=== PATIENT | female | born 1940 | race Caucasian/White ===

== ENCOUNTER 2020-03-13 11:59 | Outpatient (REF) | payer MEDICARE, OTHER, SELFPAY ==
--- NOTE | 2020-03-13 | XR_ITS ---
EXAMINATION: XR LUMBOSACRAL SPINE CLINICAL INFORMATION: Low back pain radiating to right lower leg. COMPARISON: None. TECHNIQUE: 3 views of the lumbosacral spine. FINDINGS: There is normal lumbar lordosis. There is grade 1 anterolisthesis L4 over L5. The rest the vertebral alignment is normal. There is mild loss of L2-L3, L5-S1 disc heights with mild ventral spondylosis. No visible acute fracture, dislocation or lytic process seen. There is minimal levoscoliosis. There are multiple radiopaque gallstones present. XR/XR lumbar spine 2-3V IMPRESSION: Grade 1 anterolisthesis L4 over L5. Mild degenerative disc changes L2-L3 and L5-S1 disc levels with mild ventral spondylosis. Mild levoscoliosis. Cholelithiasis.
== END 2020-03-13 12:00 | disposition home or self-care (01) ==
LOC: HO.HMGCX 11:59
PROVIDERS: PCP Internal Medicine; Visit Provider Internal Medicine
DX: M54.5 Low back pain (principal)
CPT/HCPCS: 72100

== ENCOUNTER 2020-04-09 14:30 | Outpatient (REF) | payer MEDICARE, OTHER, SELFPAY ==
--- NOTE | 2020-04-09 14:37 | CT_ITS ---
EXAMINATION: CT ABDOMEN AND PELVIS WITH CONTRAST CLINICAL INFORMATION: Leukocytosis, tenderness, rule out diverticulitis. COMPARISON: 01/17/2018 TECHNIQUE: Multidetector volumetric images were obtained from the superior aspect of the liver through the pubic symphysis following administration 85 mL of Omnipaque 350 intravenous contrast. Sagittal and coronal reformatted images were obtained on the technologist's workstation. Oral contrast: No This CT examination was performed using dose optimization techniques as appropriate, variously including the following: *Automated exposure control *Adjustment of mA and/or kV according to patient size (this includes techniques or standardized protocols for targeted exams where dose is matched to indication/reason for exam; i.e. extremities or head) *Use of iterative reconstruction technique DLP: 478 mGy-cm FINDINGS: LUNG BASES: Mild bibasilar atelectasis. LIVER, GALLBLADDER, AND BILIARY TREE: There are several small low-attenuation lesions in liver, appearing similar as compared to the prior study. These are too small to characterize by CT. Larger lesion left lobe measures 6 mm. Gallstones. No acute inflammatory changes evident by CT. PANCREAS: Unremarkable. Stable small calcified focus. SPLEEN: Unremarkable. ADRENAL GLANDS: Unremarkable. KIDNEYS AND URETERS: The kidneys are normal in size, shape, and attenuation. No hydronephrosis, hydroureter, or calculi seen. No perinephric stranding. BLADDER: Underdistended. There is mild bladder wall thickening which could be related to underdistention versus other etiologies such as cystitis. GASTROINTESTINAL TRACT: There is diverticulosis of the large colon. There is a mild haziness and inflammatory changes adjacent to the sigmoid colon in the left lower pelvis, raising concern for diverticulitis. No focal fluid collections or free air is seen. Stomach is nondistended. No dilatation of the small bowel. Appendix is normal. ABDOMINAL WALL: No significant hernia is appreciated. LYMPH NODES: There are nonspecific subcentimeter lymph nodes in the retroperitoneum which were seen on the prior study, some of which may be slightly more prominent as compared to previous. No lymphadenopathy by size criteria. VASCULAR: Normal caliber aorta. Extensive vascular calcification. PELVIC VISCERA: Uterus has been removed. No adnexal masses identified. OSSEOUS STRUCTURES: Redemonstrated is spondylosis in the thoracolumbar spine. Moderate to severe L5-S1 disc degeneration. Grade 1 anterolisthesis of L4. Multilevel degenerative changes otherwise in the spine. No acute or suspicious osseous abnormality. CT/CT abdomen pelvis w con IMPRESSION: Sigmoid diverticulosis with findings raising concern for mild diverticulitis. No evidence of perforation, abscess. Stable multiple small hypodense liver lesions, too small to characterize, probable cysts. Gallstones. No CT evidence of acute inflammatory changes. Further evaluation with ultrasound as clinically warranted. Slight thick wall appearance of the urinary bladder, which could be related to lack of distention versus cystitis. Correlate with urinalysis. This critical result was discussed with Dr. Maxwell at 1743 hours on 04/09/2020 and it was ascertained that the content and urgency of the report was understood at the time of direct communication.
[2020-04-09] MEDS: iohexoL 350 MG/ML 100 ML INFUS..BTL IV (17:09)
== END 2020-04-09 14:31 | disposition home or self-care (01) ==
LOC: HO.CT 14:30
PROVIDERS: Visit Provider Internal Medicine
DX: D72.829 Elevated white blood cell count, unspecified (principal)
CPT/HCPCS: 74177; Q9967

== ENCOUNTER 2020-05-27 08:45 | Outpatient (REF) | payer MEDICARE, OTHER, SELFPAY ==
--- NOTE | 2020-05-27 08:48 | MM_ITS ---
EXAMINATION: MM SCREENING DIGITAL BREAST TOMOSYNTHESIS, BILATERAL CLINICAL INFORMATION: Screening. Asymptomatic. The lifetime risk of breast cancer based on the Tyrer-Cuzick Model is 3.3%. COMPARISON: Mammography: May 22, 2019 and studies dating back to November 11, 2011 TECHNIQUE: Digital breast tomosynthesis is performed in both the craniocaudal and mediolateral oblique views along with computer-aided detection (CAD). Synthesized 2D images are generated from the tomosynthesis. Right cleavage view also performed. FINDINGS: There are scattered areas of fibroglandular density (ACR BI-RADS breast composition Category b). There is a stable right breast parenchymal pattern without evidence of dominant mass or suspicious grouping of microcalcifications. Within the superior aspect of the left breast approximately 5 cm from the nipple. There is a region of architectural distortion which appears more prominent than on prior studies and for which spot compression film and possible ultrasound is recommended. MM/MM tomosynthesis screening BI IMPRESSION: Left breast density for further evaluation as described. ASSESSMENT: BI-RADS 0: Incomplete - Need Additional Imaging Evaluation RECOMMENDATION: 1. Additional views of the left breast 2. Targeted ultrasound if warranted after review of the additional views. 3. Radiology department staff will contact the patient for additional imaging. This patient's information was entered into a reminder system with a target due date for their next mammogram.
== END 2020-05-27 08:46 | disposition home or self-care (01) ==
LOC: HO.MAMMO 08:45
PROVIDERS: PCP Internal Medicine; Visit Provider Internal Medicine
DX: Z12.31 Encounter for screening mammogram for malignant neoplasm of breast (principal)
CPT/HCPCS: 77063; 77067

== ENCOUNTER 2020-06-03 07:27 | Outpatient (REF) | payer MEDICARE, OTHER, SELFPAY ==
--- NOTE | 2020-06-03 07:32 | MM_ITS ---
EXAMINATION: MM DIAGNOSTIC DIGITAL BREAST TOMOSYNTHESIS, LEFT CLINICAL INFORMATION: Recall from screening for question of architectural changes upper left breast limited to MLO view COMPARISON: Mammography: 05/27/2019 and multiple exams dating back to 03/01/2014 TECHNIQUE: Digital breast tomosynthesis is performed. 2D images are generated from the tomosynthesis. The following views are obtained: Standard ML x2, spot MLO. FINDINGS: There are scattered areas of fibroglandular density (ACR BI-RADS breast composition Category b). The additional views show no architectural abnormality. There is no developing density or mass. No significant changes from prior studies. Results are discussed with the patient at time of visit. MM/MM tomosynthesis added views L IMPRESSION: Additional views show no significant changes from prior studies. No architectural abnormality. ASSESSMENT: BI-RADS 1: Negative RECOMMENDATION: Routine annual mammography screening. This patient's information was entered into a reminder system with a target due date for their next mammogram.
== END 2020-06-03 07:28 | disposition home or self-care (01) ==
LOC: HO.MAMMO 07:27
PROVIDERS: Visit Provider Internal Medicine
DX: R92.2 Inconclusive mammogram (principal)
CPT/HCPCS: 77061; 77065

== ENCOUNTER 2020-10-02 11:40 | Outpatient (REF) | payer MEDICARE, OTHER, SELFPAY ==
[2020-10-02 12:10] LABS: MANUAL DIFF FLAG NO
[2020-10-02 12:17] LABS: Basophils Absolute Auto 0.1 X10*3/uL (0.0-0.2); Eosinophils Absolute Auto 0.2 X10*3/uL (0.0-0.4); Eosinophils Percent Auto 2.3 % (0-4); Hematocrit 34.6 % (37-47); Hemoglobin 11.4 g/dl (12.0-16.0); Imm Gran Abs Auto 0.02 X10*3/uL (0.00-0.03); Imm Gran Pct Auto 0.2 % (0.0-0.4); Lymphocytes Absolute Auto 2.3 X10*3/uL (1.2-4.9); Lymphocytes Percent Auto 25.6 % (20-40); Mean Corpuscular HGB Conc 32.9 g/dl (31.0-35.0); Mean Corpuscular Hemoglobin 28.9 pg (27.0-33.0); Mean Corpuscular Volume 87.6 fL (80-98); Mean Platelet Volume 9.3 fL (9.4-12.3); Monocytes Absolute Auto 1.1 X10*3/uL (0.1-1.2); Monocytes Percent Auto 12.2 % (2-11); Neutrophils Absolute Auto 5.2 X10*3/uL (2.0-8.3); Neutrophils Percent Auto 58.7 % (45-73); Platelet Count 371 X10*3/uL (160-400); Red Blood Count 3.95 X10*6/uL (4.20-5.50); Red Cell Distribution Width 13.5 % (11.0-16.0); White Blood Count 8.9 X10*3/uL (4.8-10.8)
[2020-10-02 12:32] LABS: Alanine Aminotransferase 12 U/L (0-31); Alkaline Phosphatase 78 U/L (39-117); Anion Gap 13 (12-20); Aspartate Amino Transferase 15 U/L (5-31); Blood Urea Nitrogen 13 mg/dL (9-16); Calcium 10.2 mg/dL (8.4-10.2); Carbon Dioxide 27 mmol/L (22-29); Chloride 106 mmol/L (96-108); Estimated Glomerular Filt Rate > 60; Glucose Random 104 mg/dL (60-115); Potassium 4.1 mmol/L (3.3-5.1); Sodium 142 mmol/L (135-145); Total Protein 8.5 g/dL (6.5-8.0)
[2020-10-03 08:25] LABS: HBS Num1 0.24 mIU/mL (0-7.99); ~Hepatitis B Surface Antibody NONREACTIVE (Nonreactive)
[2020-10-05 02:17] LABS: IgA 18 mg/dL (70-320); IgG 416 mg/dL (600-1540); IgM 3307 mg/dL (50-300)
[2020-10-07 23:11] LABS: PES - Abn Protein Band 1 2.3 g/dL (NONE DETECTED); Prot Elec - Albumin 3.9 g/dL (3.8-4.8); Prot Elec - Alpha1 0.4 g/dL (0.2-0.3); Prot Elec - Alpha2 0.9 g/dL (0.5-0.9); Prot Elec - Beta 1 0.4 g/dL (0.4-0.6); Prot Elec - Beta 2 0.3 g/dL (0.2-0.5); Prot Elec - Gamma 2.8 g/dL (0.8-1.7); Prot Elec - Total Protein 8.5 g/dL (6.1-8.1)
== END 2020-10-02 11:41 | disposition home or self-care (01) ==
LOC: HO.LAB 11:40
PROVIDERS: PCP Internal Medicine; Visit Provider Internal Medicine Medical Oncology
DX: C83.00 Small cell B-cell lymphoma, unspecified site (principal)
CPT/HCPCS: 36415; 80053; 82784; 84155; 84165; 85025; 86706

== ENCOUNTER 2020-10-14 14:32 | Outpatient (REF) | payer MEDICARE, OTHER, SELFPAY ==
[2020-10-14 14:52] LABS: Bone Marrow SEE SEPARATE REPORT
== END 2020-10-14 14:33 | disposition home or self-care (01) ==
LOC: HO.LNP 14:32
PROVIDERS: Visit Provider Internal Medicine Medical Oncology
DX: C83.00 Small cell B-cell lymphoma, unspecified site (principal); C88.0 Waldenstrom macroglobulinemia
CPT/HCPCS: 81305; 85097; 88184; 88185; 88237; 88264; 88280; 88305; 88311; 88313; 88341; 88342

== ENCOUNTER 2020-10-28 14:17 | Outpatient (REF) | payer MEDICARE, OTHER, SELFPAY ==
[2020-10-28 15:25] LABS: MANUAL DIFF FLAG NO
[2020-10-28 15:29] LABS: Basophils Absolute Auto 0.1 X10*3/uL (0.0-0.2); Basophils Percent Auto 0.8 % (0-2); Eosinophils Absolute Auto 0.2 X10*3/uL (0.0-0.4); Eosinophils Percent Auto 1.7 % (0-4); Hematocrit 34.9 % (37-47); Hemoglobin 11.3 g/dl (12.0-16.0); Imm Gran Abs Auto 0.02 X10*3/uL (0.00-0.03); Imm Gran Pct Auto 0.2 % (0.0-0.4); Lymphocytes Absolute Auto 2.6 X10*3/uL (1.2-4.9); Lymphocytes Percent Auto 26.4 % (20-40); Mean Corpuscular HGB Conc 32.4 g/dl (31.0-35.0); Mean Corpuscular Hemoglobin 28.5 pg (27.0-33.0); Mean Corpuscular Volume 87.9 fL (80-98); Mean Platelet Volume 8.8 fL (9.4-12.3); Monocytes Absolute Auto 1.2 X10*3/uL (0.1-1.2); Monocytes Percent Auto 12.1 % (2-11); Neutrophils Absolute Auto 5.7 X10*3/uL (2.0-8.3); Neutrophils Percent Auto 58.8 % (45-73); Platelet Count 400 X10*3/uL (160-400); Red Blood Count 3.97 X10*6/uL (4.20-5.50); Red Cell Distribution Width 13.8 % (11.0-16.0); White Blood Count 9.7 X10*3/uL (4.8-10.8)
[2020-10-28 15:55] LABS: Alanine Aminotransferase 11 U/L (0-31); Albumin Level 4.1 g/dL (3.5-5.0); Alkaline Phosphatase 76 U/L (39-117); Anion Gap 10 (12-20); Aspartate Amino Transferase 15 U/L (5-31); Blood Urea Nitrogen 15 mg/dL (9-16); Carbon Dioxide 29 mmol/L (22-29); Chloride 104 mmol/L (96-108); Estimated Glomerular Filt Rate 56; Glucose Random 98 mg/dL (60-115); Potassium 4.4 mmol/L (3.3-5.1); Sodium 139 mmol/L (135-145); Total Protein 8.9 g/dL (6.5-8.0)
[2020-10-28 16:09] LABS: Calcium 10.9 mg/dL (8.4-10.2)
[2020-10-29 22:56] LABS: IgA 20 mg/dL (70-320); IgG 442 mg/dL (600-1540); IgM 3609 mg/dL (50-300)
== END 2020-10-28 14:18 | disposition home or self-care (01) ==
LOC: HO.LAB 14:17
PROVIDERS: PCP Internal Medicine; Visit Provider Internal Medicine Medical Oncology
DX: C83.00 Small cell B-cell lymphoma, unspecified site (principal)
CPT/HCPCS: 36415; 80053; 82784; 85025

== ENCOUNTER 2020-11-03 08:58 | Outpatient (REF) | payer MEDICARE, OTHER, SELFPAY ==
--- NOTE | ~2020-11-03 | CT_ITS ---
EXAMINATION: CT CHEST, ABDOMEN AND PELVIS WITH IV CONTRAST CLINICAL INFORMATION: Restaging. COMPARISON: Previous CT scans of the abdomen and pelvis, most recent April 2020 and chest x-ray July 2017. TECHNIQUE: Axial images through the chest, abdomen and pelvis following 85 mL Omnipaque 350 intravenous contrast and oral contrast. Sagittal and coronal reconstructions on the technologist workstation were performed. Patient dose 505 mGy-cm. This CT examination was performed using dose optimization techniques as appropriate, variously including the following: *Automated exposure control *Adjustment of mA and/or kV according to patient size (this includes techniques or standardized protocols for targeted exams where dose is matched to indication/reason for exam; i.e. extremities or head) *Use of iterative reconstruction technique FINDINGS: CHEST: There is a 3 mm calcified left upper lobe nodule, axial image 162 series 8. The lungs are otherwise clear. The heart is upper normal in size. There is mild coronary artery calcification. There is no pericardial effusion. Thoracic aorta is normal in caliber. There is shotty mediastinal lymphadenopathy. Largest lymph nodes are upper normal in size. Largest is a right paratracheal lymph node measuring 7 x 10 mm, axial image 9 series 4. The visualized thyroid gland is unremarkable. There is no pleural effusion or pleural thickening. Shotty bilateral axillary lymphadenopathy. No enlarged axillary lymph nodes are seen. ABDOMEN AND PELVIS: There are small low-attenuation liver lesions that are stable, probably represent cysts and largest measures 0.8 cm in the posterior segment of the right lobe, axial image 31 series 4. No new liver lesion is seen. There are gallstones in the gallbladder. There is no biliary duct dilatation. The spleen does not appear enlarged. No focal splenic lesion is seen. Pancreas is unremarkable. The adrenal glands and kidneys are unremarkable. Bladder is not full and not well evaluated. No pelvic mass is seen. There is diverticulosis of the colon. Small and large bowel are otherwise unremarkable. The appendix is unremarkable. There is question of mild wall thickening of the proximal stomach. There is stable retroperitoneal lymphadenopathy and fat stranding. No enlarged lymph nodes are seen. Largest abdominal retroperitoneal lymph node is a left para-aortic lymph node that measures 0.8 x 1.2 cm, axial image 41. Largest pelvic retroperitoneal lymph node is a left external iliac lymph node measuring 1 x 1.4 cm, axial image 67 series 4. There are small bilateral inguinal lymph nodes that are stable. There is stable periportal and precaval adenopathy. There is no ascites. There is evidence of atherosclerotic disease. No aneurysm is seen. There are degenerative changes of the spine. No fracture or bone lesion. CT/CT abdomen pelvis w con IMPRESSION: CHEST: Solitary small calcified left upper lobe nodule and shotty mediastinal and bilateral hilar lymphadenopathy. No enlarged lymph nodes. Coronary artery calcification. ABDOMEN AND PELVIS: Stable small liver lesions, probably representing cysts. Stable shotty retroperitoneal lymphadenopathy in the abdomen and pelvis, periportal and precaval lymphadenopathy and bilateral inguinal lymphadenopathy. No enlarged lymph nodes seen. Gallstones. Diverticulosis.
[2020-11-03] MEDS: Barium Sulfate Oral (Berry) 450 ML ORAL.SUSP 900 ML PO (11:57)
[2020-11-03] MEDS: iohexoL 350 MG/ML 100 ML INFUS..BTL IV (11:58)
== END 2020-11-03 08:59 | disposition home or self-care (01) ==
LOC: HO.CT 08:58
PROVIDERS: Visit Provider Internal Medicine Medical Oncology
DX: C83.00 Small cell B-cell lymphoma, unspecified site (principal)
CPT/HCPCS: 71260; 74177; Q9967

== ENCOUNTER 2020-12-02 10:06 | Outpatient (REF) | payer MEDICARE, OTHER, SELFPAY ==
[2020-12-02 11:01] LABS: MANUAL DIFF FLAG NO
[2020-12-02 11:24] LABS: Basophils Absolute Auto 0.1 X10*3/uL (0.0-0.2); Eosinophils Absolute Auto 0.3 X10*3/uL (0.0-0.4); Hematocrit 35.8 % (37-47); Hemoglobin 11.8 g/dl (12.0-16.0); Imm Gran Abs Auto 0.02 X10*3/uL (0.00-0.03); Imm Gran Pct Auto 0.2 % (0.0-0.4); Lymphocytes Absolute Auto 2.2 X10*3/uL (1.2-4.9); Lymphocytes Percent Auto 25.2 % (20-40); Mean Corpuscular Hemoglobin 29.1 pg (27.0-33.0); Mean Corpuscular Volume 88.2 fL (80-98); Mean Platelet Volume 9.4 fL (9.4-12.3); Monocytes Absolute Auto 1.2 X10*3/uL (0.1-1.2); Neutrophils Absolute Auto 4.9 X10*3/uL (2.0-8.3); Neutrophils Percent Auto 56.6 % (45-73); Platelet Count 390 X10*3/uL (160-400); Red Blood Count 4.06 X10*6/uL (4.20-5.50); Red Cell Distribution Width 13.9 % (11.0-16.0); White Blood Count 8.7 X10*3/uL (4.8-10.8)
[2020-12-02 11:38] LABS: Alanine Aminotransferase 11 U/L (0-31); Albumin Level 3.9 g/dL (3.5-5.0); Alkaline Phosphatase 81 U/L (39-117); Anion Gap 10 (12-20); Aspartate Amino Transferase 15 U/L (5-31); Bilirubin Total 1.3 mg/dL (0.0-1.0); Blood Urea Nitrogen 11 mg/dL (9-16); Carbon Dioxide 27 mmol/L (22-29); Chloride 107 mmol/L (96-108); Estimated Glomerular Filt Rate 57; Glucose Random 98 mg/dL (60-115); Potassium 4.2 mmol/L (3.3-5.1); Sodium 140 mmol/L (135-145); Total Protein 8.7 g/dL (6.5-8.0)
[2020-12-02 11:46] LABS: Calcium 10.6 mg/dL (8.4-10.2)
[2020-12-04 14:46] LABS: PES - Abn Protein Band 1 2.2 g/dL (NONE DETECTED); Prot Elec - Albumin 3.9 g/dL (3.8-4.8); Prot Elec - Alpha1 0.3 g/dL (0.2-0.3); Prot Elec - Alpha2 0.9 g/dL (0.5-0.9); Prot Elec - Beta 1 0.3 g/dL (0.4-0.6); Prot Elec - Beta 2 0.3 g/dL (0.2-0.5); Prot Elec - Gamma 2.8 g/dL (0.8-1.7); Prot Elec - Total Protein 8.5 g/dL (6.1-8.1)
[2020-12-05 17:17] LABS: IgA 20 mg/dL (70-320); IgG 409 mg/dL (600-1540); IgM 3993 mg/dL (50-300)
[2020-12-06 09:31] LABS: Viscosity 2.5 rel to H2O (1.5-1.9)
== END 2020-12-02 10:07 | disposition home or self-care (01) ==
LOC: HO.LAB 10:06
PROVIDERS: PCP Internal Medicine; Visit Provider Internal Medicine Medical Oncology
DX: D47.2 Monoclonal gammopathy (principal); D75.9 Disease of blood and blood-forming organs, unspecified; D64.9 Anemia, unspecified
CPT/HCPCS: 36415; 80053; 82784; 84165; 85025; 85810; 86334

== ENCOUNTER 2021-01-05 10:48 | Outpatient (REF) | payer MEDICARE, OTHER, SELFPAY ==
[2021-01-05 11:29] LABS: MANUAL DIFF FLAG NO
[2021-01-05 11:42] LABS: Basophils Absolute Auto 0.1 X10*3/uL (0.0-0.2); Basophils Percent Auto 1.1 % (0-2); Eosinophils Absolute Auto 0.2 X10*3/uL (0.0-0.4); Eosinophils Percent Auto 2.6 % (0-4); Hematocrit 35.7 % (37-47); Hemoglobin 11.9 g/dl (12.0-16.0); Imm Gran Abs Auto 0.03 X10*3/uL (0.00-0.03); Imm Gran Pct Auto 0.3 % (0.0-0.4); Lymphocytes Absolute Auto 2.2 X10*3/uL (1.2-4.9); Lymphocytes Percent Auto 24.4 % (20-40); Mean Corpuscular HGB Conc 33.3 g/dl (31.0-35.0); Mean Corpuscular Hemoglobin 29.5 pg (27.0-33.0); Mean Corpuscular Volume 88.6 fL (80-98); Mean Platelet Volume 9.6 fL (9.4-12.3); Monocytes Absolute Auto 1.1 X10*3/uL (0.1-1.2); Monocytes Percent Auto 12.2 % (2-11); Neutrophils Absolute Auto 5.4 X10*3/uL (2.0-8.3); Neutrophils Percent Auto 59.4 % (45-73); Platelet Count 379 X10*3/uL (160-400); Red Blood Count 4.03 X10*6/uL (4.20-5.50); Red Cell Distribution Width 13.4 % (11.0-16.0)
[2021-01-05 11:53] LABS: Alanine Aminotransferase 12 U/L (0-31); Albumin Level 3.9 g/dL (3.5-5.0); Alkaline Phosphatase 82 U/L (39-117); Anion Gap 12 (12-20); Aspartate Amino Transferase 14 U/L (5-31); Bilirubin Total 1.1 mg/dL (0.0-1.0); Blood Urea Nitrogen 14 mg/dL (9-16); Calcium 10.9 mg/dL (8.4-10.2); Carbon Dioxide 29 mmol/L (22-29); Chloride 104 mmol/L (96-108); Estimated Glomerular Filt Rate 59; Glucose Random 104 mg/dL (60-115); Potassium 4.2 mmol/L (3.3-5.1); Sodium 141 mmol/L (135-145); Total Protein 8.5 g/dL (6.5-8.0)
[2021-01-06 22:11] LABS: PES - Abn Protein Band 1 2.1 g/dL (NONE DETECTED); Prot Elec - Albumin 3.8 g/dL (3.8-4.8); Prot Elec - Alpha1 0.3 g/dL (0.2-0.3); Prot Elec - Alpha2 0.8 g/dL (0.5-0.9); Prot Elec - Beta 1 0.3 g/dL (0.4-0.6); Prot Elec - Beta 2 0.3 g/dL (0.2-0.5); Prot Elec - Gamma 2.5 g/dL (0.8-1.7)
[2021-01-07 02:56] LABS: IgA 19 mg/dL (70-320); IgG 389 mg/dL (600-1540); IgM 3353 mg/dL (50-300)
[2021-01-10 08:27] LABS: Viscosity 2.4 rel to H2O (1.5-1.9)
== END 2021-01-05 10:49 | disposition home or self-care (01) ==
LOC: HO.LAB 10:48
PROVIDERS: PCP Internal Medicine; Visit Provider Internal Medicine Medical Oncology
DX: C83.00 Small cell B-cell lymphoma, unspecified site (principal)
CPT/HCPCS: 36415; 80053; 82784; 84165; 85025; 85810; 86334

== ENCOUNTER 2021-02-17 10:35 | Outpatient (REF) | payer MEDICARE, OTHER, SELFPAY ==
[2021-02-17 10:50] LABS: MANUAL DIFF FLAG NO
[2021-02-17 11:05] LABS: Basophils Absolute Auto 0.1 X10*3/uL (0.0-0.2); Eosinophils Absolute Auto 0.3 X10*3/uL (0.0-0.4); Eosinophils Percent Auto 3.1 % (0-4); Hematocrit 35.4 % (37-47); Imm Gran Abs Auto 0.03 X10*3/uL (0.00-0.03); Imm Gran Pct Auto 0.3 % (0.0-0.4); Lymphocytes Absolute Auto 2.7 X10*3/uL (1.2-4.9); Lymphocytes Percent Auto 28.2 % (20-40); Mean Corpuscular HGB Conc 33.9 g/dl (31.0-35.0); Mean Corpuscular Hemoglobin 29.5 pg (27.0-33.0); Mean Platelet Volume 9.1 fL (9.4-12.3); Monocytes Absolute Auto 1.1 X10*3/uL (0.1-1.2); Monocytes Percent Auto 11.8 % (2-11); Neutrophils Absolute Auto 5.3 X10*3/uL (2.0-8.3); Neutrophils Percent Auto 55.6 % (45-73); Platelet Count 429 X10*3/uL (160-400); Red Blood Count 4.07 X10*6/uL (4.20-5.50); Red Cell Distribution Width 13.4 % (11.0-16.0); White Blood Count 9.5 X10*3/uL (4.8-10.8)
[2021-02-17 11:34] LABS: Alanine Aminotransferase 13 U/L (0-31); Alkaline Phosphatase 86 U/L (39-117); Aspartate Amino Transferase 15 U/L (5-31); Bilirubin Total 1.2 mg/dL (0.0-1.0); Blood Urea Nitrogen 11 mg/dL (9-16); Estimated Glomerular Filt Rate 60; Glucose Random 106 mg/dL (60-115); Total Protein 8.4 g/dL (6.5-8.0)
[2021-02-17 11:50] LABS: Anion Gap 14 (12-20); Calcium 11.3 mg/dL (8.4-10.2); Carbon Dioxide 25 mmol/L (22-29); Chloride 103 mmol/L (96-108); Potassium 4.2 mmol/L (3.3-5.1); Sodium 138 mmol/L (135-145)
[2021-02-18 14:40] LABS: PES - Abn Protein Band 1 2.1 g/dL (NONE DETECTED); Prot Elec - Albumin 3.9 g/dL (3.8-4.8); Prot Elec - Alpha1 0.4 g/dL (0.2-0.3); Prot Elec - Alpha2 0.9 g/dL (0.5-0.9); Prot Elec - Beta 1 0.4 g/dL (0.4-0.6); Prot Elec - Beta 2 0.3 g/dL (0.2-0.5); Prot Elec - Gamma 2.6 g/dL (0.8-1.7); Prot Elec - Total Protein 8.4 g/dL (6.1-8.1)
[2021-02-19 14:26] LABS: IgA 28 mg/dL (70-320); IgG 413 mg/dL (600-1540); IgM 3309 mg/dL (50-300)
[2021-02-24 07:36] LABS: Viscosity 2.3 rel to H2O (1.5-1.9)
== END 2021-02-17 10:36 | disposition home or self-care (01) ==
LOC: HO.LAB 10:35
PROVIDERS: PCP Internal Medicine; Visit Provider Internal Medicine Medical Oncology
DX: D75.9 Disease of blood and blood-forming organs, unspecified (principal); D64.9 Anemia, unspecified; C83.00 Small cell B-cell lymphoma, unspecified site
CPT/HCPCS: 36415; 80053; 82784; 84165; 85025; 85810; 86334

== ENCOUNTER 2021-03-17 10:32 | Outpatient (REF) | payer MEDICARE, OTHER, SELFPAY ==
[2021-03-17 10:43] LABS: MANUAL DIFF FLAG NO
[2021-03-17 11:03] LABS: Basophils Absolute Auto 0.1 X10*3/uL (0.0-0.2); Basophils Percent Auto 0.7 % (0-2); Eosinophils Absolute Auto 0.2 X10*3/uL (0.0-0.4); Eosinophils Percent Auto 2.5 % (0-4); Hematocrit 34.8 % (37.0-47.0); Hemoglobin 11.6 g/dl (12.0-16.0); Imm Gran Abs Auto 0.02 X10*3/uL (0.00-0.03); Imm Gran Pct Auto 0.2 % (0.0-0.4); Lymphocytes Absolute Auto 3.1 X10*3/uL (1.2-4.9); Lymphocytes Percent Auto 31.6 % (20-40); Mean Corpuscular HGB Conc 33.3 g/dl (31.0-35.0); Mean Corpuscular Hemoglobin 29.4 pg (27.0-33.0); Mean Corpuscular Volume 88.3 fL (80.0-98.0); Mean Platelet Volume 9.3 fL (9.4-12.3); Monocytes Absolute Auto 1.1 X10*3/uL (0.1-1.2); Monocytes Percent Auto 10.9 % (2-11); Neutrophils Absolute Auto 5.2 x10*3/uL (2.0-8.3); Neutrophils Percent Auto 54.1 % (45-73); Platelet Count 362 X10*3/uL (160-400); Red Blood Count 3.94 X10*6/uL (4.20-5.50); Red Cell Distribution Width 13.3 % (11.0-16.0); White Blood Count 9.7 X10*3/uL (4.8-10.8)
[2021-03-17 11:38] LABS: Alanine Aminotransferase 14 U/L (0-31); Albumin Level 3.9 g/dL (3.5-5.0); Alkaline Phosphatase 81 U/L (39-117); Anion Gap 10 (12-20); Aspartate Amino Transferase 16 U/L (5-31); Bilirubin Total 1.1 mg/dL (0.0-1.0); Blood Urea Nitrogen 12 mg/dL (9-16); Calcium 10.3 mg/dL (8.4-10.2); Carbon Dioxide 30 mmol/L (22-29); Chloride 104 mmol/L (96-108); Estimated Glomerular Filt Rate > 60; Glucose Random 114 mg/dL (60-115); Potassium 4.4 mmol/L (3.3-5.1); Sodium 140 mmol/L (135-145); Total Protein 8.3 g/dL (6.5-8.0)
[2021-03-18 16:37] LABS: Calcium (PTHI) 10.4 mg/dL (8.6-10.4); PTHI 46 pg/mL (14-64)
== END 2021-03-17 10:33 | disposition home or self-care (01) ==
LOC: HO.LAB 10:32
PROVIDERS: PCP Internal Medicine; Visit Provider Internal Medicine Medical Oncology
DX: D64.9 Anemia, unspecified (principal); C83.00 Small cell B-cell lymphoma, unspecified site; C88.0 Waldenstrom macroglobulinemia
CPT/HCPCS: 36415; 80053; 83970; 85025

== ENCOUNTER 2021-06-17 15:06 | Outpatient (REF) | payer MEDICARE, SELFPAY ==
[2021-06-17 15:22] LABS: MANUAL DIFF FLAG NO
[2021-06-17 15:39] LABS: Basophils Absolute Auto 0.1 X10*3/uL (0.0-0.2); Eosinophils Absolute Auto 0.2 X10*3/uL (0.0-0.4); Eosinophils Percent Auto 2.3 % (0-4); Hematocrit 35.1 % (37.0-47.0); Hemoglobin 11.6 g/dl (12.0-16.0); Imm Gran Abs Auto 0.02 X10*3/uL (0.00-0.03); Imm Gran Pct Auto 0.2 % (0.0-0.4); Lymphocytes Absolute Auto 2.9 X10*3/uL (1.2-4.9); Lymphocytes Percent Auto 28.8 % (20-40); Mean Corpuscular Hemoglobin 28.8 pg (27.0-33.0); Mean Corpuscular Volume 87.1 fL (80.0-98.0); Mean Platelet Volume 9.2 fL (9.4-12.3); Monocytes Percent Auto 10.2 % (2-11); Neutrophils Absolute Auto 5.7 x10*3/uL (2.0-8.3); Neutrophils Percent Auto 57.5 % (45-73); Platelet Count 393 X10*3/uL (160-400); Red Blood Count 4.03 X10*6/uL (4.20-5.50); Red Cell Distribution Width 13.1 % (11.0-16.0); White Blood Count 9.9 X10*3/uL (4.8-10.8)
[2021-06-17 16:09] LABS: Alanine Aminotransferase 11 U/L (0-31); Albumin Level 3.9 g/dL (3.5-5.0); Alkaline Phosphatase 79 U/L (39-117); Anion Gap 13 (12-20); Aspartate Amino Transferase 13 U/L (5-31); Bilirubin Total 0.8 mg/dL (0.0-1.0); Blood Urea Nitrogen 12 mg/dL (9-16); Calcium 10.2 mg/dL (8.4-10.2); Carbon Dioxide 26 mmol/L (22-29); Chloride 105 mmol/L (96-108); Estimated Glomerular Filt Rate 53; Glucose Random 139 mg/dL (60-115); Potassium 4.3 mmol/L (3.3-5.1); Sodium 140 mmol/L (135-145); Total Protein 8.5 g/dL (6.5-8.0)
[2021-06-22 06:12] LABS: Viscosity 2.2 rel to H2O (1.5-1.9)
[2021-06-23 13:22] LABS: Prot Elec - Albumin 4.1 g/dL (3.8-4.8); Prot Elec - Alpha1 0.3 g/dL (0.2-0.3); Prot Elec - Alpha2 0.9 g/dL (0.5-0.9); Prot Elec - Beta 1 0.4 g/dL (0.4-0.6); Prot Elec - Beta 2 0.3 g/dL (0.2-0.5); Prot Elec - Gamma 2.5 g/dL (0.8-1.7); Prot Elec - Total Protein 8.3 g/dL (6.1-8.1)
[2021-06-24 13:36] LABS: IgA 21 mg/dL (70-320); IgG 469 mg/dL (600-1540); IgM 4030 mg/dL (50-300)
== END 2021-06-17 15:07 | disposition home or self-care (01) ==
LOC: HO.LAB 15:06
PROVIDERS: PCP Internal Medicine; Visit Provider Internal Medicine Medical Oncology
DX: D64.9 Anemia, unspecified (principal)
CPT/HCPCS: 36415; 80053; 82784; 84165; 85025; 85810; 86334

== ENCOUNTER 2021-06-18 14:53 | Outpatient (REF) | payer MEDICARE, SELFPAY ==
--- NOTE | ~2021-06-18 | MM_ITS ---
EXAMINATION: MM SCREENING DIGITAL BREAST TOMOSYNTHESIS, BILATERAL CLINICAL INFORMATION: Screening. Asymptomatic. The lifetime risk of breast cancer based on the Tyrer-Cuzick Model is 3.1%. COMPARISON: Mammography: 06/03/2020 and studies dating back to 03/01/2014. TECHNIQUE: Digital breast tomosynthesis is performed in both the craniocaudal and mediolateral oblique views along with computer-aided detection (CAD). Synthesized 2D images are generated from the tomosynthesis. FINDINGS: There are scattered areas of fibroglandular density (ACR BI-RADS breast composition Category b). There are no significant masses, abnormal calcifications, or other abnormalities. There is a new grouping of calcifications about the deep superior aspect of the left breast which are seen to represent skin calcifications on tomosynthesis views. MM/MM tomosynthesis screening BI IMPRESSION: There are no significant changes from prior study. ASSESSMENT: BI-RADS 1: Negative RECOMMENDATION: Routine annual mammography screening. This patient's information was entered into a reminder system with a target due date for their next mammogram.
== END 2021-06-18 14:54 | disposition home or self-care (01) ==
LOC: HO.MAMMO 14:53
PROVIDERS: PCP Internal Medicine; Visit Provider Internal Medicine
DX: Z12.31 Encounter for screening mammogram for malignant neoplasm of breast (principal)
CPT/HCPCS: 77063; 77067

== ENCOUNTER 2021-09-15 09:11 | Outpatient (REF) | payer MEDICARE, OTHER, SELFPAY ==
[2021-09-15 09:34] LABS: MANUAL DIFF FLAG NO
[2021-09-15 09:52] LABS: Basophils Absolute Auto 0.1 X10*3/uL (0.0-0.2); Basophils Percent Auto 1.2 % (0-2); Eosinophils Absolute Auto 0.2 X10*3/uL (0.0-0.4); Eosinophils Percent Auto 2.8 % (0-4); Hemoglobin 11.9 g/dl (12.0-16.0); Imm Gran Abs Auto 0.02 X10*3/uL (0.00-0.03); Imm Gran Pct Auto 0.2 % (0.0-0.4); Lymphocytes Absolute Auto 2.4 X10*3/uL (1.2-4.9); Lymphocytes Percent Auto 27.4 % (20-40); Mean Corpuscular HGB Conc 33.1 g/dl (31.0-35.0); Mean Corpuscular Hemoglobin 28.7 pg (27.0-33.0); Mean Corpuscular Volume 86.7 fL (80.0-98.0); Mean Platelet Volume 9.1 fL (9.4-12.3); Monocytes Absolute Auto 0.9 X10*3/uL (0.1-1.2); Monocytes Percent Auto 10.6 % (2-11); Neutrophils Percent Auto 57.8 % (45-73); Platelet Count 409 X10*3/uL (160-400); Red Blood Count 4.15 X10*6/uL (4.20-5.50); Red Cell Distribution Width 13.1 % (11.0-16.0); White Blood Count 8.6 X10*3/uL (4.8-10.8)
[2021-09-15 10:28] LABS: Alanine Aminotransferase 8 U/L (0-31); Albumin Level 3.8 g/dL (3.5-5.0); Alkaline Phosphatase 84 U/L (39-117); Anion Gap 11 (12-20); Aspartate Amino Transferase 10 U/L (5-31); Bilirubin Total 1.2 mg/dL (0.0-1.0); Blood Urea Nitrogen 9 mg/dL (9-16); Calcium 10.3 mg/dL (8.4-10.2); Carbon Dioxide 27 mmol/L (22-29); Chloride 107 mmol/L (96-108); Cholesterol 128 mg/dL; Estimated Glomerular Filt Rate > 60; Glucose Fasting 117 mg/dL (60-99); HDL Cholesterol 34 mg/dL; LDL Cholesterol Calculated 82 mg/dl; Potassium 4.3 mmol/L (3.3-5.1); Sodium 141 mmol/L (135-145); Total Protein 8.7 g/dL (6.5-8.0); Triglycerides 64 mg/dL
[2021-09-17 22:56] LABS: PES - Abn Protein Band 1 2.2 g/dL (NONE DETECTED); Prot Elec - Albumin 3.8 g/dL (3.8-4.8); Prot Elec - Alpha1 0.4 g/dL (0.2-0.3); Prot Elec - Alpha2 0.9 g/dL (0.5-0.9); Prot Elec - Beta 1 0.4 g/dL (0.4-0.6); Prot Elec - Beta 2 0.3 g/dL (0.2-0.5); Prot Elec - Gamma 2.5 g/dL (0.8-1.7); Prot Elec - Total Protein 8.2 g/dL (6.1-8.1)
[2021-09-19 13:36] LABS: IgA 25 mg/dL (70-320); IgG 421 mg/dL (600-1540); IgM 3575 mg/dL (50-300)
[2021-09-21 13:07] LABS: Viscosity 2.2 rel to H2O (1.5-1.9)
== END 2021-09-15 09:12 | disposition home or self-care (01) ==
LOC: HO.LAB 09:11
PROVIDERS: PCP Internal Medicine; Visit Provider Internal Medicine Medical Oncology
DX: D64.9 Anemia, unspecified (principal)
CPT/HCPCS: 36415; 80053; 80061; 82784; 84165; 85025; 85810; 86334

== ENCOUNTER 2021-10-08 15:45 | Outpatient (REF) | payer MEDICARE, OTHER, SELFPAY ==
--- NOTE | ~2021-10-08 | XR_ITS ---
EXAMINATION: XR KNEE, LEFT CLINICAL INFORMATION: Left knee pain COMPARISON: None TECHNIQUE: Four views of the left knee. FINDINGS: No fracture or subluxation. Compartmental joint spaces are maintained. No joint effusion. The soft tissues are unremarkable. XR/XR knee LT 4V IMPRESSION: Normal left knee.
== END 2021-10-08 15:46 | disposition home or self-care (01) ==
LOC: HO.HMGCX 15:45
PROVIDERS: PCP Internal Medicine; Visit Provider Internal Medicine
DX: M25.562 Pain in left knee (principal)
CPT/HCPCS: 73564

== ENCOUNTER 2022-01-05 12:42 | Outpatient (REF) | payer MEDICARE, OTHER, SELFPAY ==
[2022-01-05 13:26] LABS: MANUAL DIFF FLAG NO
[2022-01-05 13:53] LABS: Basophils Absolute Auto 0.1 X10*3/uL (0.0-0.2); Eosinophils Absolute Auto 0.2 X10*3/uL (0.0-0.4); Eosinophils Percent Auto 2.5 % (0-4); Hematocrit 36.5 % (37.0-47.0); Hemoglobin 12.1 g/dl (12.0-16.0); Imm Gran Abs Auto 0.02 X10*3/uL (0.00-0.03); Imm Gran Pct Auto 0.2 % (0.0-0.4); Lymphocytes Absolute Auto 2.3 X10*3/uL (1.2-4.9); Lymphocytes Percent Auto 23.8 % (20-40); Mean Corpuscular HGB Conc 33.2 g/dl (31.0-35.0); Mean Corpuscular Hemoglobin 28.4 pg (27.0-33.0); Mean Corpuscular Volume 85.7 fL (80.0-98.0); Mean Platelet Volume 9.3 fL (9.4-12.3); Monocytes Absolute Auto 0.8 X10*3/uL (0.1-1.2); Monocytes Percent Auto 8.7 % (2-11); Neutrophils Absolute Auto 6.1 x10*3/uL (2.0-8.3); Neutrophils Percent Auto 63.8 % (45-73); Platelet Count 415 X10*3/uL (160-400); Red Blood Count 4.26 X10*6/uL (4.20-5.50); Red Cell Distribution Width 13.2 % (11.0-16.0); White Blood Count 9.6 X10*3/uL (4.8-10.8)
[2022-01-05 14:26] LABS: Alanine Aminotransferase 8 U/L (0-31); Albumin Level 3.9 g/dL (3.5-5.0); Alkaline Phosphatase 86 U/L (39-117); Anion Gap 16 (12-20); Aspartate Amino Transferase 10 U/L (5-31); Bilirubin Total 0.9 mg/dL (0.0-1.0); Blood Urea Nitrogen 11 mg/dL (9-16); Calcium 10.3 mg/dL (8.4-10.2); Carbon Dioxide 24 mmol/L (22-29); Chloride 106 mmol/L (96-108); Estimated Glomerular Filt Rate 50; Glucose Random 146 mg/dL (60-115); Potassium 3.9 mmol/L (3.3-5.1); Sodium 142 mmol/L (135-145); Total Protein 8.6 g/dL (6.5-8.0)
[2022-01-05 14:37] LABS: Erythrocyte Sedimentation Rate 96 MM/HR (0-20)
[2022-01-08 15:01] LABS: Viscosity 2.8 rel to H2O (1.5-1.9)
[2022-01-13 11:07] LABS: IgA 17 mg/dL (70-320); IgG 399 mg/dL (600-1540); IgM 3989 mg/dL (50-300)
== END 2022-01-05 12:43 | disposition home or self-care (01) ==
LOC: HO.LAB 12:42
PROVIDERS: PCP Internal Medicine; Visit Provider Internal Medicine Medical Oncology
DX: D64.9 Anemia, unspecified (principal); C83.00 Small cell B-cell lymphoma, unspecified site
CPT/HCPCS: 36415; 80053; 82784; 85025; 85652; 85810

== ENCOUNTER 2022-03-11 12:34 | Outpatient (REF) | payer MEDICARE, OTHER, SELFPAY ==
[2022-03-11 12:46] LABS: MANUAL DIFF FLAG NO
[2022-03-11 13:28] LABS: Basophils Absolute Auto 0.1 X10*3/uL (0.0-0.2); Basophils Percent Auto 1.2 % (0-2); Eosinophils Absolute Auto 0.3 X10*3/uL (0.0-0.4); Eosinophils Percent Auto 2.7 % (0-4); Hematocrit 36.1 % (37.0-47.0); Hemoglobin 11.9 g/dl (12.0-16.0); Imm Gran Abs Auto 0.03 X10*3/uL (0.00-0.03); Imm Gran Pct Auto 0.3 % (0.0-0.4); Lymphocytes Absolute Auto 2.2 X10*3/uL (1.2-4.9); Lymphocytes Percent Auto 23.3 % (20-40); Mean Corpuscular Hemoglobin 28.7 pg (27.0-33.0); Mean Corpuscular Volume 87.2 fL (80.0-98.0); Mean Platelet Volume 9.6 fL (9.4-12.3); Monocytes Absolute Auto 1.1 X10*3/uL (0.1-1.2); Monocytes Percent Auto 11.8 % (2-11); Neutrophils Absolute Auto 5.8 x10*3/uL (2.0-8.3); Neutrophils Percent Auto 60.7 % (45-73); Platelet Count 407 X10*3/uL (160-400); Red Blood Count 4.14 X10*6/uL (4.20-5.50); Red Cell Distribution Width 13.5 % (11.0-16.0); White Blood Count 9.6 X10*3/uL (4.8-10.8)
[2022-03-11 13:58] LABS: Alanine Aminotransferase 9 U/L (0-31); Alkaline Phosphatase 88 U/L (39-117); Anion Gap 15 (12-20); Aspartate Amino Transferase 12 U/L (5-31); Bilirubin Total 1.2 mg/dL (0.0-1.0); Blood Urea Nitrogen 13 mg/dL (9-16); Calcium 10.1 mg/dL (8.4-10.2); Carbon Dioxide 26 mmol/L (22-29); Chloride 103 mmol/L (96-108); Estimated Glomerular Filt Rate > 60; Glucose Random 106 mg/dL (60-115); Potassium 4.1 mmol/L (3.3-5.1); Sodium 140 mmol/L (135-145); Total Protein 8.9 g/dL (6.5-8.0)
[2022-03-12 14:36] LABS: Beta-2 Microglobulin, Serum 3.89 mg/L (< OR = 2.51)
[2022-03-15 15:16] LABS: IgA 17 mg/dL (70-320); IgG 400 mg/dL (600-1540); IgM 4018 mg/dL (50-300)
[2022-03-15 17:32] LABS: Viscosity 2.6 rel to H2O (1.5-1.9)
[2022-03-16 12:03] LABS: PES - Abn Protein Band 1 2.4 g/dL (NONE DETECTED); Prot Elec - Albumin 4.1 g/dL (3.8-4.8); Prot Elec - Alpha1 0.3 g/dL (0.2-0.3); Prot Elec - Alpha2 0.8 g/dL (0.5-0.9); Prot Elec - Beta 1 0.4 g/dL (0.4-0.6); Prot Elec - Beta 2 0.3 g/dL (0.2-0.5); Prot Elec - Gamma 2.8 g/dL (0.8-1.7); Prot Elec - Total Protein 8.7 g/dL (6.1-8.1)
== END 2022-03-11 12:35 | disposition home or self-care (01) ==
LOC: HO.LAB 12:34
PROVIDERS: PCP Internal Medicine; Visit Provider Internal Medicine Medical Oncology
DX: C83.00 Small cell B-cell lymphoma, unspecified site (principal); D64.9 Anemia, unspecified
CPT/HCPCS: 36415; 80053; 82232; 82784; 84165; 85025; 85810; 86334

== ENCOUNTER 2022-05-20 10:43 | Outpatient (REF) | payer MEDICARE, OTHER, SELFPAY ==
[2022-05-20 11:01] LABS: MANUAL DIFF FLAG NO
[2022-05-20 11:44] LABS: Basophils Absolute Auto 0.1 X10*3/uL (0.0-0.2); Basophils Percent Auto 1.2 % (0-2); Eosinophils Absolute Auto 0.2 X10*3/uL (0.0-0.4); Eosinophils Percent Auto 2.1 % (0-4); Hematocrit 37.8 % (37.0-47.0); Hemoglobin 12.4 g/dl (12.0-16.0); Imm Gran Abs Auto 0.02 X10*3/uL (0.00-0.03); Imm Gran Pct Auto 0.2 % (0.0-0.4); Lymphocytes Absolute Auto 2.3 X10*3/uL (1.2-4.9); Lymphocytes Percent Auto 24.2 % (20-40); Mean Corpuscular HGB Conc 32.8 g/dl (31.0-35.0); Mean Corpuscular Hemoglobin 28.6 pg (27.0-33.0); Mean Corpuscular Volume 87.3 fL (80.0-98.0); Mean Platelet Volume 9.5 fL (9.4-12.3); Monocytes Absolute Auto 1.2 X10*3/uL (0.1-1.2); Monocytes Percent Auto 12.9 % (2-11); Neutrophils Absolute Auto 5.7 x10*3/uL (2.0-8.3); Neutrophils Percent Auto 59.4 % (45-73); Platelet Count 432 X10*3/uL (160-400); Red Blood Count 4.33 X10*6/uL (4.20-5.50); Red Cell Distribution Width 13.2 % (11.0-16.0); White Blood Count 9.5 X10*3/uL (4.8-10.8)
[2022-05-20 12:08] LABS: Alanine Aminotransferase 12 U/L (0-31); Alkaline Phosphatase 99 U/L (39-117); Anion Gap 12 (12-20); Aspartate Amino Transferase 13 U/L (5-31); Bilirubin Total 0.9 mg/dL (0.0-1.0); Blood Urea Nitrogen 11 mg/dL (9-16); Calcium 10.6 mg/dL (8.4-10.2); Carbon Dioxide 30 mmol/L (22-29); Chloride 103 mmol/L (96-108); Estimated Glomerular Filt Rate > 60; Glucose Random 74 mg/dL (60-115); Lactate Dehydrogenase 142 U/L (122-220); Sodium 141 mmol/L (135-145); Total Protein 8.8 g/dL (6.5-8.0)
[2022-05-24 14:59] LABS: PES - Abn Protein Band 1 2.4 g/dL (NONE DETECTED); Prot Elec - Albumin 4.3 g/dL (3.8-4.8); Prot Elec - Alpha1 0.4 g/dL (0.2-0.3); Prot Elec - Alpha2 0.9 g/dL (0.5-0.9); Prot Elec - Beta 1 0.4 g/dL (0.4-0.6); Prot Elec - Beta 2 0.3 g/dL (0.2-0.5); Prot Elec - Gamma 2.8 g/dL (0.8-1.7)
[2022-05-25 13:49] LABS: IgA 18 mg/dL (70-320); IgG 393 mg/dL (600-1540); IgM 3529 mg/dL (50-300)
[2022-05-25 23:34] LABS: Viscosity 2.5 rel to H2O (1.5-1.9)
== END 2022-05-20 10:44 | disposition home or self-care (01) ==
LOC: HO.LAB 10:43
PROVIDERS: PCP Internal Medicine; Visit Provider Internal Medicine Medical Oncology
DX: C83.00 Small cell B-cell lymphoma, unspecified site (principal); D75.9 Disease of blood and blood-forming organs, unspecified; D64.9 Anemia, unspecified
CPT/HCPCS: 36415; 80053; 82784; 83615; 84165; 85025; 85810; 86334

== ENCOUNTER 2022-06-23 14:48 | Outpatient (REF) | payer MEDICARE, OTHER, SELFPAY ==
--- NOTE | ~2022-06-23 | MM_ITS ---
EXAMINATION: MM SCREENING DIGITAL BREAST TOMOSYNTHESIS, BILATERAL CLINICAL INFORMATION: Screening. Asymptomatic. The lifetime risk of breast cancer based on the Tyrer-Cuzick Model is 2%. COMPARISON: Mammography: 06/18/2021, 06/03/2020, 05/27/2020, 05/22/2019 TECHNIQUE: Digital breast tomosynthesis is performed in both the craniocaudal and mediolateral oblique views along with computer-aided detection (CAD). Synthesized 2D images are generated from the tomosynthesis. FINDINGS: There are scattered areas of fibroglandular density (ACR BI-RADS breast composition Category b). There are no significant masses, abnormal calcifications, or other abnormalities. Parenchymal pattern is similar to prior studies. There is no developing density or architectural abnormality. The axilla and skin contours are unremarkable. No significant changes. MM/MM tomosynthesis screening BI IMPRESSION: No mammographic evidence of malignancy. ASSESSMENT: BI-RADS 1: Negative RECOMMENDATION: Routine annual mammography screening. This patient's information was entered into a reminder system with a target due date for their next mammogram.
== END 2022-06-23 14:49 | disposition home or self-care (01) ==
LOC: HO.MAMMO 14:48
PROVIDERS: PCP Internal Medicine; Visit Provider Internal Medicine
DX: Z12.31 Encounter for screening mammogram for malignant neoplasm of breast (principal)
CPT/HCPCS: 77063; 77067

== ENCOUNTER 2022-08-06 12:26 | Outpatient (REF) | payer MEDICARE, OTHER, SELFPAY ==
[2022-08-06 12:38] LABS: MANUAL DIFF FLAG NO
[2022-08-06 14:02] LABS: Basophils Absolute Auto 0.1 X10*3/uL (0.0-0.2); Basophils Percent Auto 1.1 % (0-2); Eosinophils Absolute Auto 0.3 X10*3/uL (0.0-0.4); Eosinophils Percent Auto 2.5 % (0-4); Hematocrit 37.4 % (37.0-47.0); Hemoglobin 12.2 g/dl (12.0-16.0); Imm Gran Abs Auto 0.04 X10*3/uL (0.00-0.03); Imm Gran Pct Auto 0.4 % (0.0-0.4); Lymphocytes Absolute Auto 2.1 X10*3/uL (1.2-4.9); Lymphocytes Percent Auto 20.9 % (20-40); Mean Corpuscular HGB Conc 32.6 g/dl (31.0-35.0); Mean Corpuscular Hemoglobin 28.2 pg (27.0-33.0); Mean Corpuscular Volume 86.4 fL (80.0-98.0); Mean Platelet Volume 9.7 fL (9.4-12.3); Monocytes Absolute Auto 1.2 X10*3/uL (0.1-1.2); Monocytes Percent Auto 12.6 % (2-11); Neutrophils Absolute Auto 6.1 x10*3/uL (2.0-8.3); Neutrophils Percent Auto 62.5 % (45-73); Platelet Count 395 X10*3/uL (160-400); Red Blood Count 4.33 X10*6/uL (4.20-5.50); Red Cell Distribution Width 13.3 % (11.0-16.0); White Blood Count 9.8 X10*3/uL (4.8-10.8)
[2022-08-06 14:31] LABS: Alanine Aminotransferase 10 U/L (0-31); Alkaline Phosphatase 88 U/L (39-117); Anion Gap 13 (12-20); Aspartate Amino Transferase 14 U/L (5-31); Bilirubin Total 1.3 mg/dL (0.0-1.0); Blood Urea Nitrogen 14 mg/dL (9-16); Calcium 10.2 mg/dL (8.4-10.2); Carbon Dioxide 27 mmol/L (22-29); Chloride 105 mmol/L (96-108); Estimated Glomerular Filt Rate > 60; Glucose Random 103 mg/dL (60-115); Potassium 4.6 mmol/L (3.3-5.1); Sodium 140 mmol/L (135-145); Total Protein 8.6 g/dL (6.5-8.0)
[2022-08-11 00:39] LABS: PES - Abn Protein Band 1 2.4 g/dL (NONE DETECTED); Prot Elec - Albumin 4.2 g/dL (3.8-4.8); Prot Elec - Alpha1 0.4 g/dL (0.2-0.3); Prot Elec - Alpha2 0.8 g/dL (0.5-0.9); Prot Elec - Beta 1 0.4 g/dL (0.4-0.6); Prot Elec - Beta 2 0.3 g/dL (0.2-0.5); Prot Elec - Gamma 2.7 g/dL (0.8-1.7); Prot Elec - Total Protein 8.7 g/dL (6.1-8.1)
[2022-08-12 20:38] LABS: IgA 17 mg/dL (70-320); IgG 373 mg/dL (600-1540); IgM 3411 mg/dL (50-300)
== END 2022-08-06 12:27 | disposition home or self-care (01) ==
LOC: HO.LAB 12:26
PROVIDERS: PCP Internal Medicine; Visit Provider Internal Medicine Medical Oncology
DX: C83.00 Small cell B-cell lymphoma, unspecified site (principal); D75.9 Disease of blood and blood-forming organs, unspecified
CPT/HCPCS: 36415; 80053; 82784; 84165; 85025

== ENCOUNTER 2022-12-07 11:14 | Outpatient (REF) | payer MEDICARE, OTHER, SELFPAY ==
[2022-12-07 11:41] LABS: MANUAL DIFF FLAG NO
[2022-12-07 12:07] LABS: Basophils Absolute Auto 0.1 X10*3/uL (0.0-0.2); Eosinophils Absolute Auto 0.3 X10*3/uL (0.0-0.4); Hematocrit 35.2 % (37.0-47.0); Hemoglobin 11.6 g/dl (12.0-16.0); Imm Gran Abs Auto 0.03 X10*3/uL (0.00-0.03); Imm Gran Pct Auto 0.3 % (0.0-0.4); Lymphocytes Absolute Auto 2.5 X10*3/uL (1.2-4.9); Lymphocytes Percent Auto 27.2 % (20-40); Mean Corpuscular Hemoglobin 28.4 pg (27.0-33.0); Mean Corpuscular Volume 86.3 fL (80.0-98.0); Mean Platelet Volume 9.3 fL (9.4-12.3); Monocytes Absolute Auto 1.2 X10*3/uL (0.1-1.2); Monocytes Percent Auto 12.6 % (2-11); Neutrophils Absolute Auto 5.1 x10*3/uL (2.0-8.3); Neutrophils Percent Auto 55.9 % (45-73); Platelet Count 382 X10*3/uL (160-400); Red Blood Count 4.08 X10*6/uL (4.20-5.50); Red Cell Distribution Width 13.2 % (11.0-16.0); White Blood Count 9.1 X10*3/uL (4.8-10.8)
[2022-12-07 12:49] LABS: Erythrocyte Sedimentation Rate 100 MM/HR (0-20)
[2022-12-07 13:45] LABS: Alanine Aminotransferase 10 U/L (0-31); Albumin Level 3.8 g/dL (3.5-5.0); Alkaline Phosphatase 82 U/L (39-117); Anion Gap 14 (12-20); Aspartate Amino Transferase 13 U/L (5-31); Bilirubin Total 1.1 mg/dL (0.0-1.0); Blood Urea Nitrogen 13 mg/dL (9-16); Calcium 10.3 mg/dL (8.4-10.2); Carbon Dioxide 24 mmol/L (22-29); Chloride 108 mmol/L (96-108); Estimated Glomerular Filt Rate > 60; Glucose Random 93 mg/dL (60-115); Lactate Dehydrogenase 151 U/L (122-220); Potassium 4.4 mmol/L (3.3-5.1); Sodium 142 mmol/L (135-145); Total Protein 8.6 g/dL (6.5-8.0)
[2022-12-08 11:04] LABS: PES - Abn Protein Band 1 2.6 g/dL (NONE DETECTED); Prot Elec - Albumin 3.9 g/dL (3.8-4.8); Prot Elec - Alpha1 0.3 g/dL (0.2-0.3); Prot Elec - Alpha2 0.8 g/dL (0.5-0.9); Prot Elec - Beta 1 0.3 g/dL (0.4-0.6); Prot Elec - Beta 2 0.3 g/dL (0.2-0.5); Prot Elec - Total Protein 8.6 g/dL (6.1-8.1)
[2022-12-08 17:53] LABS: Beta-2 Microglobulin, Serum 4.42 mg/L (< OR = 2.51)
[2022-12-13 21:24] LABS: IgA 17 mg/dL (70-320); IgG 373 mg/dL (600-1540); IgM 4643 mg/dL (50-300)
== END 2022-12-07 11:15 | disposition home or self-care (01) ==
LOC: HO.LAB 11:14
PROVIDERS: PCP Internal Medicine; Visit Provider Internal Medicine Medical Oncology
DX: C83.00 Small cell B-cell lymphoma, unspecified site (principal); D64.9 Anemia, unspecified
CPT/HCPCS: 36415; 80053; 82232; 82784; 83615; 84165; 85025; 85652; 86334

== ENCOUNTER → 2022-12-08 13:12 | Outpatient (REF) | payer MEDICARE, OTHER, SELFPAY ==
--- NOTE | 2022-12-08 13:16 | CA_ITS ---
Transthoracic Echocardiogram Patient (Last, First, Middle): Chrissie Wang C Gender: Female Date of : 1940 Age: 82 Procedure Date: 12/08/2022 Procedure Type: Transthoracic Echocardiogram Location: OP Height: 149.86 cm Weight: 68.04 kg BSA: 1.63 m2 Heart Rate: bpm BP: 148 / 62 mmHg Recovery Analyst: TO Referring MD: Tyler Maxwell MD Symptoms: CARDIAC MURMUR Study Quality: Adequate ECG Rhythm: Sinus Conclusions: - The left ventricular systolic function is normal. The calculated ejection fraction is 65% by biplane method. - Aortic valve sclerosis, but no significant stenosis. Findings Left Ventricle Normal left ventricular cavity size. The left ventricular systolic function is normal. The calculated ejection fraction is 65% by biplane method. There is no evidence of regional wall motion abnormalities. Evidence suggests grade I (mild) diastolic dysfunction. There is mild septal and mild basal asymmetric hypertrophy. Right Ventricle Normal right ventricular cavity size and systolic function. Atria The left atrium is mildly dilated. The right atrium is normal in size. Aortic Valve There is a normal trileaflet aortic valve. There is mild calcification of the aortic valve. There is no aortic valve regurgitation. No significant aortic stenosis. Mitral Valve There is mild mitral annular calcification. There is no mitral valve regurgitation. There is no mitral valve stenosis. Pulmonic Valve The pulmonic valve is likely normal. Tricuspid Valve Normal tricuspid valve structure. There is mild tricuspid valve regurgitation. Borderline RVSP. Great Vessels The asc aorta is normal in size. Venous The inferior vena cava is normal in size and collapses greater than 50% with inspiration. Pericardium/Pleural There is no evidence of pericardial effusion. Prior Study Comparison No prior study available for comparison. Measurements 2D Linear Measurements IVSd: 1.23 0.6-0.9/0.6-1.0 cm LVIDd: 4.64 3.9-5.3/4.2-5.9 cm LVIDd Index: 2.85 2.4-3.2/2.2-3.1 cm/m2 LVIDs: 2.69 2.0-3.6 cm LVPWd: 0.76 0.7-1.1 cm LA Diam: 4.30 2.7-3.8/3.0-4.0 cm LAIDs Index: 2.64 1.5-2.3 cm/m2 LV Mass: 199.06 67-162/88-224 g LV Mass Index: 122.12 43-95/49-115 g/m2 LVOT Diam: 1.90 3.0+(-)1.3 cm 2D Systolic Function EF 4C: 62.60 >55% EF 2C: 67.70 >55% EF BiP: 64.80 >55% Mitral Valve MV VTI: 0.38 MV Pk Grant: 1.18 MV Mn Grant: 0.77 MV Pk Grad: 6.00 MV Mn Grad: 3.00 MV Pk E: 0.95 MV PK A: 1.08 MV Decel Time: 215.00 E/A: 0.90 E'Lateral: 9.14 E'Medial: 4.46 E/E' Med: 21.30 E/E' Lat: 10.40 PHT: 63.00 MVA PHT: 3.49 MVA Continuity: 1.92 Decel [place]: 4.42 Aortic Valve AoV Pk Grant: 2.47 AoV Mn Grant: 1.67 AoV VTI: 0.56 AoV Pk Grad: 24.00 Aov Mn Grad: 13.00 PATRICIA Cont.VTI: 1.30 LVOT LVOT Pk Grant: 1.10 LVOT Mn Grant: 0.67 LVOT VTI: 0.25 LVOT Pk Grad: 5.00 LVOT Mn Grad: 2.00 LVOT Diam: 1.90 LVOT Area: 2.84 Diastolic Function MV Pk E: 0.95 MV Pk A: 1.08 E/A: 0.90 E'Medial: 4.46 E/E' Med: 21.30 E' Laterial: 9.14 E/E' Lat: 10.40 Right Ventricle TAPSE (mm): 23.00 TVS' Grant: 14.00 Tricuspid Valve TR Pk Grant: 2.84 TR Pk Grad: 32.00 RA Press: 3.00 RVSP: 35.00 Great Vessels Aorta Sinus of Valsalva: 2.85 2.0-3.5 cm Ao Asc: 3.20 2.1-3.4 cm Updated in Other Vendor System with Status of Final Jerry Schultz MD electronically signed on 12/10/2022 11:36:49 AM with status of Final
== END ==
LOC: HO.CARD 13:12
PROVIDERS: PCP Internal Medicine; Visit Provider Internal Medicine
DX: R01.1 Cardiac murmur, unspecified (principal)
CPT/HCPCS: 93306

== ENCOUNTER → 2022-12-08 13:16 | Outpatient (BNV) | payer MEDICARE, OTHER, SELFPAY | PROVIDERS: PCP Internal Medicine; Visit Provider Internal Medicine | DX: I36.1 Nonrheumatic tricuspid (valve) insufficiency (principal); I35.8 Other nonrheumatic aortic valve disorders | CPT/HCPCS: 93306 ==

== ENCOUNTER 2022-12-13 15:58 | Outpatient (REF) | payer MEDICARE, OTHER, SELFPAY ==
--- NOTE | ~2022-12-13 | US_ITS ---
EXAMINATION: US SOFT TISSUE HEAD/NECK CLINICAL INFORMATION: Enlarged submandibular gland, rule out mass. COMPARISON: None available. TECHNIQUE: Linear transducer grayscale and color Doppler examination of the left neck. FINDINGS: There is neck lymphadenopathy seen in the area of palpable submandibular region, measured 2.1 x 3.6 x 1.3 cm. The mass is hypervascular hypoechoic there is 0.9 x 0.5 x 0.8 cm complex structure with cystic center medial to the left submandibular gland and most US/US soft tiss head and/or neck likely a necrotic lymph node. IMPRESSION: There is 1.0 x 0.8 x 0.8 cm hypoechoic structure with hypervascular center lateral to the submandibular gland and superficially to internal jugular vein IMPRESSION: Masses and lymphadenopathy as described, correlate with clinical history and follow-up by IV enhanced CT scan.
== END 2022-12-13 15:59 | disposition home or self-care (01) ==
LOC: HO.US 15:58
PROVIDERS: PCP Internal Medicine; Visit Provider Internal Medicine
DX: K11.1 Hypertrophy of salivary gland (principal); D11.0 Benign neoplasm of parotid gland
CPT/HCPCS: 76536

== ENCOUNTER 2023-01-12 08:30 | Outpatient (REF) | payer MEDICARE, OTHER, SELFPAY ==
[2023-01-12 11:49] LABS: MANUAL DIFF FLAG NO
[2023-01-12 11:52] LABS: Basophils Absolute Auto 0.1 X10*3/uL (0.0-0.2); Basophils Percent Auto 1.4 % (0-2); Eosinophils Absolute Auto 0.2 X10*3/uL (0.0-0.4); Eosinophils Percent Auto 2.8 % (0-4); Hematocrit 35.8 % (37.0-47.0); Hemoglobin 11.6 g/dl (12.0-16.0); Imm Gran Abs Auto 0.02 X10*3/uL (0.00-0.03); Imm Gran Pct Auto 0.3 % (0.0-0.4); Lymphocytes Absolute Auto 1.9 X10*3/uL (1.2-4.9); Lymphocytes Percent Auto 24.4 % (20-40); Mean Corpuscular HGB Conc 32.4 g/dl (31.0-35.0); Mean Corpuscular Hemoglobin 28.3 pg (27.0-33.0); Mean Corpuscular Volume 87.3 fL (80.0-98.0); Mean Platelet Volume 9.8 fL (9.4-12.3); Monocytes Percent Auto 12.6 % (2-11); Neutrophils Absolute Auto 4.4 x10*3/uL (2.0-8.3); Neutrophils Percent Auto 58.5 % (45-73); Platelet Count 385 X10*3/uL (160-400); Red Cell Distribution Width 13.4 % (11.0-16.0); White Blood Count 7.6 X10*3/uL (4.8-10.8)
[2023-01-12 12:18] LABS: Alanine Aminotransferase 9 U/L (0-31); Albumin Level 3.8 g/dL (3.5-5.0); Alkaline Phosphatase 80 U/L (39-117); Anion Gap 14 (12-20); Aspartate Amino Transferase 12 U/L (5-31); Bilirubin Total 1.1 mg/dL (0.0-1.0); Blood Urea Nitrogen 15 mg/dL (9-16); Calcium 10.5 mg/dL (8.4-10.2); Carbon Dioxide 27 mmol/L (22-29); Chloride 106 mmol/L (96-108); Estimated Glomerular Filt Rate 53; Glucose Random 113 mg/dL (60-115); Potassium 4.1 mmol/L (3.3-5.1); Sodium 143 mmol/L (135-145); Total Protein 8.7 g/dL (6.5-8.0)
[2023-01-16 00:24] LABS: Viscosity 2.4 rel to H2O (1.5-1.9)
== END 2023-01-12 08:31 | disposition home or self-care (01) ==
LOC: HO.HMGCLDS 08:30
PROVIDERS: Absent Provider Internal Medicine Medical Oncology; PCP Internal Medicine; Visit Provider Internal Medicine
DX: R53.83 Other fatigue (principal); D64.9 Anemia, unspecified; C83.00 Small cell B-cell lymphoma, unspecified site
CPT/HCPCS: 36415; 80053; 82232; 85025; 85810

== ENCOUNTER 2023-01-20 09:57 | Outpatient (REF) | payer MEDICARE, OTHER, SELFPAY ==
--- NOTE | ~2023-01-20 | CT_ITS ---
EXAMINATION: CT SOFT TISSUE NECK WITH CONTRAST CLINICAL INFORMATION: Disease of the salivary gland COMPARISON: Soft tissue ultrasound 12/13/2022 TECHNIQUE: Following the administration of 60 mL of Omnipaque 350 intravenous contrast, helical imaging was performed in the axial plane with generation of coronal and sagittal reformatted images. This CT examination was performed using dose optimization techniques as appropriate, variously including the following: *Automated exposure control. *Adjustment of mA and/or kV according to patient size (this includes techniques or standardized protocols for targeted exams where dose is matched to indication/reason for exam; i.e. extremities or head). *Use of iterative reconstruction technique. DLP: 291 mGy-cm FINDINGS: Increased number of cervical chain lymph nodes throughout the left greater than right neck involving nearly every livan station, many of which are pathologically enlarged and/or hyperenhancing. Reference lymph nodes in long axis include a conglomerate left level Ib causing mass effect along the subjacent left submandibular gland 3.0 cm, left lateral retropharyngeal, 1.7 cm; and multiple intraparotid with largest measuring 1.2 cm. There are also small hyperenhancing right sided periparotid/intraparotid lymph nodes. There is mild perinodal fat stranding surrounding the dominant left level Ib lymph node with bulging of the overlying platysma muscle. Bilateral axillary and mediastinal lymphadenopathy are partially imaged. There is a 1.4 x 1.2 x 1.3 cm peripherally enhancing lesion within the left palatine tonsillar fossa containing fluid and air for which a necrotic mass is not excluded and recommend correlation with direct inspection. Punctate calcified tonsillolith along the posterior margin of the lesion. There is subtotal opacification of the right maxillary sinus from amorphous hyperdense soft tissue containing punctate/curvilinear calcifications, likely reflecting inspissated content/chronic fungal elements with osteitis of the sinus gray compatible with chronic sinusitis. Mild ethmoid air cell mucosal thickening. No mastoid effusion. The temporomandibular joints are normal. The patient is edentulous. 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 The vocal cords are postretirement imaging limiting assessment of the glottis. Otherwise the hypopharynx and larynx are unremarkable. The right parotid and submandibular glands are normal. The thyroid gland is normal. Minimal biapical pleural parenchymal scarring in the lung apices. Mild atherosclerosis of the craniocervical vasculature without significant stenosis. Reversal of the normal cervical lordosis with advanced spondylitic disease. No suspicious osseous lesion. The imaged portions of the brain parenchyma are unremarkable. CT/CT soft tissue neck w IV con IMPRESSION: 1. Diffuse cervical and partially imaged mediastinal and axillary lymphadenopathy. A dominant conglomerate left level Ib lvian mass measures up to 3.0 cm. Findings are highly suspicious for lymphoproliferative process such as lymphoma versus livan metastases. 2. 1.4 x 1.2 x 1.3 cm peripherally enhancing lesion within the left palatine tonsillar fossa containing fluid and air for which a necrotic mass is not excluded and recommend correlation with direct inspection is advised. Findings to be called to the ordering clinician by a [facility] Physician Per Diem Rn.
[2023-01-20] MEDS: iohexoL 350 MG/ML 100 ML INFUS..BTL IV (10:36)
== END 2023-01-20 09:58 | disposition home or self-care (01) ==
LOC: HO.CT 09:57
PROVIDERS: PCP Internal Medicine; Visit Provider Internal Medicine
DX: K11.8 Other diseases of salivary glands (principal)
CPT/HCPCS: 70491; Q9967

== ENCOUNTER 2023-02-02 10:17 | Outpatient (REF) | payer MEDICARE, OTHER, SELFPAY ==
[2023-02-02 13:05] LABS: MANUAL DIFF FLAG NO
[2023-02-02 13:14] LABS: Basophils Absolute Auto 0.1 X10*3/uL (0.0-0.2); Basophils Percent Auto 1.1 % (0-2); Eosinophils Absolute Auto 0.2 X10*3/uL (0.0-0.4); Eosinophils Percent Auto 2.8 % (0-4); Hematocrit 35.7 % (37.0-47.0); Hemoglobin 11.7 g/dl (12.0-16.0); Imm Gran Abs Auto 0.02 X10*3/uL (0.00-0.03); Imm Gran Pct Auto 0.3 % (0.0-0.4); Lymphocytes Absolute Auto 1.9 X10*3/uL (1.2-4.9); Lymphocytes Percent Auto 24.4 % (20-40); Mean Corpuscular HGB Conc 32.8 g/dl (31.0-35.0); Mean Corpuscular Hemoglobin 28.3 pg (27.0-33.0); Mean Corpuscular Volume 86.4 fL (80.0-98.0); Mean Platelet Volume 9.6 fL (9.4-12.3); Monocytes Absolute Auto 0.9 X10*3/uL (0.1-1.2); Monocytes Percent Auto 10.9 % (2-11); Neutrophils Absolute Auto 4.8 x10*3/uL (2.0-8.3); Neutrophils Percent Auto 60.5 % (45-73); Platelet Count 384 X10*3/uL (160-400); Red Blood Count 4.13 X10*6/uL (4.20-5.50); Red Cell Distribution Width 13.3 % (11.0-16.0); White Blood Count 7.9 X10*3/uL (4.8-10.8)
[2023-02-02 13:51] LABS: Alanine Aminotransferase 8 U/L (0-31); Albumin Level 3.7 g/dL (3.5-5.0); Alkaline Phosphatase 85 U/L (39-117); Anion Gap 12 (12-20); Aspartate Amino Transferase 12 U/L (5-31); Bilirubin Total 1.2 mg/dL (0.0-1.0); Blood Urea Nitrogen 11 mg/dL (9-16); Calcium 10.3 mg/dL (8.4-10.2); Carbon Dioxide 27 mmol/L (22-29); Chloride 107 mmol/L (96-108); Estimated Glomerular Filt Rate 59; Glucose Random 114 mg/dL (60-115); Potassium 3.9 mmol/L (3.3-5.1); Sodium 142 mmol/L (135-145); Total Protein 8.9 g/dL (6.5-8.0)
[2023-02-04 17:53] LABS: Beta-2 Microglobulin, Serum 4.32 mg/L (< OR = 2.51)
[2023-02-10 09:29] LABS: IgA 17 mg/dL (70-320); IgG 350 mg/dL (600-1540); IgM 3654 mg/dL (50-300)
[2023-02-10 10:44] LABS: PES - Abn Protein Band 1 2.3 g/dL (NONE DETECTED); Prot Elec - Albumin 3.9 g/dL (3.8-4.8); Prot Elec - Alpha1 0.3 g/dL (0.2-0.3); Prot Elec - Alpha2 0.8 g/dL (0.5-0.9); Prot Elec - Beta 1 0.4 g/dL (0.4-0.6); Prot Elec - Beta 2 0.1 g/dL (0.2-0.5); Prot Elec - Gamma 2.8 g/dL (0.8-1.7); Prot Elec - Total Protein 8.4 g/dL (6.1-8.1)
== END 2023-02-02 10:18 | disposition home or self-care (01) ==
LOC: HO.HMGCLDS 10:17
PROVIDERS: PCP Internal Medicine; Visit Provider Internal Medicine Medical Oncology
DX: D64.9 Anemia, unspecified (principal); C83.00 Small cell B-cell lymphoma, unspecified site
CPT/HCPCS: 36415; 80053; 82232; 82784; 84165; 85025; 86334

== ENCOUNTER 2023-04-01 09:19 | Outpatient (REF) | payer MEDICARE, OTHER, SELFPAY ==
[2023-04-01 10:25] LABS: MANUAL DIFF FLAG NO
[2023-04-01 10:29] LABS: Basophils Absolute Auto 0.1 X10*3/uL (0.0-0.2); Basophils Percent Auto 1.1 % (0-2); Eosinophils Absolute Auto 0.2 X10*3/uL (0.0-0.4); Eosinophils Percent Auto 1.9 % (0-4); Hematocrit 38.1 % (37.0-47.0); Hemoglobin 12.6 g/dl (12.0-16.0); Imm Gran Abs Auto 0.03 X10*3/uL (0.00-0.03); Imm Gran Pct Auto 0.3 % (0.0-0.4); Lymphocytes Absolute Auto 2.6 X10*3/uL (1.2-4.9); Mean Corpuscular HGB Conc 33.1 g/dl (31.0-35.0); Mean Corpuscular Hemoglobin 28.6 pg (27.0-33.0); Mean Corpuscular Volume 86.6 fL (80.0-98.0); Mean Platelet Volume 11.6 fL (9.4-12.3); Monocytes Percent Auto 9.6 % (2-11); Neutrophils Absolute Auto 6.1 x10*3/uL (2.0-8.3); Neutrophils Percent Auto 61.1 % (45-73); Platelet Count 246 X10*3/uL (160-400); Red Cell Distribution Width 13.7 % (11.0-16.0)
[2023-04-01 10:47] LABS: Alanine Aminotransferase 9 U/L (0-31); Albumin Level 4.1 g/dL (3.5-5.0); Alkaline Phosphatase 67 U/L (39-117); Anion Gap 12 (12-20); Aspartate Amino Transferase 14 U/L (5-31); Bilirubin Total 0.9 mg/dL (0.0-1.0); Blood Urea Nitrogen 16 mg/dL (9-16); Calcium 10.3 mg/dL (8.4-10.2); Carbon Dioxide 26 mmol/L (22-29); Chloride 106 mmol/L (96-108); Estimated Glomerular Filt Rate 51; Glucose Random 100 mg/dL (60-115); Potassium 4.1 mmol/L (3.3-5.1); Sodium 140 mmol/L (135-145)
== END 2023-04-01 09:20 | disposition home or self-care (01) ==
LOC: HO.HMGCLDS 09:19
PROVIDERS: PCP Internal Medicine; Visit Provider Internal Medicine Medical Oncology
DX: D64.9 Anemia, unspecified (principal); C83.00 Small cell B-cell lymphoma, unspecified site
CPT/HCPCS: 36415; 80053; 85025

== ENCOUNTER 2023-05-19 10:01 | Outpatient (REF) | payer MEDICARE, OTHER, SELFPAY ==
[2023-05-19 10:22] LABS: MANUAL DIFF FLAG NO
[2023-05-19 10:36] LABS: Basophils Absolute Auto 0.1 X10*3/uL (0.0-0.2); Basophils Percent Auto 1.4 % (0-2); Eosinophils Absolute Auto 0.1 X10*3/uL (0.0-0.4); Eosinophils Percent Auto 1.4 % (0-4); Hematocrit 39.6 % (37.0-47.0); Hemoglobin 13.3 g/dl (12.0-16.0); Imm Gran Abs Auto 0.03 X10*3/uL (0.00-0.03); Imm Gran Pct Auto 0.3 % (0.0-0.4); Lymphocytes Absolute Auto 2.6 X10*3/uL (1.2-4.9); Lymphocytes Percent Auto 26.8 % (20-40); Mean Corpuscular HGB Conc 33.6 g/dl (31.0-35.0); Mean Corpuscular Hemoglobin 28.5 pg (27.0-33.0); Mean Platelet Volume 10.6 fL (9.4-12.3); Monocytes Absolute Auto 0.9 X10*3/uL (0.1-1.2); Monocytes Percent Auto 9.5 % (2-11); Neutrophils Absolute Auto 5.8 x10*3/uL (2.0-8.3); Neutrophils Percent Auto 60.6 % (45-73); Platelet Count 292 X10*3/uL (160-400); Red Blood Count 4.66 X10*6/uL (4.20-5.50); Red Cell Distribution Width 13.3 % (11.0-16.0); White Blood Count 9.6 X10*3/uL (4.8-10.8)
[2023-05-19 11:05] LABS: Alanine Aminotransferase 9 U/L (0-31); Albumin Level 4.1 g/dL (3.5-5.0); Alkaline Phosphatase 91 U/L (39-117); Anion Gap 12 (12-20); Aspartate Amino Transferase 12 U/L (5-31); Bilirubin Total 0.9 mg/dL (0.0-1.0); Blood Urea Nitrogen 10 mg/dL (9-16); Carbon Dioxide 29 mmol/L (22-29); Chloride 106 mmol/L (96-108); Estimated Glomerular Filt Rate > 60; Glucose Random 102 mg/dL (60-115); Lactate Dehydrogenase 165 U/L (122-220); Potassium 3.8 mmol/L (3.3-5.1); Sodium 143 mmol/L (135-145); Total Protein 7.4 g/dL (6.5-8.0)
[2023-05-19 11:20] LABS: Erythrocyte Sedimentation Rate 34 MM/HR (0-20)
[2023-05-23 22:13] LABS: Viscosity 1.8 rel to H2O (1.5-1.9)
[2023-05-25 11:29] LABS: Prot Elec - Albumin 4.1 g/dL (3.8-4.8); Prot Elec - Alpha1 0.3 g/dL (0.2-0.3); Prot Elec - Alpha2 0.7 g/dL (0.5-0.9); Prot Elec - Beta 1 0.4 g/dL (0.4-0.6); Prot Elec - Beta 2 0.2 g/dL (0.2-0.5); Prot Elec - Gamma 1.4 g/dL (0.8-1.7)
[2023-05-26 14:48] LABS: IgA 17 mg/dL (70-320); IgG 327 mg/dL (600-1540); IgM 1636 mg/dL (50-300)
== END 2023-05-19 10:02 | disposition home or self-care (01) ==
LOC: HO.LAB 10:01
PROVIDERS: PCP Internal Medicine; Visit Provider Internal Medicine Medical Oncology
DX: D64.9 Anemia, unspecified (principal); D75.9 Disease of blood and blood-forming organs, unspecified; C88.0 Waldenstrom macroglobulinemia
CPT/HCPCS: 36415; 80053; 82784; 83615; 84165; 85025; 85652; 85810; 86334

== ENCOUNTER 2023-07-26 09:42 | Outpatient (REF) | payer MEDICARE, OTHER, SELFPAY ==
[2023-07-26 10:45] LABS: MANUAL DIFF FLAG NO
[2023-07-26 12:48] LABS: Basophils Absolute Auto 0.1 X10*3/uL (0.0-0.2); Basophils Percent Auto 1.4 % (0-2); Eosinophils Absolute Auto 0.1 X10*3/uL (0.0-0.4); Eosinophils Percent Auto 1.3 % (0-4); Hematocrit 39.8 % (37.0-47.0); Hemoglobin 13.3 g/dl (12.0-16.0); Imm Gran Abs Auto 0.04 X10*3/uL (0.00-0.03); Imm Gran Pct Auto 0.4 % (0.0-0.4); Lymphocytes Absolute Auto 2.1 X10*3/uL (1.2-4.9); Lymphocytes Percent Auto 21.2 % (20-40); Mean Corpuscular HGB Conc 33.4 g/dl (31.0-35.0); Mean Corpuscular Hemoglobin 29.7 pg (27.0-33.0); Mean Corpuscular Volume 88.8 fL (80.0-98.0); Mean Platelet Volume 11.4 fL (9.4-12.3); Monocytes Absolute Auto 0.9 X10*3/uL (0.1-1.2); Monocytes Percent Auto 8.6 % (2-11); Neutrophils Absolute Auto 6.7 x10*3/uL (2.0-8.3); Neutrophils Percent Auto 67.1 % (45-73); Platelet Count 304 X10*3/uL (160-400); Red Blood Count 4.48 X10*6/uL (4.20-5.50); Red Cell Distribution Width 13.2 % (11.0-16.0)
[2023-07-26 13:28] LABS: Alanine Aminotransferase 12 U/L (0-31); Albumin Level 4.2 g/dL (3.5-5.0); Alkaline Phosphatase 84 U/L (39-117); Anion Gap 13 (12-20); Aspartate Amino Transferase 13 U/L (5-31); Blood Urea Nitrogen 14 mg/dL (9-16); Calcium 9.4 mg/dL (8.4-10.2); Carbon Dioxide 25 mmol/L (22-29); Chloride 109 mmol/L (96-108); Estimated Glomerular Filt Rate > 60; Glucose Random 112 mg/dL (60-115); Potassium 3.5 mmol/L (3.3-5.1); Sodium 143 mmol/L (135-145)
[2023-07-28 09:49] LABS: IgA 16 mg/dL (70-320); IgG 289 mg/dL (600-1540); IgM 1381 mg/dL (50-300)
[2023-07-28 21:24] LABS: PES - Abn Protein Band 1 0.9 g/dL (NONE DETECTED); Prot Elec - Albumin 4.2 g/dL (3.8-4.8); Prot Elec - Alpha1 0.3 g/dL (0.2-0.3); Prot Elec - Alpha2 0.7 g/dL (0.5-0.9); Prot Elec - Beta 1 0.4 g/dL (0.4-0.6); Prot Elec - Beta 2 0.3 g/dL (0.2-0.5); Prot Elec - Gamma 1.1 g/dL (0.8-1.7); Prot Elec - Total Protein 6.9 g/dL (6.1-8.1)
[2023-07-29 23:39] LABS: Viscosity 1.6 rel to H2O (1.5-1.9)
== END 2023-07-26 09:43 | disposition home or self-care (01) ==
LOC: HO.MAMMO 09:42
PROVIDERS: Internal Medicine Medical Oncology; PCP Internal Medicine; Visit Provider Internal Medicine
DX: D64.9 Anemia, unspecified (principal); C83.00 Small cell B-cell lymphoma, unspecified site; Z12.31 Encounter for screening mammogram for malignant neoplasm of breast
CPT/HCPCS: 36415; 77063; 77067; 80053; 82784; 84165; 85025; 85810; 86334

== ENCOUNTER → 2023-07-26 09:45 | Outpatient (BNV) | payer MEDICARE, OTHER, SELFPAY | PROVIDERS: PCP Internal Medicine; Visit Provider Radiology Diagnostic Radiology | DX: Z12.31 Encounter for screening mammogram for malignant neoplasm of breast (principal) | CPT/HCPCS: 77063; 77067 ==

== ENCOUNTER 2023-10-28 09:02 | Outpatient (REF) | payer MEDICARE, OTHER, SELFPAY ==
[2023-10-28 11:23] LABS: MANUAL DIFF FLAG NO
[2023-10-28 11:32] LABS: Basophils Absolute Auto 0.2 X10*3/uL (0.0-0.2); Basophils Percent Auto 1.8 % (0-2); Eosinophils Absolute Auto 0.2 X10*3/uL (0.0-0.4); Eosinophils Percent Auto 1.7 % (0-4); Hematocrit 40.4 % (37.0-47.0); Hemoglobin 13.5 g/dl (12.0-16.0); Imm Gran Abs Auto 0.04 X10*3/uL (0.00-0.03); Imm Gran Pct Auto 0.4 % (0.0-0.4); Lymphocytes Absolute Auto 2.1 X10*3/uL (1.2-4.9); Lymphocytes Percent Auto 23.2 % (20-40); Mean Corpuscular HGB Conc 33.4 g/dl (31.0-35.0); Mean Corpuscular Hemoglobin 29.5 pg (27.0-33.0); Mean Corpuscular Volume 88.2 fL (80.0-98.0); Mean Platelet Volume 11.5 fL (9.4-12.3); Monocytes Absolute Auto 0.7 X10*3/uL (0.1-1.2); Monocytes Percent Auto 7.9 % (2-11); Platelet Count 271 X10*3/uL (160-400); Red Blood Count 4.58 X10*6/uL (4.20-5.50); Red Cell Distribution Width 13.3 % (11.0-16.0); White Blood Count 9.2 X10*3/uL (4.8-10.8)
[2023-10-28 12:18] LABS: Alanine Aminotransferase 9 U/L (0-31); Albumin Level 4.1 g/dL (3.5-5.0); Alkaline Phosphatase 73 U/L (39-117); Anion Gap 12 (12-20); Aspartate Amino Transferase 15 U/L (5-31); Blood Urea Nitrogen 14 mg/dL (9-16); Carbon Dioxide 27 mmol/L (22-29); Chloride 109 mmol/L (96-108); Estimated Glomerular Filt Rate > 60; Glucose Random 103 mg/dL (60-115); Potassium 3.7 mmol/L (3.3-5.1); Sodium 144 mmol/L (135-145); Total Protein 6.8 g/dL (6.5-8.0)
[2023-10-31 07:48] LABS: Beta-2 Microglobulin, Serum 2.65 mg/L (< OR = 2.51)
[2023-11-01 10:09] LABS: PES - Abn Protein Band 1 0.6 g/dL (NONE DETECTED); Prot Elec - Albumin 4.1 g/dL (3.8-4.8); Prot Elec - Alpha1 0.3 g/dL (0.2-0.3); Prot Elec - Alpha2 0.6 g/dL (0.5-0.9); Prot Elec - Beta 1 0.3 g/dL (0.4-0.6); Prot Elec - Beta 2 0.2 g/dL (0.2-0.5); Prot Elec - Total Protein 6.5 g/dL (6.1-8.1)
[2023-11-02 19:28] LABS: IgA 18 mg/dL (70-320); IgG 293 mg/dL (600-1540); IgM 1156 mg/dL (50-300)
== END 2023-10-28 09:03 | disposition home or self-care (01) ==
LOC: HO.HMGCLDS 09:02
PROVIDERS: PCP Internal Medicine; Visit Provider Internal Medicine Medical Oncology
DX: D64.9 Anemia, unspecified (principal); I10 Essential (primary) hypertension
CPT/HCPCS: 36415; 80053; 82232; 82784; 84165; 85025; 86334

== ENCOUNTER 2023-12-02 08:04 | Outpatient (REF) | payer MEDICARE, OTHER, SELFPAY ==
[2023-12-02 10:27] LABS: MANUAL DIFF FLAG NO
[2023-12-02 10:36] LABS: Basophils Absolute Auto 0.2 X10*3/uL (0.0-0.2); Basophils Percent Auto 1.7 % (0-2); Eosinophils Absolute Auto 0.1 X10*3/uL (0.0-0.4); Eosinophils Percent Auto 1.3 % (0-4); Hematocrit 40.6 % (37.0-47.0); Hemoglobin 13.5 g/dl (12.0-16.0); Imm Gran Abs Auto 0.03 X10*3/uL (0.00-0.03); Imm Gran Pct Auto 0.3 % (0.0-0.4); Lymphocytes Absolute Auto 1.9 X10*3/uL (1.2-4.9); Mean Corpuscular HGB Conc 33.3 g/dl (31.0-35.0); Mean Corpuscular Hemoglobin 29.2 pg (27.0-33.0); Mean Corpuscular Volume 87.7 fL (80.0-98.0); Mean Platelet Volume 11.4 fL (9.4-12.3); Monocytes Absolute Auto 0.8 X10*3/uL (0.1-1.2); Monocytes Percent Auto 8.6 % (2-11); Neutrophils Absolute Auto 6.1 x10*3/uL (2.0-8.3); Neutrophils Percent Auto 67.1 % (45-73); Platelet Count 289 X10*3/uL (160-400); Red Blood Count 4.63 X10*6/uL (4.20-5.50); Red Cell Distribution Width 13.2 % (11.0-16.0)
[2023-12-02 11:12] LABS: Alanine Aminotransferase 10 U/L (0-31); Albumin Level 4.3 g/dL (3.5-5.0); Alkaline Phosphatase 74 U/L (39-117); Anion Gap 15 (12-20); Aspartate Amino Transferase 15 U/L (5-31); Blood Urea Nitrogen 12 mg/dL (9-16); Calcium 9.6 mg/dL (8.4-10.2); Carbon Dioxide 24 mmol/L (22-29); Chloride 109 mmol/L (96-108); Cholesterol 150 mg/dL (<200); Estimated Glomerular Filt Rate > 60; Glucose Fasting 96 mg/dL (60-99); HDL Cholesterol 48 mg/dL (>40); LDL Cholesterol Calculated 77 mg/dL (<100); Potassium 3.6 mmol/L (3.3-5.1); Sodium 144 mmol/L (135-145); Total Protein 7.1 g/dL (6.5-8.0); Triglycerides 127 mg/dL (<150)
== END 2023-12-02 08:05 | disposition home or self-care (01) ==
LOC: HO.HMGCLDS 08:04
PROVIDERS: PCP Internal Medicine; Visit Provider Internal Medicine
DX: R53.83 Other fatigue (principal); E78.5 Hyperlipidemia, unspecified
CPT/HCPCS: 36415; 80053; 80061; 85025

== ENCOUNTER 2024-02-03 08:09 | Outpatient (REF) | payer MEDICARE, OTHER, SELFPAY ==
[2024-02-03 10:07] LABS: MANUAL DIFF FLAG NO
[2024-02-03 10:11] LABS: Basophils Absolute Auto 0.1 X10*3/uL (0.0-0.2); Basophils Percent Auto 1.4 % (0-2); Eosinophils Absolute Auto 0.1 X10*3/uL (0.0-0.4); Eosinophils Percent Auto 1.3 % (0-4); Hematocrit 38.7 % (37.0-47.0); Imm Gran Abs Auto 0.04 X10*3/uL (0.00-0.03); Imm Gran Pct Auto 0.5 % (0.0-0.4); Lymphocytes Absolute Auto 1.6 X10*3/uL (1.2-4.9); Lymphocytes Percent Auto 19.1 % (20-40); Mean Corpuscular HGB Conc 33.6 g/dl (31.0-35.0); Mean Corpuscular Hemoglobin 29.6 pg (27.0-33.0); Mean Corpuscular Volume 88.2 fL (80.0-98.0); Mean Platelet Volume 11.5 fL (9.4-12.3); Monocytes Absolute Auto 0.8 X10*3/uL (0.1-1.2); Neutrophils Absolute Auto 5.8 x10*3/uL (2.0-8.3); Neutrophils Percent Auto 68.7 % (45-73); Platelet Count 270 X10*3/uL (160-400); Red Blood Count 4.39 X10*6/uL (4.20-5.50); Red Cell Distribution Width 13.2 % (11.0-16.0); White Blood Count 8.5 X10*3/uL (4.8-10.8)
[2024-02-03 10:30] LABS: Alanine Aminotransferase 11 U/L (0-31); Albumin Level 4.1 g/dL (3.5-5.0); Alkaline Phosphatase 70 U/L (39-117); Anion Gap 13 (12-20); Aspartate Amino Transferase 14 U/L (5-31); Bilirubin Total 1.1 mg/dL (0.0-1.0); Blood Urea Nitrogen 14 mg/dL (9-16); Calcium 9.9 mg/dL (8.4-10.2); Carbon Dioxide 25 mmol/L (22-29); Chloride 110 mmol/L (96-108); Estimated Glomerular Filt Rate > 60; Glucose Fasting 89 mg/dL (60-99); Potassium 3.9 mmol/L (3.3-5.1); Sodium 144 mmol/L (135-145); Total Protein 6.9 g/dL (6.5-8.0)
[2024-02-07 14:34] LABS: PES - Abn Protein Band 1 0.6 g/dL (NONE DETECTED); Prot Elec - Albumin 4.3 g/dL (3.8-4.8); Prot Elec - Alpha1 0.3 g/dL (0.2-0.3); Prot Elec - Alpha2 0.7 g/dL (0.5-0.9); Prot Elec - Beta 1 0.3 g/dL (0.4-0.6); Prot Elec - Beta 2 0.2 g/dL (0.2-0.5); Prot Elec - Total Protein 6.8 g/dL (6.1-8.1)
[2024-02-07 22:49] LABS: Viscosity 1.7 rel to H2O (1.5-1.9)
== END 2024-02-03 08:10 | disposition home or self-care (01) ==
LOC: HO.HMGCLDS 08:09
PROVIDERS: PCP Internal Medicine; Visit Provider Internal Medicine Medical Oncology
DX: D64.9 Anemia, unspecified (principal)
CPT/HCPCS: 36415; 80053; 82232; 84165; 85025; 85810

== ENCOUNTER 2024-06-02 08:53 | Outpatient (REF) | payer MEDICARE, OTHER, SELFPAY ==
[2024-06-02 11:58] LABS: MANUAL DIFF FLAG NO
[2024-06-02 12:04] LABS: Basophils Absolute Auto 0.1 X10*3/uL (0.0-0.2); Basophils Percent Auto 1.6 % (0-2); Eosinophils Absolute Auto 0.1 X10*3/uL (0.0-0.4); Eosinophils Percent Auto 0.8 % (0-4); Hematocrit 41.5 % (37.0-47.0); Hemoglobin 13.7 g/dl (12.0-16.0); Imm Gran Abs Auto 0.03 X10*3/uL (0.00-0.03); Imm Gran Pct Auto 0.4 % (0.0-0.4); Lymphocytes Percent Auto 25.7 % (20-40); Mean Corpuscular Volume 87.7 fL (80.0-98.0); Mean Platelet Volume 11.5 fL (9.4-12.3); Monocytes Absolute Auto 0.7 X10*3/uL (0.1-1.2); Monocytes Percent Auto 8.5 % (2-11); Platelet Count 271 X10*3/uL (160-400); Red Blood Count 4.73 X10*6/uL (4.20-5.50); Red Cell Distribution Width 13.2 % (11.0-16.0); White Blood Count 7.9 X10*3/uL (4.8-10.8)
[2024-06-02 12:20] LABS: Alanine Aminotransferase 16 U/L (0-31); Albumin Level 4.3 g/dL (3.5-5.0); Alkaline Phosphatase 70 U/L (39-117); Anion Gap 9 (12-20); Bilirubin Total 1.3 mg/dL (0.0-1.0); Blood Urea Nitrogen 7 mg/dL (9-16); Calcium 9.5 mg/dL (8.4-10.2); Carbon Dioxide 30 mmol/L (22-29); Chloride 108 mmol/L (96-108); Estimated Glomerular Filt Rate > 60; Glucose Fasting 93 mg/dL (60-99); Lactate Dehydrogenase 198 U/L (122-220); Potassium 3.7 mmol/L (3.3-5.1); Sodium 143 mmol/L (135-145); Total Protein 7.4 g/dL (6.5-8.0)
[2024-06-02 12:42] LABS: Aspartate Amino Transferase 19 U/L (5-31)
[2024-06-05 11:48] LABS: PES - Abn Protein Band 1 0.5 g/dL (NONE DETECTED); Prot Elec - Albumin 4.3 g/dL (3.8-4.8); Prot Elec - Alpha1 0.3 g/dL (0.2-0.3); Prot Elec - Alpha2 0.8 g/dL (0.5-0.9); Prot Elec - Beta 1 0.4 g/dL (0.4-0.6); Prot Elec - Beta 2 0.3 g/dL (0.2-0.5)
[2024-06-05 14:48] LABS: IgA 25 mg/dL (70-320); IgG 352 mg/dL (600-1540); IgM 1136 mg/dL (50-300)
== END 2024-06-02 08:54 | disposition home or self-care (01) ==
LOC: HO.HMGCLDS 08:53
PROVIDERS: PCP Internal Medicine Medical Oncology; Visit Provider Internal Medicine Medical Oncology
DX: D64.9 Anemia, unspecified (principal); D75.9 Disease of blood and blood-forming organs, unspecified; D47.2 Monoclonal gammopathy; C88.00 Waldenstrom macroglobulinemia not having achieved remission; C83.00 Small cell B-cell lymphoma, unspecified site
CPT/HCPCS: 36415; 80053; 82784; 83615; 84165; 85025; 86334

== ENCOUNTER 2024-07-31 09:47 | Outpatient (REF) | payer MEDICARE, OTHER, SELFPAY ==
--- OUTSIDE RECORDS SUMMARY | 2024-07-31 11:08 | XMS_ITS ---
Author Organization Giorgio Bright III, MD Address [address] [place] [address] Care Team Providers Care Health And Safety Inspector Name Role Phone Tyler Maxwell MD Primary Care Provider Unavailab Giorgio Carrasco Unavailable [phone] Allergies Allergen (clinical drug ingredient) Drug/Non Drug [...] 24 Blood pressure systolic 136 mm Hg 04/20/20 24 Blood pressure diastolic 87 mm Hg 024 Heart Rate 70 /min 04/20/2024 Height 62 in 04/20/2024 Weight 151 lbs 04/20/2024 BMI 27.62 kg/m2 04/20/2024 Encounters Encounter Location Date Provider Diagnosis Giorgio Bright III, MD [address] [place] [address] [place] [address] 04/20/2024 Giorgio Bright Normochromic normocy tic anemia [...] Not spec ified, Reason: OV, Provider Name:Giorgio Bright, 09/11/2024 10:30:00 AM, [address] [place] [address], [address], Progress Notes * ARIEL DEANDOB: [birth year] (83 yo F)Acc No.[id number]:04/20/2024 Progress Notes Patient:?ARIEL DEAN Provider:?Giorgio Bright MD :1940???Age:83 Y???Sex:Female D ate:04/20/2024 Address:[address] [place] [id number] Pcp:Tyler Maxwell MD Subjective: * Chief Complaints: * ???Right facial numbnessRigh t ear painRight deviated septumFollow plasmacytic lymphoma * HPI: ???COVID-19 Screening:?Questions?Have you had any new onset fever, chills, cough, congestion, sore throat, shortness of breath, muscle aches??No ???:?The patient, an 83-year-old female, reported a decrease [...] the septum to the right are gradually improving.? This does not appear to the due to lymphoma progression.? If it does not completely clear she may need to have a CT scan of the skull. * ROS:?General/Constitutional:?pain?Mild pain right ear.?Chills?denies.?Fatigue?admits.?Fever?denies.?ENT:?Decreased hearing?denies.?Respiratory:?Cough?denies.?Cardiovascular:?Chest pain with exertion?denies.?Dyspnea on exertion?denies.?Shortness of breath?denies.?Gastrointestinal:?Constipation?occasional.?Decreased appetite?denies.?Diarrhea?denies.?Heartburn?denies.?Nausea?denies.?Rectal bleeding?denies.?Vomiting?denies.?Hematology:?bruising?denies.?petechiae?denies.?Swollen glands?none have been noted.?Genitourinary:?Frequent urination?at night.?Musculoskeletal:?Muscle aches?denies.?Painful joints?denies.?Sciatica?denies.?Weakness?denies.?Skin:?Itching?denies.?Rash?denies.?Skin lesion(s)?denies.?Neurologic:?Difficulty speaking?denies.?Dizziness?denies.?Headache?denies.?Low back pain?denies.?Psychiatric:?Depressed mood?denies.? * Medical History:? * Surgical History:?bilateral cataract extractions biopsy, right breast, benign disease tendon release, wrist dental extractions [facility] Dr. Bright 10/14/20No history * Hospitalization/Major Diagno stic Procedure:?No history * Family History:?Father: dece ased 59 yrs.?Mother: 87 yrs.?Siblings: alive.?1 brother(s) , 2 sister(s) . 3 son(s) . .? Her mother at the age of 87 [...] that she lost two sisters. * Social History:?Tobacco Use:?Tobacco Use/Smoking?Patient is a?nonsmoker ?Additional Findings: Tobacco Non-User?Aggressive non-smoker ???Drugs/Alcohol:?Drugs?Have you used drugs other than those for medical reasons in the past 12 months??No ?Alcohol Screen?Did you have a drink containing alcohol in the past year??No ?Points?0 ?Interpretation?Negative ???She was born in [place], [place] and came to [place] at the age of 6. 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 He is retired. She has no holiness objection to blood transfusion. The patient mentioned that she has a dog. {'Family Losses': 'Patient lost two sisters and one brother within 13 months.'}. * Medications:?TakingNaproxen 250 MG Tablet 1 tablet with food [...] reviewed and reconciled with the patient * Allergies:?Sulfacetamideno[A llergies Verified] Objective: * Vitals:?Ht: 62, Wt:151, BMI: 27.62, BP:136/87, HR:70, Temp:97.1, Wt-k.49. * ???Past Orders: Lab:Complete Blood Count Aut o Diff [...] Range: 45-73 %) Imm Gran Pct Auto 0.5?H (Ref Range: 0.0-0.4 %) 0.4 (Ref Range: 0.0-0.4 %) 0.4 (Ref Range: 0.0-0.4 %) Lymphocytes Percent Auto 19.1?L (Ref Range: 20-40 %) 23.2 (Ref Range: [...] Range: 2.0-8.3 x10*3/uL) Imm Gran Abs Auto 0.04?H (Ref Range: 0.00-0.03 X10*3/uL) 0.04?H (Ref Range: 0.00-0.03 X10*3/uL) 0.04?H (Ref Range: 0.00-0.03 X10*3/uL) Lymphocytes Absolute Auto [...] 0.000 (Ref Range: 0.0-0.012 X10*3/uL) * Lab:[facility] * Collection Date 02/03/2024 09/15/2021 Collection Time 08:14 AM 09:31 AM Order Date 02/03/2024 09/15/2021 Sodium 144 (Ref Range: 135-145 mmol/L) 141 (Ref Range: 135-145 mmol/L) Bilirubin Total 1.1?H (Ref Range: 0.0-1.0 mg/dL) 1.2?H (Ref Range: 0.0-1.0 mg/dL) Aspartate Amino Transferase 14 (Ref Range: 5-31 U/L) 10 (Ref Range: 5-31 U/L) Alanine Aminotransferase 11 (Ref Range: 0-31 U/L) 8 (Ref Range: 0-31 U/L) Total Protein 6.9 (Ref Range: 6.5-8.0 g/dL) 8.7?H (Ref Range: 6.5-8.0 g/dL) Albumin Level 4.1 (Ref Range: 3.5-5.0 g/dL) 3.8 (Ref Range: 3.5-5.0 g/dL) Alkaline Phosphatase 70 (Ref Range: 39-117 U/L) 84 (Ref Range: 39-117 U/L) Potassium 3.9 (Ref Range: 3.3-5.1 mmol/L) 4.3 (Ref Range: 3.3-5.1 mmol/L) Chloride 110?H (Ref Range: 96-108 mmol/L) 107 (Ref Range: 96-108 mmol/L) Carbon Dioxide 25 (Ref Range: 22-29 mmol/L) 27 (Ref Range: 22-29 mmol/L) Anion Gap 13 (Ref Range: 12-20) 11?L (Ref Range: 12-20) Blood Urea Nitrogen 14 (Ref Range: 9-16 mg/dL) 9 (Ref Range: 9-16 mg/dL) Creatinine 0.85 (Ref Range: 0.5-1.4 mg/dL) 0.80 (Ref Range: 0.5-1.4 mg/dL) Estimated Glomerular Filt Rate > 60 > 60 Glucose Fasting 89 (Ref Range: 60-99 mg/dL) 117?H (Ref Range: 60-99 mg/dL) Calcium 9.9 (Ref Range: 8.4-10.2 mg/dL) 10.3?H (Ref Range: 8.4-10.2 mg/dL) * Lab:Beta-2 Microglobulin, [facility] * Collection Date 02/03/2024 10/28/2023 02/02/2023 Collection Time 08:14 AM 09:10 AM 10:27 AM Order Date 02/03/2024 10/28/2023 02/02/2023 Beta-2 Microglobulin, Serum 2.80?A (Ref Range: < OR = 2.51 mg/L) 2.65?A (Ref Range: < OR = 2.51 mg/L) 4.32?A (Ref Range: < OR = 2.51 mg/L) [...] 0.5-0.9 g/dL) Prot Elec - Beta 1 0.3?A (Ref Range: 0.4-0.6 g/dL) 0.3?A (Ref Range: 0.4-0.6 g/dL) 0.4 (Ref Range: 0.4-0.6 g/dL) Prot Elec - Beta 2 0.2 (Ref Range: 0.2-0.5 g/dL) 0.2 (Ref Range: 0.2-0.5 g/dL) 0.3 (Ref Range: 0.2-0.5 g/dL) Prot Elec - Gamma 1.0 (Ref Range: 0.8-1.7 g/dL) 1.0 (Ref Range: 0.8-1.7 g/dL) 1.1 (Ref Range: 0.8-1.7 g/dL) PES - Abn Protein Band 1 0.6?A (Ref Range: NONE DETECTED g/dL) 0.6?A (Ref Range: NONE DETECTED g/dL) 0.9?A (Ref Range: NONE DETECTED g/dL) PES-Abn Protein [...] Range: 1.5-1.9 rel to H2O) * Examination: ???General Examination: ?GENERAL APPEARANCE:?pleasant, well nourished, well developed, in no acute distress, calm and relaxed, overweight, elderly woman.?HEAD:?atraumatic, normocephalic.?EYES:?eomi, perrla, anicteric, conjugate.?EARS:?normal.?NOSE:?septum intact.?ORAL CAVITY:?normal, unremarkable.?NECK/THYROID:?no jugular venous distention, no carotid bruit, thyroid normal.?LYMPH NODES:?no enlarged lymph nodes,spleen normal.?SKIN:?no suspicious lesions, anicteric.?HEART:?no clicks, gallops, murmurs, or rubs, regular rhythm, S1, S2 normal, no s3, or vascular bruits.?LUNGS:?clear to auscultation .?BREASTS:?Not examined.?ABDOMEN:?bowel sounds normal, no ascites, no organomegaly, no mass, overweight.?RECTAL EXAM:?not examined.?MUSCULOSKELETAL:?extremities unremarkable, no clubbing, cyanosis or edema.?PERIPHERAL PULSES:?normal.?NEUROLOGIC:?alert and oriented, cranial nerves 2-12 grossly intact, deep tendon reflexes 2+ symmetrical, motor strength normal upper and lower extremities, sensory exam intact.?PSYCH:?alert, oriented.? : ???{'Nose Examination':'Patient has a deviated septum, causing difficulty in breathing.', 'Eye Examination': 'Normal', 'Breathing Test': 'No abnormalities detected.'}. ??? Assessment: * Assessment: 1.?Coronary artery disease i nvolving autologous artery coronary bypass graft without angina pectoris - I25.810 (Primary)???Notes :She is asymptomatic at this time her current regimen will be continued. She denies any recent syncope chest pain, angina or nausea or vomiting.???2.?Normochromic normocytic anemia - D64.9???Notes :Her CBC shows that her anemia has resolved.Her hematocrit and hemoglobin are now in the normal range.???3.?Essential hypertension - I10???Notes :Her blood pressure continues to be controlled.???4.?Overweight - E66.3???Notes :Her body mass index is 27.6 We discussed diet and nutrition today. I recommended she stabilize her weight at this level and not gaining further weight.???5.?Chronic kidney disease (CKD) stage G3b/A2, moderately decreased glomerular filtration rate (GFR) between 30-44 mL/min/1.73 square meter and albuminuria creatinine ratio between 30-299 mg/g - N18.32???Notes :Her GFR is over 60 and her BUN and creatinine are now 13 and 0.89. 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 The lymphoma is well controlled on current medication which was continued.???7.?Deviated nasal septum - J34.2???Notes :Her nasal septum is significantly deviated to the right.? This likely causes a now resolving infection in her nasopharynx.? She seems medically stable today and will be observed.??? Plan: * Treatment: 2.?Essential hypertension? Continue hydrALAZINE HCl Tablet, 50 MG, Oral.?? * Procedure Codes:? * Preventive Medicine:? ??Counseling:?Care goal follow-up plan:?Counseling for abnormal BMI given?Yes ?Above Normal BMI Follow-up?Dietary management education, guidance, and counseling, Dietary needs education * Follow Up:?4 Weeks, Not spec ified (Reason: OV, ) * Images: * Sign off status: Completed true * Provider:?Giorgio Bright MD Date:?04/08 Generated for Claude cantu/Regino/Shmuelitting on:?07/31/2024 11:08 AM EDT History and Physical Notes * [...]
--- OUTSIDE RECORDS SUMMARY | 2024-07-31 11:08 | XMS_ITS | Patient Health Record ---
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 Name Role Phone Tyler Maxwell MD Primary Care Provider Unavailab Giorgio Carrasco Unavailable [phone] Allergies Allergen (clinical drug ingredient) Drug/Non Drug Allergy documented on EMR Reaction Allergy Type Onset Date Status sulfacetamide Sulfacetamide Unknown Drug Allergy Active Results Component Value Reference Range Notes Complete Blood Count Auto Di ff Reviewed date:10/29/2023 05:46:26 PM Interpretation: Performing Lab:[facility], [address] [place] [phone] Notes/Report: White Blood Count 9.2 4.8-10.8 X10*3/uL Red Blood Count 4.58 4.20-5.50 X10*6/uL Hemoglobin 13.5 12.0-16.0 g/dl Hematocrit 40.4 37.0-47.0 % Mean Corpuscular Volume 88.2 80.0-98.0 fL Mean Corpuscular Hemoglobin 29.5 27.0-33.0 pg Mean Corpuscular HGB Conc 33.4 31.0-35.0 g/dl Red Cell Distribution Width 13.3 11.0-16.0 % Platelet Count 271 160-400 X10*3/uL Mean Platelet Volume 11.5 9.4-12.3 fL Neutrophils Percent Auto 65.0 45-73 % Imm Gran Pct Auto 0.4 0.0-0.4 % Lymphocytes Percent Auto 23.2 20-40 % Monocytes Percent Auto 7.9 2-11 % Eosinophils Percent Auto 1.7 0-4 % Basophils Percent Auto 1.8 0-2 % NRBC Pct Auto 0.0 0.0-0.2 /100WBC Neutrophils Absolute Auto 6.0 2.0-8.3 x10*3/u L Imm Gran Abs Auto 0.04 0.00-0.03 X10*3/uL Lymphocytes Absolute Auto 2.1 1.2-4.9 X10*3/u L Monocytes Absolute Auto 0.7 0.1-1.2 X10*3/uL Eosinophils Absolute Auto 0.2 0.0-0.4 X10*3/u L Basophils Absolute Auto 0.2 0.0-0.2 X10*3/uL NRBC Abs Auto 0.000 0.0-0.012 X10*3/uL Comprehensive Met. Panel Reviewed date:10/29/2023 05:46:26 PM Interpretation: Performing Lab:[address] [phone] Notes/Report: Sodium 144 135-145 mmol/L Potassium 3.7 3.3-5.1 mmol/L Chloride 109 96-108 mmol/L Carbon Dioxide 27 22-29 mmol/L Anion Gap 12 12-20 Blood Urea Nitrogen 14 9-16 mg/dL Creatinine 0.78 0.5-1.4 mg/dL Estimated Glomerular Filt Rate > 60 NOTE: For -[place] individuals, multiply the result by 1.210. Chronic Kidney Disease: Estimated GFR < 60 mL/min/1.73m2 Severe Kidney Disease: Estimated GFR < 15 mL/min/1.73m2 Glucose Random 103 60-115 mg/dL Calcium 10.0 8.4-10.2 mg/dL Bilirubin Total 1.0 0.0-1.0 mg/dL Aspartate Amino Transferase 15 5-31 U/L Alanine Aminotransferase 9 0-31 U/L Total Protein 6.8 6.5-8.0 g/dL Albumin Level 4.1 3.5-5.0 g/dL Alkaline Phosphatase 73 39-117 U/L Beta-2 Microglobulin, Serum Reviewed date:11/04/2023 02:30:26 PM Interpretation: Performing Lab:[address] [phone] Notes/Report: Beta-2 Microglobulin, Serum 2.65 < OR = 2.51 m g/L THIS TEST WAS PERFORMED AT: [facility] [address] [place] [phone] ALCIRA AGUILAR MD Protein Electrophoresis, Ser um Reviewed date:11/04/2023 02:30:26 PM Interpretation: Performing Lab:[facility], [address] [place] [phone] Notes/Report: Prot Elec - Total Protein 6.5 6.1-8.1 g/dL Prot Elec - Albumin 4.1 3.8-4.8 g/dL Prot Elec - Alpha1 0.3 0.2-0.3 g/dL Prot Elec - Alpha2 0.6 0.5-0.9 g/dL Prot Elec - Beta 1 0.3 0.4-0.6 g/dL Prot Elec - Beta 2 0.2 0.2-0.5 g/dL Prot Elec - Gamma 1.0 0.8-1.7 g/dL PES - Abn Protein Band 1 0.6 NONE DETECTED g/ dL PES-Abn Protein Band 2 TNP PES-Abn Protein Band 3 TNP Prot Elec - Interpretation SEE NOTE Evaluation reveals a restricted band (M-spike) migrating in the gamma globulin region. If not already requested, Immunofixation should be considered. THIS TEST WAS PERFORMED AT: [facility] [address] [place] [phone] ALCIRA AGUILAR MD Immunofixation Pnl, Serum Reviewed date:11/04/2023 02:30:26 PM Interpretation: Performing Lab:[facility], [address] [place] [phone] Notes/Report: IgG [id number] mg/dL IgA 18 70-320 mg/dL IgM 1156 50-300 mg/dL THIS TEST WAS PERFORMED AT: [facility] [address] [place] [phone] ALCIRA AGUILAR MD Immunofixation Interpretation SEE NOTE IgM kappa monoclonal band present. Complete Blood Count Auto Di ff Reviewed date:03/28/2024 11:39:44 AM Interpretation: Performing Lab:[facility], [address] [place] [phone] Notes/Report: White Blood Count 8.5 4.8-10.8 X10*3/uL Red Blood Count 4.39 4.20-5.50 X10*6/uL Hemoglobin 13.0 12.0-16.0 g/dl Hematocrit 38.7 37.0-47.0 % Mean Corpuscular Volume 88.2 80.0-98.0 fL Mean Corpuscular Hemoglobin 29.6 27.0-33.0 pg Mean Corpuscular HGB Conc 33.6 31.0-35.0 g/dl Red Cell Distribution Width 13.2 11.0-16.0 % Platelet Count 270 160-400 X10*3/uL Mean Platelet Volume 11.5 9.4-12.3 fL Neutrophils Percent Auto 68.7 45-73 % Imm Gran Pct Auto 0.5 0.0-0.4 % Lymphocytes Percent Auto 19.1 20-40 % Monocytes Percent Auto 9.0 2-11 % Eosinophils Percent Auto 1.3 0-4 % Basophils Percent Auto 1.4 0-2 % NRBC Pct Auto 0.0 0.0-0.2 /100WBC Neutrophils Absolute Auto 5.8 2.0-8.3 x10*3/u L Imm Gran Abs Auto 0.04 0.00-0.03 X10*3/uL Lymphocytes Absolute Auto 1.6 1.2-4.9 X10*3/u L Monocytes Absolute Auto 0.8 0.1-1.2 X10*3/uL Eosinophils Absolute Auto 0.1 0.0-0.4 X10*3/u L Basophils Absolute Auto 0.1 0.0-0.2 X10*3/uL NRBC Abs Auto 0.000 0.0-0.012 X10*3/uL Comprehensive [place]. Panel Fa st Reviewed date:03/28/2024 11:39:44 AM Interpretation: Performing Lab:[facility], [address] [place] [phone] Notes/Report: Sodium 144 135-145 mmol/L Potassium 3.9 3.3-5.1 mmol/L Chloride 110 96-108 mmol/L Carbon Dioxide 25 22-29 mmol/L Anion Gap 13 12-20 Blood Urea Nitrogen 14 9-16 mg/dL Creatinine 0.85 0.5-1.4 mg/dL Estimated Glomerular Filt Rate > 60 NOTE: For -[place] individuals, multiply the result by 1.210. Chronic Kidney Disease: Estimated GFR < 60 mL/min/1.73m2 Severe Kidney Disease: Estimated GFR < 15 mL/min/1.73m2 Glucose Fasting 89 60-99 mg/dL Calcium 9.9 8.4-10.2 mg/dL Bilirubin Total 1.1 0.0-1.0 mg/dL Aspartate Amino Transferase 14 5-31 U/L Alanine Aminotransferase 11 0-31 U/L Total Protein 6.9 6.5-8.0 g/dL Albumin Level 4.1 3.5-5.0 g/dL Alkaline Phosphatase 70 39-117 U/L Beta-2 Microglobulin, Serum Reviewed date:03/28/2024 11:39:44 AM Interpretation: Performing Lab:[facility], [address] [place] [phone] Notes/Report: Beta-2 Microglobulin, Serum 2.80 < OR = 2.51 m g/L THIS TEST WAS PERFORMED AT: [facility] [address] [place] [phone] ALCIRA AGUILAR MD Protein Electrophoresis, Ser um Reviewed date:03/28/2024 11:39:44 AM Interpretation: Performing Lab:[facility], [address] [place] [phone] Notes/Report: Prot Elec - Total Protein 6.8 6.1-8.1 g/dL Prot Elec - Albumin 4.3 3.8-4.8 g/dL Prot Elec - Alpha1 0.3 0.2-0.3 g/dL Prot Elec - Alpha2 0.7 0.5-0.9 g/dL Prot Elec - Beta 1 0.3 0.4-0.6 g/dL Prot Elec - Beta 2 0.2 0.2-0.5 g/dL Prot Elec - Gamma 1.0 0.8-1.7 g/dL PES - Abn Protein Band 1 0.6 NONE DETECTED g/ dL PES-Abn Protein Band 2 TNP PES-Abn Protein Band 3 TNP Prot Elec - Interpretation SEE NOTE Evaluation reveals a restricted band (M-spike) migrating in the gamma globulin region. If not already requested, Immunofixation should be considered. THIS TEST WAS PERFORMED AT: [facility] [address] [phone] ALCIRA AGUILAR MD Viscosity Reviewed date:03/28/2024 11:39:44 AM Interpretation: Performing Lab:[facility], [address] [place] [phone] Notes/Report: Viscosity 1.7 1.5-1.9 rel to H2O Units = Relative to Water THIS TEST WAS PERFORMED AT: [employer]/[address] [phone] OLEG OCAMPO MD,PHD Complete Blood Count Auto Di ff Reviewed date:06/03/2024 02:19:33 PM Interpretation: Performing Lab:[facility], [address] [place] [phone] Notes/Report: White Blood Count 7.9 4.8-10.8 X10*3/uL Red Blood Count 4.73 4.20-5.50 X10*6/uL Hemoglobin 13.7 12.0-16.0 g/dl Hematocrit 41.5 37.0-47.0 % Mean Corpuscular Volume 87.7 80.0-98.0 fL Mean Corpuscular Hemoglobin 29.0 27.0-33.0 pg Mean Corpuscular HGB Conc 33.0 31.0-35.0 g/dl Red Cell Distribution Width 13.2 11.0-16.0 % Platelet Count 271 160-400 X10*3/uL Mean Platelet Volume 11.5 9.4-12.3 fL Neutrophils Percent Auto 63.0 45-73 % Imm Gran Pct Auto 0.4 0.0-0.4 % Lymphocytes Percent Auto 25.7 20-40 % Monocytes Percent Auto 8.5 2-11 % Eosinophils Percent Auto 0.8 0-4 % Basophils Percent Auto 1.6 0-2 % NRBC Pct Auto 0.0 0.0-0.2 /100WBC Neutrophils Absolute Auto 5.0 2.0-8.3 x10*3/u L Imm Gran Abs Auto 0.03 0.00-0.03 X10*3/uL Lymphocytes Absolute Auto 2.0 1.2-4.9 X10*3/u L Monocytes Absolute Auto 0.7 0.1-1.2 X10*3/uL Eosinophils Absolute Auto 0.1 0.0-0.4 X10*3/u L Basophils Absolute Auto 0.1 0.0-0.2 X10*3/uL NRBC Abs Auto 0.000 0.0-0.012 X10*3/uL Comprehensive [place]. Panel [facility] Reviewed date:06/03/2024 02:19:33 PM Interpretation: Performing Lab:[facility], [address] [place] [phone] Notes/Report: Sodium 143 135-145 mmol/L Potassium 3.7 3.3-5.1 mmol/L Chloride 108 96-108 mmol/L Carbon Dioxide 30 22-29 mmol/L Anion Gap 9 12-20 Blood Urea Nitrogen 7 9-16 mg/dL Creatinine 0.64 0.5-1.4 mg/dL Estimated Glomerular Filt Rate > 60 Chronic Kidney Disease: Estimated GFR < 60 mL/min/1.73m2 Severe Kidney Disease: Estimated GFR < 15 mL/min/1.73m2 Glucose Fasting 93 60-99 mg/dL Calcium 9.5 8.4-10.2 mg/dL Bilirubin Total 1.3 0.0-1.0 mg/dL Aspartate Amino Transferase 19 5-31 U/L Alanine Aminotransferase 16 0-31 U/L Total Protein 7.4 6.5-8.0 g/dL Albumin Level 4.3 3.5-5.0 g/dL Alkaline Phosphatase 70 39-117 U/L Lactate Dehydrogenase Reviewed date:06/03/2024 02:19:33 PM Interpretation: Performing Lab:[facility], [address] [place] [phone] Notes/Report: Lactate Dehydrogenase 198 122-220 U/L Protein Electrophoresis, Ser um Reviewed date:06/10/2024 09:00:19 AM Interpretation: Performing Lab:[facility], [address] [place] [phone] Notes/Report: Prot Elec - Total Protein 7.0 6.1-8.1 g/dL Prot Elec - Albumin 4.3 3.8-4.8 g/dL Prot Elec - Alpha1 0.3 0.2-0.3 g/dL Prot Elec - Alpha2 0.8 0.5-0.9 g/dL Prot Elec - Beta 1 0.4 0.4-0.6 g/dL Prot Elec - Beta 2 0.3 0.2-0.5 g/dL Prot Elec - Gamma 1.0 0.8-1.7 g/dL PES - Abn Protein Band 1 0.5 NONE DETECTED g/ dL PES-Abn Protein Band 2 TNP PES-Abn Protein Band 3 TNP Prot Elec - Interpretation SEE NOTE Evaluation reveals a restricted band (M-spike) migrating in the gamma globulin region. If not already requested, Immunofixation should be considered. THIS TEST WAS PERFORMED AT: [facility] [address] [place] [phone] ALCIRA AGUILAR MD Immunofixation Pnl, Serum Reviewed date:06/10/2024 09:00:19 AM Interpretation: Performing Lab:[facility], [address] [place] [phone] Notes/Report: IgG 291 561-6216 mg/dL IgA 25 70-320 mg/dL Verified by rep eat analysis. IgM 1136 50-300 mg/dL Verified by repeat analysis. THIS TEST WAS PERFORMED AT: [facility] [address] [place] [phone] ALCIRA AGUILAR MD Immunofixation Interpretation SEE NOTE IgM kappa monoclonal band present. Reason For Referral No Information Medications Medication SIG (Take, Route, Frequency, Duration) [...] morning meal Orally Once a day Active Furosemide 20 MG 1 tablet Orally Once a day Active NIFEdipine ER 60 MG 1 tablet on an empty stomach Orally Once a day Active Imbruvica 140 MG 3 capsules Orally On a day 02/23/2023 Active hydrALAZINE HCl 50 MG Oral Active Social History Tobacco Use: Social History [...] ast year? No Points 0 Interpretation Negative Problems Problem Type SNOMED Code ICD Code Onset Dates Problem Status W/U Status Risk Notes Problem 976251318 Overweight (E66.3) Active confirmed Her body mass index is 27.6 We discussed diet and nutrition today. I recommended she stabilize her weight at this level and not gaining further weight. Problem 96340241 Hypercalcemia (E83.52) Active confirmed Her calcium is 10.30which will be observed. She is not taking vitamin D. She will not take calcium at this time. It is improving. Problem 57308134 Essential hypertension (I10) Active confirmed Her blood pressure continues to be controlled. 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 Her blood work and physical examination today consistent with remission. 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 Problem 46159399 Normochromic normocytic anemia (D64.9) Active confirmed Her CBC shows that her anemia has resolved.Her hematocrit and hemoglobin are now in the normal range. Problem 32018810 Hyperviscosity (D75.9) Active confirmed She is no longer hyperviscous. Her IgM level has fallen slightly. No change in her regimen as necessary. Problem 293734394 Chronic kidney disease (CKD) stage G3b/A2, moderately decreased glomerular filtration rate (GFR) between 30-44 mL/min/1.73 square meter and albuminuria creatinine ratio between 30-299 mg/g (N18.32) Active confirmed Her GFR is over 60 and her BUN and creatinine are now 13 and 0.89. This problem has resolved. 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 She denies any recent syncope chest pain, angina or nausea or vomiting. 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 We continue to follow this value periodically. No change in therapy is necessary. Vital Signs Heart Rate 68 /min 06/12/2024 Temperature 97.1 degrees Fahrenheit 04/20/2024 Blood pressure diastolic 72 mm Hg 06/12/2024 Height 62 in 06/12/2024 Blood pressure systolic 132 mm Hg 06/12/2024 Weight 151 lbs 06/12/2024 BMI 27.62 kg/m2 06/12/2024 Encounters Encounter Location Date Provider Diagnosis Giorgio Bright III, MD [address] [place] [address] [place] [id number] 08/03/2023 Giorgio Bright Essential hypertensi on I10 ; Hyperviscosity D75.9 ; Chronic kidney disease (CKD) stage G3b/A2, moderately decreased glomerular filtration rate (GFR) between 30-44 mL/min/1.73 square meter and albuminuria creatinine ratio between 30-299 mg/g N18.32 ; Coronary artery disease involving autologous artery coronary bypass graft without angina pectoris I25.810 ; Overweight E66.3 and Normochromic normocytic anemia D64.9 Giorgio Bright III, MD [address] [place] [address] [place] [phone] 11/04/2023 Giorgio Bright Normochromic normocy tic anemia [...] C83.00 ; Macroglobulinemia C88.0 and Hypercalcemia E83.52 Giorgio Bright III, MD [address] [place] [address] [place] [phone] 02/07/2024 Giorgio Bright Normochromic normocy tic anemia D64.9 ; Malignant lymphoplasmacytic lymphoma C83.00 ; Essential hypertension I10 ; Hyperviscosity D75.9 ; IgM monoclonal gammopathy of uncertain significance D47.2 ; Macroglobulinemia C88.0 and Overweight E66.3 Giorgio Bright III, MD [address] [place] [address] [place] [phone] 03/28/2024 Giorgio Bright Right facial numbnes s [...] without angina pectoris I25.810 and Macroglobulinemia C88.0 Giorgio Bright III, MD [address] [place] [address] [place] [id number] 04/20/2024 Giorgio Bright Normochromic normocy tic anemia [...] lymphoma C83.00 and Deviated nasal septum J34.2 Giorgio Bright III, MD [address] [place] [address] [place] [address] 06/12/2024 Giorgio Bright Normochromic normocy tic anemia D64.9 ; Malignant lymphoplasmacytic lymphoma C83.00 ; Essential hypertension I10 ; Hyperviscosity D75.9 and IgM monoclonal gammopathy of uncertain significance D47.2 Giorgio Bright III, MD [address] [place] [address] [place] [phone] 03/21/2024 Giorgio Bright Assessments Encounter Date Diagnosis (ICD Code) Assessment Notes T reatment Notes Treatment Clinical Notes 08/03/2023 Essential hypertensi on (ICD-10 - I10) She was recently begun on hydralazine. Her bblod pressure is being treated by primary care. 08/03/2023 Hyperviscosity (ICD- 10 - D75.9) The viscosity has improved and needs no further treatment Is needed. She will continue on current medication. The viscosity is now 1.6 which is in the normal range. 11/04/2023 Essential hypertensi on (ICD-10 - I10) She was recently begun on hydralazine. Her bblod pressure is being treated by primary care. 11/04/2023 Normochromic normocytic anemia (ICD-10 - D64.9) He kind CBC shows that her anemia has resolved.Her hematocrit and hemoglobin are now in the normal range. 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 The lymphoma is well controlled on current medication which was continued. 02/07/2024 Normochromic normocytic anemia (ICD-10 - D64.9) He kind CBC shows that her anemia has resolved.Her hematocrit and hemoglobin are now in the normal range. 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 The lymphoma is well controlled on current medication which was continued. 03/28/2024 Right facial numbnes s (ICD-10 - [...] She seems medically stable at this time. 04/20/2024 Normochromic normocytic anemia (ICD-10 - D64.9) Her CBC shows that her anemia has resolved.Her hematocrit and hemoglobin are now in the normal range. 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 She denies any recent syncope chest pain, angina or nausea or vomiting. 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 Her blood work and physical examination today consistent with remission. 06/12/2024 Normochromic normocytic anemia (ICD-10 - D64.9) Her CBC shows that her anemia has resolved.Her hematocrit and hemoglobin are now in the normal range. 08/03/2023 Chronic kidney disea se (CKD) stage G3b/A2, moderately decreased glomerular filtration rate (GFR) between 30-44 mL/min/1.73 square meter and albuminuria creatinine ratio between 30-299 mg/g (ICD-10 - N18.32) Her GFR is over 60 and her BUN and creatinine are now 13 and 0.89. This problem has resolved. 11/04/2023 Hyperviscosity (ICD- 10 - D75.9) The viscosity has improved and needs no further treatment Is needed. She will continue on current medication. The viscosity is now 1.6 which is in the normal range. 02/07/2024 Essential hypertensi on (ICD-10 - I10) Her blood pressure continues to be controlled. 03/28/2024 Normochromic normocytic anemia (ICD-10 - D64.9) He kind CBC shows that her anemia has resolved.Her hematocrit and hemoglobin are now in the normal range. 04/20/2024 Essential hypertensi on (ICD-10 - I10) Her blood pressure continues to be controlled. 06/12/2024 Essential hypertensi on (ICD-10 - I10) Her blood pressure continues to be controlled. 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 She denies any recent syncope chest pain, angina or nausea or vomiting. 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 She denies any recent syncope chest pain, angina or nausea or vomiting. 02/07/2024 Hyperviscosity (ICD- 10 - D75.9) The current blood work shows low protein levels to be well controlled. 03/28/2024 Essential hypertensi on (ICD-10 - I10) Her blood pressure continues to be controlled. 04/20/2024 Overweight (ICD-10 - E66.3) Her body mass index is 27.6 We discussed diet and nutrition today. I recommended she stabilize her weight at this level and not gaining further weight. 06/12/2024 Hyperviscosity (ICD- 10 - D75.9) She is no longer hyperviscous. Her IgM level has fallen slightly. No change in her regimen as necessary. 08/03/2023 Overweight (ICD-10 - E66.3) She has gained 5 pounds. We discussed diet and nutrition today. I recommended she stabilize her weight at this level and not gaining further weight. 11/04/2023 Chronic kidney disea se (CKD) stage G3b/A2, moderately decreased glomerular filtration rate (GFR) between 30-44 mL/min/1.73 square meter and albuminuria creatinine ratio between 30-299 mg/g (ICD-10 - N18.32) Her GFR is over 60 and her BUN and creatinine are now 13 and 0.89. This problem has resolved. 02/07/2024 IgM monoclonal gammopathy of uncertain significance (ICD-10 - D47.2) She has been compliant with her medication. The IgM level continues to slowly decline. 03/28/2024 Overweight (ICD-10 - E66.3) She has [...] 13 and 0.89. This problem has resolved. 06/12/2024 IgM monoclonal gammopathy of uncertain significance (ICD-10 - D47.2) The IgM level has fallen slightly. We continue to follow this value periodically. No change in therapy is necessary. 08/03/2023 Normochromic normocytic anemia (ICD-10 - D64.9) He kind CBC shows that her anemia has resolved.Her hematocrit and hemoglobin are now in the normal range. 11/04/2023 Overweight (ICD-10 - E66.3) She has gained 5 pounds. We discussed diet and nutrition today. I recommended she stabilize her weight at this level and not gaining further weight. 02/07/2024 Macroglobulinemia (ICD-10 - C88.0) Her proteins have continued to decline. 03/28/2024 Chronic kidney disea se (CKD) stage [...] controlled on current medication which was continued. 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 02/07/2024 Overweight (ICD-10 - E66.3) She has gained 5 pounds. We discussed diet and nutrition today. I recommended she stabilize her weight at this level and not gaining further weight. 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 She denies any recent syncope chest pain, angina or nausea or vomiting. 04/20/2024 Deviated nasal septu m (ICD-10 - J34.2) Her nasal septum is significantly deviated to the right. This likely causes a now resolving infection in her nasopharynx. She seems medically stable today and will be observed. 11/04/2023 Macroglobulinemia (ICD-10 - C88.0) The serum protein electrophoresis and Immunofixation will be done prior to her next visit. 03/28/2024 Macroglobulinemia (ICD-10 - C88.0) Her proteins have continued to decline. 11/04/2023 Hypercalcemia (ICD-1 0 - E83.52) Her calcium is 10.30which will be observed. She is not taking vitamin D. She will not take calcium at this time. It is improving. Plan Of Treatment Pending Test Test Name Order Date PROFILE, FASTING (COMPREHENSIVE METABOLI C) 11/04/2023 PROFILE, FASTING (COMPREHENSIVE METABOLI C) 02/07/2024 PROFILE, RANDOM (COMPREHENSIVE METABOLIC ) 03/16/2023 PROFILE, RANDOM (COMPREHENSIVE METABOLIC ) 01/27/2023 PROFILE, RANDOM (COMPREHENSIVE METABOLIC ) 04/06/2023 PROFILE, RANDOM (COMPREHENSIVE METABOLIC ) 08/03/2023 PROFILE, RANDOM (COMPREHENSIVE METABOLIC ) 06/12/2024 PROFILE, RANDOM (COMPREHENSIVE METABOLIC ) 06/01/2023 LDH 02/07/2024 LDH 04/06/2023 CBC w DIFF 06/01/2023 CBC w DIFF 02/07/2024 CBC w DIFF 01/27/2023 CBC w DIFF 04/06/2023 CBC w DIFF 06/12/2024 SED RATE (ESR) 04/06/2023 IMMUNOFIXATION PANEL, SERUM (IEP) 2024 IMMUNOFIXATION PANEL, SERUM (IEP) 2023 IMMUNOFIXATION PANEL, SERUM (IEP) 2022 IMMUNOFIXATION PANEL, SERUM (IEP) 2023 IMMUNOFIXATION PANEL, SERUM (IEP) 2022 IMMUNOFIXATION PANEL, SERUM (IEP) 2023 PROTEIN ELECTROPHORESIS, SERUM 4 PROTEIN ELECTROPHORESIS, SERUM 5 PROTEIN ELECTROPHORESIS, SERUM 4 PROTEIN ELECTROPHORESIS, SERUM 3 PROTEIN ELECTROPHORESIS, SERUM 4 PROTEIN ELECTROPHORESIS, SERUM 3 PROTEIN ELECTROPHORESIS, SERUM 4 BETA-2 MICROGLOBULIN, SERUM 08/03/2023 BETA-2 MICROGLOBULIN, SERUM 01/27/2023 CBC WITH AUTO DIFF 11/04/2023 CBC WITH AUTO DIFF 03/16/2023 CBC WITH AUTO DIFF 08/03/2023 Beta-2 Microglobulin, Serum 11/04/2023 Immunofixation Pnl, Serum 08/03/2023 Viscosity 06/12/2024 Viscosity 06/01/2023 Viscosity 04/06/2023 Viscosity 11/04/2023 Next Appt Details Provider Name:Giorgio Bright, 09/11/2024 10:30:00 AM, [address] [place] [address] , [place] [address], [place], [address], Insurance Providers Payer Name Payer Address Payer Phone Subscriber Number Group Number Insured Name Patient Relationship to Insured Coverage Start Date Coverage End Date MEDICARE NGS [address] [place] [address] [id number] ARIEL DEAN Self - patient is the insured [facility] [address] [address] [place], [place] [id number] ARIEL DEAN Self - patient is the insured Medical (General) History Medical History History ICD Code HTN (hypertension) I10 GERD (gastroesophageal reflux disease) K 21.9 CKD (chronic kidney disease) N18.9 normochromic normocytic anemia monoclonal IgM gammopathy hyperviscosity of serum history of diverticulitis history of herpes zoster DJD coronary artery disease allergic rhinitis overweight The patient has a history of lymphoma. Nasal septum deviated to the right No history Surgical History Surgery Date(Month/Year) bilateral cataract extractions biopsy, right breast, benign disease tendon release, wrist dental extractions [facility] Dr. Bright 10/14/20 No history Hospitalization History Reason Date(Month/Year) No history
--- OUTSIDE RECORDS SUMMARY | 2024-07-31 11:08 | XMS_ITS ---
Author Organization Giorgio Bright III, MD Address [address] [place] [address] Care Team Providers Care Electrical Controls Assembler Name Role Phone Tyler Maxwell MD Primary Care Provider Unavailab Giorgio Carrasco Unavailable [phone] Allergies Allergen (clinical drug ingredient) Drug/Non Drug [...] Date Provider Diagnosis Giorgio Bright III, MD [address] [place] [address] [address] [place], [place] [address] 06/12/2024 Giorgio Bright Normochromic normocy tic anemia [...] review labs, Regular check-up Provider Name:Giorgio Bright, 09/11/2024 10:30:00 AM, [address] [place] [address] DR, [address], [place], [address], Progress Notes * ARIEL DEANDOB: [birth year] (83 yo F)Acc No.[id number]:06/12/2024 Patient:?ARIEL DEAN Provider:?Giorgio Bright MD :1940???Age:83 Y???Sex:Female D ate:06/12/2024 Address:[address] [place], [place] [id number] Pcp:Tyler Maxwell MD Subjective: * Chief Complaints: * ???Lymphoplasmacytic lymphom aHyperviscosityAnemiaChronic renal diseaseCoronary artery diseaseHypertension * HPI: ???:?Telehealth?Location of provider rendering services:?{...} [address] [place] [address] Drive [address] [facility] [address] ?Location of patient:?address listed in demographics for today's visit ?Patient identification confirmed using:?Name, ?Telehealth method:?Telephone only. Patient not visible to care provider. ?Consent:?Patient verbally consented to treatment, Patient verbally consented to billing insurance company, Patient informed of any privacy concerns related to method of visit ?Total time spent with patient (mins)?15 ? The patient, an 83-year-old female, reported feeling [...] in her family with similar symptoms. * ROS:?General/Constitutional:?pain?Left shoulder and low back since her fall.?Chills?denies.?Fatigue?admits.?Fever?denies.?ENT:?Decreased hearing?mild.?Respiratory:?Cough?denies.?Cardiovascular:?Chest pain with exertion?denies.?Dyspnea on exertion?denies.?Shortness of breath?with exertion.?Gastrointestinal:?Constipation?occasional.?Decreased appetite?denies.?Diarrhea?denies.?Heartburn?denies.?Nausea?denies.?Rectal bleeding?denies.?Vomiting?denies.?Hematology:?bruising?denies.?petechiae?denies.?Swollen glands?none have been noted.?Genitourinary:?Frequent urination?a small amount.?Musculoskeletal:?Muscle aches?denies.?Painful joints?denies.?Sciatica?denies.?Weakness?denies.?Skin:?Itching?denies.?Rash?denies.?Skin lesion(s)?denies.?Neurologic:?Difficulty speaking?denies.?Dizziness?denies.?Headache?denies.?Low back pain?denies.?Psychiatric:?Depressed mood?denies.? [...] is a?nonsmoker ?Additional Findings: Tobacco Non-User?Aggressive non-smoker ???She was born in [place], [place] and came to [place] at the age of 6. 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 He is retired. She has no latter day objection to blood transfusion. The patient mentioned [...] Objective: * Vitals:?Ht: 62, Wt:151, BMI: 27.62, BP:132/72, HR:68, Wt-k.49. * ???Past Orders: Lab:Immunofixation Pnl, Seru m * Collection Date 06/02/2024 10/28/2023 07/26/2023 Collection Time 09:35 AM 09:10 AM 10:40 AM Order Date 06/02/2024 10/28/2023 07/26/2023 IgG 352?A (Ref Range: 600-1540 mg/dL) 293?A (Ref Range: 600-1540 mg/dL) 289?A (Ref Range: 600-1540 mg/dL) IgA 25?A (Ref Range: 70-320 mg/dL) 18?A (Ref Range: 70-320 mg/dL) 16?A (Ref Range: 70-320 mg/dL) IgM 1136?A (Ref Range: 50-300 mg/dL) 1156?A (Ref Range: 50-300 mg/dL) 1381?A (Ref Range: 50-300 mg/dL) Immunofixation Interpretation SEE [...] Beta 1 0.4 (Ref Range: 0.4-0.6 g/dL) 0.3?A (Ref Range: 0.4-0.6 g/dL) 0.3?A (Ref Range: 0.4-0.6 g/dL) Prot Elec - Beta 2 0.3 (Ref Range: 0.2-0.5 g/dL) 0.2 (Ref Range: 0.2-0.5 g/dL) 0.2 (Ref Range: 0.2-0.5 g/dL) Prot Elec - Gamma 1.0 (Ref Range: 0.8-1.7 g/dL) 1.0 (Ref Range: 0.8-1.7 g/dL) 1.0 (Ref Range: 0.8-1.7 g/dL) PES - Abn Protein Band 1 0.5?A (Ref Range: NONE DETECTED g/dL) 0.6?A (Ref Range: NONE DETECTED g/dL) 0.6?A (Ref Range: NONE DETECTED g/dL) PES-Abn Protein [...] U/L) 151 (Ref Range: 122-220 U/L) * Lab:[facility] Rad[facility] l Fast * Collection Date 06/02/2024 02/03/2024 09/15/2021 Collection Time 09:35 AM 08:14 AM 09:31 AM Order Date 06/02/2024 02/03/2024 09/15/2021 Sodium 143 (Ref Range: 135-145 mmol/L) 144 (Ref Range: 135-145 mmol/L) 141 (Ref Range: 135-145 mmol/L) Bilirubin Total 1.3?H (Ref Range: 0.0-1.0 mg/dL) 1.1?H (Ref Range: 0.0-1.0 mg/dL) 1.2?H (Ref Range: 0.0-1.0 mg/dL) Aspartate Amino Transferase 19 (Ref Range: 5-31 U/L) 14 (Ref Range: 5-31 U/L) 10 (Ref Range: 5-31 U/L) Alanine Aminotransferase 16 (Ref Range: 0-31 U/L) 11 (Ref Range: 0-31 U/L) 8 (Ref Range: 0-31 U/L) Total Protein 7.4 (Ref Range: 6.5-8.0 g/dL) 6.9 (Ref Range: 6.5-8.0 g/dL) 8.7?H (Ref Range: 6.5-8.0 g/dL) Albumin Level 4.3 (Ref Range: 3.5-5.0 g/dL) 4.1 (Ref Range: 3.5-5.0 g/dL) 3.8 (Ref Range: 3.5-5.0 g/dL) Alkaline Phosphatase 70 (Ref Range: 39-117 U/L) 70 (Ref Range: 39-117 U/L) 84 (Ref Range: 39-117 U/L) Potassium 3.7 (Ref Range: 3.3-5.1 mmol/L) 3.9 (Ref Range: 3.3-5.1 mmol/L) 4.3 (Ref Range: 3.3-5.1 mmol/L) Chloride 108 (Ref Range: 96-108 mmol/L) 110?H (Ref Range: 96-108 mmol/L) 107 (Ref Range: 96-108 mmol/L) Carbon Dioxide 30?H (Ref Range: 22-29 mmol/L) 25 (Ref Range: 22-29 mmol/L) 27 (Ref Range: 22-29 mmol/L) Anion Gap 9?L (Ref Range: 12-20) 13 (Ref Range: 12-20) 11?L (Ref Range: 12-20) Blood Urea Nitrogen 7?L (Ref Range: 9-16 mg/dL) 14 (Ref Range: 9-16 mg/dL) 9 (Ref Range: 9-16 mg/dL) Creatinine 0.64 (Ref Range: 0.5-1.4 mg/dL) 0.85 (Ref Range: 0.5-1.4 mg/dL) 0.80 (Ref Range: 0.5-1.4 mg/dL) Estimated Glomerular Filt Rate > 60 > 60 > 60 Glucose Fasting 93 (Ref Range: 60-99 mg/dL) 89 (Ref Range: 60-99 mg/dL) 117?H (Ref Range: 60-99 mg/dL) Calcium 9.5 (Ref Range: 8.4-10.2 mg/dL) 9.9 (Ref Range: 8.4-10.2 mg/dL) 10.3?H (Ref Range: 8.4-10.2 mg/dL) * Lab:Complete Blood [...] Pct Auto 0.4 (Ref Range: 0.0-0.4 %) 0.5?H (Ref Range: 0.0-0.4 %) 0.4 (Ref Range: 0.0-0.4 %) Lymphocytes Percent Auto 25.7 (Ref Range: 20-40 %) 19.1?L (Ref Range: 20-40 %) 23.2 (Ref [...] Abs Auto 0.03 (Ref Range: 0.00-0.03 X10*3/uL) 0.04?H (Ref Range: [...] (Ref Range: 0.0-0.012 X10*3/uL) Assessment: * Assessment: 1.?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 Her blood work and physical examination today consistent with remission.???2.?Normochromic normocytic anemia - D64.9???Notes :Her CBC shows that her anemia has resolved.Her hematocrit and hemoglobin are now in the normal range.???3.?Essential hypertension - I10???Notes :Her blood pressure continues to be controlled.???4.?Hyperviscosity - D75.9???Notes :She is no longer hyperviscous.? Her IgM level has fallen slightly.? 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 We continue to follow this value periodically.? No change in therapy is necessary.??? Plan: * Treatment: 2.?Normochromic normocytic a nemia? Continue Naproxen Tablet, 250 MG, 1 tablet with food or milk, Orally, Twice a day;?Continue Metoprolol Tartrate Tablet, 100 MG, 1 tablet with food, Orally, Twice a day;?Continue Losartan Potassium Tablet, 100 MG, 1 tablet, Orally, Once a day;?Continue Omeprazole Capsule Delayed Release, 20 MG, 1 capsule 30 minutes before morning meal, Orally, Once a day;?Continue Furosemide Tablet, 20 MG, 1 tablet, Orally, Once a day;?Continue NIFEdipine ER Tablet Extended Release 24 Hour, 60 MG, 1 tablet on an empty stomach, Orally, Once a day;?Continue Imbruvica Capsule, 140 MG, 3 capsules, Orally, Once a day.?LAB: PROFILE, RANDOM (COMPREHENSIVE METABOLIC) ?LAB: CBC w DIFF ?LAB: IMMUNOFIXATION PANEL, SERUM (IEP) ?LAB: PROTEIN ELECTROPHORESIS, SERUM ?LAB: Viscosity 3.?Essential hypertension? Continue hydrALAZINE HCl Tablet, 50 MG, Oral.?LAB: PROFILE, RANDOM (COMPREHENSIVE METABOLIC) ?LAB: CBC w DIFF ?LAB: IMMUNOFIXATION PANEL, SERUM (IEP) ?LAB: PROTEIN ELECTROPHORESIS, SERUM ?LAB: Viscosity 4.?Hyperviscosity?LAB: PROFILE, RANDOM (COMPREHENSIVE METABOLIC) ?LAB: CBC w DIFF ?LAB: IMMUNOFIXATION PANEL, SERUM (IEP) ?LAB: PROTEIN ELECTROPHORESIS, SERUM ?LAB: Viscosity 5.?IgM monoclonal gammopathy of uncertain significance?LAB: PROFILE, RANDOM (COMPREHENSIVE METABOLIC) ?LAB: CBC w DIFF ?LAB: IMMUNOFIXATION PANEL, SERUM (IEP) ?LAB: PROTEIN ELECTROPHORESIS, SERUM ?LAB: Viscosity * Procedure Codes:? * Preventive Medicine:? ??Counseling:?Care goal follow-up plan:?Counseling for abnormal BMI given?Yes ?Above Normal BMI Follow-up?Dietary management education, guidance, and counseling, Dietary needs education * Follow Up:?3 Months, In thre e months (Reason: ov review labs, Regular check-up) * Images: * Sign off status: Completed true * Provider:?Giorgio Bright MD Date:?08/2024 Generated for Claude cantu/Regino/eTransmitting on:?07/31/2024 11:07 AM EDT History and Physical Notes * HPI (History of Present Illness) Category Sub-Category Detail Notes Telehealth Location of [facility] rendering services:: {...} [address] [place], [place] [address] Location of patient:: address listed in demographics [...]
--- OUTSIDE RECORDS SUMMARY | 2024-07-31 11:08 | XMS_ITS ---
Author Organization Giorgio Bright III, MD Address [address] [place] [address] Care Team Providers Care Special Ed Assistant Name Role Phone Tyler Maxwell MD Primary Care Provider UnavailGiorgio Carrera Unavailable [phone] Allergies Allergen (clinical drug ingredient) Drug/Non Drug [...] Date Provider Diagnosis Giorgio Bright III, MD [address] [place] [address] [place] [address] 05/11/2024 Giorgio Bright Normochromic normocytic anemia D64.9 [...] a day Next Appt Details Provider Name:Giorgio Bright, 09/11/2024 10:30:00 AM, [address] [place] [address], [address], Progress Notes * ARIEL DEANDOB: [birth year] (83 yo F)Acc No.[id number]:05/11/2024 Progress Notes Patient:?ARIEL DEAN Provider:?Giorgio Bright MD :1940???Age:83 Y???Sex:Female D ate:05/11/2024 Address:[address] [place] [phone] Pcp:Tyler Maxwell MD Subjective: * Chief Complaints: * ???1. Follow up. * HPI: ???COVID-19 Screening:?Questions?Have you had any new onset fever, chills, cough, congestion, sore throat, shortness of breath, muscle aches??No * ROS:?General/Constitutional:?pain?only normal aches and pains.?Chills?denies.?Fatigue?admits.?Fever?denies.?ENT:?Decreased hearing?denies.?Respiratory:?Cough?denies.?Cardiovascular:?Chest pain with exertion?denies.?Dyspnea on exertion?denies.?Shortness of breath?denies.?Gastrointestinal:?Constipation?denies.?Decreased appetite?denies.?Diarrhea?denies.?Heartburn?denies.?Nausea?denies.?Rectal bleeding?denies.?Vomiting?denies.?Hematology:?bruising?denies.?petechiae?denies.?Swollen glands?none have been noted.?Genitourinary:?Frequent urination?denies.?Musculoskeletal:?Muscle aches?denies.?Painful joints?denies.?Sciatica?denies.?Weakness?denies.?Skin:?Itching?denies.?Rash?denies.?Skin lesion(s)?denies.?Neurologic:?Difficulty speaking?denies.?Dizziness?denies.?Headache?denies.?Low back pain?denies.?Psychiatric:?Depressed mood?denies.? * Medical History:?HTN (hypert ension), GERD (gastroesophageal reflux disease), CKD (chronic kidney disease), Normochromic normocytic anemia, monoclonal IgM gammopathy, Hyperviscosity of serum, History of diverticulitis, History of herpes zoster, DJD, Coronary artery disease, Allergic rhinitis, Overweight, The patient has a history of lymphoma., Nasal septum deviated to the right, No history. * Surgical History:?bilateral cataract extractions , biopsy, right breast, benign disease , tendon release, wrist , dental extractions , [facility] Dr. Bright 10/14/20, No history . * Hospitalization/Major Diagno stic Procedure:?No history . * Family History:?Father: dece ased 59 yrs.?Mother: [...] Tobacco Non-User?Aggressive non-smoker ???She was born in [place], [place] and came to [place] at the age of 6. 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 He is retired. She has no orthodoxy objection to blood transfusion. The patient mentioned that she has a dog. {'Family Losses': 'Patient lost two sisters and one brother within 13 months.'}. * Medications:?Taking Naproxen 250 MG Tablet 1 tablet with [...] reviewed and reconciled with the patient * Allergies:?Sulfacetamide. Objective: * Vitals:? * Examination: ???General Examination: ?GENERAL APPEARANCE:?pleasant, well nourished, well developed, in no acute distress, calm and relaxed.?HEAD:?atraumatic, normocephalic.?EYES:?eomi, perrla, anicteric, conjugate.?EARS:?normal.?NOSE:?septum intact.?ORAL CAVITY:?normal, unremarkable.?NECK/THYROID:?no jugular venous distention, no carotid bruit, thyroid normal.?LYMPH NODES:?no enlarged lymph nodes,spleen normal.?SKIN:?no suspicious lesions, anicteric.?HEART:?no clicks, gallops, murmurs, or rubs, regular rhythm, S1, S2 normal, no s3, or vascular bruits.?LUNGS:?clear to auscultation .?BREASTS:??no masses palpable bilaterally.?ABDOMEN:?bowel sounds normal, no ascites, no organomegaly, no mass.?RECTAL EXAM:?not examined.?MUSCULOSKELETAL:?extremities unremarkable, no clubbing, cyanosis or edema.?PERIPHERAL PULSES:?normal.?NEUROLOGIC:?alert and oriented, cranial nerves 2-12 grossly intact, deep tendon reflexes 2+ symmetrical, motor strength normal upper and lower extremities, sensory exam intact.?PSYCH:?alert, oriented.? Assessment: * Assessment: 1.?Normochromic normocytic a nemia - D64.9???Notes :Her CBC shows that her anemia has resolved.Her hematocrit and hemoglobin are now in the normal range.???2.?Essential hypertension - I10???Notes :Her blood pressure continues to be controlled.??? Plan: * Treatment: 2.?Essential hypertension? Continue hydrALAZINE HCl Tablet, 50 MG, Oral.?? * Images: * The named appointment provid er may or may not be the originator of this progress note, and it is not deemed complete until electronically signed by the appointment provider. Sign off status: Pending * Provider:?Giorgio Bright MD Date:?07/2024 Generated for Lornei alondra/Regino/eTransmitting on:?07/31/2024 11:07 AM EDT History and Physical [...]
== END 2024-07-31 09:48 | disposition home or self-care (01) ==
LOC: HO.MAMMO 09:47
PROVIDERS: PCP Internal Medicine; Visit Provider Internal Medicine
DX: Z12.31 Encounter for screening mammogram for malignant neoplasm of breast (principal)
CPT/HCPCS: 77063; 77067

== ENCOUNTER → 2024-07-31 10:00 | Outpatient (BNV) | payer MEDICARE, OTHER, SELFPAY | PROVIDERS: PCP Internal Medicine; Visit Provider Internal Medicine | DX: Z12.31 Encounter for screening mammogram for malignant neoplasm of breast (principal) | CPT/HCPCS: 77063; 77067 ==

== ENCOUNTER 2024-08-09 08:12 | Outpatient (AMB) | payer MEDICARE, OTHER, SELFPAY ==
--- OUTSIDE RECORDS SUMMARY | 2024-08-09 08:17 | XMS_ITS ---
Author Organization Giorgio Bright III, MD Address [address] [place] [address] Care Team Providers Care Education Managers Name Role Phone Tyler Maxwell MD Primary Care Provider Unavailab Giorgio Carrasco Unavailable [phone] Allergies Allergen (clinical drug ingredient) Drug/Non Drug [...] Date Provider Diagnosis Giorgio Bright III, MD [address] [place] [address] [address] [place], [place] [address] 06/12/2024 Giorgio Bright Normochromic normocy tic anemia [...] check-up Provider Name:Giorgio Bright, 09/11/2024 10:30:00 AM, [address] [place] [address] [address], [address], [place], [address], Progress Notes * ARIEL DEANDOB: [birth year] (83 yo F)Acc No.[id number]:06/12/2024 Patient:?ARIEL DEAN Provider:?Giorgio Bright MD :1940???Age:83 Y???Sex:Female D ate:06/12/2024 Address:[address] [place], [place] [id number] Pcp:Tyler Maxwell MD Subjective: * Chief Complaints: * ???Lymphoplasmacytic lymphom aHyperviscosityAnemiaChronic renal diseaseCoronary artery diseaseHypertension * HPI: ???:?Telehealth?Location of provider rendering services:?{...} [address] [place] [address] Drive [address] [facility] [address] ?Location of patient:?address listed in demographics for [...] Tobacco Non-User?Aggressive non-smoker ???She was born in [place], [place] and came to [place] at the age of 6. 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
--- OUTSIDE RECORDS SUMMARY | 2024-08-09 08:18 | XMS_ITS ---
Author Organization Giorgio Bright III, MD Address [address] [place] [place] [address] Care Team Providers Care Licensed Marine Engineer Name Role Phone Tyler Maxwell MD Primary Care Provider UnavailGiorgio Carrera Unavailable [phone] Allergies Allergen (clinical drug ingredient) Drug/Non Drug [...] Date Provider Diagnosis Giorgio Bright III, MD [address] [place] [address] [place] [address] 05/11/2024 Giorgio Bright Normochromic normocytic anemia D64.9 [...] Details Provider Name:Giorgio Bright, 09/11/2024 10:30:00 AM, [address] [place] [address], [address], Progress Notes * ARIEL DEANDOB: [birth year] (83 yo F)Acc No.[id number]:05/11/2024 Progress Notes Patient:?ARIEL DEAN Provider:?Giorgio Bright MD :1940???Age:83 Y???Sex:Female D ate:05/11/2024 Address:[address] [place] [address] Pcp:Tyelr Maxwell MD Subjective: * Chief Complaints: * [...] Tobacco Non-User?Aggressive non-smoker ???She was born in [place], [place] and came to [place] at the age of 6. 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 He is retired. She has no scientologist objection to blood transfusion. The patient mentioned [...] Bright MD Date:?07/2024 Generated for Lornei alondra/Regino/eTransmitting on:?08/09/2024 08:17 AM EDT History and Physical [...]
--- OUTSIDE RECORDS SUMMARY | 2024-08-09 08:18 | XMS_ITS | Patient Health Record ---
Author Organization Giorgio Bright III, MD Address [address] [place] [address] Care Team Providers Care Quality Assurance Coordinator Name Role Phone Tyler Maxwell MD Primary Care Provider Unavailab Giorgio Carrasco Unavailable [phone] Allergies Allergen (clinical drug ingredient) Drug/Non Drug Allergy documented on EMR Reaction Allergy Type Onset Date Status sulfacetamide Sulfacetamide Unknown Drug Allergy Active Results Component Value Reference Range Notes Complete Blood Count Auto Di ff Reviewed date:10/29/2023 05:46:26 PM Interpretation: Performing Lab:[facility], [address] [place] [phone] Notes/Report: White Blood Count 9.2 4.8-10.8 X10*3/uL [...] Panel Reviewed date:10/29/2023 05:46:26 PM Interpretation: Performing Lab:[address] [address] Notes/Report: Sodium 144 135-145 mmol/L Potassium 3.7 3.3-5.1 mmol/L Chloride 109 96-108 mmol/L Carbon Dioxide 27 22-29 mmol/L Anion Gap 12 12-20 Blood Urea Nitrogen 14 9-16 mg/dL Creatinine 0.78 0.5-1.4 mg/dL Estimated Glomerular Filt Rate > 60 NOTE: For -Malawian individuals, multiply the result by 1.210. Chronic [...] Serum Reviewed date:11/04/2023 02:30:26 PM Interpretation: Performing Lab:[address] [address] Notes/Report: Beta-2 Microglobulin, Serum 2.65 < OR = 2.51 m g/L THIS TEST WAS PERFORMED AT: [facility] [address] [place] [phone] ALCIRA AGUILAR MD Protein Electrophoresis, Ser um Reviewed date:11/04/2023 02:30:26 PM Interpretation: Performing Lab:[facility], [address] [place] [phone] Notes/Report: Prot Elec - Total Protein 6.5 [...] be considered. THIS TEST WAS PERFORMED AT: [facility] [address] [place] [phone] ALCIRA AGUILAR MD Immunofixation Pnl, Serum Reviewed date:11/04/2023 02:30:26 PM Interpretation: Performing Lab:[facility], [address] [place] [phone] Notes/Report: IgG 291 152-5076 mg/dL IgA 18 70-320 mg/dL IgM 1156 50-300 mg/dL THIS TEST WAS PERFORMED AT: [facility] [address] [place] [phone] ALCIRA AGUILAR MD Immunofixation Interpretation SEE NOTE IgM kappa monoclonal band present. Complete Blood Count Auto Di ff Reviewed date:03/28/2024 11:39:44 AM Interpretation: Performing Lab:[facility], [address] [place] [phone] Notes/Report: White Blood Count 8.5 4.8-10.8 X10*3/uL [...] NRBC Abs Auto 0.000 0.0-0.012 X10*3/uL Comprehensive [place]. Panel Fa st Reviewed date:03/28/2024 11:39:44 AM Interpretation: Performing Lab:[facility], [address] [place] [phone] Notes/Report: Sodium 144 135-145 mmol/L Potassium 3.9 3.3-5.1 mmol/L Chloride 110 96-108 mmol/L Carbon Dioxide 25 22-29 mmol/L Anion Gap 13 12-20 Blood Urea Nitrogen 14 9-16 mg/dL Creatinine 0.85 0.5-1.4 mg/dL Estimated Glomerular Filt Rate > 60 NOTE: For -Malawian individuals, multiply the result by 1.210. Chronic [...] Serum Reviewed date:03/28/2024 11:39:44 AM Interpretation: Performing Lab:[facility], [address] [place] [phone] Notes/Report: Beta-2 Microglobulin, Serum 2.80 < OR = 2.51 m g/L THIS TEST WAS PERFORMED AT: [facility] [address] [place] [phone] ALCIRA AGUILAR MD Protein Electrophoresis, Ser um Reviewed date:03/28/2024 11:39:44 AM Interpretation: Performing Lab:[facility], [address] [place] [phone] Notes/Report: Prot Elec - Total Protein 6.8 [...] THIS TEST WAS PERFORMED AT: [facility] [address] [phone] ALCIRA AGUILAR MD Viscosity Reviewed date:03/28/2024 11:39:44 AM Interpretation: Performing Lab:[facility], [address] [place] [phone] Notes/Report: Viscosity 1.7 1.5-1.9 rel to H2O Units = Relative to Water THIS TEST WAS PERFORMED AT: [facility]/[address] [address] OLEG OCAMPO MD,PHD Complete Blood Count Auto Di ff Reviewed date:06/03/2024 02:19:33 PM Interpretation: Performing Lab:[facility], [address] [place] [phone] Notes/Report: White Blood Count 7.9 4.8-10.8 X10*3/uL [...] NRBC Abs Auto 0.000 0.0-0.012 X10*3/uL Comprehensive [place]. Panel [facility] Reviewed date:06/03/2024 02:19:33 PM Interpretation: Performing Lab:[facility], [address] [place] [phone] Notes/Report: Sodium 143 135-145 mmol/L Potassium 3.7 [...] Dehydrogenase Reviewed date:06/03/2024 02:19:33 PM Interpretation: Performing Lab:[facility], [address] [place] [phone] Notes/Report: Lactate Dehydrogenase 198 122-220 U/L Protein Electrophoresis, Ser um Reviewed date:06/10/2024 09:00:19 AM Interpretation: Performing Lab:[facility], [address] [place] [phone] Notes/Report: Prot Elec - Total Protein 7.0 [...] be considered. THIS TEST WAS PERFORMED AT: [facility] [address] [place] [phone] ALCIRA AGUILAR MD Immunofixation Pnl, Serum Reviewed date:06/10/2024 09:00:19 AM Interpretation: Performing Lab:[facility], [address] [place] [phone] Notes/Report: IgG 842 840-2376 mg/dL IgA 25 70-320 mg/dL Verified by rep eat analysis. IgM 1136 50-300 mg/dL Verified by repeat analysis. THIS TEST WAS PERFORMED AT: [facility] [address] [place] [phone] ALCIRA AGUILAR MD Immunofixation Interpretation SEE NOTE [...] Problem Status W/U Status Risk Notes Problem 988492754 Overweight (E66.3) Active confirmed Her body mass index is 27.6 We discussed diet and nutrition today. I recommended she stabilize her weight at this level and not gaining further weight. Problem 55138947 Hypercalcemia (E83.52) Active confirmed Her calcium is 10.30which will be observed. She is not taking vitamin D. She will not take calcium at this time. It is improving. Problem 91757002 Essential hypertension (I10) Active confirmed Her blood pressure continues to be controlled. 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 Her blood work and physical examination today consistent with remission. 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 Problem 53776996 Normochromic normocytic anemia (D64.9) Active confirmed Her CBC shows that her anemia has resolved.Her hematocrit and hemoglobin are now in the normal range. Problem 92119775 Hyperviscosity (D75.9) Active confirmed She is no longer hyperviscous. Her IgM level has fallen slightly. No change in her regimen as necessary. Problem 576846251 Chronic kidney disease (CKD) stage G3b/A2, moderately decreased glomerular filtration rate (GFR) between 30-44 mL/min/1.73 square meter and albuminuria creatinine ratio between 30-299 mg/g (N18.32) Active confirmed Her GFR is over 60 and her BUN and creatinine are now 13 and 0.89. This problem has resolved. 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 She denies any recent syncope chest pain, angina or nausea or vomiting. 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) [...] Date Provider Diagnosis Giorgio Bright III, MD [address] [place] [address] [place] [address] 11/04/2023 Giorgio Bright Normochromic normocy tic anemia [...] and Hypercalcemia E83.52 Giorgio Bright III, MD [address] [place] [address] [place] [address] 02/07/2024 Giorgio Bright Normochromic normocy tic anemia D64.9 ; Malignant lymphoplasmacytic lymphoma C83.00 ; Essential hypertension I10 ; Hyperviscosity D75.9 ; IgM monoclonal gammopathy of uncertain significance D47.2 ; Macroglobulinemia C88.0 and Overweight E66.3 Giorgio Bright III, MD [address] [place] [address] [place] [address] 03/28/2024 Giorgio Bright Right facial numbnes s [...] and Macroglobulinemia C88.0 Giorgio Bright III, MD [address] [place] [address] [place] [address] 04/20/2024 Giorgio Bright Normochromic normocy tic anemia [...] nasal septum J34.2 Giorgio Bright III, MD [address] [place] [address] [address] [place] [address] 06/12/2024 Giorgio Bright Normochromic normocy tic anemia D64.9 ; Malignant lymphoplasmacytic lymphoma C83.00 ; Essential hypertension I10 ; Hyperviscosity D75.9 and IgM monoclonal gammopathy of uncertain significance D47.2 Giorgio Bright III, MD [address] [place] [address] [address] [place] [address] 03/21/2024 Giorgio Bright Assessments Encounter Date Diagnosis (ICD Code) Assessment Notes T reatment Notes Treatment Clinical Notes 11/04/2023 Essential hypertensi on (ICD-10 - I10) [...] are now in the normal range. 11/04/2023 Hyperviscosity (ICD- 10 - D75.9) The [...] Her blood pressure continues to be controlled. 11/04/2023 Coronary artery disease involving autologous artery [...] No change in her regimen as necessary. 11/04/2023 Chronic kidney disea se (CKD) stage [...] periodically. No change in therapy is necessary. 11/04/2023 Overweight (ICD-10 - E66.3) She has [...] ) 04/06/2023 PROFILE, RANDOM (COMPREHENSIVE METABOLIC ) 06/12/2024 PROFILE, RANDOM (COMPREHENSIVE METABOLIC ) 08/03/2023 PROFILE, RANDOM (COMPREHENSIVE METABOLIC ) 06/01/2023 LDH [...] Details Provider Name:Giorgio Bright, 09/11/2024 10:30:00 AM, [address] [place] [address] JAILYN KEANE, [place], [phone], Insurance Providers Payer Name Payer Address Payer Phone Subscriber Number Group Number Insured Name Patient Relationship to Insured Coverage Start Date Coverage End Date MEDICARE NGS [address] [place] CHANG [address] [id number] ARIEL DEAN Self - patient is the insured [facility] [address] [address] [place], [place] [id number] ARIEL DEAN Self - patient is the [...]
--- OUTSIDE RECORDS SUMMARY | 2024-08-09 08:18 | XMS_ITS ---
Author Organization Giorgio Bright III, MD Address [address] [place] [address] Care Team Providers Care Residential Substance Abuse Counselor Name Role Phone Tyler Maxwell MD Primary Care Provider Unavailab Giorgio Carrasco Unavailable [phone] Allergies Allergen (clinical drug ingredient) Drug/Non Drug [...] Date Provider Diagnosis Giorgio Bright III, MD [address] [place] [address] [place] [address] 04/20/2024 Giorgio Bright Normochromic normocy tic anemia [...] OV, Provider Name:Giorgio Bright, 09/11/2024 10:30:00 AM, [address] [place] [address], [address], Progress Notes * ARIEL DEANDOB: [birth year] (83 yo F)Acc No.[id number]:04/20/2024 Progress Notes Patient:?ARIEL DEAN Provider:?Giorgio Bright MD :1940???Age:83 Y???Sex:Female D ate:04/20/2024 Address:[address] [place] [address] Pcp:Tyler Maxwell MD Subjective: * Chief Complaints: [...] year??No ?Points?0 ?Interpretation?Negative ???She was born in [place], [place] and came to [place] at the age of 6. 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 She has been to [place] for 60 [...] Range: 8.4-10.2 mg/dL) * Lab:Beta-2 Microglobulin, Se [facility] * Collection Date 02/03/2024 10/28/2023 02/02/2023 [...] Bright MD Date:?04/08 Generated for Claude cantu/Regino/Shmuelitting on:?08/09/2024 08:17 AM EDT History and Physical [...]
--- NOTE | 2024-08-09 08:35 | AM.OFFWIN_ITS ---
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 pt did mentioned she has leukemia. Patient Tobacco Use Status: Never used Tobacco Allergies Sulfa (Sulfonamide Antibiotics) [SULFA (SULFONAMIDE ANTIBIOTICS)] Allergy (Intermediate, Unverified 08/09/24 08:38) RASH lisinopril [LISINOPRIL] Allergy (Mild, Unverified 08/09/24 08:38) THROAT TICKLE/COUGH Do you need a note to return to daycare/school/sports/work: No HPI HPI Comments History of Present Illness Details 83 y/o female patient who presents to [facility] walk in clinic with c/o right Upper arm numbness/Tingling and pain since Jun. Reports that she fell back in Jun but denies Hitting the ground. Reports pain with ROM, pain is On/Off. [facility] Medical History (Updated 08/09/24 @ 09:16 by Lee Ann Balderas NP) Osteoarthritis of right shoulder Social History Patient Tobacco Use Status: Never used Tobacco Review of Systems Const All systems reviewed & are unremarkable except as noted in HPI and below Physical Exam Vital Signs: Last Vital Signs Pulse 68 08/09/24 08:38 BP 140/90 H 08/09/24 08:38 Pulse Ox 97 08/09/24 08:38 Oxygen Delivery Method Room Air 08/09/24 08:38 Const General: no acute distress Nutritional Appearance: overweight Orientation/consciousness: patient oriented x3 Neuro General: patient oriented x3, gait normal and moves all extremities Extrem General: Yes capillary refill normal Right upper extremity: shoulder/upper arm Details: normal to inspection, tenderness Location: of the A-C joint and over the deltoid bursa and normal ROM Psych Speech and movement: Normal speech and movement present Assessment & Plan Assessment & Plan (1) Osteoarthritis of right shoulder: Code(s): M19.011 - Primary osteoarthritis, right shoulder Qualifiers: Osteoarthritis type: primary Qualified Code(s): M19.011 - Primary osteoarthritis, right shoulder Plan: Ordered PT Ordered Acetaminophen and NSAIDs Orders: Orders PT Evaluation and Treatment Today M19.011 - Primary osteoarthritis, right shoulder Medications: New acetaminophen 1,000 mg (2 x 500 mg) PO Q6H PRN 30 caps 0RF pain M19.011 - Primary osteoarthritis, right shoulder lidocaine 5% leave on most painful area for up to 12 hrs 1 patch topical DAILY 30 ea 0RF M19.011 - Primary osteoarthritis, right shoulder Coding Level of Care Code Est Pt Level 4 (51021) Diagnoses Primary osteoarthritis of right shoulder M19.011 Osteoarthritis type: primary Time Spent (min) 20
[2024-08-09 08:38] VITALS: BP 140/90; PULSE 68; O2SAT 97
== END 2024-08-09 09:04 | disposition home or self-care (01) ==
PROVIDERS: PCP Internal Medicine; Visit Provider Nurse Practitioner Family
DX: M19.011 Primary osteoarthritis, right shoulder (principal)

== ENCOUNTER → 2024-08-09 08:12 | Outpatient (BNVA) | payer MEDICARE, OTHER, SELFPAY | PROVIDERS: PCP Internal Medicine; Visit Provider Nurse Practitioner Family | DX: M19.011 Primary osteoarthritis, right shoulder (principal) | CPT/HCPCS: 99212 ==

== ENCOUNTER 2024-08-31 10:51 | Outpatient (REF) | payer MEDICARE, OTHER, SELFPAY ==
--- NOTE | ~2024-08-31 | XR_ITS ---
EXAMINATION: XR SHOULDER, RIGHT CLINICAL INFORMATION: RIGHT SHOULDER PAIN, LIMITED ROM COMPARISON: May 28, 2018. TECHNIQUE: AP external rotation, Grashey, scapular Y, and axillary views of the right shoulder. FINDINGS: Subchondral cyst formation and volume loss involving the greater tuberosity, right humerus. Sclerosis and the articular surface of the acromioclavicular joint. No acute cortical disruption or malalignment. Fracture deformity in the posterior lateral aspect of the ribs right upper hemithorax likely third and fourth ribs. Chronic interstitial lung disease. No gross pneumothorax in the [id number] of the right upper lung. XR/XR shoulder RT min 2V IMPRESSION: Acute to subacute rib fractures upper right hemithorax without gross pneumothorax. Osteoarthrosis/degenerative changes, right shoulder. Electronically signed by: Anjel Herrera MD 09/03/2024 02:59 PM EDT
== END 2024-08-31 10:52 | disposition home or self-care (01) ==
LOC: HO.HMGCX 10:51
PROVIDERS: PCP Internal Medicine; Visit Provider Internal Medicine
DX: M25.511 Pain in right shoulder (principal)
CPT/HCPCS: 73030

== ENCOUNTER → 2024-08-31 11:03 | Outpatient (BNV) | payer MEDICARE, OTHER, SELFPAY | PROVIDERS: PCP Internal Medicine; Visit Provider Radiology Diagnostic Radiology | DX: S22.41XA Multiple fractures of ribs, right side, initial encounter for closed fracture (principal); M19.011 Primary osteoarthritis, right shoulder | CPT/HCPCS: 73030 ==

== ENCOUNTER 2024-09-04 08:22 | Outpatient (REF) | payer MEDICARE, OTHER, SELFPAY ==
[2024-09-04 10:03] LABS: MANUAL DIFF FLAG NO
[2024-09-04 10:11] LABS: Basophils Absolute Auto 0.1 X10*3/uL (0.0-0.2); Basophils Percent Auto 1.3 % (0-2); Eosinophils Absolute Auto 0.1 X10*3/uL (0.0-0.4); Eosinophils Percent Auto 0.8 % (0-4); Hematocrit 38.3 % (37.0-47.0); Hemoglobin 12.7 g/dl (12.0-16.0); Imm Gran Abs Auto 0.02 X10*3/uL (0.00-0.03); Imm Gran Pct Auto 0.2 % (0.0-0.4); Lymphocytes Absolute Auto 2.1 X10*3/uL (1.2-4.9); Lymphocytes Percent Auto 24.8 % (20-40); Mean Corpuscular HGB Conc 33.2 g/dl (31.0-35.0); Mean Corpuscular Hemoglobin 29.1 pg (27.0-33.0); Mean Corpuscular Volume 87.8 fL (80.0-98.0); Monocytes Absolute Auto 0.8 X10*3/uL (0.1-1.2); Monocytes Percent Auto 9.3 % (2-11); Neutrophils Absolute Auto 5.4 x10*3/uL (2.0-8.3); Neutrophils Percent Auto 63.6 % (45-73); Platelet Count 273 X10*3/uL (160-400); Red Blood Count 4.36 X10*6/uL (4.20-5.50); Red Cell Distribution Width 13.6 % (11.0-16.0); White Blood Count 8.5 X10*3/uL (4.8-10.8)
[2024-09-04 10:34] LABS: Alanine Aminotransferase 14 U/L (0-31); Albumin Level 4.2 g/dL (3.5-5.0); Alkaline Phosphatase 67 U/L (39-117); Anion Gap 12 (12-20); Aspartate Amino Transferase 19 U/L (5-31); Bilirubin Total 0.9 mg/dL (0.0-1.0); Blood Urea Nitrogen 11 mg/dL (9-16); Calcium 9.2 mg/dL (8.4-10.2); Carbon Dioxide 28 mmol/L (22-29); Chloride 107 mmol/L (96-108); Estimated Glomerular Filt Rate > 60; Glucose Random 94 mg/dL (60-115); Potassium 4.1 mmol/L (3.3-5.1); Sodium 143 mmol/L (135-145); Total Protein 6.8 g/dL (6.5-8.0)
[2024-09-06 18:39] LABS: PES - Abn Protein Band 1 0.6 g/dL (NONE DETECTED); Prot Elec - Albumin 4.3 g/dL (3.8-4.8); Prot Elec - Alpha1 0.3 g/dL (0.2-0.3); Prot Elec - Alpha2 0.8 g/dL (0.5-0.9); Prot Elec - Beta 1 0.4 g/dL (0.4-0.6); Prot Elec - Beta 2 0.2 g/dL (0.2-0.5); Prot Elec - Gamma 0.9 g/dL (0.8-1.7); Prot Elec - Total Protein 6.8 g/dL (6.1-8.1)
[2024-09-06 18:54] LABS: Viscosity 1.7 rel to H2O (1.5-1.9)
[2024-09-10 11:59] LABS: IgA 30 mg/dL (70-320); IgG 362 mg/dL (600-1540); IgM 1054 mg/dL (50-300)
== END 2024-09-04 08:23 | disposition home or self-care (01) ==
LOC: HO.HMGCLDS 08:22
PROVIDERS: PCP Internal Medicine; Visit Provider Internal Medicine Medical Oncology
DX: D64.9 Anemia, unspecified (principal); I10 Essential (primary) hypertension; D75.9 Disease of blood and blood-forming organs, unspecified; C83.00 Small cell B-cell lymphoma, unspecified site; D47.2 Monoclonal gammopathy
CPT/HCPCS: 36415; 80053; 82784; 84165; 85025; 85810; 86334

== ENCOUNTER → 2024-10-09 12:39 | Outpatient (REF) | payer MEDICARE, OTHER, SELFPAY ==
--- NOTE | 2024-10-09 12:43 | CA_ITS ---
Transthoracic Echocardiogram Patient (Last, First, Middle): Chrissie Wang C Gender: Female Date of : 1940 Age: 83 Procedure Date: 10/09/2024 Procedure Type: Transthoracic Echocardiogram Location: OP Height: 152.4 cm Weight: 65.77 kg BSA: 1.63 m2 Heart Rate: bpm BP: 180 / 88 mmHg In Processing Instructor: TO/RC Referring MD: Giorgio Bright MD Symptoms: UNSPEC CARDIAC MURMUR Study Quality: Adequate ECG Rhythm: Sinus Conclusions: - The left ventricular systolic function is normal. The calculated ejection fraction is 65% by biplane method. - There is mild to moderate aortic valve stenosis. Findings Left Ventricle Normal left ventricular cavity size. There is mildly increased left ventricular wall thickness. The left ventricular systolic function is normal. The calculated ejection fraction is 65% by biplane method. There is no evidence of regional wall motion abnormalities. Evidence suggests grade I (mild) diastolic dysfunction. Right Ventricle Normal right ventricular cavity size and systolic function. Atria The left atrium is moderately dilated. The right atrium is normal in size. Aortic Valve There is moderate calcification of the aortic valve. There is mild to moderate aortic valve stenosis. There is trace (trivial) aortic valve regurgitation. Dimensionless index 0.35. Stroke volume index 42ml/m2. Mitral Valve There is mild posterior mitral leaflet thickening. There is trace mitral valve regurgitation. There is no mitral valve stenosis. Pulmonic Valve The pulmonic valve is likely normal. Tricuspid Valve There is mild tricuspid valve regurgitation. There is no evidence of pulmonary hypertension. Great Vessels The asc aorta is normal in size. Venous The inferior vena cava is normal in size and collapses greater than 50% with inspiration. Pericardium/Pleural There is no evidence of pericardial effusion. Prior Study Comparison Changes noted compared to prior study dated: 12/08/2022. Progression of aortic stenosis. Measurements 2D Linear Measurements IVSd: 1.17 0.6-0.9/0.6-1.0 cm LVIDd: 4.79 3.9-5.3/4.2-5.9 cm LVIDd Index: 2.94 2.4-3.2/2.2-3.1 cm/m2 LVIDs: 3.57 2.0-3.6 cm LVPWd: 1.03 0.7-1.1 cm LA Diam: 4.00 2.7-3.8/3.0-4.0 cm LAIDs Index: 2.45 1.5-2.3 cm/m2 LV Mass: 240.90 67-162/88-224 g LV Mass Index: 147.79 43-95/49-115 g/m2 LVOT Diam: 2.00 3.0+(-)1.3 cm 2D Systolic Function EF 4C: 61.60 >55% EF 2C: 68.60 >55% EF BiP: 64.60 >55% Mitral Valve MV VTI: 0.37 MV Pk Grant: 1.36 MV Mn Grant: 0.71 MV Pk Grad: 7.00 MV Mn Grad: 2.00 MV Pk E: 0.84 MV PK A: 1.09 MV Decel Time: 225.00 E/A: 0.80 E'Lateral: 4.57 E'Medial: 3.05 E/E' Med: 27.50 E/E' Lat: 18.40 PHT: 66.00 MVA PHT: 3.33 MVA Continuity: 1.87 Decel Baylor: 3.73 Aortic Valve AoV Pk Grant: 2.57 AoV Mn Grant: 2.17 AoV VTI: 0.70 AoV Pk Grad: 26.00 Aov Mn Grad: 20.00 PATRICIA Cont.VTI: 0.99 LVOT LVOT Pk Grant: 0.89 LVOT Mn Grant: 0.55 LVOT VTI: 0.22 LVOT Pk Grad: 3.00 LVOT Mn Grad: 1.00 LVOT Diam: 2.00 LVOT Area: 3.14 Diastolic Function MV Pk E: 0.84 MV Pk A: 1.09 E/A: 0.80 E'Medial: 3.05 E/E' Med: 27.50 E' Laterial: 4.57 E/E' Lat: 18.40 Right Ventricle TAPSE (mm): 23.80 TVS' Grant: 13.70 Tricuspid Valve TR Pk Grant: 2.66 TR Pk Grad: 28.00 RA Press: 3.00 RVSP: 31.00 Great Vessels Aorta Sinus of Valsalva: 2.90 2.0-3.5 cm Ao Asc: 3.30 2.1-3.4 cm Pulmonary Valve PV Pk Grant: 0.96 Peak PV Grad: 4.00 Updated in Other Vendor System with Status of Final Jerry Schultz MD electronically signed on 10/09/2024 4:00:22 PM with status of Final
--- OUTSIDE RECORDS SUMMARY | 2024-10-09 14:00 | XMS_ITS ---
Author Organization Giorgio Bright III, MD Address [address] [place] [address] Care Team Providers Care Bag Patcher Name Role Phone Tyler Maxwell MD Primary Care Provider Unavailab Giorgio Carrasco Unavailable [phone] Allergies Allergen (clinical drug ingredient) Drug/Non Drug [...] Date Provider Diagnosis Giorgio Bright III, MD [address] [place] [address] [address] [place], [place] [address] 06/12/2024 Giorgio Bright Normochromic normocy tic anemia [...] check-up Provider Name:Giorgio Bright, 12/11/2024 10:30:00 AM, [address] [place] [address] [address], [address], [place], [address], Progress Notes * ARIEL DEANDOB: [birth year] (83 yo F)Acc No.[id number]:06/12/2024 Patient:?ARIEL DEAN Provider:?Giorgio Bright MD :1940???Age:83 Y???Sex:Female D ate:06/12/2024 Address:[address] [place], [place] [phone] Pcp:Tyler Maxwell MD Subjective: * Chief Complaints: * ???Lymphoplasmacytic lymphom aHyperviscosityAnemiaChronic renal diseaseCoronary artery diseaseHypertension * HPI: ???:?Telehealth?Location of provider rendering services:?{...} [address] [place] [address] Drive [address] [facility] [address] ?Location of patient:?address listed in demographics for [...] Tobacco Non-User?Aggressive non-smoker ???She was born in [place], [place] and came to [place] at the age of 6. 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 He is retired. She has no gnosticist objection to blood transfusion. The patient mentioned [...] Bright MD Date:?08/2024 Generated for Claude cantu/Regino/eTransmitting on:?10/09/2024 02:00 PM EDT History and Physical Notes * HPI (History of Present Illness) Category Sub-Category Detail Notes Telehealth Location of [facility] rendering services:: {...} [address] [place], [place] [phone] Location of patient:: address listed in demographics [...]
== END ==
LOC: HO.CARD 12:39
PROVIDERS: PCP Internal Medicine; Visit Provider Internal Medicine Medical Oncology
DX: R01.1 Cardiac murmur, unspecified (principal)
CPT/HCPCS: 93306

== ENCOUNTER → 2024-10-09 12:43 | Outpatient (BNV) | payer MEDICARE, OTHER, SELFPAY | PROVIDERS: PCP Internal Medicine; Visit Provider Internal Medicine | DX: I35.0 Nonrheumatic aortic (valve) stenosis (principal); I35.8 Other nonrheumatic aortic valve disorders; I36.1 Nonrheumatic tricuspid (valve) insufficiency; I51.89 Other ill-defined heart diseases | CPT/HCPCS: 93306 ==

== ENCOUNTER 2024-11-15 10:49 | Outpatient (AMB) | payer MEDICARE, OTHER, SELFPAY ==
--- OUTSIDE RECORDS SUMMARY | 2024-06-12 05:45 | XMS_ITS ---
Author Organization Giorgio Bright III, MD Address [address] [place] [address] Care Team Providers Care Surface Grinder Tender Name Role Phone Tyler Maxwell MD Primary Care Provider Unavailab Giorgio Carrasco Unavailable [phone] Allergies Allergen (clinical drug ingredient) Drug/Non Drug [...] Date Provider Diagnosis Giorgio Bright III, MD [address] [place] [address] [address] [place], [place] [address] 06/12/2024 Giorgio Bright Normochromic normocy tic anemia [...] check-up Provider Name:Giorgio Bright, 12/11/2024 10:30:00 AM, [address] [place] [address] [address], [place], [address], Progress Notes * ARIEL DEANDOB: [birth year] (83 yo F)Acc No.[id number]:06/12/2024 Patient: ARIEL YORK Provider: Jackelyn Bright MD :1940 A ge:83 Y S ex:Female Date:06/12/2024 Address:[address] [place] [phone] Pcp:Tyler Maxwell MD Subjective: * Chief Complaints: * L ymphoplasmacytic lymphomaHyperviscosityAnemiaChronic renal diseaseCoronary artery diseaseHypertension * HPI: * : Telehealth L ocation of provider rendering services: { ...} [address] [place] [address] Drive [address] [facility] [address] L ocation of patient: true peoples listed [...] ggressive non-smoker S he was born in [place], [place] and came to [place] at the age of 6. 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 He is retired. She has no confucianism objection to blood transfusion. The patient mentioned [...] 151 (Ref Range: 122-220 U/L) * Lab:Comprehensive [place]. Pane l Fast * Collection Date 06/02/2024 [...] 0 06/12/2024 Generated for Claude cantu/Regino/Tyson on: 0 11/15/2024 11:32 AM EDT History and Physical Notes * HPI (History of Present Illness) Category Sub-Category Detail Notes Telehealth Location of [facility] rendering services:: {...} 10 [facility] [address] [place] [address] Location of patient:: address listed in demographics [...]
--- NOTE | 2024-11-15 10:50 | MHC.OFFVIS ---
Vital Signs 11/15/24 11:00 Height 5 ft Weight 143 lb BMI 27.9 Intake Visit Reasons: Right shoulder pain and weakness Intake Note: Chrissie is an 83 year old right hand dominant female who presents with complaints of progressively worsening right shoulder pain and weakness. The patient describes her pain as sharp in nature. Most of the pain is along the lateral aspect of her shoulder. The patient states that she fell onto her right side in June of 2024 when she slipped on ice. Since that time she has had weakness when lifting her right hand above shoulder height. She has failed the last 6 weeks of conservative treatment which has included Tylenol, anti-inflammatory medicines, a home exercise program and physical therapy exercises. Allergies Sulfa (Sulfonamide Antibiotics) (SULFA (SULFONAMIDE ANTIBIOTICS)) Allergy (Intermediate, Unverified 11/15/24 11:03) RASH lisinopril (LISINOPRIL) Allergy (Mild, Unverified 11/15/24 11:03) THROAT TICKLE/COUGH Medication List - Last Reconciled 11/15/24 by Chi Duncan MD acetaminophen 1,000 mg (2 x 500 mg) PO Q6H PRN furosemide 20 mg PO DAILY hydralazine 50 mg PO BID ibrutinib (Imbruvica) 420 mg PO DAILY losartan 100 mg PO DAILY metoprolol tartrate 100 mg PO BID nifedipine ER 60 mg PO DAILY omeprazole 20 mg PO DAILY PFSH Medical History (Updated 11/15/24 @ 11:30 by Chi Duncan MD) Osteoarthritis of right shoulder Social History (Updated 11/15/24 @ 11:04 by Mansi Ring [facility]) Patient Tobacco Use Status: Never used Tobacco Current occupational status: retired 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 Physical Exam Vital Signs: BMI result Body Mass Index 27.9 Const Other: Well-nourished well-developed very friendly female awake alert and oriented x3 in no acute distress Extrem Other: Right shoulder examination shows decreased range of motion when compared to her left shoulder, 4/5 strength with supraspinatus testing, positive impingement signs, tenderness over her acromioclavicular joint, no instability Results Reviewed Results Reviewed: X-rays of the patient's right shoulder show severe acromioclavicular joint narrowing, a type 2 acromion, no acute bony abnormalities Assessment & Plan Assessment & Plan (1) Rotator cuff insufficiency of right shoulder: Code(s): M25.311 - Other instability, right shoulder Category: Medical Plan Ms. Wagn presents with progressively worsening right shoulder pain and weakness due to impingement syndrome and possible rotator cuff tearing. Thus, I will send the patient for an MRI of her right shoulder for further evaluation. I will see her back once the MRI is completed to discuss the findings and treatment options. Feel free to call me at any time should questions regarding her orthopedic management arise. I spent 21 minutes in reviewing the patient's records and imaging studies, seeing the patient and documenting in the medical record. Orders: Orders MR shoulder RT wo con 11/16/24 M25.311 - Other instability, right shoulder Coding Level of Care Code New Pt Level 3 (82174) Complex EM visit Add On G2211 Diagnoses Rotator cuff insufficiency of right shoulder M25.311
[2024-11-15 11:00] VITALS: BMI 27.9
== END 2024-11-15 11:21 | disposition home or self-care (01) ==
LOC: HO.HOS 10:49
PROVIDERS: PCP Internal Medicine; Visit Provider Orthopaedic Surgery
DX: M25.311 Other instability, right shoulder (principal)
CPT/HCPCS: 99203; G2211

== ENCOUNTER → 2024-11-15 10:49 | Outpatient (BNVA) | payer MEDICARE, OTHER, SELFPAY | PROVIDERS: PCP Internal Medicine; Visit Provider Orthopaedic Surgery | DX: M25.311 Other instability, right shoulder (principal) | CPT/HCPCS: 99202 ==

== ENCOUNTER 2024-11-28 14:25 | Outpatient (AMB) | payer MEDICARE, OTHER, SELFPAY ==
--- OUTSIDE RECORDS SUMMARY | 2024-06-12 05:45 | XMS_ITS ---
Author Organization Giorgio Bright III, MD Address [address] [place] [address] Care Team Providers Care Lock Maintenance Supervisor Name Role Phone Tyler Maxwell MD Primary Care Provider Unavailab Giorgio Carrasco Unavailable [phone] Allergies Allergen (clinical drug ingredient) Drug/Non Drug Allergy documented on EMR Reaction Allergy Type Onset Date Status sulfacetamide Sulfacetamide Unknown Drug Allergy Active REASON FOR VISIT Lymphoplasmacytic lymphoma, Hyperviscosity, Anemia, Chronic renal disease, Coronary artery disease,Hypertension Medications Medication SIG (Take, Route, Frequency, Duration) Notes Start Date End Date Status Naproxen 250 MG 1 tablet with food o r milk Orally Twice a day Active Furosemide 20 MG 1 tablet Orally Once a day Active NIFEdipine ER 60 MG 1 tablet on an empty stomach Orally Once a day Active Imbruvica 140 MG 3 capsules Orally On a day 02/23/2023 Active hydrALAZINE HCl 50 MG Oral Active Metoprolol Tartrate 100 MG 1 tablet with food Orally Twice a day Active Losartan Potassium [...] Findings: Tobacco Non-User Aggressive non-smoker Vital Signs Blood pressure systolic 132 mm Hg 06/12/19 25 Blood pressure diastolic 72 mm Hg 025 Heart Rate 68 /min 06/12/2024 Height 62 in 06/12/2024 Weight 151 lbs 06/12/2024 BMI 27.62 kg/m2 06/12/2024 Encounters Encounter Location Date Provider Diagnosis Giorgio Bright III, MD [address] [place] [address] [address] [place], [place] [address] 06/12/2024 Giorgio Bright Normochromic normocy tic anemia D64.9 ; 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 Her blood work and physical examination today consistent with remission. 06/12/2024 Essential hypertensi on (ICD-10 - I10) Her blood pressure continues to be controlled. 06/12/2024 Hyperviscosity (ICD- 10 - D75.9) She is no longer hyperviscous. Her IgM level has fallen slightly. No change in her regimen as necessary. 06/12/2024 IgM monoclonal gammopathy of uncertain significance (ICD-10 - D47.2) The IgM level has fallen slightly. We continue to follow this value periodically. No change in therapy is necessary. Plan Of Treatment Medication Medication Name Sig Start Date Stop Date Notes Naproxen 250 MG 1 tablet with food o r milk Orally Twice a day Furosemide 20 MG 1 tablet Orally Once a day NIFEdipine ER 60 MG 1 tablet on an empty stomach Orally Once a day Imbruvica 140 MG 3 capsules Orally Once a day 02/23/2023 hydrALAZINE HCl 50 MG Oral Metoprolol Tartrate 100 MG 1 tablet with food Orally Twice a day Losartan Potassium 100 MG 1 tablet Orally Once a day Omeprazole 20 MG 1 capsule 30 minutes before morning meal Orally Once a day Pending Test Test Name Order Date PROFILE, RANDOM (COMPREHENSIVE METABOLIC ) 06/12/2024 CBC w DIFF 06/12/2024 IMMUNOFIXATION PANEL, SERUM (IEP) 2024 PROTEIN ELECTROPHORESIS, SERUM Viscosity 06/12/2024 Next Appt Details Follow Up: 3 Months, In thre e months, Reason: ov review labs, Regular check-up Provider Name:Giorgio Bright, 12/11/2024 10:30:00 AM, [address] [place] [address] [address], [address], [place], [address], Progress Notes * ARIEL DEANDOB: [birth year] (83 yo F)Acc No.[id number]:06/12/2024 Patient: ARIEL YORK Provider: Jackelyn Bright MD :1940 A ge:83 Y S ex:Female Date:06/12/2024 Address:[address] [place] [id number] Pcp:Tyler Maxwell MD Subjective: * Chief Complaints: * L ymphoplasmacytic lymphomaHyperviscosityAnemiaChronic renal diseaseCoronary artery diseaseHypertension * HPI: * : Telehealth L ocation of provider rendering services: { ...} [address] [place] [address] [address] [facility] [address] L ocation of patient: true peoples listed in demographics for today's visit P atient identification confirmed using: LOGAN Jonhson ame T elehealth method: T elephone only. Patient not visible to care provider. C onsent: P atient verbally consented to treatment, Patient verbally consented to billing insurance company, Patient informed of any privacy concerns related to method of visit T otal time spent with patient (mins) 1 5 The patient, an 83-year-old female, reported feeling unwell for a few days. She mentioned feeling warm, but not feverish, and experiencing body aches. She also reported feeling lightheaded upon waking up. The patient had a fall recently, which she believes may have caused her shoulder and back pain. She did not lose consciousness during the fall. The patient also mentioned having a cold since the holidays and experiencing congestion, which she attributes to a nasal issue. She has not noticed anyone else in her family with similar symptoms. * ROS: G eneral/Constitutional: pain L eft shoulder and low back since her fall. C hills d enies. F atigue a dmits. F ever d enies. E NT: Decreased hearing m ild. R espiratory: Cough d enies. C ardiovascular: Chest pain with exertion d enies. D yspnea on exertion?denies. S hortness of breath w ith exertion. G astrointestinal: Constipation o ccasional. D ecreased [...] ggressive non-smoker S he was born in [place], [place] and came to [place] at the age of 6. 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 He is retired. She has no adventism objection to blood transfusion. The patient mentioned [...] reconciled with the patient * Allergies: S nanifacetaanel[Allergies Verified] Objective: * Vitals: H t: 62, Wt:151, BMI:27.62, BP:132/72, HR:68, Wt-k.49. * P ast Orders: Lab:Immunofixation Pnl, Seru m * Collection Date 06/02/2024 10/28/2023 07/26/2023 Collection Time 09:35 AM 09:10 AM 10:40 AM Order Date 06/02/2024 10/28/2023 07/26/2023 IgG 352 A (Ref Range: 600-1540 mg/dL) 293 A (Ref Range: 600-1540 mg/dL) 289 A (Ref Range: 600-1540 mg/dL) IgA 25 A (Ref Range: 70-320 mg/dL) 18 A (Ref Range: 70-320 mg/dL) 16 A (Ref Range: 70-320 mg/dL) IgM 1136 A (Ref Range: 50-300 mg/dL) 1156 A (Ref Range: 50-300 mg/dL) 1381 A (Ref Range: 50-300 mg/dL) Immunofixation Interpretation SEE NOTE SEE NOTE SEE NOTE * Lab:Protein Electrophoresis, Serum * Collection Date 06/02/2024 02/03/2024 10/28/2023 Collection Time 09:35 AM 08:14 AM 09:10 AM Order Date 06/02/2024 02/03/2024 10/28/2023 Prot Elec - Total Protein 7.0 (Ref Range: 6.1-8.1 g/dL) 6.8 (Ref Range: 6.1-8.1 g/dL) 6.5 (Ref Range: 6.1-8.1 g/dL) Prot Elec - Albumin 4.3 (Ref Range: 3.8-4.8 g/dL) 4.3 (Ref Range: 3.8-4.8 g/dL) 4.1 (Ref Range: 3.8-4.8 g/dL) Prot Elec - Alpha1 0.3 (Ref Range: 0.2-0.3 g/dL) 0.3 (Ref Range: 0.2-0.3 g/dL) 0.3 (Ref Range: 0.2-0.3 g/dL) Prot Elec - Alpha2 0.8 (Ref Range: 0.5-0.9 g/dL) 0.7 (Ref Range: 0.5-0.9 g/dL) 0.6 (Ref Range: 0.5-0.9 g/dL) Prot Elec - Beta 1 0.4 (Ref Range: 0.4-0.6 g/dL) 0.3 A (Ref Range: 0.4-0.6 g/dL) 0.3 A (Ref Range: 0.4-0.6 g/dL) Prot Elec - Beta 2 0.3 (Ref Range: 0.2-0.5 g/dL) 0.2 (Ref Range: 0.2-0.5 g/dL) 0.2 (Ref Range: 0.2-0.5 g/dL) Prot Elec - Gamma 1.0 (Ref Range: 0.8-1.7 g/dL) 1.0 (Ref Range: 0.8-1.7 g/dL) 1.0 (Ref Range: 0.8-1.7 g/dL) PES - Abn Protein Band 1 0.5 A (Ref Range: NONE DETECTED g/dL) 0.6 A (Ref Range: NONE DETECTED g/dL) 0.6 A (Ref Range: NONE DETECTED g/dL) PES-Abn Protein Band 2 TNP TNP TNP PES-Abn Protein Band 3 TNP TNP TNP Prot Elec - Interpretation SEE NOTE SEE NOTE SEE NOTE * Lab:Lactate Dehydrogenase * Collection Date 06/02/2024 05/19/2023 12/07/2022 Collection Time 09:35 AM 10:20 AM 11:40 AM Order Date 06/02/2024 05/19/2023 12/07/2022 Lactate Dehydrogenase 198 (Ref Range: 122-220 U/L) 165 (Ref Range: 122-220 U/L) 151 (Ref Range: 122-220 U/L) * Lab:Comprehensive [place]. Pane l Fast * Collection Date 06/02/2024 02/03/2024 09/15/2021 Collection Time 09:35 AM 08:14 AM 09:31 AM Order Date 06/02/2024 02/03/2024 09/15/2021 Sodium 143 (Ref Range: 135-145 mmol/L) 144 (Ref Range: 135-145 mmol/L) 141 (Ref Range: 135-145 mmol/L) Bilirubin Total 1.3 H (Ref Range: 0.0-1.0 mg/dL) 1.1 H (Ref Range: 0.0-1.0 mg/dL) 1.2 H (Ref Range: 0.0-1.0 mg/dL) Aspartate Amino Transferase 19 (Ref Range: 5-31 U/L) 14 (Ref Range: 5-31 U/L) 10 (Ref Range: 5-31 U/L) Alanine Aminotransferase 16 (Ref Range: 0-31 U/L) 11 (Ref Range: 0-31 U/L) 8 (Ref Range: 0-31 U/L) Total Protein 7.4 (Ref Range: 6.5-8.0 g/dL) 6.9 (Ref Range: 6.5-8.0 g/dL) 8.7 H (Ref Range: 6.5-8.0 g/dL) Albumin Level 4.3 (Ref Range: 3.5-5.0 g/dL) 4.1 (Ref Range: 3.5-5.0 g/dL) 3.8 (Ref Range: 3.5-5.0 g/dL) Alkaline Phosphatase 70 (Ref Range: 39-117 U/L) 70 (Ref Range: 39-117 U/L) 84 (Ref Range: 39-117 U/L) Potassium 3.7 (Ref Range: 3.3-5.1 mmol/L) 3.9 (Ref Range: 3.3-5.1 mmol/L) 4.3 (Ref Range: 3.3-5.1 mmol/L) Chloride 108 (Ref Range: 96-108 mmol/L) 110 H (Ref Range: 96-108 mmol/L) 107 (Ref Range: 96-108 mmol/L) Carbon Dioxide 30 H (Ref Range: 22-29 mmol/L) 25 (Ref Range: 22-29 mmol/L) 27 (Ref Range: 22-29 mmol/L) Anion Gap 9 L (Ref Range: 12-20) 13 (Ref Range: 12-20) 11 L (Ref Range: 12-20) Blood Urea Nitrogen 7 L (Ref Range: 9-16 mg/dL) 14 (Ref Range: 9-16 mg/dL) 9 (Ref Range: 9-16 mg/dL) Creatinine 0.64 (Ref Range: 0.5-1.4 mg/dL) 0.85 (Ref Range: 0.5-1.4 mg/dL) 0.80 (Ref Range: 0.5-1.4 mg/dL) Estimated Glomerular Filt Rate > 60 > 60 > 60 Glucose Fasting 93 (Ref Range: 60-99 mg/dL) 89 (Ref Range: 60-99 mg/dL) 117 H (Ref Range: 60-99 mg/dL) Calcium 9.5 (Ref Range: 8.4-10.2 mg/dL) 9.9 (Ref Range: 8.4-10.2 mg/dL) 10.3 H (Ref Range: 8.4-10.2 mg/dL) * Lab:Complete Blood Count Aut o Diff * Collection Date 06/02/2024 02/03/2024 10/28/2023 Collection Time 09:35 AM 08:14 AM 09:10 AM Order Date 06/02/2024 02/03/2024 10/28/2023 White Blood Count 7.9 (Ref Range: 4.8-10.8 X10*3/uL) 8.5 (Ref Range: 4.8-10.8 X10*3/uL) 9.2 (Ref Range: 4.8-10.8 X10*3/uL) Red Blood Count 4.73 (Ref Range: 4.20-5.50 X10*6/uL) 4.39 (Ref Range: 4.20-5.50 X10*6/uL) 4.58 (Ref Range: 4.20-5.50 X10*6/uL) Hemoglobin 13.7 (Ref Range: 12.0-16.0 g/dl) 13.0 (Ref Range: 12.0-16.0 g/dl) 13.5 (Ref Range: 12.0-16.0 g/dl) Hematocrit 41.5 (Ref Range: 37.0-47.0 %) 38.7 (Ref Range: 37.0-47.0 %) 40.4 (Ref Range: 37.0-47.0 %) Mean Corpuscular Volume 87.7 (Ref Range: 80.0-98.0 fL) 88.2 (Ref Range: 80.0-98.0 fL) 88.2 (Ref Range: 80.0-98.0 fL) Mean Corpuscular Hemoglobin 29.0 (Ref Range: 27.0-33.0 pg) 29.6 (Ref Range: 27.0-33.0 pg) 29.5 (Ref Range: 27.0-33.0 pg) Mean Corpuscular HGB Conc 33.0 (Ref Range: 31.0-35.0 g/dl) 33.6 (Ref Range: 31.0-35.0 g/dl) 33.4 (Ref Range: 31.0-35.0 g/dl) Red Cell Distribution Width 13.2 (Ref Range: 11.0-16.0 %) 13.2 (Ref Range: 11.0-16.0 %) 13.3 (Ref Range: 11.0-16.0 %) Platelet Count 271 (Ref Range: 160-400 X10*3/uL) 270 (Ref Range: 160-400 X10*3/uL) 271 (Ref Range: 160-400 X10*3/uL) Mean Platelet Volume 11.5 (Ref Range: 9.4-12.3 fL) 11.5 (Ref Range: 9.4-12.3 fL) 11.5 (Ref Range: 9.4-12.3 fL) Neutrophils Percent Auto 63.0 (Ref Range: 45-73 %) 68.7 (Ref Range: 45-73 %) 65.0 (Ref Range: 45-73 %) Imm Gran Pct Auto 0.4 (Ref Range: 0.0-0.4 %) 0.5 H (Ref Range: 0.0-0.4 %) 0.4 (Ref Range: 0.0-0.4 %) Lymphocytes Percent Auto 25.7 (Ref Range: 20-40 %) 19.1 L (Ref Range: 20-40 %) 23.2 (Ref Range: 20-40 %) Monocytes Percent Auto 8.5 (Ref Range: 2-11 %) 9.0 (Ref Range: 2-11 %) 7.9 (Ref Range: 2-11 %) Eosinophils Percent Auto 0.8 (Ref Range: 0-4 %) 1.3 (Ref Range: 0-4 %) 1.7 (Ref Range: 0-4 %) Basophils Percent Auto 1.6 (Ref Range: 0-2 %) 1.4 (Ref Range: 0-2 %) 1.8 (Ref Range: 0-2 %) NRBC Pct Auto 0.0 (Ref Range: 0.0-0.2 /100WBC) 0.0 (Ref Range: 0.0-0.2 /100WBC) 0.0 (Ref Range: 0.0-0.2 /100WBC) Neutrophils Absolute Auto 5.0 (Ref Range: 2.0-8.3 x10*3/uL) 5.8 (Ref Range: 2.0-8.3 x10*3/uL) 6.0 (Ref Range: 2.0-8.3 x10*3/uL) Imm Gran Abs Auto 0.03 (Ref Range: 0.00-0.03 X10*3/uL) 0.04 H (Ref Range: 0.00-0.03 X10*3/uL) 0.04 H (Ref Range: 0.00-0.03 X10*3/uL) Lymphocytes Absolute Auto 2.0 (Ref Range: 1.2-4.9 X10*3/uL) 1.6 (Ref Range: 1.2-4.9 X10*3/uL) 2.1 (Ref Range: 1.2-4.9 X10*3/uL) Monocytes Absolute Auto 0.7 (Ref Range: 0.1-1.2 X10*3/uL) 0.8 (Ref Range: 0.1-1.2 X10*3/uL) 0.7 (Ref Range: 0.1-1.2 X10*3/uL) Eosinophils Absolute Auto 0.1 (Ref Range: 0.0-0.4 X10*3/uL) 0.1 (Ref Range: 0.0-0.4 X10*3/uL) 0.2 (Ref Range: 0.0-0.4 X10*3/uL) Basophils Absolute Auto 0.1 (Ref Range: 0.0-0.2 X10*3/uL) 0.1 (Ref Range: 0.0-0.2 X10*3/uL) 0.2 (Ref Range: 0.0-0.2 X10*3/uL) NRBC Abs Auto 0.000 (Ref Range: 0.0-0.012 X10*3/uL) 0.000 (Ref Range: 0.0-0.012 X10*3/uL) 0.000 (Ref Range: 0.0-0.012 X10*3/uL) Assessment: * Assessment: 1. 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 Her blood work and physical examination today consistent with remission. 2 . N ormochromic normocytic anemia - D64.9 N otes :Her CBC shows that her anemia has resolved.Her hematocrit and hemoglobin are now in the normal range. 3 . E ssential hypertension - I10 N otes :Her blood pressure continues to be controlled. 4 . H yperviscosity - D75.9 N otes :She is no longer hyperviscous. Her IgM level has fallen slightly. No change in her regimen as necessary. 5 . I gM monoclonal gammopathy of uncertain significance - D47.2 ?Notes :The IgM level has fallen slightly. We continue to follow this value periodically. No change in therapy is necessary. Plan: * Treatment: 2. N ormochromic normocytic [...] Orally, Once a day. L AB: PROFILE, RANDOM (COMPREHENSIVE METABOLIC) L AB: CBC w DIFF L AB: IMMUNOFIXATION PANEL, SERUM (IEP) L AB: PROTEIN ELECTROPHORESIS, SERUM L AB: Viscosity 3. E ssential hypertension Continue hydrALAZINE HCl Tablet, 50 MG, Oral. L AB: PROFILE, RANDOM (COMPREHENSIVE METABOLIC) L AB: CBC w DIFF L AB: IMMUNOFIXATION PANEL, SERUM (IEP) L AB: PROTEIN ELECTROPHORESIS, SERUM L AB: Viscosity 4. H yperviscosity L AB: PROFILE, RANDOM (COMPREHENSIVE METABOLIC) L AB: CBC w DIFF L AB: IMMUNOFIXATION PANEL, SERUM (IEP) L AB: PROTEIN ELECTROPHORESIS, SERUM L AB: Viscosity 5. I gM monoclonal gammopathy of uncertain significance L AB: PROFILE, RANDOM (COMPREHENSIVE METABOLIC) L AB: CBC w DIFF L AB: IMMUNOFIXATION PANEL, SERUM (IEP) L AB: PROTEIN ELECTROPHORESIS, SERUM L AB: Viscosity * Procedure Codes: * Preventive Medicine: Counseling: C are goal follow-up plan: Counseling for abnormal BMI given Y es Above Normal BMI Follow-up D ietary management education, guidance, and counseling, Dietary needs education * Follow Up: 3 Months, In three months (Reason: ov review labs, Regular check-up) * Images: * Sign off status: Completed true * Provider: Jackelyn Bright MD Date: 0 06/12/2024 Generated for Claude cantu/Regino/Shmuelitting on: 0 11/28/2024 03:03 PM EDT History and Physical Notes * HPI (History of Present Illness) Category Sub-Category Detail Notes Telehealth Location of [facility] rendering services:: {...} [address] [facility] [address] [place] [address] Location of patient:: address listed in demographics for today's visit Patient identification confirmed using:: Name, Telehealth method:: Telephone only. Nora ent not visible to care provider. Consent:: Patient verbally c onsented to treatment, Patient verbally consented to billing insurance company, Patient informed of any privacy concerns related to method of visit Total time spent with patient (mins): 15
--- NOTE | 2024-11-28 14:30 | MHC.PC.OV ---
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: No Accompanied by: Self / Same As Patient Allergies Sulfa (Sulfonamide Antibiotics) (SULFA (SULFONAMIDE ANTIBIOTICS)) Allergy (Intermediate, Verified 11/28/24 14:59) RASH lisinopril (LISINOPRIL) Allergy (Mild, Verified 11/28/24 14:59) THROAT TICKLE/COUGH Medication List - Last Reconciled 11/28/24 by Lilibeth Horne PA-C acetaminophen 1,000 mg (2 x 500 mg) PO Q6H PRN clotrimazole-betamethasone 1-0.05 % appl topical BID furosemide 20 mg PO DAILY hydralazine 50 mg PO BID ibrutinib (Imbruvica) 420 mg PO DAILY losartan 100 mg PO DAILY metoprolol tartrate 100 mg PO BID nifedipine ER 60 mg PO DAILY omeprazole 20 mg PO DAILY Tobacco use date assessed: 11/28/24 Fall risk assessment: 2 + Falls in past year Last assessed Fall Risk: 11/28/24 Dental Screening Dental Screen Date: 11/28/24 Did you have a dental visit in the last 12 months?: No Did you have a dental problem in the last 6 months where you did not have access to dental care?: No Was dental information given to patient?: No HPI Establish care HPI Details The patient is an 84-year-old female presenting for a new patient appointment as her primary care provider Dr. Jose wilcox. She is presenting for hypertension management and chronic back pain. She has a history of hypertension, managed with multiple antihypertensive medications, yet her blood pressure remains elevated, necessitating medication adjustment. 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 Previous imaging showed mild scoliosis and degenerative disc changes, with plans for a repeat x-ray to assess progression. The patient has leukemia, managed with Imbruvica, and her blood work is regularly monitored, showing normal white blood cell counts. Aortic valve stenosis was identified via echocardiography, with a loud heart murmur noted, and a cardiology referral is planned. Urinary frequency is reported, with a normal urinalysis, and a urine culture is planned to rule out infection. Fungal rashes under the breast are managed with antifungal cream, exacerbated by medications causing diarrhea. Social History - Employment: Former hairstylist, involving prolonged standing, contributing to chronic back pain. [facility] Medical History (Updated 11/28/24 @ 15:48 by Lilibeth Horne PA-C) History of mammogram (~07/31/24) Obesity (BMI 30-39.9) Fungal rash of torso Aortic valve stenosis Leukemia Chronic back pain Hypertension Urinary frequency Chronic lower back pain Establishing care with new doctor, encounter for Moderate aortic valve stenosis Osteoarthritis of right shoulder Family History Father Cirrhosis of liver Mother Liver cancer Social History Housing: House Alcohol intake: current Alcohol intake frequency: does not drink Patient Tobacco Use Status: Never used Tobacco service: No Current occupational status: retired Cognitive needs: No Hearing needs: No Vision needs: Yes (rx reading) Questionnaire PHQ-9 Over the last 2 weeks, how often have you been bothered by any of the following problems? 1. Little interest or pleasure in doing things: not at all 2. Feeling down, depressed, or hopeless: not at all 3. Trouble falling or staying asleep, or sleeping too much: not at all 4. Feeling tired or having little energy: not at all 5. Poor appetite or overeating: not at all 6. Feeling bad about yourself - or that you are a failure or have let yourself or your family down: not at all 7. Trouble concentrating on things, such as reading the newspaper or watching television: not at all 8. Moving or speaking so slowly that other people could have noticed. Or the opposite - being so fidgety or restless that you have been moving around a lot more than usual: not at all 9. Thoughts that you would be better off or of hurting yourself in some way: not at all Total score: 0 Depression Screening Interpretation: Negative Depression Screening Done: Yes 52214 - PHQ-9 Billing: Yes Source: Developed by Drs. Giorgio Calle, Rachid Gray and colleagues, with an educational tien from [employer]. Thrive Questionnaire Date Thrive assessed: 11/28/24 I am a: Patient What is your living situation today?: I have a steady place to live Within the past 12 months, did the food you bought not last and you didn't have the money to get more?: Never true Within the past 12 months, did you worry whether your food would run out before you got money to buy more?: Never true Do you have trouble paying for medicines?: No Do you have trouble getting transportation to medical appointments?: No Do you have trouble paying your heating and electricity bill?: No Do you have trouble taking care of your child, family member or friend?: No Do you have trouble with day-to-day activities such as bathing, preparing meals, shopping, managing finances, etc.?: No Are you currently unemployed and looking for a job?: No Are you interested in more education?: No Please select the resources that you would like help with: None Currently or been in a relationship where the following occur: No concerns reported THRIVE Score: 0 AUDIT C Alcohol Use Questionnaire (AUDIT-C) 1. How often do you have a drink containing alcohol?: Never 3. How often do you have six or more drinks on one occasion?: Never Total Score: 0 Score Reviewed/Action Taken: No DIPIKA-7 AMB Questionnaire DIPIKA-7 Date DIPIKA - 7 assessed: 11/28/24 Feeling nervous, anxious, or on edge: 0 = Not at all Not being able to stop or control worryin = Not at all Worrying too much about different things: 0 = Not at all Trouble relaxin = Not at all Being so restless that it is hard to sit still: 0 = Not at all Becoming easily annoyed or irritable: 0 = Not at all Feeling afraid as if something awful might happen: 0 = Not at all Total DIPIKA-7 score (0-4 normal; 5-9 mild; 10-14 moderate; 15-21 severe): 0 Source: Developed by Melisa Bright Kurt Kroenke and colleagues, with an educational tien from [employer]. DIPIKA-7 Assessment Billing DIPIKA-7 Assessment Tool: DIPIKA-7 Assessment 63205 Review of Systems Const Details: - Cardiovascular: Reports hypertension. Denies leg swelling. - Musculoskeletal: Reports chronic back pain, worsening in the morning. - Genitourinary: Reports urinary frequency. Denies hematuria or dysuria. All systems reviewed & are unremarkable except as noted in HPI and below Physical exam (Primary Care) Vital Signs: Last Vital Signs Temp 97.9 F 11/28/24 14:40 Pulse 67 11/28/24 14:40 Resp 16 11/28/24 14:40 BP 172/70 H 11/28/24 14:40 Pulse Ox 94 11/28/24 14:40 Oxygen Delivery Method Room Air 11/28/24 14:40 Care Plan Goal for BP management: <140/90 at Goal patient to continue furosemide 20 mg daily, losartan 100 mg daily, metoprolol 100 mg p.o. b.i.d., nifedipine extended release 60 mg daily and will increase hydralazine from 50 mg p.o. b.i.d. to 100 mg p.o. b.i.d. and patient will return in 1 month with blood pressure diary BMI result Body Mass Index 30.5 BMI Assessment/Plan discussion: High BMI High, discussed plan: lifestyle, weight reduction, dietary, physical activity and alcohol moderation Tobacco/Smoking Status: Tobacco use Status Tobacco use date assessed 11/28/24 11/28/24 14:39 Patient Tobacco Use Status Never used Tobacco 11/28/24 14:39 PHQ-9: PHQ-9 Score PHQ-9: Total score 0 11/28/24 15:00 Depression Screening Interpretation: Negative Thrive Assessment: Date of Thrive Assessment Date Thrive assessed 11/28/24 11/28/24 14:39 Currently or been in a relationship where the following occur: No concerns reported Const Other: Appearance: Alert. Oriented X3. No acute distress. Head: Normal external exam. Normocephalic. Atraumatic. Eyes: Pupils are equal, round, and reactive to light. Extraocular movements intact. Conjunctiva and sclera normal. Eyelids normal. Throat: Pharynx normal. Uvula midline. Moist mucous membranes. Neck: Normal inspection. Neck supple. Full range of motion. Cardiovascular: Normal heart rate and rhythm. Loud murmur noted otherwise Heart sound normal. Mild to moderate aortic valve stenosis. Pulses normal throughout. Respiratory: No respiratory distress. Painless inspiration. Breath sounds normal. No wheezes/rales/rhonchi noted. Chest nontender. No accessory muscle usage noted or decreased air movement noted. Back: Full range of motion noted. Mild levoscoliosis and degenerative disc changes noted. Patient reports chronic pain to lower back. Moving all extremities with a normal steady gait. Skin: Skin warm and dry. Normal skin color. Normal skin turgor. No rashes/lesions/lacerations noted. Extremities: No lower extremity edema. Extremities exhibit normal range of motion. Extremities nontender. Neuro: Oriented X 3. No motor deficit. No sensory deficit. Reflexes normal. Results AMB Urinalysis, Automated UA Leukoctes Marika/uL [facility] on 11/28/24 15:34 Negative [facility] 11/28/24 15:34 UA Nitrite Negative Last Edit by [facility], [facility] on 11/28/24 15:34 Negative [facility] 11/28/24 15:34 UA Urobilinogen 0.2 mg/dL Last Edit by [facility], A on 11/28/24 15:34 Negative [facility] 11/28/24 15:34 UA Protein mg/dL Last Edit by [facility], [facility] on 11/28/24 15:34 Negative [facility] 11/28/24 15:34 UA pH 6.0 Last Edit [facility] on 11/28/24 15:34 UA Blood Colin/uL Last Edit [facility] on 11/28/24 15:34 Negative [facility] 11/28/24 15:34 UA Specific [place] 1.015 Last Edit by [facility] on 11/28/24 15:34 UA Ketone Negative Last Edit by [facility], A on 11/28/24 15:34 Negative [facility] 11/28/24 15:34 UA Bilirubin mg/dL Last Edit by [facility] on 11/28/24 15:34 Negative [facility] 11/28/24 15:34 UA Glucose mg/dL Last Edit by CLARA Poe on 11/28/24 15:34 Negative Linda Barlow 11/28/24 15:34 Results Reviewed Results Reviewed: - Echocardiogram: Mild to moderate aortic valve stenosis, ejection fraction 65% (10/09/2024). - Urinalysis: Normal results, no signs of infection. Coding Level of Care Code New Pt Level 5 (91417) Complex EM visit Add On G2211 Diagnoses Establishing care with new doctor, encounter for Z76.89 Hypertension I10 Chronic back pain M54.9; G89.29 Leukemia C95.90 Aortic valve stenosis I35.0 Urinary frequency R35.0 Fungal rash of torso B36.9 Obesity (BMI 30-39.9) E66.9 Additional Codes PHQ-9 - 80071 - PHQ-9 Billing: Yes ([id number]) DIPIKA-7 Assessment Billing - DIPIKA-7 Assessment Tool: DIPIKA-7 Assessment 38659 ([id number]) Time Spent (min) 45 Assessment & Plan Assessment & Plan (1) Establishing care with new doctor, encounter for: Code(s): Z76.89 - Persons encountering health services in other specified circumstances Category: Medical (2) Hypertension: Code(s): I10 - Essential (primary) hypertension Category: Medical Plan: The patient's hypertension is managed with multiple antihypertensive medications, yet her blood pressure remains elevated. The plan includes increasing hydralazine dosage from 50 mg p.o. b.i.d. to 100 mg p.o. b.i.d. and home monitoring of blood pressure. Patient will also continue furosemide 20 mg daily, losartan 100 mg b.i.d., metoprolol 100 mg p.o. b.i.d., nifedipine extended release 60 mg daily. She will return in 1 month for blood pressure check with her diary. (3) Chronic back pain: Code(s): M54.9 - Dorsalgia, unspecified; G89.29 - Other chronic pain Category: Medical Plan: Chronic back pain is attributed to prolonged standing from her previous occupation. A repeat x-ray is planned, and physical therapy is recommended. (4) Leukemia: Code(s): C95.90 - Leukemia, unspecified not having achieved remission Category: Medical Plan: The patient is on Imbruvica for leukemia, with normal blood work results. Follow-up with her oncologist is scheduled for early December. (5) Aortic valve stenosis: Code(s): I35.0 - Nonrheumatic aortic (valve) stenosis Category: Medical Plan: The patient has mild to moderate aortic valve stenosis, with a cardiology referral planned for further evaluation. (6) Urinary frequency: Code(s): R35.0 - Frequency of micturition Category: Medical Plan: Urinary frequency is reported, with a normal urinalysis result. A urine culture is planned to rule out infection. (7) Fungal rash of torso: Code(s): B36.9 - Superficial mycosis, unspecified Category: Medical Plan: The patient uses antifungal cream for fungal rashes under the breast, exacerbated by medications causing diarrhea. (8) Obesity (BMI 30-39.9): Code(s): E66.9 - Obesity, unspecified Category: Medical Plan: Patient has improved diet and exercise regimen. Condition is chronic and stable continue to monitor. Plan Plan Patient was informed and verbally consented to the use of an ambient scribe for clinic note documentation during this visit. 1. Hypertension The patient's hypertension is managed with multiple antihypertensive medications, yet her blood pressure remains elevated. The plan includes increasing hydralazine dosage from 50 mg p.o. b.i.d. to 100 mg p.o. b.i.d. and home monitoring of blood pressure. Patient will also continue furosemide 20 mg daily, losartan 100 mg b.i.d., metoprolol 100 mg p.o. b.i.d., nifedipine extended release 60 mg daily. She will return in 1 month for blood pressure check with her diary. 2. Chronic Back Pain Chronic back pain is attributed to prolonged standing from her previous occupation. A repeat x-ray is planned, and physical therapy is recommended. 3. Leukemia The patient is on Imbruvica for leukemia, with normal blood work results. Follow-up with her oncologist is scheduled for early December. 4. Aortic Valve Stenosis The patient has mild to moderate aortic valve stenosis, with a cardiology referral planned for further evaluation. 5. Urinary Frequency Urinary frequency is reported, with a normal urinalysis result. A urine culture is planned to rule out infection. 6. Fungal Rash The patient uses antifungal cream for fungal rashes under the breast, exacerbated by medications causing diarrhea. During the visit, we discussed the management of hypertension, including increasing the dosage of hydralazine and the importance of home blood pressure monitoring. We also reviewed the patient's chronic back pain, recommending a repeat x-ray and physical therapy to manage symptoms. The patient's leukemia management with Imbruvica was confirmed, with a follow-up appointment scheduled with her oncologist. We addressed the aortic valve stenosis, planning a referral to cardiology for further evaluation. Urinary frequency was noted, with a normal urinalysis, and a urine culture was planned to rule out infection. The patient was advised to continue using antifungal cream for her fungal rash. Orders: Orders Hemoglobin A1c Today Z00.00 - Encounter for general adult medical examination without abnormal findings Magnesium Today Z00.00 - Encounter for general adult medical examination without abnormal findings Vitamin B12 and Folate Today Z00.00 - Encounter for general adult medical examination without abnormal findings Vitamin D 25-OH Total Today Z00.00 - Encounter for general adult medical examination without abnormal findings UA CC w/rflx Micro + Cult Today R35.0 - Frequency of micturition XR DEXA axial skeleton Today M81.0 - Age-related osteoporosis without current pathological fracture XR lumbar spine 4V min Today G89.29 - Other chronic pain, M54.50 - Low back pain, unspecified PT Evaluation and Treatment Today G89.29 - Other chronic pain, M54.50 - Low back pain, unspecified Lipid Panel Today Z00.00 - Encounter for general adult medical examination without abnormal findings TSH reflex Free T4 Today Z00.00 - Encounter for general adult medical examination without abnormal findings AMB Urinalysis Automated Today G89.29 - Other chronic pain, M54.50 - Low back pain, unspecified Referrals Cardiology Referral I35.0 - Nonrheumatic aortic (valve) stenosis Medications: Changed From hydralazine 50 mg PO BID 90 days 180 tabs 3RF To hydralazine 100 mg PO BID 180 tabs 3RF 90 days From hydralazine 50 mg PO BID To hydralazine 50 mg PO BID 90 days 180 tabs 3RF Patient Instructions: - Monitor blood pressure at home three to four times a week and record the readings. - Continue taking prescribed medications, including the increased dosage of hydralazine. - Schedule and attend physical therapy sessions for back pain management. - Follow up with the oncologist in early December, ensuring blood work is completed a week prior. - Attend the cardiology appointment once scheduled. - Provide a urine sample for culture to rule out infection. - Continue using antifungal cream as needed for fungal rash.
[2024-11-28 14:40] VITALS: BP 172/70; PULSE 67; RESP 16; TEMP 36.6; O2SAT 94; BMI 30.5
[2024-11-28 15:37] VITALS: BP 163/72
== END 2024-11-28 15:35 | disposition home or self-care (01) ==
LOC: HO.HMCSH 14:25
PROVIDERS: PCP Internal Medicine; Visit Provider Physician Assistant Medical
DX: I10 Essential (primary) hypertension (principal); C95.90 Leukemia, unspecified not having achieved remission; E66.9 Obesity, unspecified; Z68.30 Body mass index [BMI] 30.0-30.9, adult; M54.9 Dorsalgia, unspecified; G89.29 Other chronic pain; I35.0 Nonrheumatic aortic (valve) stenosis; R35.0 Frequency of micturition; B36.9 Superficial mycosis, unspecified; M54.50 Low back pain, unspecified

== ENCOUNTER → 2024-11-28 14:25 | Outpatient (BNVA) | payer MEDICARE, OTHER, SELFPAY | PROVIDERS: PCP Internal Medicine; Visit Provider Physician Assistant Medical | DX: Z76.89 Persons encountering health services in other specified circumstances (principal); I10 Essential (primary) hypertension; M54.9 Dorsalgia, unspecified; G89.29 Other chronic pain; C95.90 Leukemia, unspecified not having achieved remission; I35.0 Nonrheumatic aortic (valve) stenosis; R35.0 Frequency of micturition; B36.9 Superficial mycosis, unspecified; E66.9 Obesity, unspecified; Z68.30 Body mass index [BMI] 30.0-30.9, adult; Z71.3 Dietary counseling and surveillance | CPT/HCPCS: 81003; 96127; 99202 ==

== ENCOUNTER 2024-12-02 10:09 | Outpatient (REF) | payer MEDICARE, OTHER, SELFPAY ==
--- NOTE | ~2024-12-02 | MR_ITS ---
EXAMINATION: MRI Shoulder without contrast, right TECHNIQUE: Multiplanar multisequence MR imaging through an upper extremity joint without contrast. INDICATION: The patient fell forward bracing themselves with the arms, right shoulder pain and decreased range of motion since then PRIOR: X-ray from 08/31/2024 FINDINGS: Rotator Cuff: There is a full-thickness tear of supraspinatus and infraspinatus tendons with 1 cm retraction. Rotator cuff is intact otherwise. Labrum: Posterior superior labrum is frayed. Superior labrum is degenerated and possibly torn. Long biceps tendon: The long biceps tendon is intact and not displaced from the groove. Acromioclavicular joint: There are small marginal osteophytes and capsular hypertrophy. Acromial morphology is flat, type I. There is no subacromial spur. Axillary pouch: The axillary pouch is intact. There is a small volume of mildly complex joint fluid. Articular cartilage: Anterior humeral head demonstrates multifocal deep partial-thickness articular cartilage defects, more than half the cartilage thickness. Bones/Marrow: There are marginal osteophytes involving the humeral head. Soft tissues: There is no muscle edema. There is mild to moderate fatty streaking of supraspinatus and infraspinatus tendons with moderate atrophy of supraspinatus muscle. MR/MR shoulder RT wo con IMPRESSION: There is a full-thickness tear of supraspinatus and infraspinatus tendons with 1 cm retraction from the footprint. There is mild to moderate fatty streaking of supraspinatus and infraspinatus muscles with moderate atrophy of supraspinatus muscle. There is no muscle edema to suggest ongoing atrophy. There is mild to moderate AC joint osteoarthritis. There is a mildly complex small volume joint effusion. Posterior superior labrum is frayed. The superior labrum is degenerated, and possibly torn/scarred. Electronically signed by: Bryn Esparza MD 12/03/2024 09:55 AM EDT
== END 2024-12-02 10:10 | disposition home or self-care (01) ==
LOC: HO.MRI 10:09
PROVIDERS: PCP Internal Medicine; Visit Provider Orthopaedic Surgery
DX: M25.311 Other instability, right shoulder (principal)
CPT/HCPCS: 73221

== ENCOUNTER → 2024-12-02 10:09 | Outpatient (BNV) | payer MEDICARE, OTHER, SELFPAY | PROVIDERS: PCP Internal Medicine; Visit Provider Radiology Diagnostic Radiology | DX: M25.311 Other instability, right shoulder (principal) | CPT/HCPCS: 73221 ==

== ENCOUNTER 2024-12-04 08:09 | Outpatient (REF) | payer MEDICARE, OTHER, SELFPAY ==
--- OUTSIDE RECORDS SUMMARY | 2024-06-12 05:45 | XMS_ITS ---
Author Organization Giorgio Bright III, MD Address [address] [place] [address] Care Team Providers Care Associate Professor Of Physics Name Role Phone Tyler Maxwell MD Primary Care Provider Unavailab Giorgio Carrasco Unavailable [phone] Allergies Allergen (clinical drug ingredient) Drug/Non Drug [...] Date Provider Diagnosis Giorgio Bright III, MD [address] [place] [address] [address] [place], [place] [address] 06/12/2024 Giorgio Bright Normochromic normocy tic anemia [...] check-up Provider Name:Giorgio Bright, 12/11/2024 10:30:00 AM, [address] [place] [address] [address], [place], [address], Progress Notes * ARIEL DEANDOB: [birth year] (83 yo F)Acc No.[id number]:06/12/2024 Patient: ARIEL YORK Provider: Jackelyn Bright MD :1940 A ge:83 Y S ex:Female Date:06/12/2024 Address:[address] [place] [phone] Pcp:Tyler Maxwell MD Subjective: * Chief Complaints: * L ymphoplasmacytic lymphomaHyperviscosityAnemiaChronic renal diseaseCoronary artery diseaseHypertension * HPI: * : Telehealth L ocation of provider rendering services: { ...} [address] [place] [address] Drive [address] [facility] [address] L ocation of patient: true peoples listed [...] ggressive non-smoker S he was born in [place], [place] and came to [place] at the age of 6. 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 He is retired. She has no holiness objection to blood transfusion. The patient mentioned [...] 151 (Ref Range: 122-220 U/L) * Lab:Comprehensive [place]. Pane l Fast * Collection Date 06/02/2024 [...] MD Date: 0 06/12/2024 Generated for Claude cantu/Regino/Tyson on: 12/04/2024 08:14 AM EDT History and Physical Notes * HPI (History of Present Illness) Category Sub-Category Detail Notes Telehealth Location of [facility] rendering services:: {...} 10 [facility] [address] [place] [address] Location of patient:: address listed in demographics [...]
--- NOTE | ~2024-12-04 | XR_ITS ---
EXAMINATION: X-ray lumbar spine. CLINICAL INFORMATION: Low back pain, unspecified. TECHNIQUE: AP oblique and lateral views.. COMPARISON: March 13, 2020. FINDINGS: Multilevel marginal osteophyte formation and endplate sclerosis and decreased intervertebral disc height throughout the axial skeleton pronounced at L5-S1, L2-3 and T9-10. Vacuum phenomenon and T9-10 and L5-S1 levels. Grade 1 anterolisthesis L4-5. No acute cortical disruption. No lytic or blastic lesions. Levoconvex curvature apex at L2. Vascular calcifications, aorta, iliac arteries and splenic artery. Focal calcifications overlapping the right upper quadrant abdomen. Spina bifida occulta S1, congenital. XR/XR lumbar spine 4V min IMPRESSION: Multilevel thoracolumbar spondylosis. Grade 1 anterolisthesis L4-5, worsened since prior examination. Levoconvex scoliosis. Atherosclerosis disease. Probable cholelithiasis. Electronically signed by: Anjel Herrera MD 12/04/2024 09:07 AM EDT
[2024-12-04 08:27] LABS: MANUAL DIFF FLAG NO
[2024-12-04 08:49] LABS: Hematocrit 39.4 % (37.0-47.0); Hemoglobin 13.2 g/dl (12.0-16.0); Imm Gran Abs Auto 0.04 X10*3/uL (0.00-0.03); Imm Gran Pct Auto 0.4 % (0.0-0.4); Lymphocytes Absolute Auto 1.8 X10*3/uL (1.2-4.9); Mean Corpuscular HGB Conc 33.5 g/dl (31.0-35.0); Mean Corpuscular Hemoglobin 29.6 pg (27.0-33.0); Mean Corpuscular Volume 88.3 fL (80.0-98.0); NRBC Abs Auto 0.000 X10*3/uL (0.0-0.012); NRBC Pct Auto 0.0 /100WBC (0.0-0.2); Platelet Count 262 X10*3/uL (160-400); Red Blood Count 4.46 X10*6/uL (4.20-5.50); White Blood Count 9.2 X10*3/uL (4.8-10.8)
[2024-12-04 09:14] LABS: Hemoglobin A1C 113.8567 umol/L; Total Hemoglobin (HGBA1C) 3508.6486 umol/L
[2024-12-04 09:19] LABS: Appearance Urine Clear; Glucose Urine UA Negative (Negative); PH 6.0 (5.0-9.0); Specific Gravity - Urine 1.015 (1.005-1.025); UMIC TRIGGER UACC YES
[2024-12-04 09:22] LABS: Alanine Aminotransferase 13 U/L (0-31); Albumin Level 4.5 g/dL (3.5-5.0); Alkaline Phosphatase 66 U/L (39-117); Anion Gap 12 (12-20); Aspartate Amino Transferase 22 U/L (5-31); Blood Urea Nitrogen 12 mg/dL (9-16); Calcium 9.2 mg/dL (8.4-10.2); Carbon Dioxide 26 mmol/L (22-29); Chloride 110 mmol/L (96-108); Cholesterol 151 mg/dL (<200); Estimated Glomerular Filt Rate > 60; HDL Cholesterol 44 mg/dL (>40); Magnesium 1.8 mg/dL (1.6-2.6); Potassium 4.1 mmol/L (3.3-5.1); Sodium 144 mmol/L (135-145); Total Protein 7.2 g/dL (6.5-8.0); Triglycerides 92 mg/dL (<150)
[2024-12-04 09:22] LABS: UACC Culture Trigger YES
[2024-12-04 09:53] LABS: Folate 8.6 ng/mL (> or = 4.0); Vitamin B12 249 pg/mL (200-900)
[2024-12-06 21:23] LABS: PES - Abn Protein Band 1 0.6 g/dL (NONE DETECTED); Prot Elec - Albumin 4.1 g/dL (3.8-4.8); Prot Elec - Alpha1 0.3 g/dL (0.2-0.3); Prot Elec - Alpha2 0.8 g/dL (0.5-0.9); Prot Elec - Beta 1 0.3 g/dL (0.4-0.6); Prot Elec - Beta 2 0.2 g/dL (0.2-0.5); Prot Elec - Gamma 0.9 g/dL (0.8-1.7); Prot Elec - Total Protein 6.6 g/dL (6.1-8.1)
== END 2024-12-04 08:10 | disposition home or self-care (01) ==
LOC: HO.LAB 08:09
PROVIDERS: Absent Provider Internal Medicine Medical Oncology; PCP Physician Assistant Medical; Visit Provider Physician Assistant Medical
DX: Z00.00 Encounter for general adult medical examination without abnormal findings (principal); M54.50 Low back pain, unspecified; G89.29 Other chronic pain; Z13.1 Encounter for screening for diabetes mellitus; R82.90 Unspecified abnormal findings in urine
CPT/HCPCS: 36415; 72110; 80053; 80061; 81001; 81003; 82306; 82607; 82746; 82784; 83036; 83735; 84165; 84443; 85025; 86334; 87086; 93005; 99212

== ENCOUNTER → 2024-12-04 08:35 | Outpatient (BNV) | payer MEDICARE, OTHER, SELFPAY | PROVIDERS: Absent Provider Internal Medicine Medical Oncology; PCP Physician Assistant Medical; Visit Provider Radiology Diagnostic Radiology | DX: M43.16 Spondylolisthesis, lumbar region (principal) | CPT/HCPCS: 72110 ==

== ENCOUNTER 2024-12-04 11:03 | Outpatient (AMB) | payer MEDICARE, OTHER, SELFPAY ==
[2024-12-04 11:09] VITALS: BP 122/66; PULSE 76; BMI 28.9
--- NOTE | 2024-12-04 11:09 | MHC.OFFVIS ---
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 Allergies Sulfa (Sulfonamide Antibiotics) (SULFA (SULFONAMIDE ANTIBIOTICS)) Allergy (Intermediate, Verified 11/28/24 14:59) RASH lisinopril (LISINOPRIL) Allergy (Mild, Verified 11/28/24 14:59) THROAT TICKLE/COUGH Medication List - Last Reconciled 12/04/24 by Jerry Schultz MD acetaminophen 1,000 mg (2 x 500 mg) PO Q6H PRN clotrimazole-betamethasone 1-0.05 % appl topical BID furosemide 20 mg PO DAILY hydralazine 100 mg PO BID 90 days ibrutinib (Imbruvica) 420 mg PO DAILY losartan 100 mg PO DAILY metoprolol tartrate 100 mg PO BID nifedipine ER 60 mg PO DAILY omeprazole 20 mg PO DAILY HPI Comments Details: Chrissie is here for consultation regarding aortic stenosis. A recent echocardiogram had shown [id number] aortic stenosis. Patient herself does not have any prior cardiac history. No known coronary disease or myocardial infarction or cardiomyopathy or in fact anything along those lines. She states that within limits of her activity she does not have any cardiac symptoms like angina. She has hypertension. According to her, PCP had recently increase the dose of hydralazine. Today's blood pressure seems okay. [facility] Medical History (Updated 12/04/24 @ 11:43 by Jerry Schultz MD) History of mammogram (~07/31/24) Obesity (BMI 30-39.9) Fungal rash of torso Aortic valve stenosis Leukemia Chronic back pain Hypertension Urinary frequency Chronic lower back pain Establishing care with new doctor, encounter for Moderate aortic valve stenosis Osteoarthritis of right shoulder Family History Father Cirrhosis of liver Mother Liver cancer Social History Housing: House Alcohol intake: current Alcohol intake frequency: does not drink Patient Tobacco Use Status: Never used Tobacco service: No Current occupational status: retired Cognitive needs: No Hearing needs: No Vision needs: Yes (rx reading) Review of Systems Const Denies weakness ENT Denies dizziness Card Reports no additional complaints, Denies chest pain, Denies chest pain with activity, Denies syncope, Denies rapid heart rate, Denies pedal edema, Denies edema, Denies leg edema, Denies lightheadedness, Denies palpitations, Denies dyspnea, Denies dyspnea on exertion and Denies orthopnea Resp Denies cough, Denies dyspnea and Denies dyspnea on exertion GI Denies hematochezia and Denies change in stool character Musc Denies abnormal gait, Denies muscle cramps, Denies muscle weakness, Denies numbness, Denies radiating pain into limb and Denies tingling Neuro Denies abnormal gait, Denies dizziness, Denies syncope, Denies numbness, Denies tingling and Denies weakness Endo Denies palpitations Physical Exam Vital Signs: Last Vital Signs Pulse 76 12/04/24 11:09 BP 122/66 12/04/24 11:09 BMI result Body Mass Index 28.9 Const General: comfortable and no acute distress Orientation/consciousness: patient oriented x3 HEENT Other: Unremarkable Head: Yes normal to inspection Neck Neck: Yes normal visual inspection Chest Chest palpation & inspection: normal inspection of the chest Resp Auscultation: clear to auscultation bilaterally Cardio Palpation: normal PMI Heart sounds: S1 normal heart sound present, S2 normal heart sound present, no gallops, Murmur heart sound present systolic II/ and at the right sternal border and no rubs GI Palpation (GI): Soft to palpation Back/Spine/Pelvis Other: unremarkable Skin General skin exam: no rashes or lesions noted Neuro General: patient oriented x3 Extrem General: Yes normal to inspection Psych Mental Status: mental status grossly normal Office Procedures EKG Details: EKG with underlying sinus rhythm at 76/Min; rightward axis; nonspecific ST-[place] changes; [place] [id number], Complete Assessment & Plan Assessment & Plan (1) Nonrheumatic aortic (valve) stenosis: Code(s): I35.0 - Nonrheumatic aortic (valve) stenosis Category: Medical Plan: In the echocardiogram, LVEF is 65%. Moderate aortic valve calcification with [id number] aortic stenosis. Pathophysiology of aortic stenosis discussed. We will follow this by echocardiogram. (2) Hypertension: Code(s): I10 - Essential (primary) hypertension Category: Medical Plan: Current blood pressure meds include metoprolol, losartan, hydralazine, nifedipine. Per patient, blood pressure meds have been recently increased by PCP. No further changes made today. Today's reading seems normal. Plan Discussion Notes We reviewed her hypertension management, including the recent increase in hydralazine dosage, and confirmed that her current blood pressure readings are satisfactory. I explained the nature of her heart murmur due to valve stenosis, emphasizing that it is mild to moderate and does not require immediate intervention. A follow-up appointment is scheduled in six months to monitor the condition. Patient was informed and verbally consented to the use of an ambient scribe for clinic note documentation during this visit. Patient Instructions: - Continue current medication regimen for hypertension. - Monitor for any new symptoms or changes in health, and report them promptly. - Attend follow-up appointment in six months for reassessment. Coding Level of Care Code New Pt Level 4 (50626) Complex EM visit Add On G2211 Diagnoses Nonrheumatic aortic (valve) stenosis I35.0 Hypertension I10 CPT Codes EKG - CPT: 17040-[id number], Complete ([id number])
== END 2024-12-04 11:31 | disposition home or self-care (01) ==
LOC: HO.HCS 11:03
PROVIDERS: PCP Internal Medicine; Visit Provider Internal Medicine
DX: I35.0 Nonrheumatic aortic (valve) stenosis (principal); I10 Essential (primary) hypertension
CPT/HCPCS: 93010; 99214; G2211

== ENCOUNTER 2024-12-18 14:18 | Outpatient (REF) | payer MEDICARE, OTHER, SELFPAY ==
--- OUTSIDE RECORDS SUMMARY | 2024-11-07 11:11 | XMS_ITS ---
Author Organization Giorgio Bright III, MD Address [address] [place] [address] [place] [address] Care Team Providers Care Bank Clerk Name Role Phone Tyler Maxwell MD Primary Care Provider Unavailab Giorgio Carrasco Unavailable [phone] REASON FOR VISIT Rx Request Social History Sex Assigned At : Social History Observation Description Sex Assigned At Female Encounters Encounter Location Date Provider Diagnosis Giorgio Bright III, MD [address] [place] [address] [place] [address] 11/07/2024 Giorgio Bright Plan Of Treatment Next Appt Details Provider Name:Giorgio Bright, 03/13/2025 10:00:00 AM, [address] [place] [address] [place], [address], Progress Notes * ARIEL DEANDOB: [birth year] (83 yo F)Acc No.[id number]:11/07/2024 Patient: ARIEL YORK :1940 A ge:83 Y S ex:Female [facility] [facility] [place], [address] * true * Date: Generated for Printi ng/Faxing/eTransmitting on: 0 12/18/2024 03:13 PM EDT
--- NOTE | ~2024-12-18 | MM_ITS ---
EXAMINATION: DXA BONE DENSITY AXIAL HISTORY: M81.0 - Age-related osteoporosis without current pathological fracture TECHNIQUE: Group 47 Dual energy absorptiometry (DEXA) of the lumbar spine, total left hip, and femoral neck was performed. COMPARISON: Comparison is made with the prior examination dated 10/06/2010. FINDINGS: The bone mineral density of the lumbar spine is 1.155 g/cm2, corresponding to a T-score of -0.2, and a Z-score of 1.7. This is indicative of normal bone mineral density. This represents a BMD change of 20.3% compared to the prior exam. This is statistically significant. The bone mineral density of the left total hip is 0.810 g/cm2, corresponding to a T-score of -1.6, and a Z-score of 0.5. This is indicative of osteopenia. This represents a BMD change of -10.0% compared to the prior exam. This is statistically significant. The bone mineral density of the left femoral neck is 0.784 g/cm2, corresponding to a T-score of -1.8, and a Z-score of 0.4. This is indicative of osteopenia. This represents a BMD change of -5.3% compared to the prior exam. FRACTURE RISK: The FRAX index suggests a ten year probability of major osteoporotic fracture of 14.9%, and of hip fracture 4.3%. MM/XR DEXA axial skeleton IMPRESSION: Based on bone mineral density, and according to World Health Organization (WHO) criteria, the diagnosis is consistent with osteopenia. Statistically, 68% of repeat scans fall within 1 SD (+/- 0.010 g/cm2 for AP spine L1-L4) and 1 SD (+/- 0.012 g/cm2 for femur total) FRAX is a trademark of the [employer] [place] [facility] Metabolic Bone Disease, a World Health Organization (WHO) Collaborating Center. Electronically signed by: Giorgio Saha MD 12/18/2024 03:13 PM EDT
== END 2024-12-18 14:19 | disposition home or self-care (01) ==
LOC: HO.MAMMO 14:18
PROVIDERS: PCP Physician Assistant Medical; Visit Provider Internal Medicine Medical Oncology
DX: M81.0 Age-related osteoporosis without current pathological fracture (principal)
CPT/HCPCS: 77080

== ENCOUNTER → 2024-12-18 14:30 | Outpatient (BNV) | payer MEDICARE, OTHER, SELFPAY | PROVIDERS: PCP Physician Assistant Medical; Visit Provider Radiology Diagnostic Radiology | DX: E28.39 Other primary ovarian failure (principal) | CPT/HCPCS: 77080 ==

== ENCOUNTER 2025-01-02 09:46 | Outpatient (AMB) | payer MEDICARE, OTHER, SELFPAY ==
--- OUTSIDE RECORDS SUMMARY | 2024-09-11 06:30 | XMS_ITS ---
Author Organization Giorgio Bright III, MD Address [address] [place] [address] Care Team Providers Care Economics Teacher Name Role Phone Tyler Maxwell MD Primary Care Provider Unavailab Giorgio Carrasco Unavailable [phone] Allergies Allergen (clinical drug ingredient) Drug/Non Drug [...] Date Provider Diagnosis Giorgio Bright III, MD [address] [place] [address] [place] [address] 09/11/2024 Giorgio Bright Normochromic normocy tic anemia [...] labs Provider Name:Giorgio Bright, 03/13/2025 10:00:00 AM, [address] [place] [address], [address], Progress Notes * ARIEL DEANDOB: [birth year] (83 yo F)Acc No.[id number]:09/11/2024 Progress Notes Patient: ARIEL YORK Provider: aJckelyn Bright MD :1940 A ge:83 Y S ex:Female Date:09/11/2024 Address:[address] [place] [id number] Pcp:Tyler Maxwell MD Subjective: * Chief Complaints: [...] ggressive non-smoker S he was born in [place], [place] and came to [place] at the age of 6. 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 She has been to Ryan for 60 [...] 09/11/2024 Generated for Claude cantu/Regino/Shmuelitting on: 0 01/02/2025 10:25 AM EDT History and Physical Notes * [...]
--- OUTSIDE RECORDS SUMMARY | 2024-11-07 11:11 | XMS_ITS ---
Author Organization Giorgio Bright III, MD Address [address] [place] [address] [place] [address] Care Team Providers Care Dehydration Plant Operator Name Role Phone Tyler Maxwell MD Primary Care Provider Unavailab Giorgio Carrasco Unavailable [phone] REASON FOR VISIT Rx Request Social History Sex Assigned At : Social History Observation Description Sex Assigned At Female Encounters Encounter Location Date Provider Diagnosis Giorgio Bright III, MD [address] [place] [address] [place] [address] 11/07/2024 Giorgio Bright Plan Of Treatment Next Appt Details Provider Name:Giorgio Bright, 03/13/2025 10:00:00 AM, [address] [place] [address] [place], [address], Progress Notes * ARIEL DEANDOB: [birth year] (83 yo F)Acc No.[id number]:11/07/2024 Patient: ARIEL YORK :1940 A ge:83 Y S ex:Female [facility] [facility] [place], [address] * true * Date: Generated for Printi ng/Faxing/eTransmitting on: 0 01/02/2025 10:25 AM EDT
--- OUTSIDE RECORDS SUMMARY | 2024-12-11 06:30 | XMS_ITS ---
Author Organization Giorgio Bright III, MD Address [address] [place] [place] [address] Care Team Providers Care Check Out Clerk Name Role Phone Tyler Maxwell MD Primary Care Provider Unavailab Giorgio Carrasco Unavailable [phone] Allergies Allergen (clinical drug ingredient) Drug/Non Drug Allergy documented on EMR Reaction Allergy Type Onset Date Status sulfacetamide Sulfacetamide Unknown Drug Allergy Active REASON FOR VISIT Lymphoplasmacytic lymphoma, Coronary artery disease, Chronic kidney disease, Hypercalcemia, Hypertension, Aortic stenosis Medications Medication SIG (Take, Route, Frequency, Duration) Notes Start Date End Date Status Furosemide 20 MG 1 tablet Orally Once a day Active NIFEdipine ER 60 MG 1 tablet on an empty stomach Orally Once a day Active Imbruvica 140 MG 3 capsules Orally On day 02/23/2023 Active hydrALAZINE HCl 50 MG Oral Active Omeprazole 20 MG 1 capsule 30 minutes before morning meal Orally Once a day Active Naproxen 250 MG 1 tablet with food o r milk Orally Twice a day Active Metoprolol Tartrate 100 MG 1 tablet with food Orally Twice a day Active Losartan Potassium 100 MG 1 tablet Orall y Once a day Active Social History Tobacco Use: Social History Observation Description Date Details (start date - stop date) Never Smoker NA - NA Sex Assigned At : Social History Observation Description Sex Assigned At Female Tobacco Use/Smoking Question Answer Notes Patient is a nonsmoker Additional Findings: Tobacco Non-User Aggressive non-smoker Vital Signs Temperature 97.2 degrees Fahrenheit 12/12/19 25 Blood pressure systolic 123 mm Hg 12/12/19 25 Blood pressure diastolic 49 mm Hg 08/05/2 025 Heart Rate 67 /min 12/11/2024 Height 62 in 12/11/2024 Weight 144 lbs 12/11/2024 BMI 26.34 kg/m2 12/11/2024 Encounters Encounter Location Date Provider Diagnosis Giorgio Bright III, MD [address] [place] [address] [address] [place], [place] [address] 12/11/2024 Giorgio Bright Normochromic normocy tic anemia D64.9 ; 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 There was no sign of disease on today's examination. No change in her regimen was made. 12/11/2024 Essential hypertensi on (ICD-10 - I10) Her blood pressure continues to be controlled and no change in her medication is needed. 12/11/2024 Overweight (ICD-10 - E66.3) Her body mass index is 27.6 We discussed diet and nutrition today. I recommended she stabilize her weight at this level and not gaining further weight. 12/11/2024 Coronary artery dise ase involving autologous artery coronary bypass graft without angina pectoris (ICD-10 - I25.810) She is asymptomatic at this time her current regimen will be continued. She denies any recent syncope chest pain, angina or nausea or vomiting. 12/11/2024 Macroglobulinemia (ICD-10 - C88.0) Her proteins have continued to decline. 12/11/2024 Hypercalcemia (ICD-1 0 - E83.52) Her calcium is now in the normal range at 9.2 and no change in therapy is needed. Plan Of Treatment Medication Medication Name Sig Start Date Stop Date Notes Furosemide 20 MG 1 tablet Orally Once a day NIFEdipine ER 60 MG 1 tablet on an empty stomach Orally Once a day Imbruvica 140 MG 3 capsules Orally Once a day 02/23/2023 hydrALAZINE HCl 50 MG Oral Omeprazole 20 MG 1 capsule 30 minutes before morning meal Orally Once a day Naproxen 250 MG 1 tablet with food o r milk Orally Twice a day Metoprolol Tartrate 100 MG 1 tablet with food Orally Twice a day Losartan Potassium 100 MG 1 tablet Orally Once a day Pending Test Test Name Order Date PROFILE, FASTING (COMPREHENSIVE METABOLI C) 12/11/2024 LDH 12/11/2024 CBC w DIFF 12/11/2024 IMMUNOFIXATION PANEL, SERUM (IEP) 2024 Lipid Panel 12/11/2024 Beta-2 Microglobulin, Serum 12/11/2024 Next Appt Details Follow Up: 3 Months, Reason: ov review labs Provider Name:Giorgio Bright, 03/13/2025 10:00:00 AM, [address] [place] [address], [address], Progress Notes * ARIEL DEANDOB: [birth year] (84 yo F)Acc No.[id number]:12/11/2024 Progress Notes Patient: ARIEL YORK Provider: Jackelyn Bright MD :1940 A ge:84 Y S ex:Female Date:12/11/2024 Address:[address] [place], [place] [id number] Pcp:Tyler Maxwell MD Subjective: * Chief Complaints: * L ymphoplasmacytic lymphomaCoronary artery diseaseChronic kidney diseaseHypercalcemiaHypertensionAortic stenosis * HPI: C OVID-19 Screening: S he returns for ongoing medical management. She is taking 2 tablets of ibrutinib daily.? Her CBC shows good control of the lymphoma. Her examination showed no adenopathy or splenomegaly. No changes in her regimen were necessary today.Her back pain is unchanged and she says she has no new health issues. Her , Ryan, had a colonoscopy and was found to have colon cancer and then underwent surgery. He is at home recovering. Questions H ave you had any new [...] ggressive non-smoker S he was born in [place], [place] and came to [place] at the age of 6. 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 He is retired. She has no worship objection to blood transfusion. The patient mentioned [...] capsules Orally Once a day hydrALAZINE HCl 100 MG Tablet 1 tablet with food Orally Twice a day Medication List reviewed and reconciled with the [...] Orally Once a day Taking hydrALAZINE HCl 100 MG Tablet 1 tablet with food Orally Twice a day Medication List reviewed and reconciled with the patient * Allergies: S ulfacetamideno[Allergies Verified] Objective: * Vitals: H t: 62, Wt:144, BMI:26.34, BP:123/49, HR:67, Temp:97.2, Wt-k.32. * P ast Orders: L ab:Magnesium (Order Date - 12/04/2024) (Collection Date & Time - 12/04/2024 08:26 AM) Value Reference Range Magnesium 1.8 1.6-2.6 - mg/dL Lab:Comprehensive Met. Panel * Collection Date 12/04/2024 10/28/2023 07/26/2023 Collection Time 08:26 AM 09:10 AM 10:40 AM Order Date 12/04/2024 10/28/2023 07/26/2023 Sodium 144 (Ref Range: 135-145 mmol/L) 144 (Ref Range: 135-145 mmol/L) 143 (Ref Range: 135-145 mmol/L) Bilirubin Total 1.4 H (Ref Range: 0.0-1.0 mg/dL) 1.0 (Ref Range: 0.0-1.0 mg/dL) 1.0 (Ref Range: 0.0-1.0 mg/dL) Aspartate Amino Transferase 22 (Ref Range: 5-31 U/L) 15 (Ref Range: 5-31 U/L) 13 (Ref Range: 5-31 U/L) Alanine Aminotransferase 13 (Ref Range: 0-31 U/L) 9 (Ref Range: 0-31 U/L) 12 (Ref Range: 0-31 U/L) Total Protein 7.2 (Ref Range: 6.5-8.0 g/dL) 6.8 (Ref Range: 6.5-8.0 g/dL) 7.0 (Ref Range: 6.5-8.0 g/dL) Albumin Level 4.5 (Ref Range: 3.5-5.0 g/dL) 4.1 (Ref Range: 3.5-5.0 g/dL) 4.2 (Ref Range: 3.5-5.0 g/dL) Alkaline Phosphatase 66 (Ref Range: 39-117 U/L) 73 (Ref Range: 39-117 U/L) 84 (Ref Range: 39-117 U/L) Potassium 4.1 (Ref Range: 3.3-5.1 mmol/L) 3.7 (Ref Range: 3.3-5.1 mmol/L) 3.5 (Ref Range: 3.3-5.1 mmol/L) Chloride 110 H (Ref Range: 96-108 mmol/L) 109 H (Ref Range: 96-108 mmol/L) 109 H (Ref Range: 96-108 mmol/L) Carbon Dioxide 26 (Ref Range: 22-29 mmol/L) 27 (Ref Range: 22-29 mmol/L) 25 (Ref Range: 22-29 mmol/L) Anion Gap 12 (Ref Range: 12-20) 12 (Ref Range: 12-20) 13 (Ref Range: 12-20) Blood Urea Nitrogen 12 (Ref Range: 9-16 mg/dL) 14 (Ref Range: 9-16 mg/dL) 14 (Ref Range: 9-16 mg/dL) Creatinine 0.89 (Ref Range: 0.5-1.4 mg/dL) 0.78 (Ref Range: 0.5-1.4 mg/dL) 0.82 (Ref Range: 0.5-1.4 mg/dL) Estimated Glomerular Filt Rate > 60 > 60 > 60 Glucose Random 97 (Ref Range: 60-115 mg/dL) 103 (Ref Range: 60-115 mg/dL) 112 (Ref Range: 60-115 mg/dL) Calcium 9.2 (Ref Range: 8.4-10.2 mg/dL) 10.0 (Ref Range: 8.4-10.2 mg/dL) 9.4 (Ref Range: 8.4-10.2 mg/dL) * Lab:Complete Blood Count Aut o Diff * Collection Date 12/04/2024 06/02/2024 02/03/2024 Collection Time 08:26 AM 09:35 AM 08:14 AM Order Date 12/04/2024 06/02/2024 02/03/2024 White Blood Count 9.2 (Ref Range: 4.8-10.8 X10*3/uL) 7.9 (Ref Range: 4.8-10.8 X10*3/uL) 8.5 (Ref Range: 4.8-10.8 X10*3/uL) Red Blood Count 4.46 (Ref Range: 4.20-5.50 X10*6/uL) 4.73 (Ref Range: 4.20-5.50 X10*6/uL) 4.39 (Ref Range: 4.20-5.50 X10*6/uL) Hemoglobin 13.2 (Ref Range: 12.0-16.0 g/dl) 13.7 (Ref Range: 12.0-16.0 g/dl) 13.0 (Ref Range: 12.0-16.0 g/dl) Hematocrit 39.4 (Ref Range: 37.0-47.0 %) 41.5 (Ref Range: 37.0-47.0 %) 38.7 (Ref Range: 37.0-47.0 %) Mean Corpuscular Volume 88.3 (Ref Range: 80.0-98.0 fL) 87.7 (Ref Range: 80.0-98.0 fL) 88.2 (Ref Range: 80.0-98.0 fL) Mean Corpuscular Hemoglobin 29.6 (Ref Range: 27.0-33.0 pg) 29.0 (Ref Range: 27.0-33.0 pg) 29.6 (Ref Range: 27.0-33.0 pg) Mean Corpuscular HGB Conc 33.5 (Ref Range: 31.0-35.0 g/dl) 33.0 (Ref Range: 31.0-35.0 g/dl) 33.6 (Ref Range: 31.0-35.0 g/dl) Red Cell Distribution Width 13.3 (Ref Range: 11.0-16.0 %) 13.2 (Ref Range: 11.0-16.0 %) 13.2 (Ref Range: 11.0-16.0 %) Platelet Count 262 (Ref Range: 160-400 X10*3/uL) 271 (Ref Range: 160-400 X10*3/uL) 270 (Ref Range: 160-400 X10*3/uL) Mean Platelet Volume 11.0 (Ref Range: 9.4-12.3 fL) 11.5 (Ref Range: 9.4-12.3 fL) 11.5 (Ref Range: 9.4-12.3 fL) Neutrophils Percent Auto 69.5 (Ref Range: 45-73 %) 63.0 (Ref Range: 45-73 %) 68.7 (Ref Range: 45-73 %) Imm Gran Pct Auto 0.4 (Ref Range: 0.0-0.4 %) 0.4 (Ref Range: 0.0-0.4 %) 0.5 H (Ref Range: 0.0-0.4 %) Lymphocytes Percent Auto 19.1 L (Ref Range: 20-40 %) 25.7 (Ref Range: 20-40 %) 19.1 L (Ref Range: 20-40 %) Monocytes Percent Auto 9.0 (Ref Range: 2-11 %) 8.5 (Ref Range: 2-11 %) 9.0 (Ref Range: 2-11 %) Eosinophils Percent Auto 0.5 (Ref Range: 0-4 %) 0.8 (Ref Range: 0-4 %) 1.3 (Ref Range: 0-4 %) Basophils Percent Auto 1.5 (Ref Range: 0-2 %) 1.6 (Ref Range: 0-2 %) 1.4 (Ref Range: 0-2 %) NRBC Pct Auto 0.0 (Ref Range: 0.0-0.2 /100WBC) 0.0 (Ref Range: 0.0-0.2 /100WBC) 0.0 (Ref Range: 0.0-0.2 /100WBC) Neutrophils Absolute Auto 6.4 (Ref Range: 2.0-8.3 x10*3/uL) 5.0 (Ref Range: 2.0-8.3 x10*3/uL) 5.8 (Ref Range: 2.0-8.3 x10*3/uL) Imm Gran Abs Auto 0.04 H (Ref Range: 0.00-0.03 X10*3/uL) 0.03 (Ref Range: 0.00-0.03 X10*3/uL) 0.04 H (Ref Range: 0.00-0.03 X10*3/uL) Lymphocytes Absolute Auto 1.8 (Ref Range: 1.2-4.9 X10*3/uL) 2.0 (Ref Range: 1.2-4.9 X10*3/uL) 1.6 (Ref Range: 1.2-4.9 X10*3/uL) Monocytes Absolute Auto 0.8 (Ref Range: 0.1-1.2 X10*3/uL) 0.7 (Ref Range: 0.1-1.2 X10*3/uL) 0.8 (Ref Range: 0.1-1.2 X10*3/uL) Eosinophils Absolute Auto 0.1 (Ref Range: 0.0-0.4 X10*3/uL) 0.1 (Ref Range: 0.0-0.4 X10*3/uL) 0.1 (Ref Range: 0.0-0.4 X10*3/uL) Basophils Absolute Auto 0.1 (Ref Range: 0.0-0.2 X10*3/uL) 0.1 (Ref Range: 0.0-0.2 X10*3/uL) 0.1 (Ref Range: 0.0-0.2 X10*3/uL) NRBC Abs Auto 0.000 (Ref Range: 0.0-0.012 X10*3/uL) 0.000 (Ref Range: 0.0-0.012 X10*3/uL) 0.000 (Ref Range: 0.0-0.012 X10*3/uL) * Lab:Lipid Panel * Collection Date 12/04/2024 09/15/2021 Collection Time 08:26 AM 09:31 AM Order Date 12/04/2024 09/15/2021 Triglycerides 92 (Ref Range: <150 mg/dL) 64 (Ref Range: mg/dL) Cholesterol 151 (Ref Range: <200 mg/dL) 128 (Ref Range: mg/dL) LDL Cholesterol Calculated 89 (Ref Range: <100 mg/dL) 82 (Ref Range: mg/dl) HDL Cholesterol 44 (Ref Range: >40 mg/dL) 34 (Ref Range: mg/dL) * Examination: G eneral Examination: GENERAL APPEARANCE: p leasant, well nourished, well developed, in no acute distress, calm and relaxed: overweight: elderly woman. HEAD: a traumatic, normocephalic. EYES: [...] normal upper and lower extremities, sensory exam intact, Appropriate for the age of 84. PSYCH: a lert, oriented: thought process logical, goal directed: cognitive function intact. Assessment: * Assessment: 1. 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 There was no sign of disease on today's examination. No change in her regimen was made. 2 . N ormochromic normocytic anemia - D64.9 N otes :Her CBC shows that her anemia has resolved.Her hematocrit and hemoglobin are now in the normal range. 3 . E ssential hypertension - I10 N otes :Her blood pressure continues to be controlled and no change in her medication is needed. 4 . O verweight - E66.3 N otes :Her body mass index is 27.6 We discussed diet and nutrition today. I recommended she stabilize her weight at this level and not gaining further weight. 5 . C oronary artery disease involving autologous artery coronary bypass graft without angina pectoris - I25.810 N otes :She is asymptomatic at this time her current regimen will be continued. She denies any recent syncope chest pain, angina or nausea or vomiting. 6 . M acroglobulinemia - C88.0 N otes :Her proteins have continued to decline. 7 . H ypercalcemia - E83.52 N otes :Her calcium is now in the normal range at 9.2 and no change in therapy is needed. Plan: * Treatment: 2. N ormochromic normocytic [...] AB: IMMUNOFIXATION PANEL, SERUM (IEP) L AB: Lipid Panel L AB: Beta-2 Microglobulin, Serum 3. E ssential hypertension Continue hydrALAZINE HCl Tablet, 50 MG, Oral. L AB: PROFILE, FASTING (COMPREHENSIVE METABOLIC) L AB: LDH L AB: CBC w DIFF L AB: IMMUNOFIXATION PANEL, SERUM (IEP) L AB: Lipid Panel L AB: Beta-2 Microglobulin, Serum * Procedure Codes: * Preventive Medicine: Counseling: C are goal follow-up plan: Counseling for abnormal BMI given Y es Above Normal BMI Follow-up D ietary management education, guidance, and counseling * Follow Up: 3 Months (Reason: ov review labs) * Images: * Sign off status: Completed true * Provider: Jackelyn Bright MD Date: 12/11/2024 Generated for Claude cantu/Regino/Shmuelitting on: 01/02/2025 10:25 AM EDT History and Physical Notes * HPI (History of Present Illness) Category Sub-Category Detail Notes COVID-19 Screening Questions Have you had any new onset fever, chills, cough, congestion, sore throat, shortness of breath, muscle aches?: No Examination Category Sub-Category Detail Notes General Examination GENERAL APPEARANCE: pleasant , well nourished, well developed, in no acute distress, calm and relaxed: overweight: elderly woman HEAD: atraumatic, normocep halic EYES: [...] normal upper and lower extremities, sensory exam intact, Appropriate for the age of 84 SKIN: no suspicious lesion s, anicteric PERIPHERAL PULSES: normal BREASTS: Not examined MUSCULOSKELETAL: extremities unremark able, no clubbing, cyanosis or edema LYMPH NODES: no enlarged lymph no mark,spleen normal RECTAL EXAM: not examined PSYCH: alert, oriented: tho ught process logical, goal directed: cognitive function intact ORAL CAVITY: normal, unremarkable
--- NOTE | 2025-01-02 09:41 | A.OFFPC_ITS ---
Vital Signs 01/02/25 09:42 Height 4 ft 11 in Weight 147 lb 4 oz BMI 29.7 BP 120/57 L Blood Pressure Location Rt femoral Position Sitting Respiration 16 Pulse 68 Pulse Source Pulse Oximeter Temp 97.3 F Temp Source Temporal Artery Scan Pulse Oximetry (%) 96 Oxygen Delivery Method Room Air Intake Visit Reasons: 1 month follow up / BP Check Audio Visual Director Required: No Accompanied by: Self / Same As Patient Allergies Sulfa (Sulfonamide Antibiotics) (SULFA (SULFONAMIDE ANTIBIOTICS)) Allergy (Intermediate, Verified 01/02/25 12:05) RASH lisinopril (LISINOPRIL) Allergy (Mild, Verified 01/02/25 12:05) THROAT TICKLE/COUGH Medication List - Last Reconciled 01/02/25 by Lilibeth Horne PA-C acetaminophen 1,000 mg (2 x 500 mg) PO Q6H PRN alendronate-vitamin D3 70 mg- 2,800 unit (Fosamax Plus D) 1 tab PO QWEEK clotrimazole-betamethasone 1-0.05 % appl topical BID furosemide 20 mg PO DAILY hydralazine 100 mg PO BID 90 days ibrutinib (Imbruvica) 420 mg PO DAILY losartan 100 mg PO BID metoprolol tartrate 100 mg PO BID nifedipine ER 60 mg PO DAILY nitrofurantoin monohyd/m-cryst 100 mg (Macrobid) 100 mg PO Q12H 5 days omeprazole 20 mg PO DAILY Tobacco use date assessed: 11/28/24 Fall risk assessment: 2 + Falls in past year Last assessed Fall Risk: 11/28/24 Dental Screening Dental Screen Date: 11/28/24 Did you have a dental visit in the last 12 months?: No Did you have a dental problem in the last 6 months where you did not have access to dental care?: No Was dental information given to patient?: No HPI 1 month follow up / BP Check HPI Details The patient is an 84-year-old female presenting with a blood pressure check. The patient has a history of hypertension, managed with losartan 100 mg twice daily, with a recent correction in the medication record to reflect the accurate dosage. She was previously advised by Dr. Aranda to take the medication twice daily due to elevated blood pressure readings. The patient also has osteoporosis, with recent discussions about medication adjustments due to availability issues. Separate prescriptions for osteoporosis medication and vitamin D were planned. 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 The patient has a known heart murmur and is under cardiology care, with stable blood pressure at 120/57 mmHg. Recent lab results were normal except for a slightly elevated total bilirubin and low vitamin D levels. Social History - Family: [facility]. [facility] Medical History (Updated 01/02/25 @ 12:11 by Lilibeth Horne PA-C) Vitamin D deficiency Osteoporosis History of mammogram (~07/31/24) Obesity (BMI 30-39.9) Fungal rash of torso Aortic valve stenosis Leukemia Chronic back pain Hypertension Urinary frequency Chronic lower back pain Establishing care with new doctor, encounter for Moderate aortic valve stenosis Osteoarthritis of right shoulder Family History Father Cirrhosis of liver Mother Liver cancer Social History Housing: House Alcohol intake: current Alcohol intake frequency: does not drink Patient Tobacco Use Status: Never used Tobacco service: No Current occupational status: retired Cognitive needs: No Hearing needs: No Vision needs: Yes (rx reading) Questionnaire PHQ-9 Over the last 2 weeks, how often have you been bothered by any of the following problems? 1. Little interest or pleasure in doing things: not at all 2. Feeling down, depressed, or hopeless: not at all 3. Trouble falling or staying asleep, or sleeping too much: not at all 4. Feeling tired or having little energy: not at all 5. Poor appetite or overeating: not at all 6. Feeling bad about yourself - or that you are a failure or have let yourself or your family down: not at all 7. Trouble concentrating on things, such as reading the newspaper or watching television: not at all 8. Moving or speaking so slowly that other people could have noticed. Or the opposite - being so fidgety or restless that you have been moving around a lot more than usual: not at all 9. Thoughts that you would be better off or of hurting yourself in some way: not at all Total score: 0 Depression Screening Interpretation: Negative Depression Screening Done: Yes 26950 - PHQ-9 Billing: Yes Source: Developed by Drs. Giorgio Calle, Melisa Graham, Rachid Isaac and colleagues, with an educational tien from [employer]. Thrive Questionnaire Date Thrive assessed: 11/28/24 I am a: Patient What is your living situation today?: I have a steady place to live Within the past 12 months, did the food you bought not last and you didn't have the money to get more?: Never true Within the past 12 months, did you worry whether your food would run out before you got money to buy more?: Never true Do you have trouble paying for medicines?: No Do you have trouble getting transportation to medical appointments?: No Do you have trouble paying your heating and electricity bill?: No Do you have trouble taking care of your child, family member or friend?: No Do you have trouble with day-to-day activities such as bathing, preparing meals, shopping, managing finances, etc.?: No Are you currently unemployed and looking for a job?: No Are you interested in more education?: No Please select the resources that you would like help with: None Currently or been in a relationship where the following occur: No concerns reported THRIVE Score: 0 AUDIT C Alcohol Use Questionnaire (AUDIT-C) 1. How often do you have a drink containing alcohol?: Never 3. How often do you have six or more drinks on one occasion?: Never Total Score: 0 Score Reviewed/Action Taken: No DIPIKA-7 AMB Questionnaire DIPIKA-7 Date DIPIKA - 7 assessed: 11/28/24 Feeling nervous, anxious, or on edge: 0 = Not at all Not being able to stop or control worryin = Not at all Worrying too much about different things: 0 = Not at all Trouble relaxin = Not at all Being so restless that it is hard to sit still: 0 = Not at all Becoming easily annoyed or irritable: 0 = Not at all Feeling afraid as if something awful might happen: 0 = Not at all Total DIPIKA-7 score (0-4 normal; 5-9 mild; 10-14 moderate; 15-21 severe): 0 Source: Developed by Melisa Bright Kurt Kroenke and colleagues, with an educational tien from [employer]. DIPIKA-7 Assessment Billing DIPIKA-7 Assessment Tool: DIPIKA-7 Assessment 65046 Review of Systems Const Details: - Cardiovascular: Denies dizziness, syncope, or falls. All systems reviewed & are unremarkable except as noted in HPI and below Physical exam (Primary Care) Vital Signs: Last Vital Signs Temp 97.3 F 01/02/25 09:42 Pulse 68 01/02/25 09:42 Resp 16 01/02/25 09:42 BP 120/57 L 01/02/25 09:42 Pulse Ox 96 01/02/25 09:42 Oxygen Delivery Method Room Air 01/02/25 09:42 Care Plan Goal for BP management: <140/90 at Goal BMI result Body Mass Index 29.7 BMI Assessment/Plan discussion: High BMI High, discussed plan: lifestyle, weight reduction, dietary, physical activity, alcohol moderation and other Tobacco/Smoking Status: Tobacco use Status Tobacco use date assessed 11/28/24 01/02/25 09:44 Patient Tobacco Use Status Never used Tobacco 01/02/25 09:44 PHQ-9: PHQ-9 Score PHQ-9: Total score 0 01/02/25 09:58 Depression Screening Interpretation: Negative Thrive Assessment: Date of Thrive Assessment Date Thrive assessed 11/28/24 01/02/25 09:44 Currently or been in a relationship where the following occur: No concerns reported Const Other: Appearance: Alert. Oriented X3. No acute distress. Head: Normal external exam. Normocephalic. Atraumatic. Eyes: Pupils are equal, round, and reactive to light. Extraocular movements intact. Conjunctiva and sclera normal. Eyelids normal. Throat: Pharynx normal. Uvula midline. Moist mucous membranes. Neck: Normal inspection. Neck supple. Full range of motion. Cardiovascular: Normal heart rate and rhythm. Heart sound normal. Loud murmur noted. Pulses normal throughout. Respiratory: No respiratory distress. Painless inspiration. Breath sounds normal. No wheezes/rales/rhonchi noted. Chest nontender. No accessory muscle usage noted or decreased air movement noted. Abdomen: Soft and nontender. No distention noted. No organomegaly noted. Back: Full range of motion noted. Skin: Skin warm and dry. Normal skin color. Normal skin turgor. No rashes/lesions/lacerations noted. Extremities: Extremities exhibit normal range of motion. Extremities nontender. Neuro: Oriented X 3. No motor deficit. No sensory deficit. Reflexes normal. Results Reviewed Results Reviewed: - Labs: Total bilirubin 1.4, vitamin D low, other blood work normal. Coding Level of Care Code Est Pt Level 4 (88551) Complex EM visit Add On G2211 Diagnoses Hypertension I10 Osteoporosis M81.0 Leukemia C95.90 Vitamin D deficiency E55.9 Nonrheumatic aortic (valve) stenosis I35.0 Additional Codes DIPIKA-7 Assessment Billing - DIPIKA-7 Assessment Tool: DIPIKA-7 Assessment 20325 ([id number]) PHQ-9 - 32907 - PHQ-9 Billing: Yes ([id number]) Assessment & Plan Assessment & Plan (1) Hypertension: Code(s): I10 - Essential (primary) hypertension Category: Medical Plan: The patient's hypertension is managed with losartan 100 mg twice daily, with recent confirmation of the correct dosage. Blood pressure is stable at 120/57 mmHg, and no symptoms of dizziness or falls were reported. (2) Osteoporosis: Code(s): M81.0 - Age-related osteoporosis without current pathological fracture Category: Medical Plan: Osteoporosis management includes medication adjustments due to availability issues, with separate prescriptions for osteoporosis medication and vitamin D planned. 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 (4) Vitamin D deficiency: Code(s): E55.9 - Vitamin D deficiency, unspecified Category: Medical Plan: Vitamin D deficiency was noted, and supplementation was planned as part of the osteoporosis management. (5) Nonrheumatic aortic (valve) stenosis: Code(s): I35.0 - Nonrheumatic aortic (valve) stenosis Category: Medical Plan: The patient has a known heart murmur and is under the care of a baker biscuit. Plan Plan Patient was informed and verbally consented to the use of an ambient scribe for clinic note documentation during this visit. 1. Essential Hypertension The patient's hypertension is managed with losartan 100 mg twice daily, with r ecent confirmation of the correct dosage. Blood pressure is stable at 120/57 mmHg, and no symptoms of dizziness or falls were reported. 2. Osteoporosis Osteoporosis management includes medication adjustments due to availability issues, with separate prescriptions for osteoporosis medication and vitamin D planned. 3. Chronic Leukemia Chronic leukemia is managed with Imbruvica, which is delivered directly to the patient's home. 4. Vitamin D Deficiency Vitamin D deficiency was noted, and supplementation was planned as part of the osteoporosis management. 5. Heart Murmur The patient has a known heart murmur and is under the care of a baker biscuit. I discussed with the patient the management of her hypertension, confirming the correct dosage of losartan as twice daily. We also addressed the availability issues with her osteoporosis medication and planned to send separate prescriptions for it and vitamin D. The patient is aware of her chronic leukemia management with Imbruvica and her heart murmur, for which she is under cardiology care. Medications: New cholecalciferol (vitamin D3) 50 mcg PO DAILY 90 caps 3RF alendronate (Fosamax) 70 mg PO QWEEK 90 tabs 3RF Changed From clotrimazole-betamethasone 1-0.05 % topical BID To clotrimazole-betamethasone 1-0.05 % 1 appl topical BID 45 grams 3RF Refilled acetaminophen 1,000 mg (2 x 500 mg) PO Q6H PRN 90 caps 3RF pain M19.011 - Primary osteoarthritis, right shoulder Discontinued alendronate-vitamin D3 70 mg- 2,800 unit (Fosamax Plus D) Discontinued Reason: Doctor's Order 1 tab PO QWEEK 12 tabs 3RF nitrofurantoin monohyd/m-cryst 100 mg (Macrobid) must administer with a meal/food Discontinued Reason: Doctor's Order 100 mg PO Q12H 5 days 10 caps 0RF Patient Instructions: - Continue taking losartan 100 mg twice daily as prescribed. - Follow up with baker biscuit for heart murmur management. - Expect separate prescriptions for osteoporosis medication and vitamin D. - Return for follow-up in six months unless symptoms change.
[2025-01-02 09:42] VITALS: BP 120/57; PULSE 68; RESP 16; TEMP 36.3; O2SAT 96; BMI 29.7
--- OUTSIDE RECORDS SUMMARY | 2025-01-02 10:25 | XMS_ITS | Patient Health Record ---
Author Organization Giorgio Bright III, MD Address 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 Name Role Phone Tyler Maxwell MD Primary Care Provider Unavailab Giorgio Carrasco Unavailable [phone] Allergies Allergen (clinical drug ingredient) Drug/Non Drug Allergy documented on EMR Reaction Allergy Type Onset Date Status sulfacetamide Sulfacetamide Unknown Drug Allergy Active Results Component Value Reference Range Notes Complete Blood Count Auto Di ff Reviewed date:03/28/2024 11:39:44 AM Interpretation: Performing Lab:[facility], [address] [place] [address] Notes/Report: White Blood Count 8.5 4.8-10.8 X10*3/uL [...] NRBC Abs Auto 0.000 0.0-0.012 X10*3/uL Comprehensive [place]. Panel Fa st Reviewed date:03/28/2024 11:39:44 AM Interpretation: Performing Lab:[facility], [address] [place] [phone] Notes/Report: Sodium 144 135-145 mmol/L Potassium 3.9 3.3-5.1 mmol/L Chloride 110 96-108 mmol/L Carbon Dioxide 25 22-29 mmol/L Anion Gap 13 12-20 Blood Urea Nitrogen 14 9-16 mg/dL Creatinine 0.85 0.5-1.4 mg/dL Estimated Glomerular Filt Rate > 60 NOTE: For -[place] individuals, multiply the result by 1.210. Chronic [...] Serum Reviewed date:03/28/2024 11:39:44 AM Interpretation: Performing Lab:[facility], [address] [place] [phone] Notes/Report: Beta-2 Microglobulin, Serum 2.80 < OR = 2.51 m g/L THIS TEST WAS PERFORMED AT: [facility] [address] [place] [phone] ALCIRA AGUILAR MD Protein Electrophoresis, Ser um Reviewed date:03/28/2024 11:39:44 AM Interpretation: Performing Lab:[facility], [address] [place] [phone] Notes/Report: Prot Elec - Total Protein 6.8 [...] be considered. THIS TEST WAS PERFORMED AT: [facility] [address] [place] [phone] ALCIRA AGUILAR MD Viscosity Reviewed date:03/28/2024 11:39:44 AM Interpretation: Performing Lab:[facility], [address] [place] [phone] Notes/Report: Viscosity 1.7 1.5-1.9 rel to H2O Units = Relative to Water THIS TEST WAS PERFORMED AT: [facility] [id number] [place] [address] OLEG OCAMPO MD,PHD Complete Blood Count Auto Di ff Reviewed date:06/03/2024 02:19:33 PM Interpretation: Performing Lab:[facility], [address] [place] [phone] Notes/Report: White Blood Count 7.9 4.8-10.8 X10*3/uL [...] NRBC Abs Auto 0.000 0.0-0.012 X10*3/uL Comprehensive [place]. Panel Fa st Reviewed date:06/03/2024 02:19:33 PM Interpretation: Performing Lab:[facility], [address] [place] [phone] Notes/Report: Sodium 143 135-145 mmol/L Potassium 3.7 [...] Dehydrogenase Reviewed date:06/03/2024 02:19:33 PM Interpretation: Performing Lab:[facility], [address] [place] [phone] Notes/Report: Lactate Dehydrogenase 198 122-220 U/L Protein Electrophoresis, Ser um Reviewed date:06/10/2024 09:00:19 AM Interpretation: Performing Lab:[facility], [address] [place] [phone] Notes/Report: Prot Elec - Total Protein 7.0 [...] be considered. THIS TEST WAS PERFORMED AT: [facility] [address] [place] [phone] ALCIRA AGUILAR MD Immunofixation Pnl, Serum Reviewed date:06/10/2024 09:00:19 AM Interpretation: Performing Lab:[facility], [address] [place] [phone] Notes/Report: IgG 466 600-3344 mg/dL IgA 25 70-320 mg/dL Verified by rep eat analysis. IgM 1136 50-300 mg/dL Verified by repeat analysis. THIS TEST WAS PERFORMED AT: [facility] [address] [place] [phone] ALCIRA AGUILAR MD Immunofixation Interpretation SEE NOTE IgM kappa monoclonal band present. Protein Electrophoresis, Ser um (Not yet reviewed by provider) Interpretation: Performing Lab:[address] [phone] Notes/Report: Prot Elec - Total Protein 6.6 6.1-8.1 g/dL Prot Elec - Albumin 4.1 3.8-4.8 g/dL Prot Elec - Alpha1 0.3 0.2-0.3 g/dL Prot Elec - Alpha2 0.8 0.5-0.9 g/dL Prot Elec - Beta 1 0.3 0.4-0.6 g/dL Prot Elec - Beta 2 0.2 0.2-0.5 g/dL Prot Elec - Gamma 0.9 0.8-1.7 g/dL PES - Abn Protein Band 1 0.6 NONE DETECTED g/ dL PES-Abn Protein Band 2 TNP PES-Abn Protein Band 3 TNP Prot Elec - Interpretation SEE NOTE Evaluation reveals a restricted band (M-spike) migrating in the gamma globulin region. If not already requested, Immunofixation should be considered. THIS TEST WAS PERFORMED AT: [facility] [address] [place] [phone] ALCIRA AGUILAR MD Immunofixation Pnl, Serum (N ot yet reviewed by provider) Interpretation: Performing Lab:[address] [phone] Notes/Report: IgG 206 771-5006 mg/dL IgA 20 70-320 mg/dL Verified by rep eat analysis. IgM 994 50-300 mg/dL Verified by repeat analysis. THIS TEST WAS PERFORMED AT: [facility] [address] [place] [phone] ALCIRA AGUILAR MD Immunofixation Interpretation SEE NOTE IgM kappa monoclonal band present. Complete Blood Count Auto Di ff Reviewed date:12/05/2024 09:18:32 AM Interpretation: Performing Lab:[facility], [address] [place] [phone] Notes/Report: White Blood Count 9.2 4.8-10.8 X10*3/uL Red Blood Count 4.46 4.20-5.50 X10*6/uL Hemoglobin 13.2 12.0-16.0 g/dl Hematocrit 39.4 37.0-47.0 % Mean Corpuscular Volume 88.3 80.0-98.0 fL Mean Corpuscular Hemoglobin 29.6 27.0-33.0 pg Mean Corpuscular HGB Conc 33.5 31.0-35.0 g/dl Red Cell Distribution Width 13.3 11.0-16.0 % Platelet Count 262 160-400 X10*3/uL Mean Platelet Volume 11.0 9.4-12.3 fL Neutrophils Percent Auto 69.5 45-73 % Imm Gran Pct Auto 0.4 0.0-0.4 % Lymphocytes Percent Auto 19.1 20-40 % Monocytes Percent Auto 9.0 2-11 % Eosinophils Percent Auto 0.5 0-4 % Basophils Percent Auto 1.5 0-2 % NRBC Pct Auto 0.0 0.0-0.2 /100WBC Neutrophils Absolute Auto 6.4 2.0-8.3 x10*3/u L Imm Gran Abs Auto 0.04 0.00-0.03 X10*3/uL Lymphocytes Absolute Auto 1.8 1.2-4.9 X10*3/u L Monocytes Absolute Auto 0.8 0.1-1.2 X10*3/uL Eosinophils Absolute Auto 0.1 0.0-0.4 X10*3/u L Basophils Absolute Auto 0.1 0.0-0.2 X10*3/uL NRBC Abs Auto 0.000 0.0-0.012 X10*3/uL Comprehensive Met. Panel Reviewed date:12/05/2024 09:18:32 AM Interpretation: Performing Lab:[facility], [address] [place] [phone] Notes/Report: Sodium 144 135-145 mmol/L Potassium 4.1 3.3-5.1 mmol/L Chloride 110 96-108 mmol/L Carbon Dioxide 26 22-29 mmol/L Anion Gap 12 12-20 Blood Urea Nitrogen 12 9-16 mg/dL Creatinine 0.89 0.5-1.4 mg/dL Estimated Glomerular Filt Rate > 60 Chronic Kidney Disease: Estimated GFR < 60 mL/min/1.73m2 Severe Kidney Disease: Estimated GFR < 15 mL/min/1.73m2 Glucose Random 97 60-115 mg/dL Calcium 9.2 8.4-10.2 mg/dL Bilirubin Total 1.4 0.0-1.0 mg/dL Aspartate Amino Transferase 22 5-31 U/L Alanine Aminotransferase 13 0-31 U/L Total Protein 7.2 6.5-8.0 g/dL Albumin Level 4.5 3.5-5.0 g/dL Alkaline Phosphatase 66 39-117 U/L Magnesium Reviewed date:12/05/2024 09:18:32 AM Interpretation: Performing Lab:[facility], [address] [place] [phone] Notes/Report: Magnesium 1.8 1.6-2.6 mg/dL Lipid Panel Reviewed date:12/05/2024 09:18:32 AM Interpretation: Performing Lab:[facility], [address] [place] [phone] Notes/Report: Triglycerides 92 <150 mg/dL Desirable Triglyceride: less than 150 mg/dL Borderline High Triglyceride 150-199 mg/dL High Triglyceride: 200-499 mg/dL Very High Triglyceride: greater than or equal to 5OO mg/dL Cholesterol 151 <200 mg/dL Desirable Cholesterol: less than 200 mg/dL Borderline High Cholesterol: 200-239 mg/dL High Cholesterol: greater than 239 mg/dL LDL Cholesterol Calculated 89 <100 mg/dL Desirable LDL: less than 100 mg/dL Near Optimal/Above Optimal LDL: 110-129 mg/dL Borderline High LDL: 130-159 mg/dL High LDL: 160-189 mg/dL Very High LDL: greater than or equal to 190 mg/dL HDL Cholesterol 44 >40 mg/dL Desirable HDL: greater than 40 mg/dL Note: This HDL assay may give artificially low results in patients with liver disease. Reason For Referral No Information Medications Medication [...] Problem Status W/U Status Risk Notes Problem 180218601 Overweight (E66.3) Active confirmed Her body mass index is 27.6 We discussed diet and nutrition today. I recommended she stabilize her weight at this level and not gaining further weight. Problem 66908907 Hypercalcemia (E83.52) Active confirmed Her calcium is now in the normal range at 9.2 and no change in therapy is needed. Problem 11082776 Essential hypertension (I10) Active confirmed Her blood pressure continues to be controlled and no change in her medication is needed. 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 There was no sign of disease on today's examination. No change in her regimen was made. 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 Problem 30027970 Normochromic normocytic anemia (D64.9) Active confirmed Her CBC shows that her anemia has resolved.Her hematocrit and hemoglobin are now in the normal range. Problem 67146030 Hyperviscosity (D75.9) Active confirmed She is no longer hyperviscous. Her IgM level has fallen slightly. No change in her regimen as necessary. Problem 417557922 Chronic kidney disease (CKD) stage G3b/A2, moderately decreased glomerular filtration rate (GFR) between 30-44 mL/min/1.73 square meter and albuminuria creatinine ratio between 30-299 mg/g (N18.32) Active confirmed Her GFR is over 60 and her BUN and creatinine are now 13 and 0.89. This problem has resolved. 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 She denies any recent syncope chest pain, angina or nausea or vomiting. 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 We continue to follow this value periodically. No change in therapy is necessary. Problem 396050575 Aortic heart mur mur (I35.8) Active confirmed Vital Signs Heart Rate 67 /min 12/11/2024 Temperature 97.2 degrees Fahrenheit 12/11/2024 Blood pressure diastolic 49 mm Hg 12/11/2024 Height 62 in 12/11/2024 Blood pressure systolic 123 mm Hg 12/11/2024 Weight 144 lbs 12/11/2024 BMI 26.34 kg/m2 12/11/2024 Encounters Encounter Location Date Provider Diagnosis Giorgio Bright III, MD [address] [place] [address] [place] [address] 02/07/2024 Giorgio Bright Normochromic normocy tic anemia D64.9 ; Malignant lymphoplasmacytic lymphoma C83.00 ; Essential hypertension I10 ; Hyperviscosity D75.9 ; IgM monoclonal gammopathy of uncertain significance D47.2 ; Macroglobulinemia C88.0 and Overweight E66.3 Giorgio Bright III, MD [address] [place] [address] [place] [address] 03/28/2024 Giorgio Bright Right facial numbnes s [...] and Macroglobulinemia C88.0 Giorgio Bright III, MD [address] [place] [address] [place] [address] 04/20/2024 Giorgio Bright Normochromic normocy tic anemia [...] nasal septum J34.2 Giorgio Bright III, MD [address] [place] [address] [place] [address] 06/12/2024 Giorgio Bright Normochromic normocy tic anemia D64.9 ; Malignant lymphoplasmacytic lymphoma C83.00 ; Essential hypertension I10 ; Hyperviscosity D75.9 and IgM monoclonal gammopathy of uncertain significance D47.2 Giorgio Bright III, MD [address] [place] [address] [place] [address] 09/11/2024 Giorgio Bright Normochromic normocy tic anemia D64.9 ; Malignant lymphoplasmacytic lymphoma C83.00 ; Essential hypertension I10 ; Hyperviscosity D75.9 ; Coronary artery disease involving autologous artery coronary bypass graft without angina pectoris I25.810 ; Overweight E66.3 ; Macroglobulinemia C88.0 and Hypercalcemia E83.52 Giorgio Bright III, MD [address] [place] [address] [place] [address] 12/11/2024 Giorgio Bright Normochromic normocy tic anemia D64.9 ; Malignant lymphoplasmacytic lymphoma C83.00 ; Essential hypertension I10 ; Overweight E66.3 ; Coronary artery disease involving autologous artery coronary bypass graft without angina pectoris I25.810 ; Macroglobulinemia C88.0 and Hypercalcemia E83.52 Giorgio Bright III, MD [address] [place] [address] [place] [address] 03/21/2024 Giorgio Bright III, MD [address] [place] [address] [place] [address] 11/07/2024 Giorgio Bright Assessments Encounter Date Diagnosis (ICD Code) Assessment Notes T reatment Notes Treatment Clinical Notes 02/07/2024 Malignant lymphoplasmacytic lymphoma (ICD-10 - C83.00) Her CBC is unremarkable. The lymphoma is well controlled on current medication which was continued. 02/07/2024 Normochromic normocy tic anemia (ICD-10 - [...] medically stable at this time. 04/20/2024 Normochromic normocy tic anemia (ICD-10 - [...] examination today consistent with remission. 06/12/2024 Normochromic normocy tic anemia (ICD-10 - D64.9) Her CBC shows that her anemia has resolved.Her hematocrit and hemoglobin are now in the normal range. 09/11/2024 Malignant lymphoplasmacytic lymphoma (ICD-10 - C83.00) Her disease seems control with current therapy. Her blood work and physical examination today consistent with remission. 09/11/2024 Normochromic normocy tic anemia (ICD-10 - [...] change in her regimen was made. 12/11/2024 Normochromic normocy tic anemia (ICD-10 - D64.9) Her CBC shows that her anemia has resolved.Her hematocrit and hemoglobin are now in the normal range. 02/07/2024 Essential hypertensi on (ICD-10 - I10) Her blood pressure continues to be controlled. 03/28/2024 Normochromic normocy tic anemia (ICD-10 - D64.9) He kind CBC shows that her anemia has resolved.Her hematocrit and hemoglobin are now in the normal range. 04/20/2024 Essential hypertensi on (ICD-10 - I10) Her blood pressure continues to be controlled. 06/12/2024 Essential hypertensi on (ICD-10 - I10) Her blood pressure continues to be controlled. 09/11/2024 Essential hypertensi on (ICD-10 - I10) Her blood pressure continues to be controlled.It is 130/66 and no change in her medication is needed. 12/11/2024 Essential hypertensi on (ICD-10 - I10) Her blood pressure continues to be controlled and no change in her medication is needed. 02/07/2024 Hyperviscosity (ICD- 10 - D75.9) The [...] change in her regimen as necessary. 09/11/2024 Hyperviscosity (ICD- 10 - D75.9) She is no longer hyperviscous. Her IgM level has fallen slightly. No change in her regimen as necessary. 12/11/2024 Overweight (ICD-10 - E66.3) Her body mass index is 27.6 We discussed diet and nutrition today. I recommended she stabilize her weight at this level and not gaining further weight. 02/07/2024 IgM monoclonal gammopathy of uncertain significance [...] periodically. No change in therapy is necessary. 09/11/2024 Coronary artery dise ase involving autologous artery coronary bypass graft without angina pectoris (ICD-10 - I25.810) She is asymptomatic at this time her current regimen will be continued. She denies any recent syncope chest pain, angina or nausea or vomiting. 12/11/2024 Coronary artery dise ase involving autologous artery coronary bypass graft without angina pectoris (ICD-10 - I25.810) She is asymptomatic at this time her current regimen will be continued. She denies any recent syncope chest pain, angina or nausea or vomiting. 02/07/2024 Macroglobulinemia (ICD-10 - C88.0) Her proteins [...] controlled on current medication which was continued. 09/11/2024 Overweight (ICD-10 - E66.3) Her body mass index is 27.6 We discussed diet and nutrition today. I recommended she stabilize her weight at this level and not gaining further weight. 12/11/2024 Macroglobulinemia (ICD-10 - C88.0) Her proteins have continued to decline. 02/07/2024 Overweight (ICD-10 - E66.3) She has gained 5 pounds. We discussed diet and nutrition today. I recommended she stabilize her weight at this level and not gaining further weight. 03/28/2024 Coronary artery dise ase involving autologous [...] medically stable today and will be observed. 09/11/2024 Macroglobulinemia (ICD-10 - C88.0) Her proteins have continued to decline. 12/11/2024 Hypercalcemia (ICD-1 0 - E83.52) Her calcium is now in the normal range at 9.2 and no change in therapy is needed. 03/28/2024 Macroglobulinemia (ICD-10 - C88.0) Her proteins have continued to decline. 09/11/2024 Hypercalcemia (ICD-1 0 - E83.52) Her calcium is now in the normal range and no change in therapy is needed. Plan Of Treatment Pending Test Test Name Order Date PROFILE, FASTING (COMPREHENSIVE METABOLI C) 12/11/2024 PROFILE, RANDOM (COMPREHENSIVE METABOLIC ) 03/16/2023 PROFILE, RANDOM (COMPREHENSIVE METABOLIC ) 01/27/2023 PROFILE, RANDOM (COMPREHENSIVE METABOLIC ) 04/06/2023 PROFILE, RANDOM (COMPREHENSIVE METABOLIC ) 08/03/2023 PROFILE, RANDOM (COMPREHENSIVE METABOLIC ) 06/01/2023 LDH 12/11/2024 LDH 04/06/2023 CBC w DIFF 04/06/2023 CBC w DIFF 06/01/2023 CBC w DIFF 12/11/2024 CBC w DIFF 01/27/2023 SED RATE (ESR) 04/06/2023 IMMUNOFIXATION PANEL, SERUM (IEP) 2023 IMMUNOFIXATION PANEL, SERUM (IEP) 2022 IMMUNOFIXATION PANEL, SERUM (IEP) 2024 IMMUNOFIXATION PANEL, SERUM (IEP) 2022 PROTEIN ELECTROPHORESIS, SERUM 4 PROTEIN ELECTROPHORESIS, SERUM 4 PROTEIN ELECTROPHORESIS, SERUM 3 PROTEIN ELECTROPHORESIS, SERUM 3 BETA-2 MICROGLOBULIN, SERUM 01/27/2023 BETA-2 MICROGLOBULIN, SERUM 08/03/2023 Echocardiogram 09/11/2024 CBC WITH AUTO DIFF 03/16/2023 CBC WITH AUTO DIFF 08/03/2023 Lipid Panel 12/11/2024 Beta-2 Microglobulin, Serum 12/11/2024 Protein Electrophoresis, Serum 5 Immunofixation Pnl, Serum 12/04/2024 Immunofixation Pnl, Serum 08/03/2023 Viscosity 06/01/2023 Viscosity 04/06/2023 Next Appt Details Provider Name:Giorgio Bright, 03/13/2025 10:00:00 AM, [address] [place] [address] , [place] [address], [place], [address], Insurance Providers Payer Name Payer Address Payer Phone Subscriber Number Group Number Insured Name Patient Relationship to Insured Coverage Start Date Coverage End Date MEDICARE NGS [address] [place] [phone] [id number] ARIEL DEAN Self - patient is the insured [employer] [address] [address] [place], [place] [phone] [id number] ARIEL DEAN Self - patient is the [...] right No history Surgical History Surgery Date(Month/Year) No history [facility] Dr. Bright 10/14/20 dental extractions tendon release, wrist biopsy, right breast, benign disease bilateral cataract extractions Hospitalization History Reason Date(Month/Year) No history
== END 2025-01-02 10:13 | disposition home or self-care (01) ==
LOC: HO.HMCSH 09:46
PROVIDERS: PCP Physician Assistant Medical; Visit Provider Physician Assistant Medical
DX: I10 Essential (primary) hypertension (principal); M81.0 Age-related osteoporosis without current pathological fracture; C95.90 Leukemia, unspecified not having achieved remission; E55.9 Vitamin D deficiency, unspecified; I35.0 Nonrheumatic aortic (valve) stenosis

== ENCOUNTER → 2025-01-02 09:46 | Outpatient (BNVA) | payer MEDICARE, OTHER, SELFPAY | PROVIDERS: PCP Physician Assistant Medical; Visit Provider Physician Assistant Medical | DX: I10 Essential (primary) hypertension (principal); M81.0 Age-related osteoporosis without current pathological fracture; C95.90 Leukemia, unspecified not having achieved remission; E55.9 Vitamin D deficiency, unspecified; I35.0 Nonrheumatic aortic (valve) stenosis | CPT/HCPCS: 96127; 99212 ==

== ENCOUNTER 2025-01-09 08:41 | Outpatient (AMB) | payer MEDICARE, OTHER, SELFPAY ==
--- OUTSIDE RECORDS SUMMARY | 2024-05-11 05:00 | XMS_ITS ---
Author Organization Giorgio Bright III, MD Address [address] [place] [address] Care Team Providers Care Products Mechanical Design Engineer Name Role Phone Tyler Maxwell MD Primary Care Provider UnavailGiorgio Carrera Unavailable [phone] Allergies Allergen (clinical drug ingredient) Drug/Non Drug [...] Date Provider Diagnosis Giorgio Bright III, MD [address] [place] [address] [place] [address] 05/11/2024 Giorgio Bright Normochromic normocytic anemia D64.9 [...] a day Next Appt Details Provider Name:Giorgio Torresne, 03/13/2025 10:00:00 AM, [address] [place] [address], [address], [address], Progress Notes * ARIEL DEANDOB: [birth year] (84 yo F)Acc No.[id number]:05/11/2024 Progress Notes Patient: ARIEL YORK Provider: Jackelyn Bright MD :1940 A ge:83 Y S ex:Female Date:05/11/2024 Address:[address] [place], [place] [id number] Pcp:Tyler Maxwell MD Subjective: * Chief Complaints: [...] ggressive non-smoker S he was born in [place], [place] and came to [place] at the age of 6. 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 He is retired. She has no jewish objection to blood transfusion. The patient mentioned [...] 0 05/11/2024 Generated for Claude cantu/Regino/eTransmitting on: 0 01/09/2025 09:09 AM EDT History and Physical Notes [...]
--- OUTSIDE RECORDS SUMMARY | 2024-06-12 05:45 | XMS_ITS ---
Author Organization Giorgio Bright III, MD Address [address] [place] [address] Care Team Providers Care Plaster Mixer Name Role Phone Tyler Maxwell MD Primary Care Provider Unavailab Giorgio Carrasco Unavailable [phone] Allergies Allergen (clinical drug ingredient) Drug/Non Drug [...] Date Provider Diagnosis Giorgio Bright III, MD [address] [place] [address] 06/12/2024 Giorgio Bright Normochromic normocy tic anemia [...] review labs, Regular check-up Provider Name:Giorgio Bright, 03/13/2025 10:00:00 AM, [address] [place] [address] [address], [place], [address], Progress Notes * ARIEL DEANDOB: [birth year] (83 yo F)Acc No.[id number]:06/12/2024 Patient: ARIEL YORK Provider: Jackelyn Bright MD :1940 A ge:83 Y S ex:Female Date:06/12/2024 Address:[address] [place] [id number] Pcp:Tyler Maxwell MD Subjective: * Chief Complaints: * L ymphoplasmacytic lymphomaHyperviscosityAnemiaChronic renal diseaseCoronary artery diseaseHypertension * HPI: * : Telehealth L ocation of provider rendering services: { ...} [address] [facility] [address] L ocation of patient: true poeples listed in demographics for today's visit P [...] ggressive non-smoker S he was born in [place], [place] and came to [place] at the age of 6. 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 He is retired. She has no jainism objection to blood transfusion. The patient mentioned [...] 151 (Ref Range: 122-220 U/L) * Lab:[facility] * Collection Date 06/02/2024 [...] Bright MD Date: 0 06/12/2024 Generated for Lornei alondra/Regino/Shmuelitting on: 0 01/09/2025 09:08 AM EDT History and Physical Notes * HPI (History of Present Illness) Category Sub-Category Detail Notes Telehealth Location of [facility] rendering services:: {...} [address] [place], [place] [id number] Location of patient:: address listed in demographics [...]
--- OUTSIDE RECORDS SUMMARY | 2024-09-11 06:30 | XMS_ITS ---
Author Organization Giorgio Bright III, MD Address [address] [place] [address] Care Team Providers Care Operations And Maintenance Technican Name Role Phone Tyler Maxwell MD Primary Care Provider Unavailab Giorgio Carrasoc Unavailable [phone] Allergies Allergen (clinical drug ingredient) Drug/Non Drug [...] 25 Blood pressure diastolic 66 mm Hg 025 Heart Rate 70 /min 09/11/2024 Height 62 in 09/11/2024 Weight 146 lbs 09/11/2024 BMI 26.7 kg/m2 09/11/2024 Encounters Encounter Location Date Provider Diagnosis Giorgio Bright III, MD [address] [place] [address] [place] [address] 09/11/2024 Giorgio Bright Normochromic normocy tic anemia [...] Months, Reason: ov review labs Provider Name:Giorgio Bright, 03/13/2025 10:00:00 AM, [address] [place] [address], [address], Progress Notes * ARIEL DEANDOB: [birth year] (83 yo F)Acc No.[id number]:09/11/2024 Progress Notes Patient: ARIEL YORK Provider: Jackelyn Bright MD :1940 A ge:83 Y S ex:Female Date:09/11/2024 Address:[address] [place] [address] Pcp:Tyler Maxwell MD Subjective: * Chief Complaints: [...] ggressive non-smoker S he was born in [place], [place] and came to [place] at the age of 6. 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 He is retired. She has no orthodox objection to blood transfusion. The patient [...] reconciled with the patient * Allergies: S ulfacetamidmarycarmen[Allergies Verified] Objective: * Vitals: H t: 62, Wt:146, BMI:26.7, BP:130/66, HR:70, Temp:97.8, Wt-k.22. * Examination: G eneral Examination: GENERAL APPEARANCE: p camille, well nourished, well developed, in no acute [...] 0 09/11/2024 Generated for Claude cantu/Regino/Shmuelitting on: 0 01/09/2025 09:08 AM EDT History [...]
--- OUTSIDE RECORDS SUMMARY | 2024-11-07 11:11 | XMS_ITS ---
Author Organization Giorgio Bright III, MD Address [address] [place] [address] [place] [address] Care Team Providers Care Facilities Manager Name Role Phone Tyler Maxwell MD Primary Care Provider Unavailab Giorgio Carrasco Unavailable [phone] REASON FOR VISIT Rx Request Social History Sex Assigned At : Social History Observation Description Sex Assigned At Female Encounters Encounter Location Date Provider Diagnosis Giorgio Bright III, MD [address] [place] [address] [place] [address] 11/07/2024 Giorgio Bright Plan Of Treatment Next Appt Details Provider Name:Giorgio Bright, 03/13/2025 10:00:00 AM, [address] [place] [address] [place], [address], Progress Notes * ARIEL DEANDOB: [birth year] (83 yo F)Acc No.[id number]:11/07/2024 Patient: ARIEL YORK :1940 A ge:83 Y S ex:Female [address] [facility] [facility] [place], [address] * true * Date: Generated for Printi ng/Faxing/eTransmitting on: 0 01/09/2025 09:08 AM EDT
--- OUTSIDE RECORDS SUMMARY | 2024-12-11 06:30 | XMS_ITS ---
Author Organization Giorgio Bright III, MD Address [address] [place] [place] [address] Care Team Providers Care Flakeboard Line Tender Name Role Phone Tyler Maxwell MD Primary Care Provider Unavailab Giorgio Carrasco Unavailable [phone] Allergies Allergen (clinical drug ingredient) Drug/Non Drug [...] Date Provider Diagnosis Giorgio Bright III, MD [address] [place] [address] [address] [place], [place] [id number] 12/11/2024 Giorgio Bright Normochromic normocy tic anemia [...] labs Provider Name:Giorgio Bright, 03/13/2025 10:00:00 AM, [address] [place] [address], [id number], Progress Notes * ARIEL DEANDOB: [birth year] (84 yo F)Acc No.[id number]:12/11/2024 Progress Notes Patient: ARIEL YORK Provider: Jackelyn Bright MD :1940 A ge:84 Y S ex:Female Date:12/11/2024 Address:[address] [place], [place] [id number] Pcp:Tyler Maxwell MD Subjective: * Chief Complaints: [...] ggressive non-smoker S he was born in [place], [place] and came to [place] at the age of 6. 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
--- NOTE | 2025-01-09 08:44 | MHC.OFFVIS ---
Vital Signs 01/09/25 08:46 Height 4 ft 11 in Weight 145 lb BMI 29.3 Intake Visit Reasons: OV- Right shoulder MRI review Intake Note: Chrissie is a 84 year old female right hand dominant who presents today as a MRI Review of her Right shoulder,12/02/24. At today's visit she states that the right shoulder is feeling much better, no pain to report at this time. She continues with her home stretching program. She takes Tylenol as needed for her discomfort. Allergies Sulfa (Sulfonamide Antibiotics) (SULFA (SULFONAMIDE ANTIBIOTICS)) Allergy (Intermediate, Verified 01/09/25 08:46) RASH lisinopril (LISINOPRIL) Allergy (Mild, Verified 01/09/25 08:46) THROAT TICKLE/COUGH Medication List - Last Reconciled 01/09/25 by Chi Duncan MD acetaminophen 1,000 mg (2 x 500 mg) PO Q6H PRN alendronate (Fosamax) 70 mg PO QWEEK cholecalciferol (vitamin D3) 50 mcg PO DAILY clotrimazole-betamethasone 1-0.05 % 1 appl topical BID furosemide 20 mg PO DAILY hydralazine 100 mg PO BID 90 days ibrutinib (Imbruvica) 420 mg PO DAILY losartan 100 mg PO BID metoprolol tartrate 100 mg PO BID nifedipine ER 60 mg PO DAILY omeprazole 20 mg PO DAILY COUNT INCLUDES THE [facility] Medical History (Updated 01/02/25 @ 12:11 by Lilibeth Horne PA-C) Vitamin D deficiency Osteoporosis History of mammogram (~07/31/24) Obesity (BMI 30-39.9) Fungal rash of torso Aortic valve stenosis Leukemia Chronic back pain Hypertension Urinary frequency Chronic lower back pain Establishing care with new doctor, encounter for Moderate aortic valve stenosis Osteoarthritis of right shoulder Family History Father Cirrhosis of liver Mother Liver cancer Social History Housing: House Alcohol intake: current Alcohol intake frequency: does not drink Patient Tobacco Use Status: Never used Tobacco service: No Current occupational status: retired Cognitive needs: No Hearing needs: No Vision needs: Yes (rx reading) Physical Exam Vital Signs: BMI result Body Mass Index 29.3 Const Other: Well-nourished well-developed very friendly female awake alert and oriented x3 in no acute distress Extrem Other: Right shoulder examination shows full active range of motion when compared to her left shoulder, 4/5 strength with supraspinatus testing, no instability Results Reviewed Results Reviewed: MRI of the patient's right shoulder shows a chronic rotator cuff tear with moderate glenohumeral joint degenerative changes consistent with rotator cuff tear arthropathy Assessment & Plan Assessment & Plan (1) Rotator cuff insufficiency of right shoulder: Code(s): M25.311 - Other instability, right shoulder Category: Medical Plan Chrissie presents with intermittent right shoulder discomfort due to chronic rotator cuff tearing. I had a lengthy discussion with the patient regarding the treatment options. At this point the patient's symptoms are tolerable to her. She will continue with her home exercise program to prevent stiffness. She will follow up with me on an as-needed basis should her symptoms worsen in any way. Feel free to call me at any time should questions regarding her orthopedic management arise. I spent 21 minutes in reviewing the patient's records and imaging studies, seeing the patient and documenting in the medical record. Coding Level of Care Code Est Pt Level 3 (36856) Complex EM visit Add On G2211 Diagnoses Rotator cuff insufficiency of right shoulder M25.311
[2025-01-09 08:46] VITALS: BMI 29.3
--- OUTSIDE RECORDS SUMMARY | 2025-01-09 09:09 | XMS_ITS | Patient Health Record ---
Author Organization Giorgio Bright III, MD Address [address] [place] [address] Care Team Providers Care Tier Lift Operator Name Role Phone Tyler Maxwell MD Primary Care Provider Unavailab Giorgio Carrasco Unavailable [phone] Allergies Allergen (clinical drug ingredient) Drug/Non Drug Allergy documented on EMR Reaction Allergy Type Onset Date Status sulfacetamide Sulfacetamide Unknown Drug Allergy Active Results Component Value Reference Range Notes Complete Blood Count Auto Di ff Reviewed date:03/28/2024 11:39:44 AM Interpretation: Performing Lab:[facility], [address] [place] [address] Notes/Report: White Blood Count 8.5 4.8-10.8 X10*3/uL [...] NRBC Abs Auto 0.000 0.0-0.012 X10*3/uL Comprehensive Lucile. Panel Fa st Reviewed date:03/28/2024 11:39:44 AM Interpretation: Performing Lab:[facility], [address] [place] [phone] Notes/Report: Sodium 144 135-145 mmol/L Potassium 3.9 3.3-5.1 mmol/L Chloride 110 96-108 mmol/L Carbon Dioxide 25 22-29 mmol/L Anion Gap 13 12-20 Blood Urea Nitrogen 14 9-16 mg/dL Creatinine 0.85 0.5-1.4 mg/dL Estimated Glomerular Filt Rate > 60 NOTE: For -[place] individuals, multiply the result by 1.210. Chronic [...] Serum Reviewed date:03/28/2024 11:39:44 AM Interpretation: Performing Lab:[facility], [address] [place] [phone] Notes/Report: Beta-2 Microglobulin, Serum 2.80 < OR = 2.51 m g/L THIS TEST WAS PERFORMED AT: [facility] [address] [place] [phone] ALCIRA AGUILAR MD Protein Electrophoresis, Ser um Reviewed date:03/28/2024 11:39:44 AM Interpretation: Performing Lab:[facility], [address] [place] [phone] Notes/Report: Prot Elec - Total Protein 6.8 [...] be considered. THIS TEST WAS PERFORMED AT: [facility] [address] [place] [phone] ALCIRA AGUILAR MD Viscosity Reviewed date:03/28/2024 11:39:44 AM Interpretation: Performing Lab:[facility], [address] [place] [phone] Notes/Report: Viscosity 1.7 1.5-1.9 rel to H2O Units = Relative to Water THIS TEST WAS PERFORMED AT: [facility] [id number] [place] [address] OLGE OCAMPO MD,PHD Complete Blood Count Auto Di ff Reviewed date:06/03/2024 02:19:33 PM Interpretation: Performing Lab:[facility], [address] [place] [phone] Notes/Report: White Blood Count 7.9 4.8-10.8 X10*3/uL [...] NRBC Abs Auto 0.000 0.0-0.012 X10*3/uL Comprehensive Lucile. Panel Fa st Reviewed date:06/03/2024 02:19:33 PM Interpretation: Performing Lab:[facility], [address] [place] [phone] Notes/Report: Sodium 143 135-145 mmol/L Potassium 3.7 [...] Dehydrogenase Reviewed date:06/03/2024 02:19:33 PM Interpretation: Performing Lab:[facility], [address] [place] [phone] Notes/Report: Lactate Dehydrogenase 198 122-220 U/L Protein Electrophoresis, Ser um Reviewed date:06/10/2024 09:00:19 AM Interpretation: Performing Lab:[facility], [address] [place] [phone] Notes/Report: Prot Elec - Total Protein 7.0 [...] be considered. THIS TEST WAS PERFORMED AT: [facility] [address] [place] [phone] ALCIRA AGUILAR MD Immunofixation Pnl, Serum Reviewed date:06/10/2024 09:00:19 AM Interpretation: Performing Lab:[facility], [address] [place] [phone] Notes/Report: IgG 125 064-1594 mg/dL IgA 25 70-320 mg/dL Verified by rep eat analysis. IgM 1136 50-300 mg/dL Verified by repeat analysis. THIS TEST WAS PERFORMED AT: [facility] [address] [place] [phone] ALCIRA AGUILAR MD Immunofixation Interpretation SEE NOTE IgM kappa monoclonal band present. Protein Electrophoresis, Ser um (Not yet reviewed by provider) Interpretation: Performing Lab:[address] [phone] Notes/Report: Prot Elec - Total Protein 6.6 [...] be considered. THIS TEST WAS PERFORMED AT: [facility] [address] [place] [phone] ALCIRA AGUILAR MD Immunofixation Pnl, Serum (N ot yet reviewed by provider) Interpretation: Performing Lab:[address] [phone] Notes/Report: IgG 891 405-5074 mg/dL IgA 20 70-320 mg/dL Verified by rep eat analysis. IgM 994 50-300 mg/dL Verified by repeat analysis. THIS TEST WAS PERFORMED AT: [facility] [address] [place] [phone] ALCIRA AGUILAR MD Immunofixation Interpretation SEE NOTE IgM kappa monoclonal band present. Complete Blood Count Auto Di ff Reviewed date:12/05/2024 09:18:32 AM Interpretation: Performing Lab:[facility], [address] [place] [phone] Notes/Report: White Blood Count 9.2 4.8-10.8 X10*3/uL [...] Panel Reviewed date:12/05/2024 09:18:32 AM Interpretation: Performing Lab:[facility], [address] [place] [phone] Notes/Report: Sodium 144 135-145 mmol/L Potassium 4.1 [...] Magnesium Reviewed date:12/05/2024 09:18:32 AM Interpretation: Performing Lab:[facility], [address] [place] [phone] Notes/Report: Magnesium 1.8 1.6-2.6 mg/dL Lipid Panel Reviewed date:12/05/2024 09:18:32 AM Interpretation: Performing Lab:[facility], [address] [place] [phone] Notes/Report: Triglycerides 92 <150 mg/dL Desirable Triglyceride: [...] Problem Status W/U Status Risk Notes Problem 961357681 Overweight (E66.3) Active confirmed Her body mass index is 27.6 We discussed diet and nutrition today. I recommended she stabilize her weight at this level and not gaining further weight. Problem 64303622 Hypercalcemia (E83.52) Active confirmed Her calcium is now in the normal range at 9.2 and no change in therapy is needed. Problem 56673867 Essential hypertension (I10) Active confirmed Her blood pressure continues to be controlled and no change in her medication is needed. 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 There was no sign of disease on today's examination. No change in her regimen was made. Problem 630028328 Macroglobulinemi a (C88.0) Active confirmed Her proteins have continued to decline. Problem 86429504 Normochromic normocytic anemia (D64.9) Active confirmed Her CBC shows that her anemia has resolved.Her hematocrit and hemoglobin are now in the normal range. Problem 62127546 Hyperviscosity (D75.9) Active confirmed She is no longer hyperviscous. Her IgM level has fallen slightly. No change in her regimen as necessary. Problem 604674145 Chronic kidney disease (CKD) stage G3b/A2, moderately decreased glomerular filtration rate (GFR) between 30-44 mL/min/1.73 square meter and albuminuria creatinine ratio between 30-299 mg/g (N18.32) Active confirmed Her GFR is over 60 and her BUN and creatinine are now 13 and 0.89. This problem has resolved. 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 She denies any recent syncope chest pain, angina or nausea or vomiting. 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 We continue to follow this value periodically. No change in therapy is necessary. Problem 311457329 Aortic heart mur mur (I35.8) Active confirmed Vital Signs Heart Rate 67 /min 12/11/2024 Temperature 97.2 degrees Fahrenheit 12/11/2024 Blood pressure diastolic 49 mm Hg 12/11/2024 Height 62 in 12/11/2024 Blood pressure systolic 123 mm Hg 12/11/2024 Weight 144 lbs 12/11/2024 BMI 26.34 kg/m2 12/11/2024 Encounters Encounter Location Date Provider Diagnosis Giorgio Bright III, MD [address] [place] [address] [place] [address] 02/07/2024 Giorgio Bright Normochromic normocy tic anemia D64.9 ; Malignant lymphoplasmacytic lymphoma C83.00 ; Essential hypertension I10 ; Hyperviscosity D75.9 ; IgM monoclonal gammopathy of uncertain significance D47.2 ; Macroglobulinemia C88.0 and Overweight E66.3 Giorgio Bright III, MD [address] [place] [address] [place] [address] 03/28/2024 Giorgio Bright Right facial numbnes s [...] and Macroglobulinemia C88.0 Giorgio Bright III, MD [address] [place] [address] [place] [address] 04/20/2024 Giorgio Bright Normochromic normocy tic anemia [...] nasal septum J34.2 Giorgio Bright III, MD [address] [place] [address] [place] [address] 06/12/2024 Giorgio Bright Normochromic normocy tic anemia D64.9 ; Malignant lymphoplasmacytic lymphoma C83.00 ; Essential hypertension I10 ; Hyperviscosity D75.9 and IgM monoclonal gammopathy of uncertain significance D47.2 Giorgio Bright III, MD [address] [place] [address] [place] [address] 09/11/2024 Giorgio Bright Normochromic normocy tic anemia D64.9 ; Malignant lymphoplasmacytic lymphoma C83.00 ; Essential hypertension I10 ; Hyperviscosity D75.9 ; Coronary artery disease involving autologous artery coronary bypass graft without angina pectoris I25.810 ; Overweight E66.3 ; Macroglobulinemia C88.0 and Hypercalcemia E83.52 Giorgio Bright III, MD [address] [place] [address] [place] [address] 12/11/2024 Giorgio Bright Normochromic normocy tic anemia D64.9 ; Malignant lymphoplasmacytic lymphoma C83.00 ; Essential hypertension I10 ; Overweight E66.3 ; Coronary artery disease involving autologous artery coronary bypass graft without angina pectoris I25.810 ; Macroglobulinemia C88.0 and Hypercalcemia E83.52 Giorgio Bright III, MD [address] [place] [address] [place] [address] 03/21/2024 Giorgio Bright III, MD [address] [place] [address] [place] [address] 11/07/2024 Giorgio Bright Assessments Encounter Date Diagnosis [...] Details Provider Name:Giorgio Bright, 03/13/2025 10:00:00 AM, [address] [place] [address] , [place] [address], [place], [address], Insurance Providers Payer Name Payer Address Payer Phone Subscriber Number Group Number Insured Name Patient Relationship to Insured Coverage Start Date Coverage End Date MEDICARE NGS [address] [place] [phone] [id number] ARIEL DEAN Self - patient is the insured [employer] [address] [address] [place], [place] [phone] [id number] ARIEL DEAN Self - patient is the [...]
== END 2025-01-09 09:02 | disposition home or self-care (01) ==
LOC: HO.HOS 08:41
PROVIDERS: PCP Physician Assistant Medical; Visit Provider Orthopaedic Surgery
DX: M25.311 Other instability, right shoulder (principal)
CPT/HCPCS: 99213; G2211

== ENCOUNTER → 2025-01-09 08:41 | Outpatient (BNVA) | payer MEDICARE, OTHER, SELFPAY | PROVIDERS: PCP Physician Assistant Medical; Visit Provider Orthopaedic Surgery | DX: M25.311 Other instability, right shoulder (principal) | CPT/HCPCS: 99212 ==

== ENCOUNTER 2025-03-06 08:35 | Outpatient (REF) | payer MEDICARE, OTHER, SELFPAY ==
--- OUTSIDE RECORDS SUMMARY | 2023-11-04 10:15 | XMS_ITS ---
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 Giorgio Carrasco III Unavailable Allergies Allergen (clinical drug ingredient) Drug/Non Drug Allergy documented on EMR Reaction Allergy Type Onset Date Status sulfacetamide Sulfacetamide Unknown Drug Allergy Active REASON FOR VISIT Lymphoplasmacytic lymphoma, Hyperviscosity, Coronary artery disease, Chronic kidney disease Medications Medication SIG (Take, Route, Frequency, Duration) Notes Start Date End Date Status Losartan Potassium 100 MG 1 tablet Orall y Once a day Active Metoprolol Tartrate 100 MG 1 tablet with food Orally Twice a day Active Furosemide 20 MG 1 tablet Orally Once a day Active Omeprazole 20 MG 1 capsule 30 minutes before morning meal Orally Once a day Active NIFEdipine ER 60 MG 1 tablet on an empty stomach Orally Once a day Active hydrALAZINE HCl 50 MG Oral Active Imbruvica 140 MG 3 capsules Orally On a day 02/23/2023 Active Naproxen 250 MG 1 tablet with food o r milk Orally Twice a day Active Social History Tobacco Use: Social History Observation Description Date Details (start date - stop date) Never Smoker NA - NA Sex Assigned At : Social History Observation Description Sex Assigned At Female Tobacco Use/Smoking Question Answer Notes Patient is a nonsmoker Additional Findings: Tobacco Non-User Aggressive non-smoker Vital Signs Temperature 98.1 degrees Fahrenheit 11/04/19 24 Blood pressure systolic 134 mm Hg 11/04/19 24 Blood pressure diastolic 58 mm Hg 06/28/2 024 Heart Rate 65 /min 11/04/2023 Height 62 in 11/04/2023 Weight 152 lbs 11/04/2023 BMI 27.8 kg/m2 11/04/2023 Encounters Encounter Location Date Provider Diagnosis Giorgio Bright III, MD [address] [place] [address] [address] [place], [place] [id number] 11/04/2023 Giorgio Bright Normochromic normocy tic anemia D64.9 ; Essential hypertension I10 ; Hyperviscosity D75.9 ; Coronary artery disease involving autologous artery coronary bypass graft without angina pectoris I25.810 ; Chronic kidney disease (CKD) stage G3b/A2, moderately decreased glomerular filtration rate (GFR) between 30-44 mL/min/1.73 square meter and albuminuria creatinine ratio between 30-299 mg/g N18.32 ; Overweight E66.3 ; 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 11/04/2023 Essential hypertensi on (ICD-10 - I10) She was recently begun on hydralazine. Her bblod pressure is being treated by primary care. 11/04/2023 Hyperviscosity (ICD- 10 - D75.9) The viscosity has improved and needs no further treatment Is needed. She will continue on current medication. The viscosity is now 1.6 which is in the normal range. 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 She denies any recent syncope chest pain, angina or nausea or vomiting. 11/04/2023 Chronic kidney disea se (CKD) stage G3b/A2, moderately decreased glomerular filtration rate (GFR) between 30-44 mL/min/1.73 square meter and albuminuria creatinine ratio between 30-299 mg/g (ICD-10 - N18.32) Her GFR is over 60 and her BUN and creatinine are now 13 and 0.89. This problem has resolved. 11/04/2023 Overweight (ICD-10 - E66.3) She has gained 5 pounds. We discussed diet and nutrition today. I recommended she stabilize her weight at this level and not gaining further weight. 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 11/04/2023 Macroglobulinemia (ICD-10 - C88.0) The serum protein electrophoresis and Immunofixation will be done prior to her next visit. 11/04/2023 Hypercalcemia (ICD-1 0 - E83.52) Her calcium is 10.30which will be observed. She is not taking vitamin D. She will not take calcium at this time. It is improving. Plan Of Treatment Medication Medication Name Sig Start Date Stop Date Notes Losartan Potassium 100 MG 1 tablet Orally Once a day Metoprolol Tartrate 100 MG 1 tablet with food Orally Twice a day Furosemide 20 MG 1 tablet Orally Once a day Omeprazole 20 MG 1 capsule 30 minutes before morning meal Orally Once a day NIFEdipine ER 60 MG 1 tablet on an empty stomach Orally Once a day hydrALAZINE HCl 50 MG Oral Imbruvica 140 MG 3 capsules Orally Once a day 02/23/2023 Naproxen 250 MG 1 tablet with food o r milk Orally Twice a day Next Appt Details Follow Up: 3 Months, Reason: OV Provider Name:Giorgio Bright , 03/13/2025 10:00:00 AM, [address] [place] [address], [id number], Progress Notes * SUYAPA DEANTOMASDOB: [birth year] (82 yo F)Acc No.[id number]:11/04/2023 Progress Notes Patient: ARIEL YORK Provider: Jackelyn Bright MD :1940 A ge:82 Y S ex:Female Date:11/04/2023 Address:[address] [place], [place] [id number] Pcp:Tyler Maxwell MD Subjective: * Chief Complaints: * L ymphoplasmacytic lymphomaHyperviscosityCoronary artery diseaseChronic kidney disease * HPI: C OVID-19 Screening: 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 Her blood work was reviewed with her in detail. She has been compliant with her medication. Her disease seems well controlled. No change in her regimen was necessary. She has no significant side effects from the medication. Questions H ave you experienced fever, chills, cough, sore throat, shortness of breath, difficulty breathing, muscle aches, loss of taste or smell? N o H ave you been exposed to the virus within the last 10 days? N o H ave you travelled internationally in the last 10 days? N o H ave you been exposed to COVID-19 in the past? N o * ROS: G eneral/Constitutional: pain o nly normal aches and pains. C hills d enies.?Fatigue a dmits. F ever d enies. E NT: Decreased hearing m ild. R espiratory: Cough d enies. C ardiovascular: Chest pain with exertion d enies. D yspnea on exertion?denies. S hortness of breath d enies. G astrointestinal: Constipation o ccasional. D ecreased appetite d enies. D iarrhea d enies. H eartburn d enies. N ausea d enies. R ectal bleeding d enies. V omiting d enies. H ematology: bruising d enies. p etechiae d enies. S wollen glands n one have been noted. G enitourinary: Frequent urination a small amount. M usculoskeletal: Muscle aches d enies. P ainful joints d enies. S ciatica d enies. W eakness d enies. S kin: Itching d enies. R michael d enies. S kin lesion(s)?denies. N eurologic: Difficulty speaking d enies. D izziness d enies.?Headache d enies. L ow back pain d enies. P sychiatric: Depressed mood d enies. * Medical History: * Surgical History: b ilateral cataract extractions biopsy, right breast, benign disease tendon release, wrist dental extractions [facility] Dr. Bright 10/14/20 * Hospitalization/Major Diagno stic Procedure: D david Past Hospitalization * Family History: F ather: 59 yrs, Alcoholism. M other: 87 yrs, Congestive heart failure.?Siblings: , Younger Brother of cancer.. 1 brother(s) , 2 sister(s) . 3 son(s) . . Her mother at the age of 87 of congestive heart failure. Her father at the age of 59 of the consequences of alcohol abuse. She has 1 brothers with 2 surviving. She has 2 healthy sisters. She has 3 healthy sons in 12 healthy grandchildren. She is not aware of any inherited cancer family syndrome or of any lymphoproliferative disorder. Her father suffered from alcoholism. She is not aware of any other history in the family of addiction or substance use disorder or mental illness. * Social History: T obacco Use: T obacco Use/Smoking P eliecer is a n onsmoker A dditional Findings: Tobacco Non-User A ggressive non-smoker S he was born in [place], [place] and came to [place] at the age of 6. 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 He is retired. She has no mosque objection to blood transfusion. * Medications: T akingNaproxen 250 MG Tablet 1 tablet with food or milk Orally Twice a dayMetoprolol Tartrate 100 MG Tablet 1 tablet with food Orally Twice a dayLosartan Potassium 100 MG Tablet 1 tablet Orally Once a dayOmeprazole 20 MG Capsule Delayed Release 1 capsule 30 minutes before morning meal Orally Once a dayFurosemide 20 MG Tablet 1 tablet Orally Once a dayNIFEdipine ER 60 MG Tablet Extended Release 24 Hour 1 tablet on an empty stomach Orally Once a dayImbruvica 140 MG Capsule 3 capsules Orally Once a dayhydrALAZINE HCl 50 MG Tablet 1 tablet with food Orally Twice a dayMedication List reviewed and reconciled with the patientTaking Naproxen 250 MG Tablet 1 tablet with food or milk Orally Twice a dayTaking Metoprolol Tartrate 100 MG Tablet 1 tablet with food Orally Twice a dayTaking Losartan Potassium 100 MG Tablet 1 tablet Orally Once a dayTaking Omeprazole 20 MG Capsule Delayed Release 1 capsule 30 minutes before morning meal Orally Once a dayTaking Furosemide 20 MG Tablet 1 tablet Orally Once a dayTaking NIFEdipine ER 60 MG Tablet Extended Release 24 Hour 1 tablet on an empty stomach Orally Once a dayTaking Imbruvica 140 MG Capsule 3 capsules Orally Once a dayTaking hydrALAZINE HCl 50 MG Tablet 1 tablet with food Orally Twice a dayMedication List reviewed and reconciled with the patient * Allergies: S ulfacetamideno[Allergies Verified] Objective: * Vitals: H t: 62, Wt:152, BMI:27.8, BP:134/58, HR:65, Temp:98.1, Wt-k.95. * P ast Orders: Lab:Complete Blood Count Aut o Diff * Order Date 10/28/2023 07/26/2023 05/19/2023 White Blood Count 9.2 (Ref Range: 4.8-10.8 X10*3/uL) 10.0 (Ref Range: 4.8-10.8 X10*3/uL) 9.6 (Ref Range: 4.8-10.8 X10*3/uL) Red Blood Count 4.58 (Ref Range: 4.20-5.50 X10*6/uL) 4.48 (Ref Range: 4.20-5.50 X10*6/uL) 4.66 (Ref Range: 4.20-5.50 X10*6/uL) Hemoglobin 13.5 (Ref Range: 12.0-16.0 g/dl) 13.3 (Ref Range: 12.0-16.0 g/dl) 13.3 (Ref Range: 12.0-16.0 g/dl) Hematocrit 40.4 (Ref Range: 37.0-47.0 %) 39.8 (Ref Range: 37.0-47.0 %) 39.6 (Ref Range: 37.0-47.0 %) Mean Corpuscular Volume 88.2 (Ref Range: 80.0-98.0 fL) 88.8 (Ref Range: 80.0-98.0 fL) 85.0 (Ref Range: 80.0-98.0 fL) Mean Corpuscular Hemoglobin 29.5 (Ref Range: 27.0-33.0 pg) 29.7 (Ref Range: 27.0-33.0 pg) 28.5 (Ref Range: 27.0-33.0 pg) Mean Corpuscular HGB Conc 33.4 (Ref Range: 31.0-35.0 g/dl) 33.4 (Ref Range: 31.0-35.0 g/dl) 33.6 (Ref Range: 31.0-35.0 g/dl) Red Cell Distribution Width 13.3 (Ref Range: 11.0-16.0 %) 13.2 (Ref Range: 11.0-16.0 %) 13.3 (Ref Range: 11.0-16.0 %) Platelet Count 271 (Ref Range: 160-400 X10*3/uL) 304 (Ref Range: 160-400 X10*3/uL) 292 (Ref Range: 160-400 X10*3/uL) Mean Platelet Volume 11.5 (Ref Range: 9.4-12.3 fL) 11.4 (Ref Range: 9.4-12.3 fL) 10.6 (Ref Range: 9.4-12.3 fL) Neutrophils Percent Auto 65.0 (Ref Range: 45-73 %) 67.1 (Ref Range: 45-73 %) 60.6 (Ref Range: 45-73 %) Imm Gran Pct Auto 0.4 (Ref Range: 0.0-0.4 %) 0.4 (Ref Range: 0.0-0.4 %) 0.3 (Ref Range: 0.0-0.4 %) Lymphocytes Percent Auto 23.2 (Ref Range: 20-40 %) 21.2 (Ref Range: 20-40 %) 26.8 (Ref Range: 20-40 %) Monocytes Percent Auto 7.9 (Ref Range: 2-11 %) 8.6 (Ref Range: 2-11 %) 9.5 (Ref Range: 2-11 %) Eosinophils Percent Auto 1.7 (Ref Range: 0-4 %) 1.3 (Ref Range: 0-4 %) 1.4 (Ref Range: 0-4 %) Basophils Percent Auto 1.8 (Ref Range: 0-2 %) 1.4 (Ref Range: 0-2 %) 1.4 (Ref Range: 0-2 %) NRBC Pct Auto 0.0 (Ref Range: 0.0-0.2 /100WBC) 0.0 (Ref Range: 0.0-0.2 /100WBC) 0.0 (Ref Range: 0.0-0.2 /100WBC) Neutrophils Absolute Auto 6.0 (Ref Range: 2.0-8.3 x10*3/uL) 6.7 (Ref Range: 2.0-8.3 x10*3/uL) 5.8 (Ref Range: 2.0-8.3 x10*3/uL) Imm Gran Abs Auto 0.04 H (Ref Range: 0.00-0.03 X10*3/uL) 0.04 H (Ref Range: 0.00-0.03 X10*3/uL) 0.03 (Ref Range: 0.00-0.03 X10*3/uL) Lymphocytes Absolute Auto 2.1 (Ref Range: 1.2-4.9 X10*3/uL) 2.1 (Ref Range: 1.2-4.9 X10*3/uL) 2.6 (Ref Range: 1.2-4.9 X10*3/uL) Monocytes Absolute Auto 0.7 (Ref Range: 0.1-1.2 X10*3/uL) 0.9 (Ref Range: 0.1-1.2 X10*3/uL) 0.9 (Ref Range: 0.1-1.2 X10*3/uL) Eosinophils Absolute Auto 0.2 (Ref Range: 0.0-0.4 X10*3/uL) 0.1 (Ref Range: 0.0-0.4 X10*3/uL) 0.1 (Ref Range: 0.0-0.4 X10*3/uL) Basophils Absolute Auto 0.2 (Ref Range: 0.0-0.2 X10*3/uL) 0.1 (Ref Range: 0.0-0.2 X10*3/uL) 0.1 (Ref Range: 0.0-0.2 X10*3/uL) NRBC Abs Auto 0.000 (Ref Range: 0.0-0.012 X10*3/uL) 0.000 (Ref Range: 0.0-0.012 X10*3/uL) 0.000 (Ref Range: 0.0-0.012 X10*3/uL) * Lab:Comprehensive Met. Panel * Order Date 10/28/2023 07/26/2023 05/19/2023 Sodium 144 (Ref Range: 135-145 mmol/L) 143 (Ref Range: 135-145 mmol/L) 143 (Ref Range: 135-145 mmol/L) Bilirubin Total 1.0 (Ref Range: 0.0-1.0 mg/dL) 1.0 (Ref Range: 0.0-1.0 mg/dL) 0.9 (Ref Range: 0.0-1.0 mg/dL) Aspartate Amino Transferase 15 (Ref Range: 5-31 U/L) 13 (Ref Range: 5-31 U/L) 12 (Ref Range: 5-31 U/L) Alanine Aminotransferase 9 (Ref Range: 0-31 U/L) 12 (Ref Range: 0-31 U/L) 9 (Ref Range: 0-31 U/L) Total Protein 6.8 (Ref Range: 6.5-8.0 g/dL) 7.0 (Ref Range: 6.5-8.0 g/dL) 7.4 (Ref Range: 6.5-8.0 g/dL) Albumin Level 4.1 (Ref Range: 3.5-5.0 g/dL) 4.2 (Ref Range: 3.5-5.0 g/dL) 4.1 (Ref Range: 3.5-5.0 g/dL) Alkaline Phosphatase 73 (Ref Range: 39-117 U/L) 84 (Ref Range: 39-117 U/L) 91 (Ref Range: 39-117 U/L) Potassium 3.7 (Ref Range: 3.3-5.1 mmol/L) 3.5 (Ref Range: 3.3-5.1 mmol/L) 3.8 (Ref Range: 3.3-5.1 mmol/L) Chloride 109 H (Ref Range: 96-108 mmol/L) 109 H (Ref Range: 96-108 mmol/L) 106 (Ref Range: 96-108 mmol/L) Carbon Dioxide 27 (Ref Range: 22-29 mmol/L) 25 (Ref Range: 22-29 mmol/L) 29 (Ref Range: 22-29 mmol/L) Anion Gap 12 (Ref Range: 12-20) 13 (Ref Range: 12-20) 12 (Ref Range: 12-20) Blood Urea Nitrogen 14 (Ref Range: 9-16 mg/dL) 14 (Ref Range: 9-16 mg/dL) 10 (Ref Range: 9-16 mg/dL) Creatinine 0.78 (Ref Range: 0.5-1.4 mg/dL) 0.82 (Ref Range: 0.5-1.4 mg/dL) 0.82 (Ref Range: 0.5-1.4 mg/dL) Estimated Glomerular Filt Rate > 60 > 60 > 60 Glucose Random 103 (Ref Range: 60-115 mg/dL) 112 (Ref Range: 60-115 mg/dL) 102 (Ref Range: 60-115 mg/dL) Calcium 10.0 (Ref Range: 8.4-10.2 mg/dL) 9.4 (Ref Range: 8.4-10.2 mg/dL) 10.0 (Ref Range: 8.4-10.2 mg/dL) * Lab:Beta-2 Microglobulin, Se rum * Order Date 10/28/2023 02/02/2023 01/12/2023 Beta-2 Microglobulin, Serum 2.65 A (Ref Range: < OR = 2.51 mg/L) 4.32 A (Ref Range: < OR = 2.51 mg/L) 4.80 A (Ref Range: < OR = 2.51 mg/L) * Lab:Protein Electrophoresis, Serum * Order Date 10/28/2023 07/26/2023 05/19/2023 Prot Elec - Total Protein 6.5 (Ref Range: 6.1-8.1 g/dL) 6.9 (Ref Range: 6.1-8.1 g/dL) 7.0 (Ref Range: 6.1-8.1 g/dL) Prot Elec - Albumin 4.1 (Ref Range: 3.8-4.8 g/dL) 4.2 (Ref Range: 3.8-4.8 g/dL) 4.1 (Ref Range: 3.8-4.8 g/dL) Prot Elec - Alpha1 0.3 (Ref Range: 0.2-0.3 g/dL) 0.3 (Ref Range: 0.2-0.3 g/dL) 0.3 (Ref Range: 0.2-0.3 g/dL) Prot Elec - Alpha2 0.6 (Ref Range: 0.5-0.9 g/dL) 0.7 (Ref Range: 0.5-0.9 g/dL) 0.7 (Ref Range: 0.5-0.9 g/dL) Prot Elec - Beta 1 0.3 A (Ref Range: 0.4-0.6 g/dL) 0.4 (Ref Range: 0.4-0.6 g/dL) 0.4 (Ref Range: 0.4-0.6 g/dL) Prot Elec - Beta 2 0.2 (Ref Range: 0.2-0.5 g/dL) 0.3 (Ref Range: 0.2-0.5 g/dL) 0.2 (Ref Range: 0.2-0.5 g/dL) Prot Elec - Gamma 1.0 (Ref Range: 0.8-1.7 g/dL) 1.1 (Ref Range: 0.8-1.7 g/dL) 1.4 (Ref Range: 0.8-1.7 g/dL) PES - Abn Protein Band 1 0.6 A (Ref Range: NONE DETECTED g/dL) 0.9 A (Ref Range: NONE DETECTED g/dL) 1.0 A (Ref Range: NONE DETECTED g/dL) PES-Abn Protein Band 2 TNP TNP TNP PES-Abn Protein Band 3 TNP TNP TNP Prot Elec - Interpretation SEE NOTE SEE NOTE SEE NOTE * Lab:Immunofixation Pnl, Seru m * Order Date 10/28/2023 07/26/2023 05/19/2023 IgG 293 A (Ref Range: 600-1540 mg/dL) 289 A (Ref Range: 600-1540 mg/dL) 327 A (Ref Range: 600-1540 mg/dL) IgA 18 A (Ref Range: 70-320 mg/dL) 16 A (Ref Range: 70-320 mg/dL) 17 A (Ref Range: 70-320 mg/dL) IgM 1156 A (Ref Range: 50-300 mg/dL) 1381 A (Ref Range: 50-300 mg/dL) 1636 A (Ref Range: 50-300 mg/dL) Immunofixation Interpretation SEE NOTE SEE NOTE SEE NOTE * Examination: G eneral Examination: GENERAL APPEARANCE: p leasant, well nourished, well developed, in no acute distress, calm and relaxed , overweight , elderly woman. HEAD: a traumatic, normocephalic. EYES: e abdon, perrla, anicteric, conjugate. EARS: n ormal. NOSE: s eptum intact. ORAL CAVITY: n ormal, unremarkable. NECK/THYROID: n o jugular venous distention, no carotid bruit, thyroid normal. LYMPH NODES: n o enlarged lymph nodes,spleen normal. SKIN: n o suspicious lesions, anicteric. HEART: n o clicks, gallops, murmurs, or rubs, regular rhythm, S1, S2 normal, no s3, or vascular bruits. LUNGS: c lear to auscultation . BREASTS: n ot examined. ABDOMEN: b owel sounds normal, no ascites, no organomegaly, no mass , overweight. RECTAL EXAM: n ot examined. MUSCULOSKELETAL: e xtremities unremarkable, no clubbing, cyanosis or edema. PERIPHERAL PULSES: n ormal. NEUROLOGIC: a lert and oriented, cranial nerves 2-12 grossly intact, deep tendon reflexes 2+ symmetrical, motor strength normal upper and lower extremities, sensory exam intact. PSYCH: a lert, oriented. Assessment: * Assessment: 1. N ormochromic normocytic anemia - D64.9 (Primary), He kind CBC shows that her anemia has resolved.Her hematocrit and hemoglobin are now in the normal range. 2 . E ssential hypertension - I10, She was recently begun on hydralazine. Her bblod pressure is being treated by primary care.?3. H yperviscosity - D75.9, The viscosity has improved and needs no further treatment Is needed. She will continue on current medication. The viscosity is now 1.6 which is in the normal range. 4 . C oronary artery disease involving autologous artery coronary bypass graft without angina pectoris - I25.810, She is asymptomatic at this time her current regimen will be continued. She denies any recent syncope chest pain, angina or nausea or vomiting. 5 . C hronic kidney disease (CKD) stage G3b/A2, moderately decreased glomerular filtration rate (GFR) between 30-44 mL/min/1.73 square meter and albuminuria creatinine ratio between 30-299 mg/g - N18.32, Her GFR is over 60 and her BUN and creatinine are now 13 and 0.89. This problem has resolved. 6 . O verweight - E66.3, She has gained 5 pounds. We discussed diet and nutrition today. I recommended she stabilize her weight at this level and not gaining further weight. 7 . 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 8 . M acroglobulinemia - C88.0, The serum protein electrophoresis and Immunofixation will be done prior to her next visit. 9 . H ypercalcemia - E83.52, Her calcium is 10.30which will be observed. She is not taking vitamin D. She will not take calcium at this time. It is improving. Plan: * Treatment: 2. E ssential hypertension Continue hydrALAZINE HCl Tablet, 50 MG, Oral. * Procedure Codes: * Preventive Medicine: Counseling: C are goal follow-up plan: Counseling for abnormal BMI given Y es Above Normal BMI Follow-up D ietary needs education * Follow Up: 3 Months (Reason: OV) * Images: * Sign off status: Completed true * Provider: Jackelyn Bright MD Date: 0 11/04/2023 Generated for Claude cantu/Regino/Shmuelitting on: 1 09:08 AM EDT History and Physical Notes * HPI (History of Present Illness) Category Sub-Category Detail Notes COVID-19 Screening Questions Have you had any new onset fever, chills, cough, congestion, sore throat, shortness of breath, muscle aches?: No Have you been exposed to the virus withi n the last 10 days?: No Have you travelled internationally in e last 10 days?: No Have you been exposed to COVID-19 in the past?: No Examination Category Sub-Category Detail Notes General Examination GENERAL APPEARANCE: pleasant , well nourished, well developed, in no acute distress, calm and relaxed , overweight , elderly woman HEAD: atraumatic, normocep halic EYES: eomi, perrla, anicte merrick, conjugate EARS: normal NOSE: septum intact NECK/THYROID: no jugular venous di stention, no carotid bruit, thyroid normal HEART: no clicks, gallops, murmurs, or rubs, regular rhythm, S1, S2 normal, no s3, or vascular bruits LUNGS: clear to auscultatio n ABDOMEN: bowel sounds normal, no ascites, no organomegaly, no mass , overweight NEUROLOGIC: alert and oriented, cranial nerves 2-12 grossly intact, deep tendon reflexes 2+ symmetrical, motor strength normal upper and lower extremities, sensory exam intact SKIN: no suspicious lesion s, anicteric PERIPHERAL PULSES: normal BREASTS: not examined MUSCULOSKELETAL: extremities unremark able, no clubbing, cyanosis or edema LYMPH NODES: no enlarged lymph no mark,spleen normal RECTAL EXAM: not examined PSYCH: alert, oriented ORAL CAVITY: normal, unremarkable
--- OUTSIDE RECORDS SUMMARY | 2024-02-07 05:30 | XMS_ITS ---
Author Organization Giorgio Bright III, MD Address [address] [address] Care Team Providers Care Correspondence Section Supervisor Name Role Phone Tyler Maxwell MD Primary Care Provider Unavailab Dr. Giorgio Carrasco III Unavailable [phone] Allergies Allergen (clinical drug ingredient) Drug/Non Drug Allergy documented on EMR Reaction Allergy Type Onset Date Status sulfacetamide Sulfacetamide Unknown Drug Allergy Active REASON FOR VISIT Lymphoplasmacytic lymphoma, Hyperviscosity, Coronary artery disease, Chronic kidney disease, Hypercalcemia Medications Medication SIG (Take, Route, Frequency, Duration) Notes Start Date End Date Status Metoprolol Tartrate 100 MG 1 tablet with food Orally Twice a day Active Naproxen 250 MG 1 tablet with food o r milk Orally Twice a day Active Imbruvica 140 MG 3 capsules Orally On day 02/23/2023 Active hydrALAZINE HCl 50 MG Oral Active NIFEdipine ER 60 MG 1 tablet on an empty stomach Orally Once a day Active Furosemide 20 MG 1 tablet Orally Once a day Active Losartan Potassium 100 MG 1 tablet Orall y Once a day Active Omeprazole 20 MG 1 capsule 30 minutes before morning meal Orally Once a day Active Social History Tobacco Use: Social History Observation Description Date Details (start date - stop date) Never Smoker NA - NA Sex Assigned At : Social History Observation Description Sex Assigned At Female Tobacco Use/Smoking Question Answer Notes Patient is a nonsmoker Additional Findings: Tobacco Non-User Aggressive non-smoker Vital Signs Temperature 96.8 degrees Fahrenheit 02/07/20 24 Blood pressure systolic 130 mm Hg 02/07/20 24 Blood pressure diastolic 51 mm Hg 024 Heart Rate 66 /min 02/07/2024 Height 62 in 02/07/2024 Weight 152 lbs 02/07/2024 BMI 27.8 kg/m2 02/07/2024 Encounters Encounter Location Date Provider Diagnosis Giorgio Bright III, MD [address] [place] [address] [place] [address] 02/07/2024 Giorgio Bright Normochromic normocy tic anemia D64.9 ; 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 The lymphoma is well controlled on current medication which was continued. 02/07/2024 Essential hypertensi on (ICD-10 - I10) Her blood pressure continues to be controlled. 02/07/2024 Hyperviscosity (ICD- 10 - D75.9) The current blood work shows low protein levels to be well controlled. 02/07/2024 IgM monoclonal gammopathy of uncertain significance (ICD-10 - D47.2) She has been compliant with her medication. The IgM level continues to slowly decline. 02/07/2024 Macroglobulinemia (ICD-10 - C88.0) Her proteins have continued to decline. 02/07/2024 Overweight (ICD-10 - E66.3) She has gained 5 pounds. We discussed diet and nutrition today. I recommended she stabilize her weight at this level and not gaining further weight. Plan Of Treatment Medication Medication Name Sig Start Date Stop Date Notes Metoprolol Tartrate 100 MG 1 tablet with food Orally Twice a day Naproxen 250 MG 1 tablet with food o r milk Orally Twice a day Imbruvica 140 MG 3 capsules Orally Once a day 02/23/2023 hydrALAZINE HCl 50 MG Oral NIFEdipine ER 60 MG 1 tablet on an empty stomach Orally Once a day Furosemide 20 MG 1 tablet Orally Once a day Losartan Potassium 100 MG 1 tablet Orally Once a day Omeprazole 20 MG 1 capsule 30 minutes before morning meal Orally Once a day Next Appt Details Follow Up: 4 Months, Reason: OV review labs Provider Name:Giorgio Bright , 03/13/2025 10:00:00 AM, [address] [place], [place] [address], [address], Progress Notes * ARIEL DEANDOB: [birth year] (83 yo F)Acc No.[id number]:02/07/2024 Progress Notes Patient: ARIEL YORK Provider: Jackelyn Bright MD :1940 A ge:83 Y S ex:Female Date:02/07/2024 Address:[address] [place], [place] [id number] Pcp:Tyler Maxwell MD Subjective: * Chief Complaints: * L ymphoplasmacytic lymphomaHyperviscosityCoronary artery diseaseChronic kidney diseaseHypercalcemia * HPI: C OVID-19 Screening: She returns for management of lymphoplasmacytic lymphoma. Since her last visit she has been free of symptoms. She has been compliant with the ibrutinib. Records reviewed with her. It was stable. No changes in her regimen were necessary. Her calcium is controlled.? The IgM level continues to decline. Her CBC was unremarkable.Her blood work from February 03, 2024 showed white count 8.5 hematocrit 38.7 platelets 270 glucose 89 BUN 14 creatinine 0.85 calcium 9.9 abnormal protein 0.6 baited 2 microglobulin 2.[address] Questions [address] you experienced fever, chills, [...] have been noted. G enitourinary: Frequent urination d enies. M usculoskeletal: Muscle aches d enies. P [...] 10/14/20 * Hospitalization/Major Diagno stic Procedure: D enies Past Hospitalization * Family History: F ather: [...] T obacco Use: T obacco Use/Smoking P atient is a n onsmoker A dditional Findings: Tobacco Non-User A ggressive non-smoker S he was born in [place], [place] and came to [place] at the age of 6. 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 He is retired. She has no muslim objection to blood transfusion. * Medications: T akingNaproxen 250 MG Tablet 1 tablet with food or milk Orally Twice a day Metoprolol Tartrate 100 MG Tablet 1 tablet with food Orally Twice a day Losartan Potassium 100 MG Tablet 1 tablet Orally Once a day Omeprazole 20 MG Capsule Delayed Release 1 capsule 30 minutes before morning meal Orally Once a day Furosemide 20 MG Tablet 1 tablet Orally Once a day NIFEdipine ER 60 MG Tablet Extended Release 24 Hour 1 tablet on an empty stomach Orally Once a day Imbruvica 140 MG Capsule 3 capsules Orally Once a day hydrALAZINE HCl 50 MG Tablet Oral Medication List reviewed and reconciled with the patientTaking Naproxen 250 MG Tablet 1 tablet with food or milk Orally Twice a day Taking Metoprolol Tartrate 100 MG Tablet 1 tablet with food Orally Twice a day Taking Losartan Potassium 100 MG Tablet 1 tablet Orally Once a day Taking Omeprazole 20 MG Capsule Delayed Release 1 capsule 30 minutes before morning meal Orally Once a day Taking Furosemide 20 MG Tablet 1 tablet Orally Once a day Taking NIFEdipine ER 60 MG Tablet Extended Release 24 Hour 1 tablet on an empty stomach Orally Once a day Taking Imbruvica 140 MG Capsule 3 capsules Orally Once a day Taking hydrALAZINE HCl 50 MG Tablet Oral Medication List reviewed and reconciled with the patient * Allergies: S tiana[Allergies Verified] Objective: * Vitals: H t: 62, Wt:152, BMI:27.8, BP:130/51, HR:66, Temp:96.8, Wt-k.95. * Examination: G eneral Examination: GENERAL APPEARANCE: p leasant, well nourished, well developed, in no acute distress, calm and relaxed, overweight, woman, overweight, elderly woman. HEAD: a traumatic, normocephalic. EYES: [...] sounds normal, no ascites, no organomegaly, no mass. RECTAL EXAM: n ot examined. MUSCULOSKELETAL: e xtremities unremarkable, no clubbing, cyanosis or edema. PERIPHERAL PULSES: n ormal. NEUROLOGIC: a lert and oriented, cranial nerves 2-12 grossly intact, deep tendon reflexes 2+ symmetrical, motor strength normal upper and lower extremities, sensory exam intact. PSYCH: a lert, oriented. Assessment: * Assessment: 1. 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 The lymphoma is well controlled on current medication which was continued. 2 . N ormochromic normocytic anemia - D64.9 N otes :He kind CBC shows that her anemia has resolved.Her hematocrit and hemoglobin are now in the normal range. 3 . E ssential hypertension - I10 N otes :Her blood pressure continues to be controlled. 4 . H yperviscosity - D75.9 N otes :The current blood work shows low protein levels to be well controlled. 5 . I gM monoclonal gammopathy of uncertain significance - D47.2 ?Notes :She has been compliant with her medication. The IgM level continues to slowly decline. 6 . M acroglobulinemia - C88.0 N otes :Her proteins have continued to decline. 7 . O verweight - E66.3 N otes :She has gained 5 pounds. We discussed diet and nutrition today. I recommended she stabilize her weight at this level and not gaining further weight. Plan: * Treatment: 2. N ormochromic normocytic anemia Continue Naproxen Tablet, 250 MG, 1 tablet with food or milk, Orally, Twice a day; C ontinue Metoprolol Tartrate Tablet, 100 MG, 1 tablet with food, Orally, Twice a day; C ontinue Losartan Potassium Tablet, 100 MG, 1 tablet, Orally, Once a day; C ontinue Omeprazole Capsule Delayed Release, 20 MG, 1 capsule 30 minutes before morning meal, Orally, Once a day; C ontinue Furosemide Tablet, 20 MG, 1 tablet, Orally, Once a day; C ontinue NIFEdipine ER Tablet Extended Release 24 Hour, 60 MG, 1 tablet on an empty stomach, Orally, Once a day; C ontinue Imbruvica Capsule, 140 MG, 3 capsules, Orally, Once a day. L AB: PROFILE, FASTING (COMPREHENSIVE METABOLIC) L AB: LDH L AB: CBC w DIFF L AB: IMMUNOFIXATION PANEL, SERUM (IEP) L AB: PROTEIN ELECTROPHORESIS, SERUM 3. E ssential hypertension Continue hydrALAZINE HCl Tablet, 50 MG, Oral. 4. H yperviscosity L AB: PROFILE, FASTING (COMPREHENSIVE METABOLIC) L AB: LDH L AB: CBC w DIFF L AB: IMMUNOFIXATION PANEL, SERUM (IEP) L AB: PROTEIN ELECTROPHORESIS, SERUM 5. I gM monoclonal gammopathy of uncertain significance L AB: PROFILE, FASTING (COMPREHENSIVE METABOLIC) L AB: LDH L AB: CBC w DIFF L AB: IMMUNOFIXATION PANEL, SERUM (IEP) L AB: PROTEIN ELECTROPHORESIS, SERUM 6. M acroglobulinemia L AB: PROFILE, FASTING (COMPREHENSIVE METABOLIC) L AB: LDH L AB: CBC w DIFF L AB: IMMUNOFIXATION PANEL, SERUM (IEP) L AB: PROTEIN ELECTROPHORESIS, SERUM * Procedure Codes: * Preventive Medicine: Counseling: C are goal follow-up plan: Counseling for abnormal BMI given Y es Above Normal BMI Follow-up D ietary management education, guidance, and counseling * Follow Up: 4 Months (Reason: OV review labs) * Images: * Sign off status: Completed true * Provider: Jackelyn Bright MD Date: Generated for Claude cantu/Regino/Tyson on: 09:08 AM EDT History and Physical Notes * HPI (History of Present Illness) Category Sub-Category Detail Notes COVID-19 Screening Questions Have you had any new onset fever, chills, cough, congestion, sore throat, shortness of breath, muscle aches?: No Have you been exposed to the virus withi n the last 10 days?: No Have you travelled internationally in [facility] last 10 days?: No Have you been exposed to COVID-19 in the past?: No Examination Category Sub-Category Detail Notes General Examination GENERAL APPEARANCE: pleasant , well nourished, well developed, in no acute distress, calm and relaxed, overweight, woman, overweight, elderly woman HEAD: atraumatic, normocep halic EYES: eomi, perrla, anicte merrick, conjugate EARS: normal NOSE: septum intact NECK/THYROID: no jugular venous di stention, no carotid bruit, thyroid normal HEART: no clicks, gallops, murmurs, or rubs, regular rhythm, S1, S2 normal, no s3, or vascular bruits LUNGS: clear to auscultatio n ABDOMEN: bowel sounds normal, no ascites, no organomegaly, no mass NEUROLOGIC: alert and oriented, cranial nerves 2-12 [...]
--- OUTSIDE RECORDS SUMMARY | 2024-03-21 05:45 | XMS_ITS ---
Author Organization Giorgio Bright III, MD Address [address] [place] [address] [place] [address] Care Team Providers Care Plumber Name Role Phone Tyler Maxwell MD Primary Care Provider UnavailDr. iGorgio Carrera III Unavailable REASON FOR VISIT Message Social History Sex Assigned At : Social History Observation Description Sex Assigned At Female Encounters Encounter Location Date Provider Diagnosis Giorgio Bright III, MD [address] [place] [address] [place] [id number] 03/21/2024 Giorgio Bright Plan Of Treatment Next Appt Details Provider Name:Giorgio Bright , 03/13/2025 10:00:00 AM, [address] [place] [address] [place], [id number], Progress Notes * ARIEL DEANDOB: [birth year] (83 yo F)Acc No.[id number]:03/21/2024 Patient: ARIEL YORK :1940 A ge:83 Y S ex:Female Address:[address] [place], [address] * true * Date: Generated for Printi ng/Faxing/eTransmitting on: 09:08 AM EDT
--- OUTSIDE RECORDS SUMMARY | 2024-03-28 07:30 | XMS_ITS ---
Author Organization Giorgio Bright III, MD Address [address] [place] [address] Care Team Providers Care Metal Filer Name Role Phone Tyler Maxwell MD Primary Care Provider Unavailab Dr. Giorgio Carrasco III Unavailable Allergies Allergen (clinical drug ingredient) Drug/Non Drug Allergy documented on EMR Reaction Allergy Type Onset Date Status sulfacetamide Sulfacetamide Unknown Drug Allergy Active REASON FOR VISIT Runny nose, Headache, right ear pain x 3 weeks, Numbness right side of nose and face, Lymphoplasmacytic lymphoma Medications Medication SIG (Take, Route, Frequency, Duration) Notes Start Date End Date Status hydrALAZINE HCl 50 MG Oral Active Imbruvica 140 MG 3 capsules Orally On a day 02/23/2023 Active Amoxicillin-Pot Clavulanate 875-125 MG 1 tablet Orally every 12 hrs for 10 days 03/28/2024 04/07/2024 Active NIFEdipine ER 60 MG 1 tablet on an empty stomach Orally Once a day Active Furosemide 20 MG 1 tablet Orally Once a day Active Naproxen 250 MG 1 tablet with food o r milk Orally Twice a day Active Losartan Potassium 100 MG 1 tablet Orall y Once a day Active Metoprolol Tartrate 100 MG 1 tablet with food Orally Twice a day Active Omeprazole 20 MG 1 [...] nonsmoker Additional Findings: Tobacco Non-User Aggressive non-smoker Alcohol Screen Question Answer Notes Did you have a drink containing alcohol in the p ast year? 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 ; Normochromic normocytic anemia D64.9 ; Essential hypertension I10 ; Overweight E66.3 ; Chronic kidney disease (CKD) stage G3b/A2, moderately decreased glomerular filtration rate (GFR) between 30-44 mL/min/1.73 square meter and albuminuria creatinine ratio between 30-299 mg/g N18.32 ; 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 It seems she has a sensation of a lump in her right nares associated with numbness of the skin on the outside of the right side of her nose. SShe does have 3 small scabs On the skin of the right side of her nose but the appearance is not that of Herpes zoster. There is no nasal discharge. She has a severely deviated right septum. I've given her an antibiotic and close follow-up. She seems medically stable at this time. 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 The lymphoma is well controlled on current medication which was continued. 03/28/2024 Normochromic normocy tic anemia (ICD-10 - D64.9) He kind CBC shows that her anemia has resolved.Her hematocrit and hemoglobin are now in the normal range. 03/28/2024 Essential hypertensi on (ICD-10 - I10) Her blood pressure continues to be controlled. 03/28/2024 Overweight (ICD-10 - E66.3) She has gained 5 pounds. We discussed diet and nutrition today. I recommended she stabilize her weight at this level and not gaining further weight. 03/28/2024 Chronic kidney disea se (CKD) stage G3b/A2, moderately decreased glomerular filtration rate (GFR) between 30-44 mL/min/1.73 square meter and albuminuria creatinine ratio between 30-299 mg/g (ICD-10 - N18.32) Her GFR is over 60 and her BUN and creatinine are now 13 and 0.89. This problem has resolved. 03/28/2024 Coronary artery dise ase involving autologous artery coronary bypass graft without angina pectoris (ICD-10 - I25.810) She is asymptomatic at this time her current regimen will be continued. She denies any recent syncope chest pain, angina or nausea or vomiting. 03/28/2024 Macroglobulinemia (ICD-10 - C88.0) Her proteins have continued to decline. Plan Of Treatment Medication Medication Name Sig Start Date Stop Date Notes hydrALAZINE HCl 50 MG Oral Imbruvica 140 MG 3 capsules Orally On a day 02/23/2023 Amoxicillin-Pot Clavulanate 875-125 MG 1 tablet Orally every 12 hrs for 10 days 03/28/2024 04/07/2024 NIFEdipine ER 60 MG 1 tablet on an empty stomach Orally Once a day Furosemide 20 MG 1 tablet Orally Once a day Naproxen 250 MG 1 tablet with food o r milk Orally Twice a day Losartan Potassium 100 MG 1 tablet Orally Once a day Metoprolol Tartrate 100 MG 1 tablet with food Orally Twice a day Omeprazole 20 MG 1 capsule 30 minutes before morning meal Orally Once a day Next Appt Details Follow Up: After , Reason: To monitor the patient's nose symptoms and the effectiveness of the prescribed antibiotic Provider Name:Giorgio Bright , 03/13/2025 10:00:00 AM, [address] [place] [address] [address], [place], [address], Progress Notes * YURIY DEAN: [birth year] (83 yo F)Acc No.[id number]:03/28/2024 Progress Notes Patient: ARIEL YORK Provider: Jackelyn Bright MD :1940 A ge:83 Y S ex:Female Date:03/28/2024 Address:[address] [place], [place] [id number] Pcp:Tyler Maxwell MD Subjective: * Chief Complaints: * R unny nose, Headache, right ear pain x 3 weeksNumbness right side of nose and faceLymphoplasmacytic lymphoma * HPI: C OVID-19 Screening: Questions H ave you experienced fever, chills, [...] COVID-19 in the past? N o * : The patient, an 83-year-old female, presented with a complaint of numbness in her nose, which she noticed about a week ago. She also reported a sensation of a sore developing on her nose. The patient described the symptoms as constant and located specifically on her nose. She also mentioned a feeling of a bump inside her nose and difficulty in blowing her nose. The patient reported a sensation similar to a toothache in her dentures. She also mentioned that her skin gets itchy, especially on her nose. The patient reported no other symptoms associated with her chief complaint. She mentioned that she had a phone call with Doctor Manoj, who arranged this appointment. The patient also mentioned that she had a bunch of blood work done in January. * ROS: G eneral/Constitutional: pain R ight side of nose, otherwise only normal aches and pains. C hills d enies. F atigue a dmits. F ever d enies. E [...] been noted. G enitourinary: Frequent urination a t night. M usculoskeletal: Muscle aches d enies. P [...] release, wrist dental extractions [facility] Dr. Bright 10/14/20No history * Hospitalization/Major Diagno stic Procedure: N o history * Family History: F ather: 59 yrs, [...] or substance use disorder or mental illness. The patient mentioned that she lost two sisters. * Social History: T obacco Use: T obacco Use/Smoking P atient is a n onsmoker A dditional Findings: Tobacco Non-User A ggressive non-smoker D rugs/Alcohol: D rugs H ave you used drugs other than those for medical reasons in the past 12 months? N o Alcohol Screen D id you have a drink containing alcohol in the past year? N o P oints 0 I nterpretation N egative S he was born in [place], [place] and came to [place] at the age of 6. 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 He is retired. She has no anglican objection to blood transfusion. The patient mentioned that she has a dog. * Medications: T akingNaproxen 250 MG Tablet [...] Verified] Objective: * Vitals: H t: 62, Wt:151, BMI:27.62, BP:136/78, HR:66, Temp:97.2, Wt-k.49. * P ast Orders: Lab:Viscosity * Collection Date 02/03/2024 07/26/2023 05/19/2023 Collection Time 08:14 AM 10:40 AM 10:20 AM Order Date 02/03/2024 07/26/2023 05/19/2023 Viscosity 1.7 (Ref Range: 1.5-1.9 rel to H2O) 1.6 (Ref Range: 1.5-1.9 rel to H2O) 1.8 (Ref Range: 1.5-1.9 rel to H2O) * Lab:Protein Electrophoresis, Serum * Collection Date 02/03/2024 10/28/2023 07/26/2023 Collection Time 08:14 AM 09:10 AM 10:40 AM Order Date 02/03/2024 10/28/2023 07/26/2023 Prot Elec - Total Protein 6.8 (Ref Range: 6.1-8.1 g/dL) 6.5 (Ref Range: 6.1-8.1 g/dL) 6.9 (Ref Range: 6.1-8.1 g/dL) Prot Elec - Albumin 4.3 (Ref Range: 3.8-4.8 g/dL) 4.1 (Ref Range: 3.8-4.8 g/dL) 4.2 (Ref Range: 3.8-4.8 g/dL) Prot Elec - Alpha1 0.3 (Ref Range: 0.2-0.3 g/dL) 0.3 (Ref Range: 0.2-0.3 g/dL) 0.3 (Ref Range: 0.2-0.3 g/dL) Prot Elec - Alpha2 0.7 (Ref Range: 0.5-0.9 g/dL) 0.6 (Ref Range: 0.5-0.9 g/dL) 0.7 (Ref Range: 0.5-0.9 g/dL) Prot Elec - Beta 1 0.3 A (Ref Range: 0.4-0.6 g/dL) 0.3 A (Ref Range: 0.4-0.6 g/dL) 0.4 (Ref Range: 0.4-0.6 g/dL) Prot Elec - Beta 2 0.2 (Ref Range: 0.2-0.5 g/dL) 0.2 (Ref Range: 0.2-0.5 g/dL) 0.3 (Ref Range: 0.2-0.5 g/dL) Prot Elec - Gamma 1.0 (Ref Range: 0.8-1.7 g/dL) 1.0 (Ref Range: 0.8-1.7 g/dL) 1.1 (Ref Range: 0.8-1.7 g/dL) PES - Abn Protein Band 1 0.6 A (Ref Range: NONE DETECTED g/dL) 0.6 A (Ref Range: NONE DETECTED g/dL) 0.9 A (Ref Range: NONE DETECTED g/dL) PES-Abn Protein Band 2 TNP TNP TNP PES-Abn Protein Band 3 TNP TNP TNP Prot Elec - Interpretation SEE NOTE SEE NOTE SEE NOTE * Lab:Beta-2 Microglobulin, Se rum * Collection Date 02/03/2024 10/28/2023 02/02/2023 Collection Time 08:14 AM 09:10 AM 10:27 AM Order Date 02/03/2024 10/28/2023 02/02/2023 Beta-2 Microglobulin, Serum 2.80 A (Ref Range: < OR = 2.51 mg/L) 2.65 A (Ref Range: < OR = 2.51 mg/L) 4.32 A (Ref Range: < OR = 2.51 mg/L) * Lab:Comprehensive [place]. Pane l Fast * Collection Date 02/03/2024 09/15/2021 Collection Time 08:14 AM 09:31 AM Order Date 02/03/2024 09/15/2021 Sodium 144 (Ref Range: 135-145 mmol/L) 141 (Ref Range: 135-145 mmol/L) Bilirubin Total 1.1 H (Ref Range: 0.0-1.0 mg/dL) 1.2 H (Ref Range: 0.0-1.0 mg/dL) Aspartate Amino Transferase 14 (Ref Range: 5-31 U/L) 10 (Ref Range: 5-31 U/L) Alanine Aminotransferase 11 (Ref Range: 0-31 U/L) 8 (Ref Range: 0-31 U/L) Total Protein 6.9 (Ref Range: 6.5-8.0 g/dL) 8.7 H (Ref Range: 6.5-8.0 g/dL) Albumin Level 4.1 (Ref Range: 3.5-5.0 g/dL) 3.8 (Ref Range: 3.5-5.0 g/dL) Alkaline Phosphatase 70 (Ref Range: 39-117 U/L) 84 (Ref Range: 39-117 U/L) Potassium 3.9 (Ref Range: 3.3-5.1 mmol/L) 4.3 (Ref Range: 3.3-5.1 mmol/L) Chloride 110 H (Ref Range: 96-108 mmol/L) 107 (Ref Range: 96-108 mmol/L) Carbon Dioxide 25 (Ref Range: 22-29 mmol/L) 27 (Ref Range: 22-29 mmol/L) Anion Gap 13 (Ref Range: 12-20) 11 L (Ref Range: 12-20) Blood Urea Nitrogen 14 (Ref Range: 9-16 mg/dL) 9 (Ref Range: 9-16 mg/dL) Creatinine 0.85 (Ref Range: 0.5-1.4 mg/dL) 0.80 (Ref Range: 0.5-1.4 mg/dL) Estimated Glomerular Filt Rate > 60 > 60 Glucose Fasting 89 (Ref Range: 60-99 mg/dL) 117 H (Ref Range: 60-99 mg/dL) Calcium 9.9 (Ref Range: 8.4-10.2 mg/dL) 10.3 H (Ref Range: 8.4-10.2 mg/dL) * Lab:Complete Blood Count Aut o Diff * Collection Date 02/03/2024 10/28/2023 07/26/2023 Collection Time 08:14 AM 09:10 AM 10:40 AM Order Date 02/03/2024 10/28/2023 07/26/2023 White Blood Count 8.5 (Ref Range: 4.8-10.8 X10*3/uL) 9.2 (Ref Range: 4.8-10.8 X10*3/uL) 10.0 (Ref Range: 4.8-10.8 X10*3/uL) Red Blood Count 4.39 (Ref Range: 4.20-5.50 X10*6/uL) 4.58 (Ref Range: 4.20-5.50 X10*6/uL) 4.48 (Ref Range: 4.20-5.50 X10*6/uL) Hemoglobin 13.0 (Ref Range: 12.0-16.0 g/dl) 13.5 (Ref Range: 12.0-16.0 g/dl) 13.3 (Ref Range: 12.0-16.0 g/dl) Hematocrit 38.7 (Ref Range: 37.0-47.0 %) 40.4 (Ref Range: 37.0-47.0 %) 39.8 (Ref Range: 37.0-47.0 %) Mean Corpuscular Volume 88.2 (Ref Range: 80.0-98.0 fL) 88.2 (Ref Range: 80.0-98.0 fL) 88.8 (Ref Range: 80.0-98.0 fL) Mean Corpuscular Hemoglobin 29.6 (Ref Range: 27.0-33.0 pg) 29.5 (Ref Range: 27.0-33.0 pg) 29.7 (Ref Range: 27.0-33.0 pg) Mean Corpuscular HGB Conc 33.6 (Ref Range: 31.0-35.0 g/dl) 33.4 (Ref Range: 31.0-35.0 g/dl) 33.4 (Ref Range: 31.0-35.0 g/dl) Red Cell Distribution Width 13.2 (Ref Range: 11.0-16.0 %) 13.3 (Ref Range: 11.0-16.0 %) 13.2 (Ref Range: 11.0-16.0 %) Platelet Count 270 (Ref Range: 160-400 X10*3/uL) 271 (Ref Range: 160-400 X10*3/uL) 304 (Ref Range: 160-400 X10*3/uL) Mean Platelet Volume 11.5 (Ref Range: 9.4-12.3 fL) 11.5 (Ref Range: 9.4-12.3 fL) 11.4 (Ref Range: 9.4-12.3 fL) Neutrophils Percent Auto 68.7 (Ref Range: 45-73 %) 65.0 (Ref Range: 45-73 %) 67.1 (Ref Range: 45-73 %) Imm Gran Pct Auto 0.5 H (Ref Range: 0.0-0.4 %) 0.4 (Ref Range: 0.0-0.4 %) 0.4 (Ref Range: 0.0-0.4 %) Lymphocytes Percent Auto 19.1 L (Ref Range: 20-40 %) 23.2 (Ref Range: 20-40 %) 21.2 (Ref Range: 20-40 %) Monocytes Percent Auto 9.0 (Ref Range: 2-11 %) 7.9 (Ref Range: 2-11 %) 8.6 (Ref Range: 2-11 %) Eosinophils Percent Auto 1.3 (Ref Range: 0-4 %) 1.7 (Ref Range: 0-4 %) 1.3 (Ref Range: 0-4 %) Basophils Percent Auto 1.4 (Ref Range: 0-2 %) 1.8 (Ref Range: 0-2 %) 1.4 (Ref Range: 0-2 %) NRBC Pct Auto 0.0 (Ref Range: 0.0-0.2 /100WBC) 0.0 (Ref Range: 0.0-0.2 /100WBC) 0.0 (Ref Range: 0.0-0.2 /100WBC) Neutrophils Absolute Auto 5.8 (Ref Range: 2.0-8.3 x10*3/uL) 6.0 (Ref Range: 2.0-8.3 x10*3/uL) 6.7 (Ref Range: 2.0-8.3 x10*3/uL) Imm Gran Abs Auto 0.04 H (Ref Range: 0.00-0.03 X10*3/uL) 0.04 H (Ref Range: 0.00-0.03 X10*3/uL) 0.04 H (Ref Range: 0.00-0.03 X10*3/uL) Lymphocytes Absolute Auto 1.6 (Ref Range: 1.2-4.9 X10*3/uL) 2.1 (Ref Range: 1.2-4.9 X10*3/uL) 2.1 (Ref Range: 1.2-4.9 X10*3/uL) Monocytes Absolute Auto 0.8 (Ref Range: 0.1-1.2 X10*3/uL) 0.7 (Ref Range: 0.1-1.2 X10*3/uL) 0.9 (Ref Range: 0.1-1.2 X10*3/uL) Eosinophils Absolute Auto 0.1 (Ref Range: 0.0-0.4 X10*3/uL) 0.2 (Ref Range: 0.0-0.4 X10*3/uL) 0.1 (Ref Range: 0.0-0.4 X10*3/uL) Basophils Absolute Auto 0.1 (Ref Range: 0.0-0.2 X10*3/uL) 0.2 (Ref Range: 0.0-0.2 X10*3/uL) 0.1 (Ref Range: 0.0-0.2 X10*3/uL) NRBC Abs Auto 0.000 (Ref Range: 0.0-0.012 X10*3/uL) 0.000 (Ref Range: 0.0-0.012 X10*3/uL) 0.000 (Ref Range: 0.0-0.012 X10*3/uL) * Examination: G eneral Examination: GENERAL APPEARANCE: p leasant, well nourished, well developed, in no acute distress, calm and relaxed, overweight, elderly woman. HEAD: a traumatic, normocephalic, Skin of the right side of her face is unremarkable. EYES: e abdon, perrla, anicteric, conjugate. EARS: n ormal. NOSE: s eptum intact, 3 small scabs on the skin of the right side of her nose with no significant erythema or discharge, The nasal septum isseverely deviated To the right and vigilance duction past that is not possible. ORAL CAVITY: n ormal, unremarkable. NECK/THYROID: n o jugular venous distention, no carotid bruit, thyroid normal. LYMPH NODES: n o enlarged lymph nodes,spleen normal. SKIN: n o suspicious lesions, anicteric. HEART: n o clicks, gallops, murmurs, or rubs, regular rhythm, S1, S2 normal, no s3, or vascular bruits. LUNGS: c lear to auscultation . BREASTS: N ot examined. ABDOMEN: b owel sounds normal, no ascites, no organomegaly, no mass. RECTAL EXAM: n ot examined. MUSCULOSKELETAL: e xtremities unremarkable, no clubbing, cyanosis or edema. PERIPHERAL PULSES: n ormal. NEUROLOGIC: a lert and oriented, cranial nerves 2-12 grossly intact, deep tendon reflexes 2+ symmetrical, motor strength normal upper and lower extremities, sensory exam intact. PSYCH: a lert, oriented. - : N ose examination:The doctor observed that the patient's septum is deviated. Assessment: * Assessment: 1. 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 The lymphoma is well controlled on current medication which was continued. 2 . R ight facial numbness - R20.0 N otes :She is a poor historian and her reports were often tangential. It seems she has a sensation of a lump in her right nares associated with numbness of the skin on the outside of the right side of her nose. SShe does have 3 small scabs On the skin of the right side of her nose but the appearance is not that of Herpes zoster. There is no nasal discharge. She has a severely deviated right septum. I've given her an antibiotic and close follow-up. She seems medically stable at this time. 3 . N ormochromic normocytic anemia - D64.9 N otes :He kind CBC shows that her anemia has resolved.Her hematocrit and hemoglobin are now in the normal range. 4 . E ssential hypertension - I10 N otes :Her blood pressure continues to be controlled. 5 . O verweight - E66.3 N otes :She has gained 5 pounds. We discussed diet and nutrition today. I recommended she stabilize her weight at this level and not gaining further weight. 6 . C hronic kidney disease (CKD) stage G3b/A2, moderately decreased glomerular filtration rate (GFR) between 30-44 mL/min/1.73 square meter and albuminuria creatinine ratio between 30-299 mg/g - N18.32 N otes :Her GFR is over 60 and her BUN and creatinine are now 13 and 0.89. This problem has resolved. 7 . C oronary artery disease involving autologous artery coronary bypass graft without angina pectoris - I25.810 N otes :She is asymptomatic at this time her current regimen will be continued. She denies any recent syncope chest pain, angina or nausea or vomiting. 8 . M acroglobulinemia - C88.0 N otes :Her proteins have continued to decline. Plan: * Treatment: 2. E ssential hypertension Continue hydrALAZINE HCl Tablet, 50 MG, Oral. * Procedure Codes: * Preventive Medicine: Counseling: C are goal follow-up plan: Counseling for abnormal BMI given Y es Above Normal BMI Follow-up D ietary management education, guidance, and counseling, Dietary needs education * Follow Up: A fter Thanks weekend (Reason: To monitor the patient's nose symptoms and the effectiveness of the prescribed antibiotic) * Images: * Sign off status: Completed true * Provider: Jackelyn Bright MD Date: 05/28/2023 Generated for Printi ng/Faxing/eTransmitting on: 09:08 AM EDT History and Physical Notes * HPI (History of Present Illness) Category Sub-Category Detail Notes COVID-19 Screening Questions Have you had any new onset fever, chills, cough, congestion, sore throat, shortness of breath, muscle aches?: No Have you been exposed to the virus withi n the last 10 days?: No Have you travelled internationally in [facility] last 10 days?: No Have you been exposed to COVID-19 in the past?: No Examination Category Sub-Category Detail Notes General Examination GENERAL APPEARANCE: pleasant , well nourished, well developed, in no acute distress, calm and relaxed, overweight, elderly woman HEAD: atraumatic, normocep halic, Skin of the right side of her face is unremarkable EYES: eomi, perrla, anicte merrick, conjugate EARS: normal NOSE: septum intact, 3 sma ll scabs on the skin of the right side of her nose with no significant erythema or discharge, The nasal septum isseverely deviated To the right and vigilance duction past that is not possible NECK/THYROID: no jugular venous di stention, no [...] lesion s, anicteric PERIPHERAL PULSES: normal BREASTS: Not examined MUSCULOSKELETAL: extremities unremark able, no clubbing, cyanosis or edema LYMPH NODES: no enlarged lymph no mark,spleen normal RECTAL EXAM: not examined PSYCH: alert, oriented ORAL CAVITY: normal, unremarkable
--- OUTSIDE RECORDS SUMMARY | 2024-04-20 10:30 | XMS_ITS ---
Author Organization Giorgio Bright III, MD Address [address] [place] [address] Care Team Providers Care Chalk Tester Name Role Phone Tyler Maxwell MD Primary Care Provider Unavailab Dr. Giorgio Carrasco III Unavailable Allergies Allergen (clinical drug ingredient) Drug/Non Drug Allergy documented on EMR Reaction Allergy Type Onset Date Status sulfacetamide Sulfacetamide Unknown Drug Allergy Active REASON FOR VISIT Right facial numbness, Right ear pain, Right deviated septum, Follow plasmacytic lymphoma Medications Medication SIG (Take, Route, Frequency, Duration) Notes Start Date End Date Status Losartan Potassium 100 MG 1 tablet Orall y Once a day Active Metoprolol Tartrate 100 MG 1 tablet with food Orally Twice a day Active Omeprazole 20 MG 1 capsule 30 minutes before morning meal Orally Once a day Active hydrALAZINE HCl 50 MG Oral Active Naproxen 250 MG 1 tablet with food o r milk Orally Twice a day Active Furosemide 20 MG 1 tablet Orally Once a day Active Imbruvica 140 MG 3 capsules Orally On ce a day 02/23/2023 Active NIFEdipine ER 60 MG 1 tablet on an empty stomach Orally Once a day Active Social History [...] Points 0 Interpretation Negative Vital Signs Temperature 97.1 degrees Fahrenheit 04/20/20 24 Blood pressure systolic 136 mm Hg 12/13/20 24 Blood pressure diastolic 87 mm Hg 024 Heart Rate 70 /min 04/20/2024 Height 62 in 04/20/2024 Weight 151 lbs 04/20/2024 BMI 27.62 kg/m2 04/20/2024 Encounters Encounter Location Date Provider Diagnosis Giorgio Bright III, MD [address] [place] [address] [place] [address] 04/20/2024 Giorgio Bright Normochromic normocy tic anemia D64.9 ; Coronary artery disease involving autologous artery coronary bypass graft without angina pectoris I25.810 ; Essential hypertension I10 ; Overweight E66.3 ; Chronic kidney disease (CKD) stage G3b/A2, moderately decreased glomerular filtration rate (GFR) between 30-44 mL/min/1.73 square meter and albuminuria creatinine ratio between 30-299 mg/g N18.32 ; 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 04/20/2024 Coronary artery dise ase involving autologous artery coronary bypass graft without angina pectoris (ICD-10 - I25.810) She is asymptomatic at this time her current regimen will be continued. She denies any recent syncope chest pain, angina or nausea or vomiting. 04/20/2024 Essential hypertensi on (ICD-10 - I10) Her blood pressure continues to be controlled. 04/20/2024 Overweight (ICD-10 - E66.3) Her body mass index is 27.6 We discussed diet and nutrition today. I recommended she stabilize her weight at this level and not gaining further weight. 04/20/2024 Chronic kidney disea se (CKD) stage G3b/A2, moderately decreased glomerular filtration rate (GFR) between 30-44 mL/min/1.73 square meter and albuminuria creatinine ratio between 30-299 mg/g (ICD-10 - N18.32) Her GFR is over 60 and her BUN and creatinine are now 13 and 0.89. This problem has resolved. 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 The lymphoma is well controlled on current medication which was continued. 04/20/2024 Deviated nasal septu m (ICD-10 - J34.2) Her nasal septum is significantly deviated to the right. This likely causes a now resolving infection in her nasopharynx. She seems medically stable today and will be observed. Plan Of Treatment Medication Medication Name Sig Start Date Stop Date Notes Losartan Potassium 100 MG 1 tablet Orally Once a day Metoprolol Tartrate 100 MG 1 tablet with food Orally Twice a day Omeprazole 20 MG 1 capsule 30 minutes before morning meal Orally Once a day hydrALAZINE HCl 50 MG Oral Naproxen 250 MG 1 tablet with food o r milk Orally Twice a day Furosemide 20 MG 1 tablet Orally Once a day Imbruvica 140 MG 3 capsules Orally Once a day 02/23/2023 NIFEdipine ER 60 MG 1 tablet on an empty stomach Orally Once a day Next Appt Details Follow Up: 4 Weeks, Not spec ified, Reason: OV, Provider Name:Giorgio Bright , 03/13/2025 10:00:00 AM, [address] [place] [address], [address], Progress Notes * ARIEL DEANDOB: [birth year] (83 yo F)Acc No.[id number]:04/20/2024 Progress Notes Patient: ARIEL YORK Provider: Jackelyn Bright MD :1940 A ge:83 Y S ex:Female Date:04/20/2024 Address:[address] [place] [id number] Pcp:Tyler Maxwell MD Subjective: * Chief Complaints: * R ight facial numbnessRight ear painRight deviated septumFollow plasmacytic lymphoma * HPI: C OVID-19 Screening: Questions H ave you had any new onset fever, chills, cough, congestion, sore throat, shortness of breath, muscle aches? N o * : The patient, an 83-year-old female, reported a decrease in the severity of the numbness on her face and the bump inside her nose that she had been experiencing for the past three weeks. She also mentioned having headaches and earaches, and a feeling of discomfort in her eye socket, which she said were slowly improving. The patient reported some difficulty in breathing through both sides of her nose, and a feeling of stuffiness on one side. She also mentioned that she has been experiencing trouble swallowing. The patient did not report any double vision. The doctor noted that the patient's blood work was normal. She has a significant deviation of the septum to the right are gradually improving. This does not appear to the due to lymphoma progression. If it does not completely clear she may need to have a CT scan of the skull. * ROS: G eneral/Constitutional: pain M ild pain right ear. C hills d enies. F atigue a dmits. F ever d enies. E NT: Decreased hearing d enies. R espiratory: Cough d enies. C ardiovascular: [...] history * Family History: F ather: 59 yrs. M other: 87 yrs. S iblings: alive. 1 brother(s) , 2 sister(s) . 3 [...] N egative S he was born in [place], [place] and came to [place] at the age of 6. 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 He is retired. She has no yarsanism objection to blood transfusion. The patient mentioned that she has a dog. {'Family Losses': 'Patient lost two sisters and one brother within 13 months.'}. * Medications: T akingNaproxen 250 MG Tablet [...] * Vitals: H t: 62, Wt:151, BMI:27.62, BP:136/87, HR:70, Temp:97.1, Wt-k.49. * P ast Orders: Lab:Complete Blood Count [...] X10*3/uL) 0.000 (Ref Range: 0.0-0.012 X10*3/uL) * Lab:Jihan Tracey Radha l Fast * Collection Date 02/03/2024 09/15/2021 [...] 10.3 H (Ref Range: 8.4-10.2 mg/dL) * Lab:Beta-2 Microglobulin, Se rum * Collection Date 02/03/2024 10/28/2023 02/02/2023 Collection Time 08:14 AM 09:10 AM 10:27 AM Order Date 02/03/2024 10/28/2023 02/02/2023 Beta-2 Microglobulin, Serum 2.80 A (Ref Range: < OR = 2.51 mg/L) 2.65 A (Ref Range: < OR = 2.51 mg/L) 4.32 A (Ref Range: < OR = 2.51 mg/L) * Lab:Protein Electrophoresis, Serum * Collection Date [...] SEE NOTE SEE NOTE SEE NOTE * Lab:Viscosity * Collection Date 02/03/2024 07/26/2023 05/19/2023 Collection Time 08:14 AM 10:40 AM 10:20 AM Order Date 02/03/2024 07/26/2023 05/19/2023 Viscosity 1.7 (Ref Range: 1.5-1.9 rel to H2O) 1.6 (Ref Range: 1.5-1.9 rel to H2O) 1.8 (Ref Range: 1.5-1.9 rel to H2O) * Examination: G eneral Examination: GENERAL APPEARANCE: p leasant, well nourished, well developed, in no acute distress, calm and relaxed, overweight, elderly woman. HEAD: a traumatic, normocephalic. [...] sounds normal, no ascites, no organomegaly, no mass, overweight. RECTAL EXAM: n ot examined. MUSCULOSKELETAL: e xtremities unremarkable, no clubbing, cyanosis or edema. PERIPHERAL PULSES: n ormal. NEUROLOGIC: a lert and oriented, cranial nerves 2-12 grossly intact, deep tendon reflexes 2+ symmetrical, motor strength normal upper and lower extremities, sensory exam intact. PSYCH: a lert, oriented. - : { 'Nose Examination':'Patient has a deviated septum, causing difficulty in breathing.', 'Eye Examination': 'Normal', 'Breathing Test': 'No abnormalities detected.'}. Assessment: * Assessment: 1. C oronary artery disease involving autologous artery coronary bypass graft without angina pectoris - I25.810 (Primary) N otes :She is asymptomatic at this time her current regimen will be continued. She denies any recent syncope chest pain, angina or nausea or vomiting. 2 . N ormochromic normocytic anemia - D64.9 N otes :Her CBC shows that her anemia has resolved.Her hematocrit and hemoglobin are now in the normal range. 3 . E ssential hypertension - I10 N otes :Her blood pressure continues to be controlled. 4 . O verweight - E66.3 N otes :Her body mass index is 27.6 We discussed diet and nutrition today. I recommended she stabilize her weight at this level and not gaining further weight. 5 . C hronic kidney disease (CKD) stage G3b/A2, moderately decreased glomerular filtration rate (GFR) between 30-44 mL/min/1.73 square meter and albuminuria creatinine ratio between 30-299 mg/g - N18.32 N otes :Her GFR is over 60 and her BUN and creatinine are now 13 and 0.89. This problem has resolved. 6 . M alignant lymphoplasmacytic lymphoma - C83.00 N otes :Her CBC is unremarkable. The lymphoma is well controlled on current medication which was continued. 7 . D eviated nasal septum - J34.2 N otes :Her nasal septum is significantly deviated to the right. This likely causes a now resolving infection in her nasopharynx. She seems medically stable today and will be observed. Plan: * Treatment: 2. E ssential hypertension Continue hydrALAZINE HCl Tablet, 50 MG, Oral. * Procedure Codes: * Preventive Medicine: Counseling: C are goal follow-up plan: Counseling for abnormal BMI given Y es Above Normal BMI Follow-up D ietary management education, guidance, and counseling, Dietary needs education * Follow Up: 4 Weeks, Not specified (Reason: OV, ) * Images: * Sign off status: Completed true * Provider: Jackelyn Bright MD Date: 06/21/2023 Generated for Lornei alondra/Regino/eTransmitting on: 09:09 AM EDT History and Physical Notes * HPI (History of Present Illness) Category Sub-Category Detail Notes COVID-19 Screening Questions Have you had any new onset fever, chills, cough, congestion, sore throat, shortness of breath, muscle aches?: No Examination Category Sub-Category Detail Notes General Examination GENERAL APPEARANCE: pleasant , well nourished, well developed, in no acute distress, calm and relaxed, overweight, elderly woman HEAD: atraumatic, normocep halic EYES: eomi, perrla, anicte merrick, conjugate EARS: normal NOSE: septum intact NECK/THYROID: no jugular venous di stention, no carotid bruit, thyroid normal HEART: no clicks, gallops, murmurs, or rubs, regular rhythm, S1, S2 normal, no s3, or vascular bruits LUNGS: clear to auscultatio n ABDOMEN: bowel sounds normal, no ascites, no organomegaly, no mass, overweight NEUROLOGIC: alert and oriented, cranial nerves [...]
--- OUTSIDE RECORDS SUMMARY | 2024-05-11 05:00 | XMS_ITS ---
Author Organization Giorgio Bright III, MD Address [address] [place] [address] Care Team Providers Care Ct Manager Name Role Phone Tyler Maxwell MD Primary Care Provider Unavailab Dr. Giorgio Carrasco III Unavailable Allergies Allergen (clinical drug ingredient) Drug/Non Drug Allergy documented on EMR Reaction Allergy Type Onset Date Status sulfacetamide Sulfacetamide Unknown Drug Allergy Active REASON FOR VISIT Follow up Medications Medication SIG (Take, Route, Frequency, Duration) Notes Start Date End Date Status Imbruvica 140 MG 3 capsules Orally On a day 02/23/2023 Active NIFEdipine ER 60 MG 1 tablet on an empty stomach Orally Once a day Active Furosemide 20 MG 1 tablet Orally Once a day Active Omeprazole 20 MG 1 capsule 30 minutes before morning meal Orally Once a day Active Losartan Potassium 100 MG 1 tablet Orall y Once a day Active hydrALAZINE HCl 50 MG Oral Active Naproxen 250 MG 1 tablet with food o r milk Orally Twice a day Active Metoprolol Tartrate 100 MG 1 tablet with food Orally Twice a day Active Social History Tobacco Use: Social History Observation Description Date Details (start date - stop date) Never Smoker NA - NA Sex Assigned At : Social History Observation Description Sex Assigned At Female Tobacco Use/Smoking Question Answer Notes Patient is a nonsmoker Additional Findings: Tobacco Non-User Aggressive non-smoker Encounters Encounter Location Date Provider Diagnosis Giorgio Bright III, MD [address] [place] [address] [place] [address] 05/11/2024 Giorgio Bright Normochromic normocytic anemia D64.9 and Essential hypertension I10 Assessments Encounter Date Diagnosis (ICD Code) Assessment Notes Treat ment Notes Treatment Clinical Notes 05/11/2024 Normochromic normocytic anemia (ICD-10 - D64.9) Her CBC shows that her anemia has resolved.Her hematocrit and hemoglobin are now in the normal range. 05/11/2024 Essential hypertension (ICD-10 - I10) Her blood pressure continues to be controlled. Plan Of Treatment Medication Medication Name Sig Start Date Stop Date Notes Imbruvica 140 MG 3 capsules Orally Once a day 02/23/2023 NIFEdipine ER 60 MG 1 tablet on an empty stomach Orally Once a day Furosemide 20 MG 1 tablet Orally Once a day Omeprazole 20 MG 1 capsule 30 minutes before morning meal Orally Once a day Losartan Potassium 100 MG 1 tablet Orally Once a day hydrALAZINE HCl 50 MG Oral Naproxen 250 MG 1 tablet with food o r milk Orally Twice a day Metoprolol Tartrate 100 MG 1 tablet with food Orally Twice a day Next Appt Details Provider Name:Giorgio Torresne , 03/13/2025 10:00:00 AM, [address] [place] [address], [address], Progress Notes * ARIEL DEANDOB: [birth year] (84 yo F)Acc No.[id number]:05/11/2024 Progress Notes Patient: ARIEL YORK Provider: Jackelyn Bright MD :1940 A ge:83 Y S ex:Female Date:05/11/2024 Address:[address] [place], [place] [id number] Pcp:Tyler Maxwell MD Subjective: * Chief Complaints: * 1 . Follow up. * HPI: C OVID-19 Screening: Questions H ave you had any new onset fever, chills, cough, congestion, sore throat, shortness of breath, muscle aches? N o * ROS: G eneral/Constitutional: pain o nly normal aches and pains. C hills d enies.?Fatigue a dmits. F ever d enies. E NT: Decreased hearing d enies. R espiratory: Cough d enies. C ardiovascular: Chest pain with exertion d enies. D yspnea on exertion?denies. S hortness of breath d enies. G astrointestinal: Constipation d enies. D ecreased appetite d enies.?Diarrhea d enies. H eartburn d enies. N ausea d enies. R ectal bleeding?denies. V omiting d enies. H ematology: bruising [...] Depressed mood d enies. * Medical History: H TN (hypertension), GERD (gastroesophageal reflux disease), CKD (chronic kidney disease), Normochromic normocytic anemia, monoclonal IgM gammopathy, Hyperviscosity of serum, History of diverticulitis, History of herpes zoster, DJD, Coronary artery disease, Allergic rhinitis, Overweight, The patient has a history of lymphoma., Nasal septum deviated to the right, No history. * Surgical History: b ilateral cataract extractions , biopsy, right breast, benign disease , tendon release, wrist , dental extractions , [facility] Dr. Bright 10/14/20, No history . * Hospitalization/Major Diagno stic Procedure: N o history . * Family History: F ather: 59 yrs. [...] ggressive non-smoker S he was born in [place], [place] and came to [place] at the age of 6. 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 He is retired. She has no amish objection to blood transfusion. The patient mentioned that she has a dog. {'Family Losses': 'Patient lost two sisters and one brother within 13 months.'}. * Medications: T aking Naproxen 250 MG Tablet 1 tablet with food or milk Orally Twice a day , Taking Metoprolol Tartrate 100 MG Tablet 1 tablet with food Orally Twice a day , Taking Losartan Potassium 100 MG Tablet 1 tablet Orally Once a day , Taking Omeprazole 20 MG Capsule Delayed Release 1 capsule 30 minutes before morning meal Orally Once a day , Taking Furosemide 20 MG Tablet 1 tablet Orally Once a day , Taking NIFEdipine ER 60 MG Tablet Extended Release 24 Hour 1 tablet on an empty stomach Orally Once a day , Taking Imbruvica 140 MG Capsule 3 capsules Orally Once a day , Taking hydrALAZINE HCl 50 MG Tablet Oral , Medication List reviewed and reconciled with the patient * Allergies: S ulfacetamide. Objective: * Vitals: * Examination: G eneral Examination: GENERAL APPEARANCE: p leasant, well nourished, well developed, in no acute distress, calm and relaxed. HEAD: a traumatic, normocephalic. EYES: e abdon, [...] LUNGS: c lear to auscultation . BREASTS: no masses palpable bilaterally. ABDOMEN: b owel sounds normal, no ascites, [...] 1. N ormochromic normocytic anemia - D64.9 N otes :Her CBC shows that her anemia has resolved.Her hematocrit and hemoglobin are now in the normal range. 2 . E ssential hypertension - I10 N otes :Her blood pressure continues to be controlled. Plan: * Treatment: 2. E ssential hypertension Continue hydrALAZINE HCl Tablet, 50 MG, Oral. * Images: * The named appointment provid er may or may not be the originator of this progress note, and it is not deemed complete until electronically signed by the appointment provider. Sign off status: Pending * Provider: Jackelyn Bright MD Date: 0 05/11/2024 Generated for Claude cantu/Regino/eTransmitting on: 1 09:09 AM EDT History and Physical Notes * HPI (History of Present Illness) Category Sub-Category Detail Notes COVID-19 Screening Questions Have you had any new onset fever, chills, cough, congestion, sore throat, shortness of breath, muscle aches?: No Examination Category Sub-Category Detail Notes General Examination GENERAL APPEARANCE: pleasant , well nourished, well developed, in no acute distress, calm and relaxed HEAD: atraumatic, normocep halic EYES: eomi, perrla, [...] lesion s, anicteric PERIPHERAL PULSES: normal BREASTS: no masses palpable b ilaterally MUSCULOSKELETAL: extremities unremark able, no clubbing, cyanosis or edema LYMPH NODES: no enlarged lymph no mark,spleen normal RECTAL EXAM: not examined PSYCH: alert, oriented ORAL CAVITY: normal, unremarkable
--- OUTSIDE RECORDS SUMMARY | 2024-06-12 05:45 | XMS_ITS ---
Author Organization Giorgio Bright III, MD Address [address] [place] [address] Care Team Providers Care Actuary Manager Name Role Phone Tyler Maxwell MD Primary Care Provider Unavailab Dr. Giorgio Carrasco III Unavailable [phone] Allergies Allergen (clinical drug ingredient) Drug/Non Drug [...] Date Provider Diagnosis Giorgio Bright III, MD [address] [place] [address] [address] [place] [address] 06/12/2024 Giorgio Bright Normochromic normocy tic anemia [...] ov review labs, Regular check-up Provider Name:Giorgio Bright , 03/13/2025 10:00:00 AM, [address] [place] [address] [address], [place], [address], Progress Notes * ARIEL DEANDOB: [birth year] (83 yo F)Acc No.[id number]:06/12/2024 Patient: AIREL YORK Provider: Jackelyn Bright MD :1940 A ge:83 Y S ex:Female Date:06/12/2024 Address:[address] [place] [phone] Pcp:Tyler Maxwell MD Subjective: * Chief Complaints: * L ymphoplasmacytic lymphomaHyperviscosityAnemiaChronic renal diseaseCoronary artery diseaseHypertension * HPI: * : Telehealth L ocation of provider rendering services: { ...} [address] [place] [address] Drive [address] [facility] [address] L ocation of patient: true peoples listed in demographics for today's visit P atient identification confirmed using: LOGAN Johnson ame T elehealth method: T elephone only. [...] ggressive non-smoker S he was born in [place], [place] and came to [place] at the age of 6. 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 He is retired. She has no oriental orthodox objection to blood transfusion. The patient mentioned [...] 151 (Ref Range: 122-220 U/L) * Lab:Comprehensive [place]. Pane l Fast * Collection Date 06/02/2024 [...] 0 06/12/2024 Generated for Claude cantu/Regino/Shmuelitting on: 1 09:07 AM EDT History and Physical Notes * HPI (History of Present Illness) Category Sub-Category Detail Notes Telehealth Location of located within [facility] rendering services:: {...} 10 [facility] [address] [place], [place] [id number] Location of patient:: address listed in demographics [...]
--- OUTSIDE RECORDS SUMMARY | 2024-09-11 06:30 | XMS_ITS ---
Author Organization Giorgio Bright III, MD Address [address] [place] [address] Care Team Providers Care Excavating Contractor Name Role Phone Tyler Maxwell MD Primary Care Provider Unavailab Dr. Giorgio Carrasco III Unavailable [phone] Allergies Allergen (clinical drug ingredient) Drug/Non Drug Allergy documented on EMR Reaction Allergy Type Onset Date Status sulfacetamide Sulfacetamide Unknown Drug Allergy Active REASON FOR VISIT Lymphoplasmacytic lymphoma, Monoclonal gammopathy, Coronary artery disease, Chronic renal disease Medications Medication SIG (Take, Route, Frequency, Duration) Notes Start Date End Date Status hydrALAZINE HCl 50 MG Oral Active Imbruvica 140 MG 3 capsules Orally On a day 02/23/2023 Active Losartan Potassium 100 MG 1 tablet [...] Tobacco Non-User Aggressive non-smoker Vital Signs Temperature 97.8 degrees Fahrenheit 09/12/19 25 Blood pressure systolic 130 mm Hg 09/12/19 25 Blood pressure diastolic 66 mm Hg 05/06/2 025 Heart Rate 70 /min 09/11/2024 Height 62 in 09/11/2024 Weight 146 lbs 09/11/2024 BMI 26.7 kg/m2 09/11/2024 Encounters Encounter Location Date Provider Diagnosis Giorgio Bright III, MD [address] [place] [address] [address] [place], [place] [address] 09/11/2024 Giorgio Bright Normochromic normocy tic anemia D64.9 ; Malignant lymphoplasmacytic lymphoma C83.00 ; Essential hypertension I10 ; Hyperviscosity D75.9 ; Coronary artery disease involving autologous artery coronary bypass graft without angina pectoris I25.810 ; Overweight E66.3 ; Macroglobulinemia C88.0 and Hypercalcemia E83.52 Assessments Encounter Date Diagnosis (ICD Code) Assessment Notes Treat ment Notes Treatment Clinical Notes 09/11/2024 Normochromic normocy tic anemia (ICD-10 - D64.9) Her CBC shows that her anemia has resolved.Her hematocrit and hemoglobin are now in the normal range. 09/11/2024 Malignant lymphoplasmacytic lymphoma (ICD-10 - C83.00) Her disease seems control with current therapy. Her blood work and physical examination today consistent with remission. 09/11/2024 Essential hypertensi on (ICD-10 - I10) Her blood pressure continues to be controlled.It is 130/66 and no change in her medication is needed. 09/11/2024 Hyperviscosity (ICD- 10 - D75.9) She is no longer hyperviscous. Her IgM level has fallen slightly. No change in her regimen as necessary. 09/11/2024 Coronary artery dise ase involving autologous artery coronary bypass graft without angina pectoris (ICD-10 - I25.810) She is asymptomatic at this time her current regimen will be continued. She denies any recent syncope chest pain, angina or nausea or vomiting. 09/11/2024 Overweight (ICD-10 - E66.3) Her body mass index is 27.6 We discussed diet and nutrition today. I recommended she stabilize her weight at this level and not gaining further weight. 09/11/2024 Macroglobulinemia (ICD-10 - C88.0) Her proteins have continued to decline. 09/11/2024 Hypercalcemia (ICD-1 0 - E83.52) Her calcium is now in the normal range and no change in therapy is needed. Plan Of Treatment Medication Medication Name Sig Start Date Stop Date Notes hydrALAZINE HCl 50 MG Oral Imbruvica 140 MG 3 capsules Orally Once a day 02/23/2023 Losartan Potassium 100 MG 1 tablet Orally [...] an empty stomach Orally Once a day Pending Test Test Name Order Date Echocardiogram 09/11/2024 Next Appt Details Follow Up: 3 Months, Reason: ov review labs Provider Name:Giorgio Bright , 03/13/2025 10:00:00 AM, [address] [place] [address], [address], Progress Notes * ARIEL DEANDOB: [birth year] (83 yo F)Acc No.[id number]:09/11/2024 Progress Notes Patient: ARIEL YORK Provider: Jackelyn Bright MD :1940 A ge:83 Y S ex:Female Date:09/11/2024 Address:[address] [place], [place] [phone] Pcp:Tyler Maxwell MD Subjective: * Chief Complaints: * L ymphoplasmacytic lymphomaMonoclonal gammopathyCoronary artery diseaseChronic renal disease * HPI: C OVID-19 Screening: She returns for ongoing evaluation of the lymphoma. Since her last visit she had a fall in June of this year. She was taken the hospital and had x-rays but no fractures were found. She has recovered completely. She feels unsteady when she is walking and has a cane and a walker. She has had no further falls. She denies any trouble breathing. Blood work done September 04, 2024 showed white count 8.5 hematocrit 38.3 platelets 273 glucose 94 BUN 11 creatinine 0.79 calcium 9.2 total protein 6.8 cholesterol 150. The abnormal protein on the protein electrophoresis was 0.6 which was an improvement. IgG was 362 IgA was 30 IgM was improved at 1054. Monoclonal protein was IgM. Questions H ave you had any new [...] ggressive non-smoker S he was born in [place], [place] and came to [place] at the age of 6. 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 He is retired. She has no druze objection to blood transfusion. The patient mentioned [...] Verified] Objective: * Vitals: H t: 62, Wt:146, BMI:26.7, BP:130/66, HR:70, Temp:97.8, Wt-k.22. * Examination: G eneral Examination: GENERAL APPEARANCE: [...] otes :Her blood pressure continues to be controlled.It is 130/66 and no change in her medication is needed. 4 . H yperviscosity - D75.9 N otes :She is no longer hyperviscous. Her IgM level has fallen slightly. No change in her regimen as necessary. 5 . C oronary artery disease involving autologous artery coronary bypass graft without angina pectoris - I25.810 N otes :She is asymptomatic at this time her current regimen will be continued. She denies any recent syncope chest pain, angina or nausea or vomiting. 6 . O verweight - E66.3 N otes :Her body mass index is 27.6 We discussed diet and nutrition today. I recommended she stabilize her weight at this level and not gaining further weight. 7 . M acroglobulinemia - C88.0 N otes :Her proteins have continued to decline. 8 . H ypercalcemia - E83.52 N otes :Her calcium is now in the normal range and no change in therapy is needed. Plan: * Treatment: 2. E ssential hypertension Continue hydrALAZINE HCl Tablet, 50 MG, Oral. L AB: PROFILE, RANDOM (COMPREHENSIVE METABOLIC) L AB: CBC w DIFF L AB: IMMUNOFIXATION PANEL, SERUM (IEP) L AB: PROTEIN ELECTROPHORESIS, SERUM I maging: Echocardiogram * Procedure Codes: * Preventive Medicine: Counseling: C are goal follow-up plan: Counseling for abnormal BMI given Y es Above Normal BMI Follow-up D ietary management education, guidance, and counseling, Dietary needs education * Follow Up: 3 Months (Reason: ov review labs) * Images: * Sign off status: Completed true * Provider: Jackelyn Bright MD Date: 0 09/11/2024 Generated for Claude cantu/Regino/Shmuelitting on: 09:08 AM EDT History and Physical [...]
--- OUTSIDE RECORDS SUMMARY | 2024-11-07 11:11 | XMS_ITS ---
Author Organization Giorgio Bright III, MD Address [address] [place] [address] [place] [address] Care Team Providers Care Supervisor Bit And Shank Department Name Role Phone Tyler Maxwell MD Primary Care Provider UnavailDr. Giorgio Carrera III Unavailable REASON FOR VISIT Rx Request Social History Sex Assigned At : Social History Observation Description Sex Assigned At Female Encounters Encounter Location Date Provider Diagnosis Giorgio Bright III, MD [address] [place] [address] [place] [address] 11/07/2024 Giorgio Bright Plan Of Treatment Next Appt Details Provider Name:Giorgio Bright , 03/13/2025 10:00:00 AM, [address] [place] [address] [place], [address], Progress Notes * ARIEL DEANDOB: [birth year] (83 yo F)Acc No.[id number]:11/07/2024 Patient: ARIEL YORK :1940 A ge:83 Y S ex:Female Address:[address], [address] * true * Date: Generated for Lornei ng/Fadeeg/eTransmitting on: 09:08 AM EDT
--- OUTSIDE RECORDS SUMMARY | 2024-12-11 06:30 | XMS_ITS ---
Author Organization Giorgio Bright III, MD Address [address] [place] [address] Care Team Providers Care Automatic Oven Operator Name Role Phone Tyler Maxwell MD [...] 25 Blood pressure diastolic 49 mm Hg 025 Heart Rate 67 /min 12/11/2024 Height 62 in 12/11/2024 Weight 144 lbs 12/11/2024 BMI 26.34 kg/m2 12/11/2024 Encounters Encounter Location Date Provider Diagnosis Giorgio Bright III, MD [address] [place] [address] [address] [place], [place] [id number] 12/11/2024 Giorgio Bright Normochromic normocy tic anemia [...] Months, Reason: ov review labs Provider Name:Giorgio Torresne , 03/13/2025 10:00:00 AM, [address] [place] [address], [address], Progress Notes * ARILE DEANDOB: [birth year] (84 yo F)Acc No.[id number]:12/11/2024 Progress Notes Patient: ARIEL YORK Provider: Jackelyn Bright MD :1940 A ge:84 Y S ex:Female Date:12/11/2024 Address:[address] [place], [place] [id number] Pcp:Tyler Maxwell MD Subjective: * Chief Complaints: [...] ggressive non-smoker S he was born in [place], [place] and came to [place] at the age of 6. 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 He is retired. She has no catholic objection to blood transfusion. The patient mentioned [...] * Provider: Jackelyn Bright MD Date: 0 12/11/2024 Generated for Claude cantu/Regino/Shmuelitting on: 09:09 AM EDT History and Physical [...]
[2025-03-06 08:48] LABS: MANUAL DIFF FLAG NO
--- OUTSIDE RECORDS SUMMARY | 2025-03-06 09:09 | XMS_ITS | Patient Health Record ---
Author Organization Giorgio Bright III, MD Address [address] [place] [address] Care Team Providers Care Certification Technician Name Role Phone Tyler Maxwell MD Primary Care Provider Unavailab Dr. Giorgio Carrasco III Unavailable Allergies Allergen (clinical drug ingredient) Drug/Non Drug Allergy documented on EMR Reaction Allergy Type Onset Date Status sulfacetamide Sulfacetamide Unknown Drug Allergy Active Results Component Value Reference Range Notes Complete Blood Count Auto Di ff Reviewed date:06/03/2024 02:19:33 PM Interpretation: Performing Lab:[facility], [address] [place] [phone] Notes/Report: White Blood Count 7.9 4.8-10.8 X10*3/uL [...] NRBC Abs Auto 0.000 0.0-0.012 X10*3/uL Comprehensive [facility]. Panel Fa st Reviewed date:06/03/2024 02:19:33 PM Interpretation: Performing Lab:[facility], [address] [place] [phone] Notes/Report: Sodium 143 135-145 mmol/L Potassium 3.7 [...] Dehydrogenase Reviewed date:06/03/2024 02:19:33 PM Interpretation: Performing Lab:[facility], [address] [place] [phone] Notes/Report: Lactate Dehydrogenase 198 122-220 U/L Protein Electrophoresis, Ser um Reviewed date:06/10/2024 09:00:19 AM Interpretation: Performing Lab:[facility], [address] [place] [phone] Notes/Report: Prot Elec - Total Protein 7.0 [...] be considered. THIS TEST WAS PERFORMED AT: [facility] [address] [place] [phone] ALCIRA AGUILAR MD Immunofixation Pnl, Serum Reviewed date:06/10/2024 09:00:19 AM Interpretation: Performing Lab:[address] [address] Notes/Report: IgG 288 044-6281 mg/dL IgA 25 70-320 mg/dL Verified by rep eat analysis. IgM 1136 50-300 mg/dL Verified by repeat analysis. THIS TEST WAS PERFORMED AT: [facility] [address] [place] [phone] ALCIRA AGUILAR MD Immunofixation Interpretation SEE NOTE IgM kappa monoclonal band present. Complete Blood Count Auto Di ff Reviewed date:12/05/2024 09:18:32 AM Interpretation: Performing Lab:[address] [address] Notes/Report: White Blood Count 9.2 4.8-10.8 X10*3/uL [...] Panel Reviewed date:12/05/2024 09:18:32 AM Interpretation: Performing Lab:[facility], [address] [place] [phone] Notes/Report: Sodium 144 135-145 mmol/L Potassium 4.1 [...] Magnesium Reviewed date:12/05/2024 09:18:32 AM Interpretation: Performing Lab:[address] [address] Notes/Report: Magnesium 1.8 1.6-2.6 mg/dL Lipid Panel Reviewed date:12/05/2024 09:18:32 AM Interpretation: Performing Lab:[address] [address] Notes/Report: Triglycerides 92 <150 mg/dL Desirable Triglyceride: [...] low results in patients with liver disease. Protein Electrophoresis, Ser um Reviewed date:02/25/2025 05:07:26 AM Interpretation: Performing Lab:[address] [address] Notes/Report: Prot Elec - Total Protein 6.6 [...] be considered. THIS TEST WAS PERFORMED AT: [facility] [address] [place] [phone] ALCIRA AGUILAR MD Immunofixation Pnl, Serum Reviewed date:02/25/2025 05:07:26 AM Interpretation: Performing Lab:[facility], [address] [place] [phone] Notes/Report: IgG 245 000-8291 mg/dL IgA 20 70-320 mg/dL Verified by rep eat analysis. IgM 994 50-300 mg/dL Verified by repeat analysis. THIS TEST WAS PERFORMED AT: [facility] [address] [place] [phone] ALCIRA AGUILAR MD Immunofixation Interpretation SEE NOTE [...] Problem Status W/U Status Risk Notes Problem 016622984 Overweight (E66.3) Active confirmed Her body mass index is 27.6 We discussed diet and nutrition today. I recommended she stabilize her weight at this level and not gaining further weight. Problem 51657417 Hypercalcemia (E83.52) Active confirmed Her calcium is now in the normal range at 9.2 and no change in therapy is needed. Problem 17357487 Essential hypertension (I10) Active confirmed Her blood pressure continues to be controlled and no change in her medication is needed. 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 There was no sign of disease on today's examination. No change in her regimen was made. Problem 845861439 Macroglobulinemi a (C88.0) Active confirmed Her proteins have continued to decline. Problem 81070702 Normochromic normocytic anemia (D64.9) Active confirmed Her CBC shows that her anemia has resolved.Her hematocrit and hemoglobin are now in the normal range. Problem 48615275 Hyperviscosity (D75.9) Active confirmed She is no longer hyperviscous. Her IgM level has fallen slightly. No change in her regimen as necessary. Problem 112166257 Chronic kidney disease (CKD) stage G3b/A2, moderately decreased glomerular filtration rate (GFR) between 30-44 mL/min/1.73 square meter and albuminuria creatinine ratio between 30-299 mg/g (N18.32) Active confirmed Her GFR is over 60 and her BUN and creatinine are now 13 and 0.89. This problem has resolved. 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 She denies any recent syncope chest pain, angina or nausea or vomiting. 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 We continue to follow this value periodically. No change in therapy is necessary. Problem 298699927 Aortic heart mur mur (I35.8) Active confirmed Vital Signs Heart Rate 67 /min 12/11/2024 Temperature 97.2 degrees Fahrenheit 12/11/2024 Blood pressure diastolic 49 mm Hg 12/11/2024 Height 62 in 12/11/2024 Blood pressure systolic 123 mm Hg 12/11/2024 Weight 144 lbs 12/11/2024 BMI 26.34 kg/m2 12/11/2024 Encounters Encounter Location Date Provider Diagnosis Giorgio Bright III, MD [address] [place] [address] [place] [address] 03/28/2024 Giorgio Bright Right facial numbnes s [...] and Macroglobulinemia C88.0 Giorgio Bright III, MD [address] [place] [address] [place] [address] 04/20/2024 Giorgio Bright Normochromic normocy tic anemia [...] nasal septum J34.2 Giorgio Bright III, MD [address] [place] [address] [place] [address] 06/12/2024 Giorgio Bright Normochromic normocy tic anemia D64.9 ; Malignant lymphoplasmacytic lymphoma C83.00 ; Essential hypertension I10 ; Hyperviscosity D75.9 and IgM monoclonal gammopathy of uncertain significance D47.2 Giorgio Bright III, MD [address] [place] [address] [place] [address] 09/11/2024 Giorgio Bright Normochromic normocy tic anemia D64.9 ; Malignant lymphoplasmacytic lymphoma C83.00 ; Essential hypertension I10 ; Hyperviscosity D75.9 ; Coronary artery disease involving autologous artery coronary bypass graft without angina pectoris I25.810 ; Overweight E66.3 ; Macroglobulinemia C88.0 and Hypercalcemia E83.52 Giorgio Bright III, MD [address] [place] [address] [place] [address] 12/11/2024 Giorgio Bright Normochromic normocy tic anemia D64.9 ; Malignant lymphoplasmacytic lymphoma C83.00 ; Essential hypertension I10 ; Overweight E66.3 ; Coronary artery disease involving autologous artery coronary bypass graft without angina pectoris I25.810 ; Macroglobulinemia C88.0 and Hypercalcemia E83.52 Giorgio Bright III, MD [address] [place] [address] [place] [address] 03/21/2024 Giorgio Bright III, MD [address] [place] [address] [place] [address] 11/07/2024 Giorgio Bright Assessments Encounter Date Diagnosis (ICD Code) Assessment Notes T reatment Notes Treatment Clinical Notes 03/28/2024 Malignant lymphoplasmacytic lymphoma (ICD-10 - C83.00) [...] are now in the normal range. 03/28/2024 Normochromic normocy tic anemia (ICD-10 - [...] no change in her medication is needed. 03/28/2024 Essential hypertensi on (ICD-10 - I10) [...] level and not gaining further weight. 03/28/2024 Overweight (ICD-10 - E66.3) She has [...] pain, angina or nausea or vomiting. 03/28/2024 Chronic kidney disea se (CKD) stage [...] Her proteins have continued to decline. 03/28/2024 Coronary artery dise ase involving autologous [...] LDH 12/11/2024 LDH 04/06/2023 CBC w DIFF 06/01/2023 CBC w DIFF 12/11/2024 CBC w DIFF 01/27/2023 CBC w DIFF 04/06/2023 SED RATE (ESR) 04/06/2023 IMMUNOFIXATION PANEL, SERUM (IEP) 2023 IMMUNOFIXATION PANEL, SERUM (IEP) 2022 IMMUNOFIXATION PANEL, SERUM (IEP) 2024 IMMUNOFIXATION PANEL, SERUM (IEP) 2022 PROTEIN ELECTROPHORESIS, SERUM 4 PROTEIN ELECTROPHORESIS, SERUM PROTEIN ELECTROPHORESIS, SERUM 3 PROTEIN ELECTROPHORESIS, SERUM 4 BETA-2 MICROGLOBULIN, SERUM 08/03/2023 BETA-2 MICROGLOBULIN, SERUM 01/27/2023 Echocardiogram 09/11/2024 CBC WITH AUTO DIFF 03/16/2023 CBC WITH AUTO DIFF 08/03/2023 Lipid Panel 12/11/2024 Beta-2 Microglobulin, Serum 12/11/2024 Immunofixation Pnl, Serum 08/03/2023 Viscosity 06/01/2023 Viscosity 04/06/2023 Next Appt Details Provider Name:Giorgio Torresne , 03/13/2025 10:00:00 AM, [address] [place] [address] [address], [place], [address], Insurance Providers Payer Name Payer Address Payer Phone Subscriber Number Group Number Insured Name Patient Relationship to Insured Coverage Start Date Coverage End Date MEDICARE NGS [address] [place] [address] [id number] ARIEL DEAN Self - patient is the insured [employer] [address] [address] [place], [place] [id number] ARIEL DEAN Self - patient is the [...]
[2025-03-06 09:22] LABS: Hematocrit 39.4 % (37.0-47.0); Hemoglobin 13.4 g/dl (12.0-16.0); Imm Gran Abs Auto 0.05 X10*3/uL (0.00-0.03); Imm Gran Pct Auto 0.5 % (0.0-0.4); Lymphocytes Absolute Auto 2.2 X10*3/uL (1.2-4.9); Mean Corpuscular HGB Conc 34.0 g/dl (31.0-35.0); Mean Corpuscular Hemoglobin 30.1 pg (27.0-33.0); Mean Corpuscular Volume 88.5 fL (80.0-98.0); NRBC Abs Auto 0.000 X10*3/uL (0.0-0.012); NRBC Pct Auto 0.0 /100WBC (0.0-0.2); Platelet Count 300 X10*3/uL (160-400); Red Blood Count 4.45 X10*6/uL (4.20-5.50); White Blood Count 10.6 X10*3/uL (4.8-10.8)
[2025-03-06 10:01] LABS: Alanine Aminotransferase 12 U/L (0-31); Albumin Level 4.7 g/dL (3.5-5.0); Alkaline Phosphatase 68 U/L (39-117); Anion Gap 12 (12-20); Aspartate Amino Transferase 22 U/L (5-31); Blood Urea Nitrogen 12 mg/dL (9-16); Calcium 9.5 mg/dL (8.4-10.2); Carbon Dioxide 30 mmol/L (22-29); Chloride 106 mmol/L (96-108); Cholesterol 166 mg/dL (<200); Estimated Glomerular Filt Rate > 60; HDL Cholesterol 49 mg/dL (>40); Potassium 3.9 mmol/L (3.3-5.1); Sodium 144 mmol/L (135-145); Total Protein 7.2 g/dL (6.5-8.0); Triglycerides 97 mg/dL (<150)
== END 2025-03-06 08:36 | disposition home or self-care (01) ==
LOC: HO.LAB 08:35
PROVIDERS: PCP Physician Assistant Medical; Visit Provider Internal Medicine Medical Oncology
DX: Z01.84 Encounter for antibody response examination (principal); D47.2 Monoclonal gammopathy; D64.9 Anemia, unspecified; C83.00 Small cell B-cell lymphoma, unspecified site; D75.9 Disease of blood and blood-forming organs, unspecified; I10 Essential (primary) hypertension
CPT/HCPCS: 36415; 80053; 80061; 82232; 82784; 83615; 85025; 86334